=== PATIENT | female | born 1960 | race Caucasian/White ===

== ENCOUNTER 2023-10-05 09:00 | Outpatient (OUT) | payer BC, SELFPAY ==
--- NOTE | 2023-10-05 09:19 | US_ITS ---
[facility] [id number] Patient Name: LALY OLVERA MRN: [id number] date: 1960 Sex: F Assigned Patient Location: US Current Patient Location: US Accession/Order Number: [id number] Exam Date: 10/05/2023 09:20 Report Date: 10/05/2023 13:27 At the request of: PAMELLA WEISS Procedure: US renal BI US renal BI, 10/05/2023 9:20 AM EST INDICATION: Kidney Stone N20.0 COMPARISON: Prior CT of abdomen dated 06/09/2022 FINDINGS: The kidneys measure 11.5 x 5.6 x 5.5 cm on the right and 11 x 4.6 x 4.8 cm on the left side. No hydronephrosis is noted. Normal vascularity of kidneys. Simple cysts in the superior pole of the right kidney measuring 6 mm and inferior pole of the left kidney measures 1.4 cm. 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 The visualized portion of the urinary bladder is unremarkable. Prevoid volume of urinary bladder is 200 mL. US/US renal BI IMPRESSION: No nephrolithiasis is noted. Electronically authenticated by: KRISTEN FRANKLIN Date: 10/05/2023 13:27
== END 2023-10-05 09:01 | disposition home or self-care (01) ==
PROVIDERS: PCP Family Medicine; Visit Provider Urology
DX: N20.0 Calculus of kidney (principal)
CPT/HCPCS: 76775

== ENCOUNTER 2024-02-07 16:37 | Outpatient (OUT) | payer BC, SELFPAY ==
[2024-02-07 17:02] LABS: Estimated Average Glucose 148 mg/dL; Glycohemoglobin A1C 6.8 % (4.5-6.2)
== END 2024-02-07 16:38 | disposition home or self-care (01) ==
LOC: LAB 16:39
PROVIDERS: PCP Family Medicine; Visit Provider Family Medicine
DX: E11.8 Type 2 diabetes mellitus with unspecified complications (principal)
CPT/HCPCS: 36415; 83036

== ENCOUNTER 2024-04-16 10:38 | Emergency (ER) | payer BC, SELFPAY ==
[2024-04-16 10:43] VITALS: BP 153/88; PULSE 79; TEMP 36.4; O2SAT 100; BMI 39.7
--- NOTE | 2024-04-16 11:05 | ED.GENADUL1 ---
HPI HPI - General Adult General Chief complaint: Abdominal Pain Stated complaint: ABDOMINAL PAIN /FALL Time Seen by Provider: 04/16/24 10:47 Source: patient Mode of arrival: walk-in Limitations: no limitations History of Present Illness HPI narrative: Patient presents to ED complaining of left lower rib pain. On Sunday as she was walking into her son's house that she tripped over the lip of the garage floor from coming in from the driveway. She fell forward hard on her chest and left knee. She has ecchymosis and 2 abrasions to the left knee. Complains of left anterior lower chest pain. The pain hurts worse with inspiration coughing sneezing and certain movements. She was seen in urgent care yesterday and they x-rayed the knee but her chest wall pain is worsening so she came in here today for further evaluation. She did not hit her head no loss of consciousness. She is otherwise improving but the left-sided rib pain has actually been worsening over the past couple of days. She is not hypoxic. Related Data Home Medications ?Medication ?Instructions ?Recorded ?Confirmed albuterol sulfate 90 mcg/actuation 2 puff inhalation PRN asthma 04/16/24 04/16/24 aerosol inhaler allopurinol 300 mg tablet 300 mg PO DAILY 04/16/24 04/16/24 duloxetine 60 mg capsule,delayed 60 mg PO DAILY 04/16/24 04/16/24 release glipizide 10 mg tablet 10 mg PO DAILY 04/16/24 04/16/24 tizanidine 4 mg capsule 4 mg PO DAILY 04/16/24 04/16/24 Previous Rx's ?Medication ?Instructions ?Recorded oxycodone-acetaminophen 5 mg-325 1 tab PO Q6H #14 tabs 04/16/24 mg tablet (Percocet) Allergies Allergy/AdvReac Type Severity Reaction Status Date / Time adhesive tape Allergy Intermediate Verified 04/16/24 10:56 Opioid HPI Opioid Management Most Recent Opioid Data: Last Pain Scale 4 04/16/24 12:04 Last ED Pain Assessment 04/16/24 12:04 Last MAR Pain Assessment 04/16/24 11:29 Review of Systems ROS Status of ROS 10 or more systems reviewed and unremarkable except as noted in history and below Exam Narrative Exam Narrative: Time Seen: [] Vital Signs: [Per nurse's notes.] General: [Alert] Skin: [Warm, dry, no rash.] Head: [Normocephalic, atraumatic.] Neck: [Supple, trachea midline.] Eye: [Pupils are equal, round and reactive to light, extraocular movements are intact, normal conjunctiva.] Ears, nose, mouth and throat: oral mucosa moist. Cardiovascular: [Regular rate and rhythm, no murmur.] Respiratory: [Lungs are clear to auscultation, respirations are non-labored, breath sounds are equal.] Chest wall: Tenderness to palpation left lower ribs anteriorly and laterally No crepitus felt Gastrointestinal: [Soft, nontender, non distended, normal bowel sounds.] MSK: 5 out of 5 muscle strength x 4 extremities no calf pain or edema. Swelling and ecchymosis with 2 small abrasions to the left knee. Normal range of motion no acute pain Lymphatics: [No lymphadenopathy.] Psychiatric: [Cooperative, appropriate mood & affect.] Neurological: [Alert and oriented to person, place, time, and situation, no focal neurological deficit observed.] Constitutional Vital Signs, click to edit/add: Last Vital Signs Temp 97.5 F L 04/16/24 10:43 Pulse 79 04/16/24 10:43 Resp 16 04/16/24 10:43 BP 153/88 H 04/16/24 10:43 Pulse Ox 100 04/16/24 10:43 O2 Del Method Room Air 04/16/24 10:43 Course Vital Signs Vital signs: Vital Signs Temperature 97.5 F L 04/16/24 10:43 Pulse Rate 79 04/16/24 10:43 Respiratory Rate 16 04/16/24 10:43 Blood Pressure 153/88 H 04/16/24 10:43 Pulse Oximetry 100 04/16/24 10:43 Oxygen Delivery Method Room Air 04/16/24 10:43 Temperature 97.5 F L 04/16/24 10:43 Pulse Rate 79 04/16/24 10:43 Respiratory Rate 16 04/16/24 10:43 Blood Pressure 153/88 H 04/16/24 10:43 Pulse Oximetry 100 04/16/24 10:43 Oxygen Delivery Method Room Air 04/16/24 10:43 Medical Decision Making MDM Narrative Medical decision making narrative: Will obtain CT chest to evaluate for rib fracture, pulmonary contusion. CT chest is negative for pulmonary contusion or rib fracture. Most likely a rib contusion/strain. Patient's vitals are stable. Patient will be given pain medication for home. Return to ED if worsening symptoms. Patient is comfortable care plan for home Differential Diagnosis Differential Diagnosis: Rib fracture pulmonary contusion rib strain rib sprain Medical Records Medical records reviewed: Yes I reviewed the patient's medical records Imaging Data CT scan - chest: Radiologist's impression: ITS Impressions Chest CT 04/16/24 11:28 IMPRESSION: No acute rib fracture Electronically authenticated by: GENEVA MARK Date: 04/16/2024 12:06 Discharge Plan Discharge Stand Alone Forms: Portal Instructions Chief Complaint: Abdominal Pain Clinical Impression: Rib injury Patient Disposition: Home, Self-Care Time of Disposition Decision: 12:13 Condition: Good Mode of Transportation: Private Vehicle Prescriptions / Home Meds: New oxycodone-acetaminophen [Percocet] 5-325 mg tablet 1 tab PO Q6H Qty: 14 0RF No Action allopurinol 300 mg tablet 300 mg PO DAILY albuterol sulfate 90 mcg/actuation HFA aerosol inhaler 2 puff INHALATION PRN duloxetine 60 mg capsule,delayed release(DR/EC) 60 mg PO DAILY glipizide 10 mg tablet 10 mg PO DAILY tizanidine 4 mg capsule 4 mg PO DAILY Print Language: Icelandic Referrals: Jorge Luis Talyor MD [Primary Care Provider] - 1 week
--- NOTE | 2024-04-16 11:28 | CT_ITS ---
[address] [address] Patient Name: LALY OLVERA MRN: [id number] date: 1960 Sex: F Assigned Patient Location: ER Current Patient Location: Accession/Order Number: [id number] Exam Date: 04/16/2024 11:22 Report Date: 04/16/2024 12:06 At the request of: ENDY BRIZUELA Procedure: CT chest wo con EXAMINATION: CT chest wo con HISTORY: fall, rib trauma COMPARISON: No relevant comparison available. TECHNIQUE: Multi-planar CT images were created with IV contrast. Axial, Coronal, and Sagittal images. Dose reduction techniques were achieved by using automated exposure control and/or adjustment of mA and/or kV according to patient size and/or use of iterative reconstruction technique. FINDINGS: LUNGS: Minimal linear opacities in the left lung base, atelectasis is favored. Scattered punctate pulmonary nodules measuring up to 4 mm, nonspecific PLEURA: No mass, effusion, or pneumothorax. VASCULATURE: No abnormality. NIXON: No mass or adenopathy. MEDIASTINUM: No mass or adenopathy. CARDIAC: No enlargement or pericardial effusion Coronary calcifications: Mild AORTA: No aortic aneurysm. Mild calcific atherosclerosis CHEST WALL: No mass or axillary adenopathy. BONES: No bone lesion or fracture. LIMITED ABDOMEN: Surgical clips from cholecystectomy OTHER: Negative. CT/CT chest wo con IMPRESSION: No acute rib fracture Electronically authenticated by: GENEVA MARK Date: 04/16/2024 12:06
[2024-04-16] MEDS: OXYCODONE HCL/ACETAMINOPHEN 5MG/325MG 1 TAB PO (11:29)
[2024-04-16 12:31] VITALS: BP 133/79; PULSE 72; TEMP 36.7; O2SAT 98
== END 2024-04-16 12:38 | disposition home or self-care (01) ==
PROVIDERS: Emergency Provider Emergency Medicine; PCP Family Medicine
DX: S29.9XXA Unspecified injury of thorax, initial encounter (principal); W01.10XA Fall on same level from slipping, tripping and stumbling with subsequent striking against unspecified object, initial encounter; Z79.899 Other long term (current) drug therapy
CPT/HCPCS: 71250; 99284

== ENCOUNTER 2024-08-27 16:05 | Outpatient (OUT) | payer BC, SELFPAY ==
--- OUTSIDE RECORDS SUMMARY | 2024-08-27 16:23 | XMS_ITS | CCD ---
Author Organization [facility] Care Team Providers Care Corporate Coordinator Name Role Phone PHYSICIAN, DEFAULT Unavailable Unavailable PHYSICIAN, DEFAULT Unavailable Unavailable PHYSICIAN, DEFAULT Unavailable Unavailable PHYSICIAN, DEFAULT Unavailable Unavailable JORGE LUIS WICK Primary Care Physician [phone] NO FAMILY, PHYSICIAN Primary Care Provider Unava ANIA Maurer Attending Provider [phone] Aurelia Ravi Unavailable MD Kelby Bella II Attending Provider Kelby Bella II Unavailable [phone] NO FAMILY, PHYSICIAN Primary Care Provider Unava MD Kelby Manzanares II Attending Provider [phone] MD Jorge Luis Wick Primary Care Provider ISELA ., DR CAN Admitting Unavailable MATOS ., DR CAN Attending Unavailable DELANO, DR JORGE LUIS Arriaga Primary Care Unavailable ISELA ., DR CAN Consulting Unavailable JOSE ANTONIO, DR MAX Nair Consulting Unavailable DELANO, DR JORGE LUIS Arriaga Admitting Unavailable NADEREJoanie, DR JORGE LUIS Arriaga Attending Unavailable NADNABIL, DR JORGE LUIS Arriaga Primary Care Unavailable DELANO, DR JORGE LUIS Arriaga Consulting Unavailable DELANO, DR JORGE LUIS Arriaga Admitting Unavailable DELANO, DR JORGE LUIS Arriaga Attending Unavailable DELANO, DR JORGE LUIS Arriaga Primary Care Unavailable DELANO, DR JORGE LUIS Arriaga Consulting Unavailable DELANO, DR JORGE LUIS Arriaga Primary Care Unavailable YAQUELIN ., ELAINE Admitting Unavailable YAQUELIN ., ELAINE Attending Unavailable YAQUELIN ., ELAINE Consulting Unavailable ISELA ., DR CAN Admitting Unavailable ISELA ., DR CAN Attending Unavailable DELANO, DR JORGE LUIS Arriaga Primary Care Unavailable ISELA ., DR CAN Consulting Unavailable JAS, DR GENEVA Rodney Consulting Unavailable GENEVA HELM Unavailable ISELA ., DR CAN Admitting Unavailable ISELA ., DR CAN Attending Unavailable DELANO, DR JORGE LUIS Arriaga Primary Care Unavailable ISELA ., DR CAN Consulting Unavailable EUSEBIA HIGHTOWER Consulting Unavailable MD Kelby Bella II Attending Provider Patricia Aguilar Unavailable MD Jorge Luis Wick Primary Care Provider MD Kelby Bella II Attending Provider Ella Quinteros Unavailable MD Jorge Luis Wick Primary Care Provider MD Kelby Bella II Attending Provider MD Jorge Luis Wick Primary Care Provider VIKAS Gtz Attending Provider [phone] MD Jorge Luis Wick Primary Care Provider MD Kelby Bella II Attending Provider Jorge Luis Wick Primary Care Unavailable Kassy Gtz Admitting Unavailable Kassy Gtz Attending Unavailable Kelby Bella II Admitting UnavailKelby Gallegos II Attending Unavailsegun e Jorge Luis Wick Primary Care Unavailable Levy MATOS Attending Unavailable Levy MATOS Attending Unavailable JORGE LUIS WICK Attending Unavailable JORGE LUIS WICK Attending Unavailable Allergies Allergy Classification Reported Allergen(s) Allergy Type Date of Onset Reaction(s) Facility Adhesive Tape (1 source) Adhesive Tape Substance Allergy 4 Redness of Skin/Rash [facility] Opioid Agonists (1 source) HYDROcodone Drug Allergy 4 N/V [facility] (1 source) Adhesive agent Drug allergy (disorder) 3 [facility] Repository (1 source) Rocuronium Drug Allergy 3 [facility] (1 source) Acetaminophen Drug Allergy 3 N/V [facility] (6 sources) HYDROcodone Drug Allergy 3 N/V [facility] (7 sources) Zkdujxb-BSV-YoS Reductase Inhibitor Propensity to adverse reactions 3 Muscle Pain [facility] (5 sources) Adhesive Tape Allergy to substance 3 Redness of Skin/Rash [facility] (6 sources) Surgical soap Allergy to substance 3 Rash [facility] (1 source) Adhesive Tape; Translations: [Tape] Propensity to adverse reactions (disorder) [facility] Repository Medications Current Medications Medication Drug Class(es) Dates Sig (Normalized) Sig (Original) acetaminophen 500 mg oral tablet (16 sources) Start: 04-03-2023 take 2 tablets by mouth every eight hours for pain Acetaminophen 500 MG 2 tablets for pain Orally every 8 hrs for 30 days MED TO BED UPON DISCHARGE DOS: 04/17/2023 March, Active Start: 04-03-2023 Acetaminophen (Tylenol Ex Str Arthritis Pain) 500 mg Tablet Active 1000 MG PO Twice daily April 03, 2023 12:00am allopurinol 300 mg oral tablet (3 sources) Xanthine Oxidase Inhibitor Start: 09-10-2023 take 1 tablet by mouth once daily allopurinol 300 mg Tab 300 mg = 1 tab(s), Oral, Daily, # 90 tab(s), Refills(s) 3, Pharmacy: [facility], 158, cm, 09/10/23 15:38:00 EDT, Height/Length Dosing, 94.6, kg, 09/10/23 15:38:00 EDT, Weight Dosing Start Date: 09/10/23 Status: Ordered Start: 08-22-2021 take 1 tablet by jeff th once daily allopurinol 300 mg Tab 300 mg = 1 tab(s), Oral, Daily, # 90 tab(s), Refills(s) 3, Pharmacy: [facility], 158, cm, 08/22/21 15:36:00 EDT, Height/Length Dosing, 76, kg, 08/22/21 15:36:00 EDT, Weight Dosing Start Date: 08/22/21 Status: Ordered aspirin 81 mg oral tablet (5 sources) Platelet Aggregation Inhibitor, Nonsteroidal Anti-inflammatory Drug Start: 04-03-2023 take 1 capsule by mouth twice daily Aspirin 81 MG 1 capsule Orally Twice a day for 35 days MED TO BED UPON DISCHARGE DOS: 04/17/2023 March, Active cefadroxil 500 mg oral capsule (5 sources) Cephalosporin Antibacterial Start: 04-03-2023 take 1 capsule by mouth every twelve hours Cefadroxil 500 MG 1 tablet Orally every 12 hrs for 7 days MED TO BED UPON DISCHARGE DOS: 04/17/2023 March, Active celecoxib 200 mg oral capsule (9 sources) Nonsteroidal Anti-inflammatory Drug Start: 04-03-2023 take 1 capsule by mouth every twelve hours Celecoxib 200 MG 1 capsule with food Orally Twice a day for 30 days MED TO BED UPON DISCHARGE DOS: 04/17/2023 March, Active dexamethasone 4 mg oral tablet (1 source) Corticosteroid Start: 10-24-2022 take 1 tablet by mouth every twenty-four hours Dexamethasone 4 MG 1 tablet Orally Once a day for 5 day(s) Sep, Active docusate sodium 50 mg / sennosides, shelter 8.6 mg oral tablet (5 sources) Start: 04-03-2023 take 2 tablets by mouth every twenty-four hours Senokot S 8.6-50 MG 2 tablets Orally Once a day for 30 days MED TO BED UPON DISCHARGE DOS: 04/17/2023 March, Active doxycycline hyclate 100 mg oral capsule (4 sources) Tetracycline-class Drug Start: 05-31-2023 take 1 capsule by mouth every twelve hours Doxycycline Hyclate 100 MG 1 capsule Orally Twice a day for 14 days May, Active DULoxetine 60 mg delayed release oral capsule (9 sources) Serotonin and Norepinephrine Reuptake Inhibitor Start: 04-03-2023 take 60 mg by mouth once daily at bedtime Duloxetine Active 60 MG PO Daily at bedtime April 03, 2023 12:00am Start: 08-16-2020 DULoxetine 60 mg Cap-EC Refills(s) 0 Start Date: 08/16/20 Status: Ordered DULoxetine 60 mg Cap-EC (1 source) Start: 08-16-2020 DULoxetine 60 mg Cap-EC Refills(s) 0 Start Date: 08/16/20 Status: Ordered gabapentin 800 mg oral tablet (20 sources) Anti-epileptic Agent Start: 04-03-2023 take 800 mg by mouth three times daily Gabapentin Active 800 MG PO Three times daily April 03, 2023 12:00am Start: 10-19-2020 take 1 tablet by jeff th every twenty-four hours Gabapentin 800 MG 1 tablet Orally Once a day for 30 day(s) Sep, Active Start: 08-16-2020 take 1 tablet by jeff th every twenty-four hours Gabapentin 600 MG 1 tablet Orally Once a day for 30 day(s) Sep, Active glipiZIDE 10 mg oral tablet (20 sources) Sulfonylurea Start: 08-16-2020 take 10 mg by mouth twice daily Glipizide Active 10 MG PO Twice daily April 03, 2023 12:00am Start: 08-16-2020 glipiZIDE 10 m g Tab Refills(s) 0 Start Date: 08/16/20 Status: Ordered glipiZIDE Active meloxicam 15 mg oral tablet (14 sources) Nonsteroidal Anti-inflammatory Drug Start: 08-16-2020 meloxicam 15 mg oral tablet Refills(s) 0 Start Date: 08/16/20 Status: Ordered Meloxicam Active methylPREDNISolone 4 mg oral tablet (2 sources) Corticosteroid Start: 04-27-2023 methylPREDNISolone 4 MG as directed Orally for 6 days Apr, Active morphine sulfate 15 mg extended release oral tablet (5 sources) Opioid Agonist Start: 04-03-2023 take 1 tablet by mouth every twelve hours for pain Morphine Sulfate ER 15 MG 1 tablet for breakthrough pain only Orally every 12 hrs for 5 days MED TO BED UPON DISCHARGE DOS: 04/17/2023 March, Active ondansetron 8 mg oral tablet (5 sources) Serotonin-3 Receptor Antagonist Start: 04-03-2023 take 1 tablet by mouth three times daily as needed for nausea Ondansetron HCl 8 MG 1 tablet as needed for nausea Orally Three times a day for 10 days MED TO BED UPON DISCHARGE DOS: 04/17/2023 March, Active oxyCODONE hydrochloride 5 mg oral tablet (5 sources) Opioid Agonist Start: 04-03-2023 take 1 tablet by mouth every four hours as needed for pain oxyCODONE HCl 5 MG 1 tablet as needed for pain Orally every 4 hrs for 10 days MED TO BED UPON DISCHARGE DOS: 04/17/2023 March, Active pantoprazole 20 mg delayed release oral tablet (5 sources) Proton Pump Inhibitor Start: 04-03-2023 take 1 tablet by mouth every twenty-fou r hours Protonix 20 MG 1 tablet Orally Once a day for 30 days MED TO BED UPON DISCHARGE DOS: 04/17/2023 March, Active pioglitazone 30 mg oral tablet (10 sources) Peroxisome Proliferator Receptor alpha Agonist, Peroxisome Proliferator Receptor gamma Agonist, Thiazolidinedione take 1 tablet by mouth every twenty-fou r hours Pioglitazone HCl 30 MG 1 tablet Orally Once a day Active polyethylene glycol 3350 97906 mg powder for oral solution (5 sources) Osmotic Laxative Start: 04-03-2023 MiraLax 17 GM 1 packet mixed with 8 ounces of fluid Orally Once a day for 7 days MED TO BED UPON DISCHARGE DOS: 04/17/2023 March, Active potassium citrate 10 meq extended release oral tablet (1 source) Start: 09-10-2023 take 2 tablets by mouth three times daily potassium CITRATE 10 mEq ER Tab 20 mEq, 2 tab(s), Oral, TID, 180 tab(s), Refill(s) 11, [facility], 158, cm, 09/10/23 15:38:00 EDT, Height/Length Dosing, 94.6, kg, 09/10/23 15:38:00 EDT, Weight Dosing Start Date: 09/10/23 Status: Ordered sodium bicarbonate 650 mg oral tablet (14 sources) Start: 09-10-2023 take 3 tablets by mouth once daily sodium bicarbonate 650 mg Tab 1,950 mg = 3 tab(s), Oral, Daily, # 90 tab(s), Refills(s) 11, Pharmacy: [facility], 158, cm, 09/10/23 15:38:00 EDT, Height/Length Dosing, 94.6, kg, 09/10/23 15:38:00 EDT, Weight Dosing Start Date: 09/10/23 Status: Ordered Start: 08-28-2022 take 3 tablets by [facility] once daily sodium bicarbonate 650 mg Tab 1,950 mg = 3 tab(s), Oral, Daily, # 60 tab(s), Refills(s) 0 Start Date: 08/28/22 Status: Ordered Start: 08-22-2021 End: 08-17-2022 take 3 tablets by mouth three times daily sodium bicarbonate 650 mg Tab 1,950 mg = 3 tab(s), Oral, TID, X 90 day(s), # 810 tab(s), Refills(s) 3, Pharmacy: [facility], 158, cm, 08/22/21 15:36:00 EDT, Height/Length Dosing, 76, kg, 08/22/21 15:36:00 EDT, Weight Dosing Start Date: 08/22/21 Stop Date: 08/17/22 Status: Ordered take 2 tablets by [facility] every eight hours Sodium Bicarbonate 325 MG 2 tablets Orally Three times a day Active tiZANidine 4 mg oral capsule (10 sources) Central alpha-2 Adrenergic Agonist Start: 08-16-2020 take 4 mg by mouth three times daily Tizanidine Active 4 MG PO Three times daily April 03, 2023 12:00am traMADol hydrochloride 50 mg oral tablet (12 sources) Opioid Agonist Start: 04-03-2023 take 1 tablet by mouth every six hours as needed for pain traMADol HCl 50 MG 1 tablet as needed for pain Orally every 6 hrs for 10 days MED TO BED UPON DISCHARGE DOS: 04/17/2023 March, Active Start: 04-03-2023 take 50 mg by mouth four times daily Tramadol Active 50 MG PO Four times daily April 03, 2023 12:00am Vitamin D (4 sources) Start: 08-22-2021 Vitamin D Inte rnational_Unit, Oral, qWeek, Refills(s) 0 Start Date: 08/22/21 Status: Ordered Vitamin D Active Completed/Discontinued Medications Medication Drug Class(es) Dates Sig (Normalized) Sig (Original) Ketorolac (11 sources) Nonsteroidal Anti-inflammatory Drug, Cyclooxygenase Inhibitor Start: 07-08-2016 Toradol per 15 mg Jun, 60 mg potassium bicarbonate 25 meq effervescent oral tablet (1 source) Start: 08-28-2022 take 1 tablet by mouth twice daily Effer-K 25 mEq oral tablet, effervescent 25 mEq = 1 tab(s), Oral, BID, # 60 tab(s), Refills(s) 11, Pharmacy: [facility], 158, cm, 08/28/22 15:39:00 EDT, Height/Length Dosing, 76, kg, 08/28/22 15:39:00 EDT, Weight Dosing Start Date: 08/28/22 Status: Ordered triamcinolone acetonide 32 mg injection (10 sources) Corticosteroid Start: 12-29-2022 Zilretta Dec, 32 mg Problems Active Problems Problem Classification Problem Date Documented Date Episodic/Chronic Allergic reactions (2 sources) Allergic contact dermatitis, unspecified cause Episodic Asthma (3 sources) Asthma 08-13-2020 Chronic Calculus of urinary tract (10 sources) Kidney stone; Translations: [Calculus of kidney] Onset: 06-05-2022 08-13-2020 Episodic Diabetes mellitus with complications (5 sources) Type 2 diabetes mellitus with hyperglycemia; Translations: [TYPE 2 DM W/HYPERGLYCEMIA] Onset: 05-04-2022 Chronic Diabetes mellitus without complication (3 sources) Diabetes mellitus 08-13-2020 Chronic Diabetes mellitus without complication (1 source) Glycosuria Episodic Genitourinary symptoms and ill-defined conditions (1 source) Dysuria Episodic Nutritional deficiencies (1 source) Vitamin D deficiency, unspecified; Translations: [VITAMIN D DEFICIENCY UNSPECIFIED] Onset: 02-17-2023 Chronic Osteoarthritis (13 sources) Osteoarthritis of right knee joint; Translations: [Unilateral primary osteoarthritis, right knee] Onset: 02-17-2023 Chronic Osteoporosis (9 sources) Primary osteoporosis; Translations: [Age-related osteoporosis without current pathological fracture] Chronic Other aftercare (8 sources) Patient encounter status; Translations: [Aftercare following joint replacement surgery] 07-16-2024 Chronic Other aftercare (6 sources) Aftercare following joint replacement surgery; Translations: [Aftercare following joint replacement] Onset: 07-17-2024 Chronic Other connective tissue disease (6 sources) Artificial knee joint present; Translations: [Presence of right artificial knee joint] Chronic Other connective tissue disease (6 sources) History of total knee arthroplasty; Translations: [Presence of right artificial knee joint] Chronic Other connective tissue disease (7 sources) Presence of right artificial knee joint; Translations: [Presence of right artificial knee joint] Onset: 07-17-2024 Chronic Other injuries and conditions due to external causes (1 source) Unspecified injury of right ankle, initial encounter Episodic Other non-traumatic joint disorders (1 source) Pain in right knee Episodic Other non-traumatic joint disorders (4 sources) Anterior knee pain; Translations: [Pain in left knee] 04-15-2024 Episodic Superficial injury; contusion (4 sources) Contusion, knee and lower leg; Translations: [Contusion of left knee, initial encounter] 04-15-2024 Episodic Urinary tract infections (6 sources) Urinary tract infectious disease; Translations: [Urinary tract infection, site not specified] Onset: 06-23-2022 Episodic Past or Other Problems Problem Classification Problem Date Documented Date Episodic/Chronic Abdominal pain (5 sources) Unspecified abdominal pain; Translations: [UNSPECIFIED ABDOMINAL PAIN] Onset: 06-07-2022 Episodic Conditions associated with dizziness or vertigo (1 source) Dizziness and giddiness; Translations: [DIZZINESS AND GIDDINESS] Onset: 05-04-2022 Episodic Fluid and electrolyte disorders (1 source) Dehydration; Translations: [DEHYDRATION] Onset: 05-04-2022 Episodic Nausea and vomiting (3 sources) Nausea with vomiting, unspecified; Translations: [NAUSEA WITH VOMITING UNSPECIFIED] Onset: 04-30-2022 Episodic Other aftercare (1 source) 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 [address] [place] [address] XRay Report Signed Patient: Rhona Taveras MR#: [id number] 69 : 1960 Acct:[id number] Age/Sex: 64 / F ADM Date: 07/17/24 Loc: [facility] [place] Room: Type: [facility] Attending Dr: Kelby Bella II, MD Copies to: Kelby Bella MD Ordering Provider: Kelby Bella MD Date of Service: 07/17/24 XR/XR knee RT 2V: Z47.1 - Aftercare following joint replacement surgery RIGHT KNEE - 2 views CLINICAL HISTORY: Follow-up right TKA. COMPARISON: Right knee 07/18/2023 FINDINGS: Small joint effusion. No hardware complication or acute bony process. XR/XR knee RT 2V IMPRESSION: NO HARDWARE COMPLICATION. Impression dictated by: Austin Pak Jr., D.O.07/17/2024 1:57 PM Dictation Location: RADIO-PC-08 Transcribed By: KIANA 07/17/24 1357 Dictated By: Austin Pak Jr, DO 07/17/24 1357 Signed By: 07/17/24 1357 Normal [facility] XR knee LT 4V*on 04-15-2024 XR knee LT 4V* [facility] [place] [address] [place] [address] XRay Report Signed Patient: Rhona Taveras MR#: [id number] 69 : 1960 Acct:[id number] Age/Sex: 64 / F ADM Date: 04/15/24 Loc: [facility] Room: Type: [facility] Attending Dr: Kassy Gtz FACILITY SERVICE ASSOCIATE Copies to: Kassy Gtz APRN Ordering Provider: Kassy Gtz APRN Date of Service: 04/15/24 XR/XR knee LT 4V*: LEFT KNEE PAIN LEFT KNEE - 5 views CLINICAL HISTORY: Left knee pain status post fall. 2 days ago COMPARISON: None FINDINGS: No knee joint effusion. Calcified loose bodies are seen posteriorly. Mild degenerative changes without acute bony process. XR/XR knee LT 4V* IMPRESSION: MILD DEGENERATIVE CHANGES OF THE LEFT KNEE WITHOUT ACUTE BONY PROCESS. Impression dictated by: Austin Pak Jr., D.O.04/15/2024 12:11 PM Dictation Location: RADIO-PC-15 Transcribed By: KIANA 04/15/24 1211 Dictated By: Austin Pak Jr, DO 04/15/24 1209 Signed By: 04/15/24 1211 Normal [facility] RAD - Ultrasound Reporton RAD - Ultrasound Report [id number] Normal [facility] Provider Letteron 09-11-2023 Provider Letter (Inserted Image. Flor ble to display) September 11, 2023 RHONA [place]AS [address] [place] [address] : 1960 To Whom It May Concern, Please excuse above patient from work. Date of Appointment: From: 09/10/2023 To: _ May Return to Work On: 09/11/2023 Restrictions: none Comments: Any questions, please call our office. Sincerely, [facility] [address], [place] [address] [facility] Ambulatory Visit Summaryon 1 Ambulatory Visit Summary RHONA TAVERAS :1960 Visit Date:09/10/2023 Ambulatory Visit Instructions Your Diagnosis Kidney stone UTI (urinary tract infection) Tests Performed Urnls Dip Stick Auto w/o Microscopy POC 36034 US Renal -- Results Pending -- Please visit your patient portal for your results or contact your primary care physician. Your Care Team Attending Physician - ISELA MINAYA, Levy Nair Primary Care Physician - DELANO MINAYA, JORGE LUIS This Is Your Medications List allopurinol (allopurinol 300 mg Tab) potassium citrate (potassium CITRATE 10 mEq ER Tab) sodium bicarbonate (sodium bicarbonate 650 mg Tab) Contact prescribing physician if questions or concerns duloxetine (DULoxetine 60 mg Cap-EC) ergocalciferol (Vitamin D) glipiZIDE (glipiZIDE 10 mg Tab) meloxicam (meloxicam 15 mg oral tablet) tizanidine (tizanidine 4 mg oral capsule) [Image Removed: STOP]Stop taking these medications potassium bicarbonate (Effer-K 25 mEq oral tablet, effervescent) Procedures Performed Knee replacement (2022), ESWL - Extracorporeal shock wave lithotripsy of bile duct calculus (03/11/2015), Cystoscopy (07/15/2013), Percutaneous nephrolithotomy (07/08/2013), Cystoscopy (06/05/2013), Cystoscopy (10/24/2011), ESWL - Extracorporeal shock wave lithotripsy of bile duct calculus (08/24/2011), Cystoscopy (08/17/2011), ESWL - Extracorporeal shock wave lithotripsy of bile duct calculus (06/01/2011), Cystoscopy (05/16/2011), Cystoscopy (10/27/2008), Cystoscopy (09/24/2008), Cystoscopy (07/04/2007), Cystoscopy (06/26/2007), Cystoscopy (06/05/2007), Cystoscopy (04/16/2007), Cystoscopy (03/27/2007), Cystoscopy (02/13/2007), Cystoscopy (12/19/2006), Cystoscopy (11/22/2006), Carpal tunnel, Cataract, Cholecystectomy, Hysterectomy, Knee injury. Discharge Vitals Heart Rate (Peripheral) 80 Respiratory Rate 16 Blood Pressure 133/78 Height 158 cm Height 62 in Weight 94.6 kg Weight 208.12 lb BMI 37.89 What to do next Scheduled Follow-Up Appointments Sunday 10:15 AM EDT With: ISELA MINAYA, Levy Nair Where: [facility] Patient Educationon 09-10-20 23 Patient Education Nephrology Dietary Guidelines to Help Prevent Kidney Stones Kidney stones are deposits of minerals and salts that form inside your kidneys. Your risk of developing kidney stones may be greater depending on your diet, your lifestyle, the medicines you take, and whether you have certain medical conditions. Most people can lower their chances of developing kidney stones by following the instructions below. Your dietitian may give you more specific instructions depending on your overall health and the type of kidney stones you tend to develop. What are tips for following this plan? Reading food labels ? Choose foods with no salt added or low-salt labels. Limit your salt (sodium) intake to less than 1,500 mg a day. ? Choose foods with calcium for each meal and snack. Try to eat about 300 mg of calcium at each meal. Foods that contain 200?500 mg of calcium a serving include: ? 8 oz (237 mL) of milk, mhyxyeu-scvwzheyacqb-xnzqe milk, and calcium-fortifiedfruit juice. Calcium-fortified means that calcium has been added to these drinks. ? 8 oz (237 mL) of kefir, yogurt, and soy yogurt. ? 4 oz (114 g) of tofu. ? 1 oz (28 g) of cheese. ? 1 cup (150 g) of dried figs. ? 1 cup (91 g) of cooked broccoli. ? One 3 oz (85 g) can of sardines or mackerel. Most people need 1,000?1,500 mg of calcium a day. Talk to your dietitian about how much calcium is recommended for you. Shopping ? Buy plenty of fresh fruits and vegetables. Most people do not need to avoid fruits and vegetables, even if these foods contain nutrients that may contribute to kidney stones. ? When shopping for convenience foods, choose: ? Whole pieces of fruit. ? Pre-made salads with dressing on the side. ? Low-fat fruit and yogurt smoothies. ? Avoid buying frozen meals or prepared deli foods. These can be high in sodium. ? Look for foods with live cultures, such as yogurt and kefir. ? Choose high-fiber grains, such as whole-wheat breads, oat bran, and wheat cereals. Cooking ? Do not add salt to food when cooking. Place a salt shaker on the table and allow each person to add his or her own salt to taste. ? Use vegetable protein, such as beans, textured vegetable protein (TVP), or tofu, instead of meat in pasta, casseroles, and soups. Meal planning ? Eat less salt, if told by your dietitian. To do this: ? Avoid eating processed or pre-made food. ? Avoid eating fast food. ? Eat less animal protein, including cheese, meat, poultry, or fish, if told by your dietitian. To do this: ? Limit the number of times you have meat, poultry, fish, or cheese each week. Eat a diet free of meat at least 2 days a week. ? Eat only one serving each day of meat, poultry, fish, or seafood. ? When you prepare animal protein, cut pieces into small portion sizes. For most meat and fish, one serving is about the size of the palm of your hand. ? Eat at least five servings of fresh fruits and vegetables each day. To do this: ? Keep fruits and vegetables on hand for snacks. ? Eat one piece of fruit or a handful of berries with breakfast. ? Have a salad and fruit at lunch. ? Have two kinds of vegetables at dinner. ? Limit foods that are high in a substance called oxalate. These include: ? Spinach (cooked), rhubarb, beets, sweet potatoes, and Ivorian chard. ? Peanuts. ? Potato chips, bulgarian fries, and baked potatoes with skin on. ? Nuts and nut products. ? Chocolate. ? If you regularly take a diuretic medicine, make sure to eat at least 1 or 2 servings of fruits or vegetables that are high in potassium each day. These include: ? Avocado. ? Banana. ? Titus, prune, carrot, or tomato juice. ? Baked potato. ? Cabbage. ? Beans and split peas. Lifestyle ? Drink enough fluid to keep your urine pale yellow. This is the most important thing you can do. Spread your fluid intake throughout the day. ? If you drink alcohol: ? Limit how much you use to: ? 0?1 drink a day for women who are not . ? 0?2 drinks a day for men. ? Be aware of how much alcohol is in your drink. In the [place] one drink equals one 12 oz bottle of beer (355 mL), one 5 oz glass of wine (148 mL), or one 1? oz glass of hard liquor (44 mL). ? Lose weight if told by your health care provider. Work with your dietitian to find an eating plan and weight loss strategies that work best for you. General information ? Talk to your health care provider and dietitian about taking daily supplements. You may be told the following depending on your health and the cause of your kidney stones: ? Not to take supplements with vitamin C. ? To take a calcium supplement. ? To take a daily probiotic supplement. ? To take other supplements such as magnesium, fish oil, or vitamin B6. ? Take [id number] and prescription medicines only as told by your health care provider. These include supplements. What foods should I limit? Limit your in (more content not included)... Normal [facility] Urology Office/Clinic Noteon 09-10-2023 Urology Office/Clinic Note Chief Complaint 1yr HPI Staff 63 yo female here for 1 yr f/u with KUB. Previous Dx: kidney stone, UTI. Began taking Effer-K 25mEq bid at prior OV. Has been taking Allopurinol 300mg qd & Sodium Bicarb 4tabs TID. Per last encounter, UA was to be rechecked in 2 mo. (No record in her chart) & pt was to return for today's appt w/KUB. However, reason for visit states that pt's stones are not visible on KUB images, so no KUB. Did have UA checked by PCP 04/03/23 pH 6.5 (5.0-9.0) CBC & BMP also done 04/03/23 Denies signs/symptoms of Kidney Stone. Denies urinary concerns. History of Present Illness Tests reviewed: reviewed UA and KUB. I have reviewed the previous health record information and history for this patient from . I have reviewed and verified the staff HPI to be accurate for this encounter. There have been no associated fever, chills, flank pain, or blood in the urine. Denies any urinary infections since last encounter. Review of Systems PHQ Score Initial Depression Screen Score: 0 ROS - Provider Constitutional: denies weight loss, denies hot flashes. Eyes: denies eye problems. Gastrointestinal: denies nausea, denies vomiting. Cardiovascular: denies chest pain or angina. Integumentary: no dryness Musculoskeletal: denies musculoskeletal symptoms. ENMT: denies otolaryngeal symptoms. Respiratory: no shortness of breath. Heme/Lymph: denies easy bleeding tendency, denies easy bruising tendency. Psychiatric: no confusion, no anxiety. Genitourinary: See HPI. Physical Exam Vitals & Measurements HR: 80(Peripheral) RR: 16 BP: 133/78 HT: 62 in HT: 158 cm WT: 94.6 kg WT: 208.12 lb BMI: 37.89 General Appearance: alert , no acute distress, well nourished, well developed female. Genitourinary: bladder nonpalpable, no flank pain. Assessment/Plan 1. Kidney stone (N20.0: Calculus of kidney) Pt had IVP done 06/26/2022, CT 06/09/2022, and DEJA 06/05/2022 and was negative for stones. Allopurinol 300mg qd and Sodium Bicarb 3 tabs TID. Pt was to start Effer-K 25 mEq BID. PH today is 5.0 Pt was to return for today's appt w/KUB. However, reason for visit states that pt's stones are not visible on KUB images, so pt was told to not get a KUB. Did have UA checked by PCP 04/03/23 pH 6.5 (5.0-9.0) CBC & BMP also done 04/03/23 - Potassium 4.0 Denies signs/symptoms of Kidney Stone. Denies urinary concerns. Pt states that she was given powdered form of Effer-K. Discussed increasing the Effer-K to TID. Pt states that she Discussed getting a DEJA or CT scan done instead of a KUB. Pt states that she would like to get a DEJA done. Follow up in 1 yr All questions/concerns were discussed. Pt to call the office if she encounters any issues prior. Pt acknowledges understanding. -Will order DEJA. -Will get Electrolytes in 2 mos. -Will d/c Effer-K and Start Potassium Citrate 10mEq, 2 tabs TID. Discussed the medication side effects, and the patient will monitor closely for these, as well as for symptom improvement. If severe side effects occur, the medication should be stopped and the office notified. Follow-up With When Contact Information ISELA MINAYA, KADI Ortiz In 1 year [facility] [address], [place] [id number]- Additional Instructions: w/DEJA Patient Education Dietary Guidelines to Help Prevent Kidney Stones I, Arminda Yoo , personally scribed for Dr. Matos on 09/10/2023 16:23:35. . Documentation recorded by the scribe, Arminda Yoo, accurately reflects the services(s) I performed and decisions made by me. Problem List/Past Medical History Ongoing Asthma Diabetes Kidney stone UTI (urinary tract infection) Historical No qualifying data Procedure/Surgical History Knee replacement (2022), ESWL - Extracorporeal shock wave lithotripsy of bile duct calculus (03/11/2015), Cystoscopy (07/15/2013), Percutaneous nephrolithotomy (07/08/2013), Cystoscopy (06/05/2013), Cystoscopy (10/24/2011), ESWL - Extracorporeal shock wave lithotripsy of bile duct calculus (08/24/2011), Cystoscopy (08/17/2011), ESWL - Extracorporeal shock wave lithotripsy of bile duct calculus (06/01/2011), Cystoscopy (05/16/2011), Cystoscopy (10/27/2008), Cystoscopy (09/24/2008), Cystoscopy (07/04/2007), Cystoscopy (06/26/2007), Cystoscopy (06/05/2007), Cystoscopy (04/16/2007), Cystoscopy (03/27/2007), Cystoscopy (02/13/2007), Cystoscopy (12/19/2006), Cystoscopy (11/22/2006), Carpal tunnel, Cataract, Cholecystectomy, Hysterectomy, Knee injury. Medications allopurinol 300 mg Tab, 300 mg= 1 tab(s), Oral, Daily, 3 refills DULoxetine 60 mg Cap-EC glipiZIDE 10 mg Tab meloxicam 15 mg oral tablet potassium CITRATE 10 mEq ER Tab, 20 mEq= 2 tab(s), Oral, TID, 11 refills sodium bicarbonate 650 mg Tab, 1950 mg= 3 tab(s), Oral, Daily, 11 refills tizanidine 4 mg oral capsule Vitamin D, Oral, qWeek Allergies Tape (Unknown) Social History (more content not included)... Normal [facility] Comment on above: Result Comment: Elec tronically Signed By: ISELA MINAYA, Levy Nair\.br\Date and Time Signed: 09/10/23 16:25 EDT\.br\Electronically Co-Signed By: Arminda Yoo\.br\Date and Time Co-Signed: 09/10/23 16:23 EDT Urinalysis - AUTOMATEDon Appearance (U) clear [facility] Other Bilirubin Ql (U) Negative [employer] Other Color (U) yellow [employer] Other Glucose Ql (U) 250mg [facility] Other Hemoglobin Ql (U) Negative [employer] Other Ketones Ql (U) Negative [facility] Other Leukocyte esterase Test strip Ql (U) Negative [facility] Other Nitrite Ql (U) Negative [facility] Other pH (U) 5.0 [pH] [facility] Other Protein Ql (U) Negative [facility] Other Specific gravity (U) [Rel density] >1.030 [facility] Other Urobilinogen (U) [Mass/Vol] 0.2 mg/dL [facility] Other Urinalysis - AUTOMATED [facility] Other XR knee RT 3Von 05-31-2023 XR knee RT 3V [facility] [employer] Other XR knee RT 3V [facility] [employer] Other XR knee RT 3V [address] [place] [address] [employer] Other XR knee RT 3V [address] [employer] Other XR knee RT 3V XRay Report [facility] Other XR knee RT 3V Signed [facility] Other XR knee RT 3V Patient: Edna Taveras MR#: [id number] [facility] Other XR knee RT 3V 69 [facility] Other XR knee RT 3V : 1960 Acct:[id number] [employer] Other XR knee RT 3V Age/Sex: 63 / F ADM Date: 05/31/23 [employer] Other XR knee RT 3V Loc: [facility] Room: Type : [facility] [employer] Other XR knee RT 3V Attending Dr: Kelby Bella II, MD [facility] Other XR knee RT 3V Copies to: Kelby Bella MD [facility] Other XR knee RT 3V Ordering Provider: Joanie Bella MD [facility] Other XR knee RT 3V Date of Service: 05/31/23 [facility] Other XR knee RT 3V [id number]) XR/XR knee RT 3V - NOT FOR ER USE: History of total right knee [facility] Other XR knee RT 3V replacement [facility] Other XR knee RT 3V RIGHT KNEE - 3 views N [employer] Other XR knee RT 3V COMPARISON: 04/17/2023 [facility] Other XR knee RT 3V CLINICAL DATA: Follo w-up knee prosthesis [facility] Other XR knee RT 3V Weightbearing AP, la teral and sunrise views were obtained. A knee prosthesis is again visualized. [facility] Other XR knee RT 3V The hardware appears intact and unchanged from the prior. There is no patellar subluxation. No [facility] Other XR knee RT 3V acute fracture or dislocation is noted. There is a knee effusion. There is mild soft tissue [facility] Other XR knee RT 3V swelling. [facility] Other XR knee RT 3V X R/XR knee RT 3V - NOT FOR ER USE [facility] Other XR knee RT 3V IMPRESSION: [facility] Other XR knee RT 3V STABLE KNEE REPLACEMENT. [facility] Other XR knee RT 3V Impression dictated by: Bree Dukes M.D.05/31/2023 2:51 PM [facility] Other XR knee RT 3V Dictation Location: [facility]- [facility] Other XR knee RT 3V Transcribed By: PWS 05/31/23 [facility] Other XR knee RT 3V Dictated By: Bree Dukes MD 05/31/23 [facility] Other XR knee RT 3V Signed By: [facility] Other XR knee RT 3V 05/31/[address] [place] [address] [employer] Other Glucose Glucometer (BldC) [M ass/Vol]Ordered By: Kelby Bella on 04-17-2023 Glucose [Mass/Vol] 155 mg/dL [facility] Comment on above: Random Glucose Refer ence Range is dependent on time and content of last meal. Glucose of more than 200 mg/dL in a nonstressed, ambulatory subject supports the diagnosis of Diabetes Mellitus. No Panel InformationOrdered By: Kelby Bella on 04-17-2023 Bedside Glucose Comment Glu2: cleaned meter [facility] Automated erythrocytes count in urine sediment (number/area)Ordered By: Kelby Bella on 04-03-2023 RBC Auto (Urine sed) [#/Area] 1-2 [HPF] 0-4 [facility] Automated leukocytes count i n urine sediment (number/area)Ordered By: Kelby Bella on 04-03-2023 WBC Auto (Urine sed) [#/Area] 5-9 [HPF] 0-4 [facility] Basophils Auto (Bld) [#/Vol] Ordered By: Kelby Bella on 04-03-2023 Basophils (Bld) [#/Vol] 0.1 10*3/uL 0.0-0.2 [facility] Basophils/100 WBC Auto (Bld) Ordered By: Kelby Bella on 04-03-2023 Basophils/100 WBC (Bld) 0.9 % . [facility] Bilirubin Test strip Ql (U)O rdered By: Kelby Bella on 04-03-2023 Bilirubin Ql (U) Negative Negative [facility] Calcium [Mass/volume] in Ser um or PlasmaOrdered By: Kelby Bella on 04-03-2023 Calcium [Mass/Vol] 8.9 mg/dL 8.6-10.3 [facility] Carbon dioxide, total [Moles /volume] in Serum or PlasmaOrdered By: Kelby Bella on 04-03-2023 CO2 [Moles/Vol] 29.6 mmol/L 21.0-31.0 [facility] Chloride [Moles/volume] in S kane or PlasmaOrdered By: Kelby Bella on 04-03-2023 Chloride [Moles/Vol] 105 mmol/L 98-107 [facility] Color Auto (U)Ordered By: Alisa Bella on 04-03-2023 Color (U) Yellow Yellow [facility] Creatinine [Mass/volume] in Serum or PlasmaOrdered By: Kelby Bella on 04-03-2023 Creatinine [Mass/Vol] 0.65 mg/dL 0.60-1.20 [facility] Eosinophils Auto (Bld) [#/Vo l]Ordered By: Kelby Bella on 04-03-2023 Eosinophils (Bld) [#/Vol] 0.4 10*3/uL 0.0-0.45 [facility] Eosinophils/100 WBC Auto (Bl d)Ordered By: Kelby Bella on 04-03-2023 Eosinophils/100 WBC (Bld) 4.7 % . [facility] Erythrocyte distribution wid th Auto (RBC) [Ratio]Ordered By: Kelby Bella on 04-03-2023 Erythrocyte distribution width (RBC) [Ratio] 13.8 % 11.9-15.3 [facility] Fructosamine [Moles/volume] in Serum or PlasmaOrdered By: Kelby Bella on 04-03-2023 Fructosamine [Moles/Vol] 293 umol/L 0-285 [facility] Comment on above: Published reference interval for apparently healthysubjects between age 20 and 60 is 205 - 285 umol/L and in apoorly controlled diabetic population is 228 - 563 umol/Lwith a mean of 396 umol/L.Performed at: - [facility] [id number] Director: Davis Wiggins PhD, Phone: [phone] Glucose [Mass/volume] in Ser um or PlasmaOrdered By: Kelby Bella on 04-03-2023 Glucose [Mass/Vol] 173 mg/dL 70-100 [facility] Comment on above: ADA recommended refe rence rangeRandom Glucose Reference Range is dependent on time and content of last meal. Glucose of more than 200 mg/dL in a nonstressed, ambulatory subject supports the diagnosis of Diabetes Mellitus. Hematocrit Auto (Bld) [Volum e fraction]Ordered By: Kelby Bella on 04-03-2023 Hematocrit (Bld) [Volume fraction] 34.5 % 34.0-46.4 [facility] Hemoglobin [Mass/volume] in BloodOrdered By: Kelby Bella on 04-03-2023 Hemoglobin (Bld) [Mass/Vol] 11.7 g/dL 11.8-15.4 [facility] Ketones Auto test strip (U) [Mass/Vol]Ordered By: Kelby Bella on 04-03-2023 Ketones (U) [Mass/Vol] Negative Negative [facility] Laboratory - UrinalysisOrder ed By: Kelby Bella on 04-03-2023 Hyaline casts LM Ql (Urine sed) 0-8 [LPF] 0-8 [facility] Leukocytes [#/volume] correc med for nucleated erythrocytes in Blood by Automated counOrdered By: Kelby Bella on 04-03-2023 WBC corrected for nucl RBC Auto (Bld) [#/Vol] 7.8 10*3/uL 3.8-11.6 [facility] Lymphocytes Auto (Bld) [#/Vo l]Ordered By: Kelby Bella on 04-03-2023 Lymphocytes (Bld) [#/Vol] 1.8 10*3/uL 1.00-4.8 [facility] Lymphocytes/100 WBC Auto (Bl d)Ordered By: Kelby Bella on 04-03-2023 Lymphocytes/100 WBC (Bld) 23.0 % . [facility] MCH Auto (RBC) [Entitic mass ]Ordered By: Kelby Bella on 04-03-2023 MCH (RBC) [Entitic mass] 29.1 pg 24.7-34.3 [facility] MCHC Auto (RBC) [Mass/Vol]Or dered By: Kelby Bella on 04-03-2023 MCHC (RBC) [Mass/Vol] 34.0 g/dL 32.0-35.0 [facility] MCV Auto (RBC) [Entitic vol] Ordered By: Kelby Bella on 04-03-2023 MCV (RBC) [Entitic vol] 85.6 fL 80-100 [facility] Monocytes Auto (Bld) [#/Vol] Ordered By: Kelby Bella on 04-03-2023 Monocytes (Bld) [#/Vol] 0.4 10*3/uL 0.0-0.8 [facility] Monocytes/100 WBC Auto (Bld) Ordered By: Kelby Bella on 04-03-2023 Monocytes/100 WBC (Bld) 5.6 % . [facility] Neutrophils Auto (Bld) [#/Vo l]Ordered By: Kelby Bella on 04-03-2023 Neutrophils (Bld) [#/Vol] 5.1 10*3/uL 1.8-7.7 [facility] Neutrophils/100 WBC Auto (Bl d)Ordered By: Kelby Bella on 04-03-2023 Neutrophils/100 WBC (Bld) 65.8 % . [facility] Nitrite Test strip Ql (U)Ord ered By: Kelby Bella on 04-03-2023 Nitrite Ql (U) Negative Negative [facility] No Panel InformationOrdered By: Kelby Bella on 04-03-2023 Estimated GFR (CKD-EPI) > 60.0 mL/Min [facility] Creatinine Clearance (Chem N/A [facility] Nucleated erythrocytes [Pres ence] in Blood by Automated countOrdered By: Kelby Bella on 04-03-2023 Nucleated RBC Auto Ql (Bld) 0.0 /100{WBC} 0-0.5 [facility] Platelet mean volume Auto (B ld) [Entitic vol]Ordered By: Kelby Bella on 04-03-2023 Platelet mean volume (Bld) [Entitic vol] 8.4 fL 6.3-10.7 [facility] Platelets Auto (Bld) [#/Vol] Ordered By: Kelby Bella on 04-03-2023 Platelets (Bld) [#/Vol] 204 10*3/uL 150-450 [facility] Potassium [Moles/volume] in Serum or PlasmaOrdered By: Kelby Bella on 04-03-2023 Potassium [Moles/Vol] 4.0 mmol/L 3.5-5.1 [facility] Protein Auto test strip (U) [Mass/Vol]Ordered By: Kelby Bella on 04-03-2023 Protein (U) [Mass/Vol] Negative Negative [facility] RBC Auto (Bld) [#/Vol]Ordere d By: Kelby Bella on 04-03-2023 RBC (Bld) [#/Vol] 4.03 10*6/uL 3.60-5.00 [facility] Serum or plasma anion gap de terminationOrdered By: Kelby Bella on 04-03-2023 Anion gap [Moles/Vol] 11.4 mmol/L 6.0-15.0 [facility] Sodium [Moles/volume] in Ser um or PlasmaOrdered By: Kelby Bella on 04-03-2023 Sodium [Moles/Vol] 142 mmol/L 136-145 [facility] Specific gravity Auto test s trip (U) [Rel density]Ordered By: Kelby Bella on 04-03-2023 Specific gravity (U) [Rel density] 1.023 1.001-1.03 0 [facility] Squamous epithelial cells de tection in urine sediment by light microscopyOrdered By: Kelby Bella on 04-03-2023 Epithelial cells.squamous LM Ql (Urine sed) 0-1 [HPF] 0-2 [facility] Urea nitrogen [Mass/volume] in Serum or PlasmaOrdered By: Kelby Bella on 04-03-2023 Urea nitrogen [Mass/Vol] 21 mg/dL 7-25 [facility] Urine bacteria detection by automated methodOrdered By: Kelby Bella on 04-03-2023 Bacteria Auto Ql (U) None seen None Seen [facility] Urine clarity by refractomet ry automatedOrdered By: Kelby Bella on 04-03-2023 Clarity Refractometry automated (U) Clear Clear [facility] Urine culture routineOrdered By: Kelby Bella on 04-03-2023 Bacteria identified Cx Nom (U) 2 Days [facility] Urine glucose measurement by automated test strip (mass/volume)Ordered By: Kelby Bella on 04-03-2023 Glucose Auto test strip (U) [Mass/Vol] Normal mg/dL Normal [facility] Urine hemoglobin detection b y automated test stripOrdered By: Kelby Bella on 04-03-2023 Hemoglobin Auto test strip Ql (U) Negative Negative [facility] Urine leukocyte esterase det ection by automated test stripOrdered By: Kelby Bella on 04-03-2023 Leukocyte esterase Auto test strip Ql (U) 2+ Negative [facility] Urobilinogen Auto test strip (U) [Mass/Vol]Ordered By: Kelby Bella on 04-03-2023 Urobilinogen (U) [Mass/Vol] mg/dL Normal [facility] WBC Auto (Bld) [#/Vol]Ordere d By: Kelby Bella on 04-03-2023 WBC (Bld) [#/Vol] 7.8 10*3/uL 3.8-11.6 [facility] pH Auto test strip (U)Ordere d By: Kelby Bella on 04-03-2023 pH (U) 6.5 [pH] 5.0-9.0 [facility] Wound methicillin resistant Staphylococcus aureus (MRSA) cultureOrdered By: Kelby Bella on 03-01-2023 MRSA isol Org specific cx Ql (Unsp spec) No MRSA Isolated 2 Days [facility] Albumin [Mass/volume] in Ser um or Plasma by Bromocresol green (BCG) dye binding methoOrdered By: Kelby Bella on 02-16-2023 Albumin BCG dye [Mass/Vol] 4.5 g/dL 3.5-5.7 [facility] Cotinine [Mass/volume] in Se rum or PlasmaOrdered By: Kelby Bella on 02-16-2023 Cotinine [Mass/Vol] <1.0 ng/mL . [facility] Comment on above: This test was develo ped and its performance characteristicsdetermined by [facility]. It has not been cleared orapproved by the Food and Drug Administration.Cotinine levels greater than 20.0 are consistent with theuse of tobacco or tobacco cessation products.Performed at: [facility] [id number] Director: Juan Higgins MD, Phone: [phone] Nicotine [Mass/volume] in Se rum or PlasmaOrdered By: Kelby Bella on 02-16-2023 Nicotine [Mass/Vol] <1.0 ng/mL . [facility] Comment on above: This test was develo ped and its performance characteristicsdetermined by [facility]. It has not been cleared orapproved by the Food and Drug Administration.Nicotine levels greater than 2.0 are consistent with theuse of tobacco or tobacco cessation products. CBC AUTO DIFFon 02-10-2023 BASO # 0.1 103/ul Normal 0.0-0.1 [facility] Comment on above: Performed By: #### C BC #### [facility] [address] [place] [address] Dr. Kyle Love Basophils/100 WBC (Bld) 0.7 % Normal 0.2-2.0 [facility] Comment on above: Performed By: #### C BC #### [facility] [address] [place] [address] Dr. Kyle Love EO # 0.3 103/ul Normal 0.0-0.7 [facility] Comment on above: Performed By: #### C BC #### [facility] [address] [place] [address] Dr. Kyle Love Eosinophils/100 WBC (Bld) 3.9 % Normal 0.9-7.0 [facility] Comment on above: Performed By: #### C BC #### [facility] [address] [place] [address] Dr. Kyle Love Erythrocyte distribution width (RBC) [Ratio] 14.5 % Normal 11.0-15.0 [facility] Comment on above: Performed By: #### C BC #### [facility] [address] [place] [address] Dr. Kyle Love Hematocrit (Bld) [Volume fraction] 39.1 % Normal 36.0-48.0 [facility] Comment on above: Performed By: #### C BC #### [facility] [address] [place] [address] Dr. Kyle Love Hemoglobin (Bld) [Mass/Vol] 12.9 g/dL Normal 12.0-16.0 [facility] Comment on above: Performed By: #### C BC #### [facility] [address] [place] [address] Dr. Kyle Love IG # 0.02 10e3/ul Normal 0.00-0.03 [facility] Comment on above: Performed By: #### C BC #### [facility] [address] [place] [address] Dr. Kyle Love IG % 0.3 % Normal 0.0-0.5 [facility] Comment on above: Performed By: #### C BC #### [facility] [address] [place] [address] Dr. Kyle Love LYMPH # 1.3 103/ul Normal 1.2-3.8 [facility] Comment on above: Performed By: #### C BC #### [facility] [address] [place] [address] Dr. Kyle Love Lymphocytes/100 WBC (Bld) 18.4 % Critically low 20.5-60.0 [facility] Comment on above: Performed By: #### C BC #### [facility] [address] [place] [address] Dr. Kyle Love MANUAL DIFF REQ NO Normal [facility] Comment on above: Performed By: #### C BC #### [facility] [address] [place] [address] Dr. Kyle Love MCH (RBC) [Entitic mass] 28.9 pg Normal 26.7-34.0 [facility] Comment on above: Performed By: #### C BC #### [facility] [address] [place] [address] Dr. Kyle Love MCHC (RBC) [Mass/Vol] 33.0 g/dL Normal 29.9-35.2 [facility] Comment on above: Performed By: #### C BC #### [facility] [address] [address] [address] Kyle Love MCV (RBC) [Entitic vol] 87.5 fL Normal 81.0-99.0 [facility] Comment on above: Performed By: #### C BC #### [facility] [address] [address] [address] Kyle Love MONO # 0.4 103/ul Normal 0.3-0.8 [facility] Comment on above: Performed By: #### C BC #### [facility] [address] [place] [address] Dr. Kyle Love Monocytes/100 WBC (Bld) 5.4 % Normal 1.7-12.0 [facility] Comment on above: Performed By: #### C BC #### [facility] [address] [place] [address] Dr. Kyle Love NEUT # 5.1 103/ul Normal 1.4-6.5 [facility] Comment on above: Performed By: #### C BC #### [facility] [address] [place] [address] Dr. Kyle Love Neutrophils/100 WBC (Bld) 71.3 % Normal 43.0-75.0 [facility] Comment on above: Performed By: #### C BC #### [facility] [address] [place] [address] Dr. Kyle Love Platelet mean volume (Bld) [Entitic vol] 9.9 fL Normal 9.5-13.5 [facility] Comment on above: Performed By: #### C BC #### [facility] [address] [place] [address] Dr. Kyle Love PLT 233 103/ul Normal 150-450 [facility] Comment on above: Performed By: #### C BC #### [facility] [address] [place] [address] Dr. Kyle Love RBC 4.47 106/ul Normal 4.20-5.40 [facility] Comment on above: Performed By: #### C BC #### [facility] [address] [address] [address] Kyle Love WBC 7.2 103/ul Normal 4.0-11.0 [facility] Comment on above: Performed By: #### C BC #### [facility] [address] [address] [address] Kyle Love GLYCOHEMOGLOBIN A1Con 2022 ADA RECOMMENDATION SEE BELOW Normal [facility] Comment on above: Result Comment: ADA RECOMMENDED LIMIT 4.0 - 6.0 ADA THERAPEUTIC TARGET < 7.0 ACTION SUGGESTED > 7.0 Performed By: #### A 1C #### [facility] [address] [address] [address] Kyle Love Glucose [Mass/Vol] 143 mg/dL Normal [facility] Comment on above: Performed By: #### A 1C #### [facility] [address] [place] [address] Dr. Kyle Love HbA1c (Bld) [Mass fraction] 6.6 % Critically high 4.5-6.2 [facility] Comment on above: Performed By: #### A 1C #### [facility] [address] [address] [address] Kyle Love LIPID PROFILEon 02-10-2023 CHOL-HDL RATIO NORM SEE BELOW Normal [facility] Comment on above: Result Comment: 3.3 - 4.4 LOW RISK 4.4 - 7.1 AVERAGE RISK 7.1 - 11.0 MODERATE RISK >11.0 HIGH RISK Performed By: #### P OCGLUC #### [facility] [address] [place] [address] Dr. Kyle Love Cholesterol [Mass/Vol] 205 mg/dL Critically high <=200 [facility] Comment on above: Performed By: #### P OCGLUC #### [facility] [address] [address] [address] Kyle Love Cholesterol in HDL [Mass/Vol] 56 mg/dL Normal 40-60 [facility] Comment on above: Performed By: #### P OCGLUC #### [facility] [address] [address] [address] Kyle Love Cholesterol in LDL [Mass/Vol] 129.4 mg/dL Normal [facility] Comment on above: Performed By: #### P OCGLUC #### [facility] [address] [address] [address] Kyle Love Cholesterol.total/Cho lesterol in HDL [Mass ratio] 3.7 {ratio} Normal [facility] Comment on above: Performed By: #### P OCGLUC #### [facility] [address] [address] [address] Kyle Love HDL NORMAL > or = 60 mg/dl - LO W CARDIOVASCULAR RISK <40 mg/dl - HIGH CARDIOVASCULAR RISK Normal [facility] Comment on above: Performed By: #### P OCGLUC #### [facility] [address] [address] [address] Kyle Love LDL CALC NORMAL SEE BELOW Normal [facility] Comment on above: Result Comment: <100 mg/dl OPTIMAL 100 - 129 mg/dl NEAR OR ABOVE OPTIMAL 130 - 159 mg/dl BORDERLINE HIGH 160 - 189 mg/dl HIGH >190 mg/dl VERY HIGH Performed By: #### P OCGLUC #### [facility] [address] [address] [address] Kyle Love Triglyceride [Mass/Vol] 98 mg/dL Normal <=150 [facility] Comment on above: Performed By: #### P OCGLUC #### [facility] [address] [address] [address] Kyle Love VLDL CALC 19.6 mg/dL Normal [facility] Comment on above: Performed By: #### P OCGLUC #### [facility] [address] [address] [address] Kyle Love LIVER PROFILEon 02-10-2023 Albumin [Mass/Vol] 4.0 g/dL Normal 3.4-5.0 [facility] Comment on above: Performed By: #### P OCGLUC #### [facility] [address] [address] [address] Kyle Love Albumin/Globulin [Mass ratio] 1.1 {ratio} Normal [facility] Comment on above: Performed By: #### P OCGLUC #### [facility] [address] [address] [address] Kyle Love ALP [Catalytic activity/Vol] 142 U/L Critically high 46-116 [facility] Comment on above: Performed By: #### P OCGLUC #### [facility] [address] [address] [address] Kyle Love ALT [Catalytic activity/Vol] 28 U/L Normal 14-59 [facility] Comment on above: Performed By: #### P OCGLUC #### [facility] [address] [address] [address] Kyle Love AST [Catalytic activity/Vol] 20 U/L Normal 15-37 [facility] Comment on above: Performed By: #### P OCGLUC #### [facility] [address] [address] [address] Kyle Love BILI, CONJUGATED 0.2 mg/dL Normal 0.0-0.2 [facility] Comment on above: Performed By: #### P OCGLUC #### [facility] [address] [address] [address] Kyle Love Bilirubin [Mass/Vol] 0.7 mg/dL Normal 0.2-1.0 [facility] Comment on above: Performed By: #### P OCGLUC #### [facility] [address] [address] [address] Kyle Love Globulin (S) [Mass/Vol] 3.7 g/dL Normal [facility] Comment on above: Performed By: #### P OCGLUC #### [facility] [address] [address] [address] Kyle Love Protein [Mass/Vol] 7.7 g/dL Normal 6.4-8.2 [facility] Comment on above: Performed By: #### P OCGLUC #### [facility] [address] [address] [address] Kyle Love MICROALBUMIN, RAND URon 03- mALB <1.3 Normal <=30.0 [facility] Comment on above: Performed By: #### P OCGLUC #### [facility] [address] [address] [address] Kyle Love PROF CHEM 8 (BAS METB)on Anion gap [Moles/Vol] 12.4 mmol/L Normal [facility] Comment on above: Performed By: #### T SH, BMP, LIVER, LIPID #### [facility] [address] [address] [address] Kyle Love Calcium [Mass/Vol] 9.5 mg/dL Normal 8.5-10.1 [facility] Comment on above: Performed By: #### T SH, BMP, LIVER, LIPID #### [facility] [address] [place] [address] Dr. Kyle Love Chloride [Moles/Vol] 107 mmol/L Normal 98-107 [facility] Comment on above: Performed By: #### T SH, BMP, LIVER, LIPID #### [facility] [address] [place] [address] Dr. Kyle Love CO2 [Moles/Vol] 26.9 mmol/L Normal 21.0-32.0 [facility] Comment on above: Performed By: #### T SH, BMP, LIVER, LIPID #### [facility] [address] [place] [address] Dr. Kyle Love Creatinine [Mass/Vol] 0.53 mg/dL Critically low 0.55-1.02 [facility] Comment on above: Performed By: #### T SH, BMP, LIVER, LIPID #### [facility] [address] [place] [address] Dr. Kyle Love EGFR-AF TRINIDADIAN >60 Normal >=60 [facility] Comment on above: Performed By: #### T SH, BMP, LIVER, LIPID #### [facility] [address] [place] [address] Dr. Kyle Love EGFR-NON AF TRINIDADIAN >60 Normal >=60 [facility] Comment on above: Performed By: #### T SH, BMP, LIVER, LIPID #### [facility] [address] [place] [address] Dr. Kyle Love Glucose [Mass/Vol] 131 mg/dL Critically high 74-106 T [facility] Comment on above: Performed By: #### T SH, BMP, LIVER, LIPID #### [facility] [address] [address] [address] Kyle Love Potassium [Moles/Vol] 4.3 mmol/L Normal 3.5-5.1 [facility] Comment on above: Performed By: #### T SH, BMP, LIVER, LIPID #### [facility] [address] [place] [address] Dr. Kyle Love Sodium [Moles/Vol] 142 mmol/L Normal 136-145 [facility] Comment on above: Performed By: #### T SH, BMP, LIVER, LIPID #### [facility] [address] [place] [address] Dr. Kyle Love Urea nitrogen [Mass/Vol] 16.0 mg/dL Normal 7.0-18.0 [facility] Comment on above: Performed By: #### T SH, BMP, LIVER, LIPID #### [facility] [address] [place] [address] Dr. Kyle Love Urea nitrogen/Creatinine [Mass ratio] 30.2 mg/mg Normal [facility] Comment on above: Performed By: #### T SH, BMP, LIVER, LIPID #### [facility] [address] [place] [address] Dr. Kyle Love TSHon 02-10-2023 TSH 0.752 uIU/mL Normal 0.358-3.74 0 [facility] Comment on above: Performed By: #### P OCGLUC #### [facility] [address] [place] [address] Dr. Kyle Love VITAMIN D 25 OHon 02-10-2023 VIT D 25-OH 26.7 ng/mL Normal [facility] Comment on above: Performed By: #### A 1C #### [facility] [address] [place] [address] Dr. Kyle Love VIT D RANGES SEE BELOW Normal [facility] Comment on above: Result Comment: <20 ng/mL Vit D deficient 20 - <30 ng/mL Vit D insufficient 30 - 100 ng/mL Vit D sufficient >100 ng/mL Potential Toxicity Performed By: #### A 1C #### [facility] [address] [place] [address] Dr. Kyle Love XR knee RT 4V*on 12-14-2022 XR knee RT 4V* [facility] [employer] Other XR knee RT 4V* [facility] [employer] Other XR knee RT 4V* [address] [place] [address] [employer] Other XR knee RT 4V* [place] [address] No rt [employer] Other XR knee RT 4V* XRay Report [employer] Other XR knee RT 4V* Signed [employer] Other XR knee RT 4V* Patient: Edna Taveras MR#: [id number] Brandon [employer] Other XR knee RT 4V* 69 [employer] Other XR knee RT 4V* : 1960 Acct:[id number] [employer] Other XR knee RT 4V* Age/Sex: 62 / F ADM Date: 12/14/22 [employer] Other XR knee RT 4V* Loc: SOXD Room: Type : [facility] [employer] Other XR knee RT 4V* Attending Dr: Kelby Bella II, MD [employer] Other XR knee RT 4V* Copies to: Kelby Bella MD [employer] Other XR knee RT 4V* Ordering Provider: Joanie Bella MD [employer] Other XR knee RT 4V* Date of Service: 12/14/22 [employer] Other XR knee RT 4V* [id number]) XR/XR knee RT 4V*: Acute pain of right knee Brandon [employer] Other XR knee RT 4V* ([id number]) XR/XR pelvis 1-2V: Acute pain of right knee Brandon [employer] Other XR knee RT 4V* CLINICAL DATA: Chron ic worsening right knee pain. [employer] Other XR knee RT 4V* AP LOW PELVIS: Brandon [employer] Other XR knee RT 4V* COMPARISON: Right fe mur 07/08/2016 Brandon [employer] Other XR knee RT 4V* AP view of the low p federico was obtained. Assessment is slightly limited by body habitus and [employer] Other XR knee RT 4V* technique. There is no obvious acute fracture or dislocation. The hip joint spaces are symmetric. [employer] Other XR knee RT 4V* There is no prominen t hypertrophy. No soft tissue abnormalities are noted. [employer] Other XR knee RT 4V* X R/XR pelvis 1-2V Brandon [employer] Other XR knee RT 4V* IMPRESSION: [employer] [facility] [employer] Other XR knee RT 4V* NO ACUTE BONY FINDIN GS WITHIN LIMITATIONS, DESCRIBED. [employer] Other XR knee RT 4V* RIGHT KNEE - 4 views Brandon [employer] Other XR knee RT 4V* COMPARISON: None Nort [employer] Other XR knee RT 4V* Standing AP, lateral , skiers and patellar views were obtained. There is no acute fracture or [employer] Other XR knee RT 4V* dislocation. There i s genu valgum deformity. There is narrowing of the lateral tibiofemoral joint [employer] Other XR knee RT 4V* compartment with subchondral sclerosis and cystic change. There is tricompartment marginal spurring. [employer] Other XR knee RT 4V* A small knee effusio n is seen. There is no focal soft tissue swelling. [employer] Other XR knee RT 4V* DEGENERATIVE CHANGES , GREATEST LATERALLY. [employer] Other XR knee RT 4V* Impression dictated by: Bree Dukes M.D.12/14/2022 3:58 PM [employer] Other XR knee RT 4V* Dictation Location: [address] [employer] Other XR knee RT 4V* Transcribed By: KIANA 12/14/22 [facility] [employer] Other XR knee RT 4V* Dictated By: Bree Dukes MD 12/14/22 [facility] [employer] Other XR knee RT 4V* Signed By: [employer] Other XR knee RT 4V* 12/14/22 [facility] [employer] Other XR ankle RT min 3V*on 2021 XR ankle RT min 3V* [facility] [employer] Other XR ankle RT min 3V* [facility] [employer] Other XR ankle RT min 3V* [address] [place] [address] [employer] Other XR ankle RT min 3V* MARIANGEL [place] [address] Brandon [employer] Other XR ankle RT min 3V* XRay Report [facility] [employer] Other XR ankle RT min 3V* Signed [employer] Other XR ankle RT min 3V* Patient: Edna Taveras MR#: [id number] [employer] Other XR ankle RT min 3V* 69 [employer] Other XR ankle RT min 3V* : 1960 Acct:[id number] [employer] Other XR ankle RT min 3V* Age/Sex: 62 / F ADM Date: 10/24/22 [employer] Other XR ankle RT min 3V* Loc: XDUCLY Room: pe: REG CLI [employer] Other XR ankle RT min 3V* Attending Dr: Evangelist Ravi [facility] [employer] Other XR ankle RT min 3V* Copies to: AURELIA RAVI [email or web address] Other XR ankle RT min 3V* Ordering Provider: AURELIA RAVI [facility] [employer] Other XR ankle RT min 3V* Date of Service: 10/24/22 [employer] Other XR ankle RT min 3V* [id number]) XR/XR ankle RT min 3V*: Injury of right ankle, initial encounter [employer] Other XR ankle RT min 3V* RIGHT ANKLE - 3 views [employer] Other XR ankle RT min 3V* CLINICAL DATA: Twist ing injury of the right ankle 2 days ago. Increasing pain and swelling [employer] Other XR ankle RT min 3V* laterally. [employer] Other XR ankle RT min 3V* COMPARISON: None [employer] Other XR ankle RT min 3V* AP, lateral and obli que views were obtained. There is no evidence of fracture or dislocation. [employer] Other XR ankle RT min 3V* The talar dome is in tact. There is spurring at the dorsum of the tarsometatarsal joints. There are [employer] Other XR ankle RT min 3V* calcaneal spurs, gre ater along the plantar surface. There is mild anterior and lateral soft tissue [employer] Other XR ankle RT min 3V* swelling. [employer] Other XR ankle RT min 3V* X R/XR ankle RT min 3V* [employer] Other XR ankle RT min 3V* IMPRESSION: [employer] Other XR ankle RT min 3V* NO ACUTE BONY INJURY. [employer] Other XR ankle RT min 3V* Impression dictated by: Bree Dukes M.D.10/24/2022 10:44 AM [employer] Other XR ankle RT min 3V* Dictation Location: [facility]--10 [employer] Other XR ankle RT min 3V* Transcribed By: [facility] 10/24/22 1044 [employer] Other XR ankle RT min 3V* Dictated By: Bree Dukes MD 10/24/22 1042 [employer] Other XR ankle RT min 3V* Signed By: [employer] Other XR ankle RT min 3V* 10/24/22 1044 No [employer] Other GLYCOHEMOGLOBIN A1Con 2021 ADA RECOMMENDATION SEE BELOW Normal [facility] Comment on above: Result Comment: ADA RECOMMENDED LIMIT 4.0 - 6.0 ADA THERAPEUTIC TARGET < 7.0 ACTION SUGGESTED > 7.0 Performed By: #### A 1C #### [facility] [address] [place] [address] Dr. Kyle Love Glucose [Mass/Vol] 143 mg/dL Normal [facility] Comment on above: Performed By: #### A 1C #### [facility] [address] [place] [address] Dr. Kyle Love HbA1c (Bld) [Mass fraction] 6.6 % Critically high 4.5-6.2 [facility] Comment on above: Performed By: #### A 1C #### [facility] [address] [place] [address] Dr. Kyle Love BUNon 06-26-2022 Urea nitrogen [Mass/Vol] 13.0 mg/dL Normal 7.0-18.0 [facility] Comment on above: Performed By: #### P OCGLUC #### [facility] [address] [place] [address] Dr. Kyle Love CREATININEon 06-26-2022 Creatinine [Mass/Vol] 0.71 mg/dL Normal 0.55-1.02 [facility] Comment on above: Performed By: #### P OCGLUC #### [facility] [address] [place] [address] Dr. Kyle Love EGFR-AF TRINIDADIAN >60 Normal >=60 [facility] Comment on above: Performed By: #### P OCGLUC #### [facility] [address] [place] [address] Dr. Kyle Love EGFR-NON AF TRINIDADIAN >60 Normal >=60 [facility] Comment on above: Performed By: #### P OCGLUC #### [facility] [address] [place] [address] Dr. Kyle Love XR IVPon 06-26-2022 XR IVP EXAMINATION: XR IVP HISTORY: Kidney stone ; left flank pain COMPARISON: CT abdomen pelvis 06/09/2022 TECHNIQUE: After obtaining patient consent a vessel manager image was obtained followed by injection of 100cc of Omnipaque 300 IV contrast. Immediate nephrographic images were obtained. Corticomedullary and urographic phase images were obtained at 5, 10, 15 and 20 minutes. 15 minute oblique images were also obtained. FINDINGS: KIDNEY/URETER - RIGHT: No visible calcifications. KIDNEY/URETER - LEFT: No visible calcifications. PELVIS: No visible ureteral calcifications. Any visible calcifications favor phleboliths. NEPHROGRAPHIC PHASE: Normal, symmetric size, contour, and orientation. Normal and symmetric time of contrast uptake. CORTICOMEDULLARY: No mass or abnormal appearing medulla, pyramids, or collecting system. UROGRAPHIC PHASE: Normal caliber, course, and number of ureters. BLADDER: Normal size and contour. Complete emptying upon voiding. BOWEL: No abnormal dilation or deviation. BONES: No acute abnormality. OTHER: Negative. No abnormal gaseous collections. IMPRESSION: 1. Normal IVP. No appreciable stones, mass, or obstructive uropathy. 2. Complete emptying of urinary bladder during voiding. Electronically authenticated by: MAX BRADY Date: 2022-06-26 11:05 Normal [facility] CT ABD/PELVIS WO CONon 06-09 CT ABD/PELVIS WO CON Indication: Kidney stone. Technique: axial data acquisition obtained from the lung bases through the pelvis without IV contrast. Dose reduction techniques were achieved by using automated exposure control and/or adjustment of mA and/or kV according to patient size and/or use of iterative reconstruction technique. Comparisons: 10/02/2017 exam. Findings: The right kidney and ureter: No renal or ureteral stones are seen. No hydronephrosis or hydroureter. A 1 cm fat density lesion in right kidney, most likely angiomyolipoma. The left kidney and ureter: No renal or ureteral stones are seen. No hydronephrosis or hydroureter. No obvious left renal cysts or masses are seen, in limitation of no IV contrast. The bladder: No bladder stones or obvious masses. No bladder wall thickening. Other findings: Clear lung bases. No liver masses. No intra or extrahepatic biliary dilatation. Status post cholecystectomy. No pancreatic lesions are seen. Pancreatic duct is not dilated. No splenomegaly. Stable 1 cm left adrenal nodule, probably adenoma. No evidence of aortic aneurysm. No bowel dilatation. No bowel wall thickening. Sigmoid diverticulosis with no evidence of diverticulitis. Normal appendix. No ascites or fluid collections. No adenopathy. Status post hysterectomy. No aggressive osseous lesions are seen. 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 Impression: 1. No renal, ureteral or bladder stones. No hydronephrosis or hydroureter bilaterally. 2. A 1 cm right renal angiomyolipoma. Stable 1 cm left adrenal nodule, probably adenoma. Sigmoid diverticulosis with no evidence of diverticulitis. 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 Status postcholecystectomy and hysterectomy. Electronically authenticated by: EUSEBIA HIGHTOWER Date: 2022-06-09 20:35 Normal [facility] UA (CLEAN/CATCH) COMPLIANCE AUDITOR/MICRO I F IND.on 06-05-2022 Bilirubin Ql (U) Negative Normal NEGATIVE [facility] Comment on above: Performed By: #### U ACSIND #### [facility] [address] [place] [address] Dr. Kyle Love Clarity (U) CLEAR Normal CLEAR [facility] Comment on above: Performed By: #### U ACSIND #### [facility] [address] [place] [address] Dr. Kyle Love Color (U) LT. YELLOW Normal YELLOW [facility] Comment on above: Performed By: #### U ACSIND #### [facility] [address] [place] [address] Dr. Kyle Love Glucose Ql (U) Negative Normal NEGATIVE [facility] Comment on above: Performed By: #### U ACSIND #### [facility] [address] [place] [address] Dr. Kyle Love Hemoglobin Ql (U) Negative Normal NEGATIVE [facility] Comment on above: Performed By: #### U ACSIND #### [facility] [address] [place] [address] Dr. Kyle Love Ketones Ql (U) Negative Normal NEGATIVE [facility] Comment on above: Performed By: #### U ACSIND #### [facility] [address] [address] [address] Kyle Love LEUKOCYTES Negative Normal NEGATIVE [facility] Comment on above: Performed By: #### U ACSIND #### [facility] [address] [place] [address] Dr. Kyle Love Nitrite Ql (U) Negative Normal NEGATIVE [facility] Comment on above: Performed By: #### U ACSIND #### [facility] [address] [place] [address] Dr. Kyle Love pH (U) 6.0 [pH] Normal 5-9 [facility] Comment on above: Performed By: #### U ACSIND #### [facility] [address] [address] [address] Kyle Love SPEC GRAVITY 1.010 Normal 1.005-<=1. 025 [facility] Comment on above: Performed By: #### U ACSIND #### [facility] [address] [address] [address] Kyle Love UA PROTEIN Negative Normal NEGATIVE/ TRACE [facility] Comment on above: Performed By: #### U ACSIND #### [facility] [address] [address] [address] Kyle Love UR MICRO IND NOT INDICATED Normal [facility] Comment on above: Performed By: #### U ACSIND #### [facility] [address] [place] [address] Dr. Kyle Love Urobilinogen Qn (U) 0.2 {Dianna'U}/dL Normal 0.2 - 1. 0 [facility] Comment on above: Performed By: #### U ACSIND #### [facility] [address] [place] [address] Dr. Kyle Love US KIDNEYSon 06-05-2022 US KIDNEYS EXAM: US KIDNEYS HISTORY: . Kidney stone . COMPARISON: None. TECHNIQUE: Grayscale and color imaging was performed FINDINGS: Scanning of the right kidney demonstrates the right kidney to measure 11.2 x 5.2 x 5.8 cm. Color-flow is noted. No solid renal cortical masses or hydronephrosis is noted. There is a 1.3 x 1 cm echogenic focus involving the midportion of the right kidney most consistent with a nonobstructing calculus. Left kidney measures 11.1 x 4.9 x 5.6 cm. Color-flow is noted. Several small echogenic foci with shadowing are noted involving the left kidney. These measure 3 to 4 mm and are most consistent with nonobstructing calculi. There is a 10 mm x 9 mm cyst involving the superior aspect of the left kidney. No hydronephrosis is noted. The bladder is grossly unremarkable with no masses or bladder wall thickening. Bladder volume was 205 cc. IMPRESSION: 1. 1.3 x 1 cm echogenic focus involving the midpole of the right kidney most likely representing a nonobstructing calculus. No hydronephrosis. 2. Small 3 to 4 mm nonobstructing left renal calculi. There is a 10 mm cyst involving the midpole the left kidney. No hydronephrosis. 3. Normal-appearing bladder. Electronically authenticated by: GENEVA HLEM Date: 2022-06-05 08:20 Normal [facility] XR KUB 1 VIEWon 06-05-2022 XR KUB 1 VIEW EXAMINATION: XR KUB 1 VIEW HISTORY: Kidney stone COMPARISON: No relevant comparison available. FINDINGS: KIDNEY/URETER - RIGHT: No visible renal or ureteral calcifications. KIDNEY/URETER - LEFT: No visible renal or ureteral calcifications. PELVIS: No visible ureteral calcifications. Any visible calcifications favor phleboliths. BOWEL: No abnormal dilation or deviation. BONES: No acute abnormality. Degenerative changes with rotatory dextrocurvature OTHER: Right upper quadrant surgical clips from cholecystectomy. No abnormal gaseous collections. IMPRESSION: No definite urinary tract calculi Electronically authenticated by: GENEVA MARK Date: 2022-06-05 07:34 Normal [facility] ACETONE SERUMon 04-30-2022 ACETONE Negative Normal NEGATIVE [facility] Comment on above: Performed By: #### A CETON #### [facility] [address] [place] [address] Dr. Kyle Love CBC AUTO DIFFon 04-30-2022 BASO # 0.0 103/ul Normal 0.0-0.1 [facility] Comment on above: Performed By: #### C BC #### [facility] [address] [place] [address] Dr. Kyle Love Basophils/100 WBC (Bld) 0.5 % Normal 0.2-2.0 [facility] Comment on above: Performed By: #### C BC #### [facility] [address] [place] [address] Dr. Kyle Love EO # 0.3 103/ul Normal 0.0-0.7 [facility] Comment on above: Performed By: #### C BC #### [facility] [address] [place] [address] Dr. Kyle Love Eosinophils/100 WBC (Bld) 3.9 % Normal 0.9-7.0 [facility] Comment on above: Performed By: #### C BC #### [facility] [address] [place] [address] Dr. Kyle Love Erythrocyte distribution width (RBC) [Ratio] 13.7 % Normal 11.0-15.0 [facility] Comment on above: Performed By: #### C BC #### [facility] [address] [place] [address] Dr. Kyle Love Hematocrit (Bld) [Volume fraction] 42.2 % Normal 36.0-48.0 [facility] Comment on above: Performed By: #### C BC #### [facility] [address] [place] [address] Dr. Kyle Love Hemoglobin (Bld) [Mass/Vol] 14.4 g/dL Normal 12.0-16.0 [facility] Comment on above: Performed By: #### C BC #### [facility] [address] [place] [address] Dr. Kyle Love IG # 0.04 10e3/ul Critically high 0.00-0.03 [facility] Comment on above: Performed By: #### C BC #### [facility] [address] [place] [address] Dr. Kyle Love IG % 0.5 % Normal 0.0-0.5 [facility] Comment on above: Performed By: #### C BC #### [facility] [address] [place] [address] Dr. Kyle Love LYMPH # 1.9 103/ul Normal 1.2-3.8 [facility] Comment on above: Performed By: #### C BC #### [facility] [address] [place] [address] Dr. Kyle Love Lymphocytes/100 WBC (Bld) 21.3 % Normal 20.5-60.0 [facility] Comment on above: Performed By: #### C BC #### [facility] [address] [place] [address] Dr. Kyle Love MANUAL DIFF REQ NO Normal [facility] Comment on above: Performed By: #### C BC #### [facility] [address] [place] [address] Dr. Kyle Love MCH (RBC) [Entitic mass] 29.3 pg Normal 26.7-34.0 [facility] Comment on above: Performed By: #### C BC #### [facility] [address] [place] [address] Dr. Kyle Love MCHC (RBC) [Mass/Vol] 34.1 g/dL Normal 29.9-35.2 [facility] Comment on above: Performed By: #### C BC #### [facility] [address] [place] [address] Dr. Kyle Love MCV (RBC) [Entitic vol] 85.8 fL Normal 81.0-99.0 [facility] Comment on above: Performed By: #### C BC #### [facility] [address] [place] [address] Dr. Kyle Love MONO # 0.5 103/ul Normal 0.3-0.8 [facility] Comment on above: Performed By: #### C BC #### [facility] [address] [place] [address] Dr. Kyle Love Monocytes/100 WBC (Bld) 6.1 % Normal 1.7-12.0 [facility] Comment on above: Performed By: #### C BC #### [facility] [address] [place] [address] Dr. Kyle Love NEUT # 6.0 103/ul Normal 1.4-6.5 [facility] Comment on above: Performed By: #### C BC #### [facility] [address] [place] [address] Dr. Kyle Love Neutrophils/100 WBC (Bld) 67.7 % Normal 43.0-75.0 [facility] Comment on above: Performed By: #### C BC #### [facility] [address] [place] [address] Dr. Kyle Love Platelet mean volume (Bld) [Entitic vol] 10.4 fL Normal 9.5-13.5 [facility] Comment on above: Performed By: #### C BC #### [facility] [address] [place] [address] Dr. Kyle Love PLT 231 103/ul Normal 150-450 [facility] Comment on above: Performed By: #### C BC #### [facility] [address] [place] [address] Dr. Kyle Love RBC 4.92 106/ul Normal 4.20-5.40 [facility] Comment on above: Performed By: #### C BC #### [facility] [address] [place] [address] Dr. Kyle Love WBC 8.8 103/ul Normal 4.0-11.0 [facility] Comment on above: Performed By: #### C BC #### [facility] [address] [place] [address] Dr. Kyle Love ER URINE PROFILEon 2 Bilirubin Ql (U) Negative Normal NEGATIVE [facility] Comment on above: Performed By: #### E RUR #### [facility] [address] [place] [address] Dr. Kyle Love Clarity (U) CLEAR Normal CLEAR [facility] Comment on above: Performed By: #### E RUR #### [facility] [address] [place] [address] Dr. Kyle Love Color (U) YELLOW Normal YELLOW [facility] Comment on above: Performed By: #### E RUR #### [facility] [address] [place] [address] Dr. Kyle Love ERUAHD A micrscopic examina tion will be performed if indicated. Normal [facility] Comment on above: Performed By: #### E RUR #### [facility] [address] [place] [address] Dr. Kyle Love Glucose Ql (U) 500 mg/dl Abnormal NEGATIVE [facility] Comment on above: Performed By: #### E RUR #### [facility] [address] [place] [address] Dr. Kyle Love Hemoglobin Ql (U) Negative Normal NEGATIVE [facility] Comment on above: Performed By: #### E RUR #### [facility] [address] [place] [address] Dr. Kyle Love Ketones Ql (U) Negative Normal NEGATIVE [facility] Comment on above: Performed By: #### E RUR #### [facility] [address] [place] [address] Dr. Kyle Love LEUKOCYTES Negative Normal NEGATIVE [facility] Comment on above: Performed By: #### E RUR #### [facility] [address] [place] [address] Dr. Kyle Love Nitrite Ql (U) Negative Normal NEGATIVE [facility] Comment on above: Performed By: #### E RUR #### [facility] [address] [place] [address] Dr. Kyle Love pH (U) 5.5 [pH] Normal 5-9 [facility] Comment on above: Performed By: #### E RUR #### [facility] [address] [place] [address] Dr. Kyle Love SPEC GRAVITY >=1.030 Abnormal 1.005-<=1. 025 [facility] Comment on above: Performed By: #### E RUR #### [facility] [address] [place] [address] Dr. Kyle Love UA PROTEIN TRACE Normal NEGATIVE/ TRACE [facility] Comment on above: Performed By: #### E RUR #### [facility] [address] [place] [address] Dr. Kyle Love UR MICRO IND NOT INDICATED Normal [facility] Comment on above: Performed By: #### E RUR #### [facility] [address] [place] [address] Dr. Kyle Love Urobilinogen Qn (U) 0.2 {Dianna'U}/dL Normal 0.2 - 1. 0 [facility] Comment on above: Performed By: #### E RUR #### [facility] [address] [place] [address] Dr. Kyle Love PH VENOUS BLOODon 04-30-2022 PCO2 VENOUS 36.8 mmHg Critically low 40.0-52.0 [facility] Comment on above: Performed By: #### P OCGLUC #### [facility] [address] [place] [address] Dr. Kyle Love pH VENOUS 7.418 Normal 7.330-7.43 0 [facility] Comment on above: Performed By: #### P OCGLUC #### [facility] [address] [address] [address] Kyle Love POINT OF CARE GLUCOSEon Glucose [Mass/Vol] 208 mg/dL Critically high 74-106 [facility] Comment on above: Performed By: #### P OCGLUC #### [facility] [address] [place] [address] Dr. Kyle Love Glucose [Mass/Vol] 320 mg/dL Critically high 74-106 [facility] Comment on above: Performed By: #### P OCGLUC #### [facility] [address] [address] [address] Kyle Love PROF CHEM 8 (BAS METB)on Anion gap [Moles/Vol] 15.2 mmol/L Normal [facility] Comment on above: Performed By: #### B MP #### [facility] [address] [place] [address] Dr. Kyle Love Calcium [Mass/Vol] 9.7 mg/dL Normal 8.5-10.1 [facility] Comment on above: Performed By: #### B MP #### [facility] [address] [place] [address] Dr. Kyle Love Chloride [Moles/Vol] 101 mmol/L Normal 98-107 [facility] Comment on above: Performed By: #### B MP #### [facility] [address] [place] [address] Dr. Kyle Love CO2 [Moles/Vol] 23.9 mmol/L Normal 21.0-32.0 [facility] Comment on above: Performed By: #### B MP #### [facility] [address] [address] [address] Kyle Love Creatinine [Mass/Vol] 0.90 mg/dL Normal 0.55-1.02 [facility] Comment on above: Performed By: #### B MP #### [facility] [address] [address] [address] Kyle Love EGFR-AF TRINIDADIAN >60 Normal >=60 [facility] Comment on above: Performed By: #### B MP #### [facility] [address] [address] [address] Kyle Love EGFR-NON AF TRINIDADIAN >60 Normal >=60 [facility] Comment on above: Performed By: #### B MP #### [facility] [address] [place] [address] Dr. Kyle Love Glucose [Mass/Vol] 324 mg/dL Critically high 74-106 [facility] Comment on above: Performed By: #### B MP #### [facility] [address] [place] [address] Dr. Kyle Love Potassium [Moles/Vol] 4.1 mmol/L Normal 3.5-5.1 [facility] Comment on above: Performed By: #### B MP #### [facility] [address] [place] [address] Dr. Kyle Love Sodium [Moles/Vol] 136 mmol/L Normal 136-145 [facility] Comment on above: Performed By: #### B MP #### [facility] [address] [place] [address] Dr. Kyle Love Urea nitrogen [Mass/Vol] 16.0 mg/dL Normal 7.0-18.0 [facility] Comment on above: Performed By: #### B MP #### [facility] [address] [place] [address] Dr. Kyle Love Urea nitrogen/Creatinine [Mass ratio] 17.8 mg/mg Normal [facility] Comment on above: Performed By: #### B MP #### [facility] [address] [place] [address] Dr. Kyle Love Vital Signs Date Time Vital Sign Value Performing Clinician Facility 04-15-2024 11:23-0400 Body height 1584.96 cm MD Jorge Luis Wick Work Phone: [facility] 04-15-2024 11:23-0400 Body mass index (BMI) [Ratio] 0.4 kg/m2 MD Jorge Luis Wick Work Phone: [facility] 04-15-2024 11:23-0400 Body temperature 95.4 [degF] MD Jorge Luis Wick Work Phone: [facility] 04-15-2024 11:23-0400 Body weight 98.48 kg MD Jorge Luis Wick Work Phone: [facility] 04-15-2024 11:23-0400 Diastolic blood pressure 44 mm[Hg] MD Jorge Luis Wick Work Phone: [facility] 04-15-2024 11:23-0400 Heart rate 100 /min MD Jorge Luis Wick Work Phone: [facility] 04-15-2024 11:23-0400 Respiratory rate 16 /min MD Jorge Luis Wick Work Phone: [facility] 04-15-2024 11:23-0400 SaO2% (BldA) [Mass fraction] 99 % MD Jorge Luis Wick Work Phone: [facility] 04-15-2024 11:23-0400 Systolic blood pressure 130 mm[Hg] MD Jorge Luis Wick Work Phone: [facility] 09-10-2023 15:36-0400 Blood Pressure Location Levy MATOS [facility] 09-10-2023 15:36-0400 Diastolic blood pressure 78 mm[Hg] Levy MATOS [facility] 09-10-2023 15:36-0400 Heart rate 80 /min Levy MATOS [facility] 09-10-2023 15:36-0400 Respiratory rate 16 /min Levy MATOS [facility] 09-10-2023 15:36-0400 Systolic blood pressure 133 mm[Hg] Levy MATOS [facility] 07-18-2023 08:15-0400 Body height 157.48 cm Patricia Aguilar Other [employer] [facility] [employer] Other 07-18-2023 08:15-0400 Body mass index (BMI) [Ratio] 38.77 kg/m2 Patricia Aguilar Other [employer] Other 07-18-2023 08:15-0400 Body weight 96.16 kg Patricia Aguilar Other [employer] Other 06-14-2023 09:10-0400 Body height 157.48 cm Ella Quinteros Other [employer] Other 06-14-2023 09:10-0400 Body mass index (BMI) [Ratio] 38.77 kg/m2 Ella Quinteros Other [employer] Other 06-14-2023 09:10-0400 Body temperature 98.4 [degF] Ella Quinteros Other [employer] Other 06-14-2023 09:10-0400 Body weight 96.16 kg Ella Quinteros Other [employer] Other 06-14-2023 09:10-0400 Diastolic blood pressure 79 mm[Hg] Ella Quinteros Other [employer] Other 06-14-2023 09:10-0400 Respiratory rate 18 /min Ella Aldair Other [employer] Other 06-14-2023 09:10-0400 SaO2% (BldA) [Mass fraction] 100 % Ella Quinteros Other [employer] Other 06-14-2023 09:10-0400 Systolic blood pressure 157 mm[Hg] Ella Quinteros Other [employer] Other 04-17-2023 14:20-0400 Diastolic blood pressure 54 mm[Hg] MD Jorge Luis Wick Work Phone: [facility] 04-17-2023 14:20-0400 Heart rate 77 /min MD Jorge Luis Wick Work Phone: [facility] 04-17-2023 14:20-0400 Respiratory rate 16 /min MD Jorge Luis Wick Work Phone: [facility] 04-17-2023 14:20-0400 SaO2% (BldA) [Mass fraction] 95 % MD Jorge Luis Wick Work Phone: [facility] 04-17-2023 14:20-0400 Systolic blood pressure 110 mm[Hg] MD Jorge Luis Wick Work Phone: [facility] 04-17-2023 12:20-0400 Inhaled oxygen flow rate 2 L/min MD Jorge Luis Wick Work Phone: [facility] 04-17-2023 12:06-0400 Body temperature 98.4 [degF] MD Jorge Luis Wick Work Phone: [facility] 04-17-2023 07:57-0400 Body height 157.48 cm MD Jorge Luis Wick Work Phone: [facility] 04-17-2023 07:57-0400 Body mass index (BMI) [Ratio] 38.7 kg/m2 MD Jorge Luis Wick Work Phone: [facility] 04-17-2023 07:57-0400 Body weight 96 kg MD Jorge Luis Wick Work Phone: [facility] 03-28-2023 16:15-0400 Body height 157.48 cm Kelby Rawlins II Other [employer] Other 03-28-2023 16:15-0400 Body mass index (BMI) [Ratio] 38.41 kg/m2 Kelby Rawlins II Other [employer] Other 03-28-2023 16:15-0400 Body weight 95.26 kg Kelby Shayne II Other [employer] Other 12-14-2022 15:30-0500 Body height 157.48 cm Kelby Rawlins II Other [employer] Other 12-14-2022 15:30-0500 Body mass index (BMI) [Ratio] 40.42 kg/m2 Kelby Shayne II Other [employer] Other 12-14-2022 15:30-0500 Body weight 100.25 kg Kelby Rawlins II Other [employer] Other 10-24-2022 10:50-0500 Body height 157.48 cm Aurelia Ravi Other [employer] Other 10-24-2022 10:50-0500 Body mass index (BMI) [Ratio] 36.58 kg/m2 Aurelia Ravi Other [employer] Other 10-24-2022 10:50-0500 Body temperature 97.6 [degF] Aurelia Ravi Other [employer] Other 10-24-2022 10:50-0500 Body weight 90.72 kg Aurelia Ravi Other [employer] Other 10-24-2022 10:50-0500 Diastolic blood pressure 86 mm[Hg] Aurelia Ravi Other [employer] Other 10-24-2022 10:50-0500 Respiratory rate 18 /min Aurelia Ravi Other [employer] Other 10-24-2022 10:50-0500 SaO2% (BldA) [Mass fraction] 99 % Aurelia Ravi Other [employer] Other 10-24-2022 10:50-0500 Systolic blood pressure 128 mm[Hg] Aurelia Ravi Other [employer] Other 08-28-2022 15:38-0400 Blood Pressure Location Levy MATOS [facility] 08-28-2022 15:38-0400 Diastolic blood pressure 82 mm[Hg] Levy MATOS [facility] 08-28-2022 15:38-0400 Heart rate 77 /min Levy MATOS [facility] 08-28-2022 15:38-0400 Respiratory rate 16 /min Levy MATOS [facility] 08-28-2022 15:38-0400 Systolic blood pressure 119 mm[Hg] Levy MATOS [facility] Encounters Encounter Date Encounter Type Care Provider Facility Start: 01-19-2025 ambulatory Levy MATOS Facili ty: [place] Start: 08-20-2024 End: 08-20-2024 ambulatory JORGE LUIS WICK Not Available Start: 07-17-2024 End: 07-17-2024 ambulatory MD Jorge Luis Wick Work Phone: [facility] Work Phone: Start: 07-17-2024 End: 07-17-2024 Patient encounter procedure MD Jorge Luis Wick Work Phone: [facility] Work Phone: Start: 07-17-2024 End: 07-17-2024 Patient encounter procedure MD Jorge Luis Wick Work Phone: [facility] Start: 07-17-2024 End: 07-17-2024 ambulatory MD Jorge Luis Wick Work Phone: [facility] Work Phone: Start: 04-15-2024 End: 04-15-2024 ambulatory MD Jorge Luis Wick Work Phone: [facility] Work Phone: Start: 04-15-2024 End: 04-15-2024 Patient encounter procedure MD Jorge Luis Wick Work Phone: [facility] Work Phone: Start: 02-14-2024 End: 02-14-2024 ambulatory JORGE LUIS WICK Not Available Start: 09-10-2023 End: 09-10-2023 ambulatory Levy MATOS Facility: [place] Start: 09-10-2023 End: 09-10-2023 Patient encounter procedure Levy MATOS [facility] Start: 07-18-2023 Office outpatient vi sit 15 minutes Patricia Aguilar [facility] Start: 07-18-2023 End: 07-18-2023 ambulatory MD Jorge Luis Wick Work Phone: [facility] Work Phone: Start: 07-18-2023 End: 07-18-2023 Patient encounter procedure MD Jorge Luis Wick Work Phone: [facility] Start: 06-14-2023 End: 06-14-2023 ambulatory Ella Quinteros Other [employer] Other Start: 06-14-2023 Office outpatient vi sit 15 minutes Ella Quinteros [facility] Start: 06-07-2023 End: 06-07-2023 ambulatory Kelby Bella II Other [employer] Other Start: 06-07-2023 Telephone encounter Kelby Shayne II [facility] Start: 05-31-2023 (Post-Op) Post-Op Kelby Rawlins II [facility] Start: 05-31-2023 End: 05-31-2023 ambulatory MD Jorge Luis Wick Work Phone: [facility] Work Phone: Start: 05-31-2023 End: 05-31-2023 Patient encounter procedure MD Jorge Luis Wick Work Phone: [facility] Start: 05-18-2023 End: 05-18-2023 Discharged Recurring MD Jorge Luis Wick Work Phone: [facility] [place] Start: 05-18-2023 Registered Recurring MD Jorge Luis angulo Work Phone: [facility] [place] Start: 04-27-2023 End: 04-27-2023 ambulatory Patricia Aguilar Other [employer] Other Start: 04-27-2023 Postop follow up vis it related to original px Patricia Aguilar [facility] Start: 04-25-2023 End: 04-25-2023 ambulatory Kelby Rawlins II Other [employer] Other Start: 04-25-2023 Telephone encounter Kelby Shayne II [facility] Start: 04-17-2023 End: 04-17-2023 Admission to same day surgery center MD Jorge Luis Wick Work Phone: [facility] [place] Start: 04-06-2023 (Prolonged) Prolonge d Services Kelby Rawlins II [facility] Start: 04-06-2023 End: 04-06-2023 ambulatory Kelby Rawlins II Other [employer] Other Start: 04-03-2023 Telephone encounter Kelby Rawlins II [facility] Start: 04-03-2023 End: 04-03-2023 ambulatory MD Jorge Luis Wick Work Phone: [facility] Work Phone: Start: 04-03-2023 End: 04-03-2023 Patient encounter procedure MD Jorge Luis Wick Work Phone: [facility] Work Phone: Start: 03-28-2023 End: 03-28-2023 ambulatory Kelby Shayne II Other [employer] Other Start: 03-28-2023 Office outpatient vi sit 40 minutes Kelby Shayne II [facility] Start: 03-01-2023 End: 03-01-2023 ambulatory PHYSICIAN ANURAG LAU [facility] Work Phone: Start: 03-01-2023 End: 03-01-2023 Patient encounter procedure PHYSICIAN NO [facility] [place] Work Phone: Start: 02-17-2023 Encounter for genera l adult medical examination without abnormal findings DR JORGE LUIS WICK [facility] [facility] Start: 02-16-2023 End: 02-16-2023 ambulatory PHYSICIAN NO [facility] Work Phone: Start: 02-16-2023 End: 02-16-2023 Patient encounter procedure PHYSICIAN NO [facility] [place] Work Phone: Start: 02-10-2023 End: 02-11-[address] JORGE LUIS WICK Facility:[facility] Start: 02-10-2023 End: 02-11-2023 Encounter for general adult medical examination without abnormal findings DR JORGE LUIS WICK Facility:[facility] Start: 12-14-2022 End: 12-14-2022 Patient encounter procedure PHYSICIAN NO [facility] Start: 12-14-2022 End: 12-14-2022 ambulatory PHYSICIAN NO [facility] Work Phone: Start: 12-14-2022 Office outpatient ne w 45 minutes Kelby Bella II [facility] Start: 10-24-2022 Office outpatient vi sit 15 minutes Aurelia Ravi [facility] Start: 10-24-2022 End: 10-24-2022 ambulatory PHYSICIAN NO [facility] Work Phone: Start: 10-24-2022 End: 10-24-2022 Patient encounter procedure PHYSICIAN NO [facility] Start: 08-28-2022 End: 08-28-2022 Patient encounter procedure Levy MATOS [facility] Start: 07-19-2022 End: 07-20-[address] JORGE LUIS WICK Facility:[facility] Start: 06-26-2022 End: 06-27-[address] LEVY MATOS . Facility:[facility] Start: 06-23-2022 End: 06-23-2022 Patient encounter procedure Levy MATOS [facility] Start: 06-09-2022 End: 06-10-[address] LEVY MATOS . Facility:[facility] Start: 06-05-2022 End: 06-06-[address] LEVY MATOS . Facility:[facility] Start: 04-30-2022 End: 04-30-[address] JORGE LUIS WICK Facility: Start: 02-12-2018 End: 02-13-2018 Ambulatory DEFAULT PHYSICIAN Facility:[facility] [place] Start: 07-12-2017 End: 07-13-2017 Ambulatory DEFAULT PHYSICIAN Facility:[facility] [place] Procedures Date Procedure Procedure Detail Performing Clinician Start: 07-17-2024 X-ray of right knee MD Jorge Luis Wick Work Phone: Start: 04-15-2024 Radiologic examinati on of knee MD Jorge Luis Wick Work Phone: Start: 07-18-2023 Plain X-ray of right femur MD Jorge Luis Wick Work Phone: Start: 07-18-2023 Plain X-ray of right tibia and right fibula MD Jorge Luis Wick Work Phone: Start: 07-18-2023 X-ray of right knee MD Jorge Luis Wick Work Phone: Start: 05-31-2023 X-ray of right knee MD Jorge Luis Wick Work Phone: Start: 04-17-2023 X-ray of right knee MD Jorge Luis Wick Work Phone: Start: 04-17-2023 Total replacement of right knee joint MD Jorge Luis Wick Work Phone: Start: 04-03-2023 Urine culture MD Jorge Luis angulo Work Phone: Start: 03-01-2023 Methicillin resistan t Staphylococcus aureus culture MD Jorge Luis Wick Work Phone: Start: 12-14-2022 X-ray of right knee PHY SICIAN NO FAMILY Start: 11-26-2022 Arthroplasty of knee Pa adrienne MATOS Start: 10-24-2022 X-ray of right ankle PH YSICIAN NO FAMILY Start: 03-11-2015 Extracorporeal shock wave lithotripsy of the bile duct Levy MATOS Start: 07-15-2013 Cystoscopy Levy [place] [facility] Start: 07-08-2013 Removal of calculus of renal pelvis through percutaneous nephrostomy Levy MATOS Start: 06-05-2013 Cystoscopy Levy [facility] Start: 10-24-2011 Cystoscopy Levy [facility] Start: 08-24-2011 Extracorporeal shock wave lithotripsy of the bile duct Levyjames MATOS Start: 08-17-2011 Cystoscopy Levy [place] [facility] Start: 06-01-2011 Extracorporeal shock wave lithotripsy of the bile duct Levyjames MATOS Start: 05-16-2011 Cystoscopy Levy [place] [facility] Start: 10-27-2008 Cystoscopy Levy [place] [facility] Start: 09-24-2008 Cystoscopy Levy [facility] Start: 07-04-2007 Cystoscopy Levy [place] [facility] Start: 06-26-2007 Cystoscopy Levy [place] [facility] Start: 06-05-2007 Cystoscopy Levy [place] [facility] Start: 04-16-2007 Cystoscopy Levy [facility] Start: 03-27-2007 Cystoscopy Levy [place] [facility] Start: 02-13-2007 Cystoscopy Levy [facility] Start: 12-19-2006 Cystoscopy Levy ALBRIGHT Start: 11-22-2006 Cystoscopy Levy ALBRIGHT Carpal tunnel syndro me (disorder) Levy MATOS Cataract (morphologi c abnormality) Levy MATOS Cholecystectomy Levy MA Hysterectomy Levy MATOS Injury of knee (disorder) Uri MATOS Plan of Treatment Date Care Activity Detail Author Start: 07-17-2024 X-ray of right knee XR knee RT 2V [facility] Start: 07-17-2024 XR Knee - right 2 Views [facility] Start: 04-17-2023 [facility] Start: 04-17-2023 [facility] Start: 04-03-2023 [facility] Start: 04-03-2023 Bacteria identified in Urine by Culture [facility] Start: 03-01-2023 MRSA Culture MRSA Culture [facility] Cotinine [Mass/volum e] in Serum or Plasma [facility] Methicillin resistan t Staphylococcus aureus [Presence] in Unspecified specimen by Organism specific culture [facility] Nicotine [Mass/volum e] in Serum or Plasma [facility] XR Knee - left 4 Views [facility] Immunizations Immunization Date Immunization Notes Care Provider Fa cility 10-14-2022 COVID-19 mRNA Bivale nt Booster (Moderna) MD Jorge Luis Wick Work Phone: [facility] 09-29-2021 COVID-19 mRNA-1273 (Moderna) MD Jorge Luis Wick Work Phone: [facility] 03-07-2021 SARS-CoV-2 (COVID-19 ) mRNA-1273 vaccine Levy MATOS [facility] 02-24-2021 COVID-19 mRNA-1273 (Moderna) MD Jorge Luis Wick Work Phone: [facility] 02-07-2021 SARS-CoV-2 (COVID-19 ) mRNA-1273 vaccine Levy MATOS [facility] 01-27-2021 COVID-19 mRNA-1273 (Moderna) MD Jorge Luis Wick Work Phone: [facility] Payers Date Payer Category Payer Unknown [id number] 2.16.84 [id number] 1960 Unknown [id number] 2.16.84 [id number] 1960 Unknown [id number] 2.16.84 [id number] 1960 Unknown [id number] 2.16.84 [id number] 1960 Unknown [id number] 2.16.84 [id number] 1960 Unknown [id number] 2.16.84 [id number] 1960 Unknown [id number] 2.16.8 [id number] 1960 Unknown [id number] 2.16.8 [id number] 1960 Unknown [id number] 2.16.84 [id number] 1960 Unknown [id number] 2.16.84 [id number] 1959 Unknown [id number] Self-pay Self Pay [id number] Unknown Unknown Breese [id number] Social History Date Type Detail Facility Start: 08-16-2020 End: 04-17-2023 Tobacco smoking status Never smoked tobacco (finding) [facility] Sex Assigned At Female [facility] Start: 1960 Sex Assigned At Female F [facility] Tobacco smoking status Never [facility] Medical Equipment Procedure Code Equipment Code Equipment Origin al Text Equipment Identifier Dates Arthroplasty, knee, total, minimally invasive Orthopaedic cement, non-medicated [id number] FDA Start: 04-17-2023 Arthroplasty, knee, total, minimally invasive Uncoated knee femur prosthesis ()[id number] FDA Start: 04-17-2023 Arthroplasty, knee, total, minimally invasive Tibial insert [id number] FDA Start: 04-17-2023 Arthroplasty, knee, total, minimally invasive Polyethylene patella prosthesis ()[id number] FDA Start: 04-17-2023 Arthroplasty, knee, total, minimally invasive Knee stem ()[id number] FDA Start: 04-17-2023 Arthroplasty, knee, total, minimally invasive Uncoated knee tibia prosthesis, metallic ()[id number] FDA Start: 04-17-2023 Goals Date Patient Goal Desired Activity /State Functional Status Date Assessment Result Facility 09-10-2023 Functional Status N/A [facility] 08-28-2022 Functional Status N/A [facility] Clinical Notes 08-28-2022 to 09-10-2023 Note Date & Type Note Facility 09-10-2023 Hospital Discharg e instructions Patient Education 09/10/2023 16:22:29 Dietary Guidelines to Help Prevent Kidney Stones Dietary Guidelines to Help Prevent Kidney Stones Kidney stones are deposits of minerals and salts that form inside your kidneys. Your risk of developing kidney stones may be greater depending on your diet, your lifestyle, the medicines you take, and whether you have certain medical conditions. Most people can lower their chances of developing kidney stones by following the instructions below. Your dietitian may give you more specific instructions depending on your overall health and the type of kidney stones you tend to develop. What are tips for following this plan? Reading food labels Choose foods with no salt added or low-salt labels. Limit your salt (sodium) intake to less than 1,500 mg a day. Choose foods with calcium for each meal and snack. Try to eat about 300 mg of calcium at each meal. Foods that contain 200 500 mg of calcium a serving include: ?8 oz (237 mL) of milk, jmybkop-emnzfevmfxzu-egqab milk, and calcium-fortifiedfruit juice. Calcium-fortified means that calcium has been added to these drinks. ?8 oz (237 mL) of kefir, yogurt, and soy yogurt. ?4 oz (114 g) of tofu. ?1 oz (28 g) of cheese. ?1 cup (150 g) of dried figs. ?1 cup (91 g) of cooked broccoli. ?One 3 oz (85 g) can of sardines or mackerel. Most people need 1,000 1,500 mg of calcium a day. Talk to your dietitian about how much calcium is recommended for you. Shopping Buy plenty of fresh fruits and vegetables. Most people do not need to avoid fruits and vegetables, even if these foods contain nutrients that may contribute to kidney stones. When shopping for convenience foods, choose: ?Whole pieces of fruit. ?Pre-made salads with dressing on the side. ?Low-fat fruit and yogurt smoothies. Avoid buying frozen meals or prepared deli foods. These can be high in sodium. Look for foods with live cultures, such as yogurt and kefir. Choose high-fiber grains, such as whole-wheat breads, oat bran, and wheat cereals. Cooking Do not add salt to food when cooking. Place a salt shaker on the table and allow each person to add his or her own salt to taste. Use vegetable protein, such as beans, textured vegetable protein (TVP), or tofu, instead of meat in pasta, casseroles, and soups. Meal planning Eat less salt, if told by your dietitian. To do this: ?Avoid eating processed or pre-made food. ?Avoid eating fast food. Eat less animal protein, including cheese, meat, poultry, or fish, if told by your dietitian. To do this: ?Limit the number of times you have meat, poultry, fish, or cheese each week. Eat a diet free of meat at least 2 days a week. ?Eat only one serving each day of meat, poultry, fish, or seafood. ?When you prepare animal protein, cut pieces into small portion sizes. For most meat and fish, one serving is about the size of the palm of your hand. Eat at least five servings of fresh fruits and vegetables each day. To do this: ?Keep fruits and vegetables on hand for snacks. ?Eat one piece of fruit or a handful of berries with breakfast. ?Have a salad and fruit at lunch. ?Have two kinds of vegetables at dinner. Limit foods that are high in a substance called oxalate. These include: ?Spinach (cooked), rhubarb, beets, sweet potatoes, and Ivorian chard. ?Peanuts. ?Potato chips, bulgarian fries, and baked potatoes with skin on. ?Nuts and nut products. ?Chocolate. If you regularly take a diuretic medicine, make sure to eat at least 1 or 2 servings of fruits or vegetables that are high in potassium each day. These include: ?Avocado. ?Banana. ?Titus, prune, carrot, or tomato juice. ?Baked potato. ?Cabbage. ?Beans and split peas. Lifestyle Drink enough fluid to keep your urine pale yellow. This is the most important thing you can do. Spread your fluid intake throughout the day. If you drink alcohol: ?Limit how much you use to: ?0 1 drink a day for women who are not . ?0 2 drinks a day for men. ?Be aware of how much alcohol is in your drink. In the [place] one drink equals one 12 oz bottle of beer (355 mL), one 5 oz glass of wine (148 mL), or one 1 oz glass of hard liquor (44 mL). Lose weight if told by your health care provider. Work with your dietitian to find an eating plan and weight loss strategies that work best for you. General information Talk to your health care provider and dietitian about taking daily supplements. You may be told the following depending on your health and the cause of your kidney stones: ?Not to take supplements with vitamin C. ?To take a calcium supplement. ?To take a daily probiotic supplement. ?To take other supplements such as magnesium, fish oil, or vitamin B6. Take xeit-bcq-skmbbcc and prescription medicines only as told by your health care provider. These include supplements. What foods should I limit? Limit your intake of the following foods, or eat them as told by your dietitian. Vegetables Spinach. Rhubarb. Beets. Canned vegetables. Pickles. Olives. Baked potatoes with skin. Grains Wheat bran. Baked goods. Salted crackers. Cereals high in sugar. Meats and other proteins Nuts. Nut butters. Large portions of meat, poultry, or fish. Salted, precooked, or cured meats, such as sausages, meat loaves, and hot dogs. Dairy Cheese. Beverages Regular soft drinks. Regular vegetable juice. Seasonings and condiments Seasoning blends with salt. Salad dressings. Soy sauce. Ketchup. Barbecue sauce. Other foods Canned soups. Canned pasta sauce. Casseroles. Pizza. Lasagna. Frozen meals. Potato chips. Estonian fries. The items listed above may not be a complete list of foods and beverages you should limit. Contact a dietitian for more information. What foods should I avoid? Talk to your dietitian about specific foods you should avoid based on the type of kidney stones you have and your overall health. Fruits Grapefruit. The item listed above may not be a complete list of foods and beverages you should avoid. Contact a dietitian for more information. Summary Kidney stones are deposits of minerals and salts that form inside your kidneys. You can lower your risk of kidney stones by making changes to your diet. The most important thing you can do is drink enough fluid. Drink enough fluid to keep your urine pale yellow. Talk to your dietitian about how much calcium you should have each day, and eat less salt and animal protein as told by your dietitian. This information is not intended to replace advice given to you by your health care provider. Make sure you discuss any questions you have with your health care provider. Document Revised: 07/24/2022 Document Reviewed: 07/24/2022 [employer] Patient Education 2022 [employer]. Follow Up Care 08/28/2022 16:11:04 With:ISELA MINAYA, Levy Nair, URL Address: [facility] [address], [place] [address]- When:Within 1 Year(s) Comments:w/DEJA [facility] Marisol 07-18-2023 Evaluation note Encounter Date Diagnosis Assessment Notes Jun, History of total right knee replacement (ICD-10 - Z96.651) Patient is progressing well from surgery. We discussed the importance of continuing to work on range of motion and strength exercise. Examination and assessment of this patient was performed by Patricia Aguilar NP and patient will continue with the treatment plan per Dr. Bella, who initiated this treatment plan. Dr. Bella is present in the office today and providing supervision. Jun, Aftercare following joint replacement surgery (ICD-10 - Z47.1) Jun, Presence of right artificial knee joint (ICD-10 - Z96.651) [facility] Other 07-20-2023 Evaluation note* Encounter Date Diagnosis Assessment Notes Treatment Notes Treatment Clinical Notes May, Dysuria (ICD-10 - R30.0) May, Glucosuria (ICD-10 - R81) Discussed diagnosis and dipstick findings with patient today in office. Advised patient that she has no signs of UTI, however, dipstick shows glucose in her urine. Advised patient that she needs to closely monitor sugars, follow-up with PCP in case she needs adjustment in of diabetes medications, increase water intake. No culture sent today. Immediate evaluation ER for signs/symptoms as discussed. Patient verbalizes understanding and is agreeable with treatment plan [facility] Other 07-06-2023 Evaluation note* Encounter Date Diagnosis Assessment Notes Treatment Notes Treatment Clinical Notes May, History of total right knee replacement (ICD-10 - Z96.651) May, Aftercare following joint replacement surgery (ICD-10 - Z47.1) May, Presence of right artificial knee joint (ICD-10 - Z96.651) May, Contact allergic reaction (ICD-10 - L23.9) May, Other [facility]KA at [facility] on 04/17/2020 Overall she is doing fantastic. The stitch abscess was cleaned and then decompressed. A dressing was applied. Patient was started on doxycycline 100 mg twice daily x14 days. Due to her busy schedule at work next week she is unable to come in for repeat evaluation. However next Sunday or she is going to send us a picture via email of her incision. If there is any concern based on that picture we will get her to come in next week for repeat evaluation. If she seems to be progressing well and not having any issues then we will plan to see her in the office in 2 weeks for an incision check. Patient may continue activities as tolerated. Continue PT as recommended. Continue taking pnfu-oku-znlrdvb anti-inflammatorie s as needed for assistance with swelling and pain associated with the operative extremity. Follow-up in 1 to 2 weeks for incision check and if everything looks good then 3 months postop for repeat examination and long standing x-rays. [facility] Other 06-02-2023 Evaluation note* Encounter Date Diagnosis Assessment Notes Treatment Notes Treatment Clinical Notes Apr, History of total right knee replacement (ICD-10 - Z96.651) Apr, Aftercare following joint replacement surgery (ICD-10 - Z47.1) Apr, Presence of right artificial knee joint (ICD-10 - Z96.651) Apr, Contact allergic reaction (ICD-10 - L23.9) Rx given for Medrol Dosepak. Xeroform/Telfa/ABD and kylie wrap applied. Spoke with Graham with home health and advised him of the findings. Instructed to change dressing Sunday and Sunday. Also instructed him not to stretch knee motion at this time. [facility] Other 05-12-2023 Evaluation note* Encounter Date Diagnosis Assessment Notes Treatment Notes Treatment Clinical Notes March, Other Prolonged Servi dc 1. H and P date: 04/06/2023 2. Diagnosis: Right knee primary osteoarthritis 3. Counseling: Patient received counseling in her history and physical 4. Coordination of care: The patient was discussed at today's total joints meeting with anesthesia, OR staff, and implant reps in an effort to coordinate the patient's care during the perioperative period. The anesthesiologist was involved in discussions regarding the patient's pain management such as regional blocks, anesthesia plans the day of surgery such as general versus spinal, as well as a final review of lab work to ensure the patient could proceed with surgery safely. The manager investigations was vital for surgery timing and scheduling purposes. The implant rep was also available for necessary discussions regarding preoperative templates that were created on preoperative x-rays to ensure the appropriate implants and sizes of implants would be available the day of surgery. The patient's discharge plan was also discussed and the final decision was confirmed. We will plan for stem and vancomycin in cement. We will also plan for a possible spinal anesthesia 5. Medication Changes: None 6. Lab Tests: The patient's screening tests including albumin levels, vitamin D levels, hemoglobin, hemoglobin A1c, cotinine serum level, and MRSA nasal cultures were all reviewed to ensure appropriate perioperative care can be performed. This included selection of perioperative antibiotics, surgical dressing, and any contact precautions that may need to be enacted. The patient's presurgical testing lab work was also reviewed. This included a CBC, BMP, UA, fructosamine, and a blood type and screen. This lab work was discussed with anesthesia during today's total joints meeting to ensure the patient could proceed with surgery safely. 7. Review of reports/records: The surgical clearance information provided by the patient's PCP and if deemed necessary, other specialists, was reviewed. Any recommendations made by these care providers were taken into consideration for the patient's perioperative and postoperative treatment plans. Prolonged services time spent: 33 minutes [facility] Other 05-09-2023 Evaluation note* Encounter Date Diagnosis Assessment Notes Treatment Notes Treatment Clinical Notes March, Primary osteoarthritis of right knee (ICD-10 - M17.11) [facility] Other 05-03-2023 Evaluation note* Encounter Date Diagnosis Assessment Notes Treatment Notes Treatment Clinical Notes March, Primary osteoarthritis of right knee (ICD-10 - M17.11) March, Other 1. Right TKA - DVT prophylaxis: Aspirin - Antibiotics: Ancef and Vanco - NSAID: Celebrex - Implants: Persona PS with stem - Disposition: Same-day discharge-she is at home with her and he build to help her in the postoperative period 2. Preop screening labs were already obtained and are as following: - hemoglobin: 12.9 - serum albumin: 4.5 - 25-OH Vit D: 26.7 - HgbA1c: 6.6 - serum cotinine: Negative - MRSA nasal culture: Negative 3. Patient will obtain preop clearances including: -PCP -She seen cardiology in the past for a heart block but has been over 2 years. She does not member the name of the service superintendent but they were in [place]. 4. Once our office has reviewed the above labs and clearances, we will contact the patient to discuss surgery scheduling. Patient is in agreement with the above plan. 5. The risks involved with surgery and postoperative complications were discussed in relation to the patient's nonmodifiable risk factors including but not limited to the following: Ueo-zygqwtd-qvpezkn nt diabetes Fibromyalgia History of heart block All questions were answered after discussing these increased risks. The patient voiced understanding of these increased risks and still wishes to proceed with surgery. 6. The risks involved with surgery and postoperative complications were discussed in relation to the patient's modifiable risk factors including but not limited to the following: Sup-nlkfjms-lrwgmnz nt diabetes-most recent A1c is 6.6 BMI 38.4 All questions were answered after discussing these increased risks. The patient voiced understanding of these increased risks and still wishes to proceed with surgery. The patient has tried and failed all conservative treatment options to include: oral anti-inflammatories , intra-articular steroid injections, physical therapy, and assistive devices. We will move forward with the definitive treatment option and schedule the patient for the above mentioned procedure after we have reviewed screening labs and clearances. Patient understands abnormal screening labs or absent clearances could delay their surgery. [facility] Other 01-19-2023 Evaluation note* Encounter Date Diagnosis Assessment Notes Treatment Notes Treatment Clinical Notes Nov, Acute pain of right knee (ICD-10 - M25.561) Nov, Other 1. We had a william g discussion with the patient today concerning their right knee osteoarthritis. The radiographs do show osteoarthritis of the knee. At this time the patient would like to avoid surgical intervention. We did discuss the risk and benefits of surgical versus nonoperative management. The patient would like to proceed with nonoperative management. We discussed that our options include injections, physical therapy, and the consistent use of anti-inflammatories. All 3 of these options, including their risks and benefits, were discussed at length with the patient. 2. Tylenol: Discussed taking Tylenol (acetaminophen). Recommended adjusting their dosing to 1000mg by mouth up to 3 times a day. 3. NSAIDs: Recommended using her meloxicam on a daily basis as well as her Voltaren gel 4-5 times a day. 4. Physical therapy: Discussed formal physical therapy and home regimen. Patient preferred no PT at this. 5. Injections: Discussed injections as a treatment option. The patient has failed intra-articular steroids previously for their osteoarthritic knee pain. The patient has never received a Zilretta injection in the past. The risks and benefits of Zilretta injection were discussed; patient voiced their understanding and willingness to proceed with the injection. The patient is also aware the injection is given intra-articular. We will schedule their injection appointment once the patient receives insurance approval for the Zilretta injection. Please note that the patient may want surgery sometime after May. [facility] Other 11-29-2022 Evaluation note* Encounter Date Diagnosis Assessment Notes Treatment Notes Treatment Clinical Notes Sep, Injury of right ankle, initial encounter (ICD-10 - S99.911A) Use RICE therapy as discussed: Rest, Ice Compression, Elevate. Apply ice to affected area 3-4 times daily (Do not place ice source directly on skin, must cover with towel-like material). Take medication as directed. Rest and elevate sore extremity as much as possible. Do not take OTC medication pain relievers if prescription of medication given in office today. Contact office if no improvement of symptoms and we will help you get into a specialist. Blood glucose may increase due to medication - call PCP if blood sugar goes above 250- [facility] Other 10-03-2022 Hospital Discharge instructions Patient Education 08/28/2022 15:59:31 Kidney Stones, Rjzl-fw-Gyiv Kidney Stones Kidney stones are rock-like masses that form inside of the kidneys. Kidneys are organs that make pee (urine). A kidney stone may move into other parts of the urinary tract, including: The tubes that connect the kidneys to the bladder (ureters). The bladder. The tube that carries urine out of the body (urethra). Kidney stones can cause very bad pain and can block the flow of pee. The stone usually leaves your body (passes) through your pee. You may need to have a doctor take out the stone. What are the causes? Kidney stones may be caused by: A condition in which certain glands make too much parathyroid hormone (primary hyperparathyroidism). A buildup of a type of crystals in the bladder made of a chemical called uric acid. The body makes uric acid when you eat certain foods. Narrowing (stricture) of one or both of the ureters. A kidney blockage that you were born with. Past surgery on the kidney or the ureters, such as gastric bypass surgery. What increases the risk? You are more likely to develop this condition if: You have had a kidney stone in the past. You have a family history of kidney stones. You do not drink enough water. You eat a diet that is high in protein, salt (sodium), or sugar. You are overweight or very overweight (obese). What are the signs or symptoms? Symptoms of a kidney stone may include: Pain in the side of the belly, right below the ribs (flank pain). Pain usually spreads (radiates) to the groin. Needing to pee often or right away (urgently). Pain when going pee (urinating). Blood in your pee (hematuria). Feeling like you may vomit (nauseous). Vomiting. Fever and chills. How is this treated? Treatment depends on the size, location, and makeup of the kidney stones. The stones will often pass out of the body through peeing. You may need to: Drink more fluid to help pass the stone. In some cases, you may be given fluids through an IV tube put into one of your veins at the hospital. Take medicine for pain. Make changes in your diet to help keep kidney stones from coming back. Sometimes, medical procedures are needed to remove a kidney stone. This may involve: A procedure to break up kidney stones using a beam of light (laser) or shock waves. Surgery to remove the kidney stones. Follow these instructions at home: Medicines Take rjhw-zqc-[id number] and prescription medicines only as told by your doctor. Ask your doctor if the medicine prescribed to you requires you to avoid driving or using heavy machinery. Eating and drinking Drink enough fluid to keep your pee pale yellow. You may be told to drink at least 8 10 glasses of water each day. This will help you pass the stone. If told by your doctor, change your diet. This may include: ?Limiting how much salt you eat. ?Eating more fruits and vegetables. ?Limiting how much meat, poultry, fish, and eggs you eat. Follow instructions from your doctor about eating or drinking restrictions. General instructions Collect pee samples as told by your doctor. You may need to collect a pee sample: ?24 hours after a stone comes out. ?8 12 weeks after a stone comes out, and every 6 12 months after that. Strain your pee every time you pee (urinate), for as long as told. Use the strainer that your doctor recommends. Do not throw out the stone. Keep it so that it can be tested by your doctor. Keep all follow-up visits as told by your doctor. This is important. You may need follow-up tests. How is this prevented? To prevent another kidney stone: Drink enough fluid to keep your pee pale yellow. This is the best way to prevent kidney stones. Eat healthy foods. Avoid certain foods as told by your doctor. You may be told to eat less protein. Stay at a healthy weight. Where to find more information National Kidney Foundation (NKF): www.kidney.org [facility] (UCF): www.urologyhealth.org Contact a doctor if: You have pain that gets worse or does not get better with medicine. Get help right away if: You have a fever or chills. You get very bad pain. You get new pain in your belly (abdomen). You pass out (faint). You cannot pee. Summary Kidney stones are rock-like masses that form inside of the kidneys. Kidney stones can cause very bad pain and can block the flow of pee. The stones will often pass out of the body through peeing. Drink enough fluid to keep your pee pale yellow. This information is not intended to replace advice given to you by your health care provider. Make sure you discuss any questions you have with your health care provider. Document Released: 04/30/2009 Document Revised: 03/30/2020 Document Reviewed: 03/30/2020 [employer] Patient Education 2020 [employer]. Follow Up Care 08/22/2021 16:23:28 With:Levy MATOS MD, URL Address: [facility] [address], [place] [address] [phone] When:08/28/2023 [facility] evaluation + Plan note Future Appointments Appointment Date:08/28/2022 03:00:00 PM Scheduled Provider:Levy MATOS MD Location:[facility] Appointment Type:URO Office Visit [facility] evaluation + Plan note Future Appointments Appointment Date:09/10/2023 03:00:00 PM Scheduled Provider:Levy MATOS MD Location:[facility] Appointment Type:URO Office Visit [facility] evaluation + Plan note Future Appointments Appointment Date:09/08/2024 10:15:00 AM Scheduled Provider:Levy MATOS MD Location:[facility] Appointment Type:URO Office Visit Diagnostic Tests Pending * Electrolyte Panel 09/10/23 [facility] evaluation noteNo assessment information available [facility] Work Phone: Evaluation noteNo InformationNort [employer] Other Evaluation note* Diagnosis Onset Date Resolution Status Contusion of left knee and lower leg acute [facility] Work Phone: Evaluation note* Diagnosis Onset Date Resolution Status Aftercare following right knee joint replacement surge ry [facility] Work Phone: Hispifp general Narrative - Reported* Type Description Date Medical History type 2 diabetic Surgical History lypotripsy 11 times Surgical History gallblatter Surgical History hysteretomy Hospitalization History see above [facility] Other Hiscitb general Narrative - Reported* Type Description Date Medical History type 2 diabetic Medical History fibromyalgia Surgical History lypotripsy 11 times Surgical History gallblatter Surgical History hysteretomy Surgical History right knee arthroscopy Hospitalization History see above [facility] Other Hospital course Narrative No data available for this section [facility] Hospital Discharge instructions No data available for this section [facility] progress note No data available for this section [facility] Summary Purpose Family History No Family History Records Found Relationship Condition Age at Onset Recorded Date/T iban Not Specified Recurrent cerebrovas cular accidents (CVAs) Unknown Malignant neoplasm of lung Unknown father Hypertension Unknown Relationship Condition Age at Onset Recorded Date/T iban Not Specified Recurrent cerebrovas cular accidents (CVAs) Unknown Malignant neoplasm of lung Unknown father Hypertension Unknown father Unknown Not Specified History of stroke Unknown Unknown Relationship Condition Age at Onset Recorded Date/T iban mother Recurrent cerebrovas cular accidents (CVAs) Unknown Malignant neoplasm of lung Unknown father Hypertension Unknown father Unknown mother History of stroke Unknown Unknown Advance Directives No Advanced Directives Records Found Advance Directive Response Recorded Date/ Time Advance Directives No April 18 1 12:19pm Advance Directive Response Recorded Date/ Time Advance Directives No April 18 1 1:19pm Chief Complaint and Reason for Visit Chief Complaint S99.911A Chief Complaint M25.561 m17.11 z79.899 m81.0 Chief Complaint M25.561 m17.11 z79.899 m81.0 M17.11;Z79.899;M81.0 Chief Complaint m17.11 z79.899 m81.0 Knee Pain Chief Complaint Knee Pain Knee Pain R TKA post op Chief Complaint R TKA post op Z96.651 Chief Complaint Left knee pain after fall Chief Complaint Left knee pain after fall Reason for Visit Contusion of left kn ee and lower leg Chief Complaint Z47.1 - Aftercare fo llowing joint replacement surg 1 YEAR Reason for Visit Aftercare following right knee joint replacement surgery Chief Complaint Z47.1 Z96.651 1 YEAR Reason for Visit Aftercare following right knee joint replacement surgery Additional Source Comments INFORMATION SOURCE (unrecogn ized section and content) DATE CREATED AUTHOR 05/17/2018 [facility] DATE CREATED AUTHOR AUTHOR'S ORGANIZ ATION 02/18/2023 [facility] DATE CREATED AUTHOR AUTHOR'S ORGANIZ ATION 07/19/[address] [facility] DATE CREATED AUTHOR AUTHOR'S ORGANIZ ATION 08/21/2024 [facility] DATE CREATED AUTHOR AUTHOR'S ORGANIZ ATION 08/22/2024 [facility] EPIC Care Team (unrecognized sect ion and content) Team Status: Active Member Role Status Dates Jorge Luis Wick MD Primary Care Provider Active Team Status: Inactive Member Role Status Dates Jorge Luis Wick MD Primary Care Provider Active S tart: July 17, 2024 End: July 17, 2024 Kelby Bella II, MD Attending Provider Active Start: July 17, 2024 End: July 17, 2024 Team Status: Active Member Role Status Dates Jorge Luis Wick MD Primary Care Provider Active S tart: July 17, 2024 Kelby Bella II, MD Attending Provider Active Start: July 17, 2024 Team Status: Inactive Member Role Status Dates PHYSICIAN NO FAMILY Primary Care Provider Active ANIA Langley Attending Provider Active Team Status: Active Member Role Status Dates PHYSICIAN NO FAMILY Primary Care Provider Active Team Status: Inactive Member Role Status Dates PHYSICIAN NO FAMILY Primary Care Provider Active Kelby Bella II, MD Attending Provider Active Team Status: Inactive Member Role Status Dates Jorge Luis Wick MD Primary Care Provider Active Kelby Bella II, MD Attending Provider Active Team Status: Active Member Role Status Dates Jorge Luis Wick MD Primary Care Provider Active Kelby Bella II, MD Attending Provider Active Team Status: Inactive Member Role Status Dates Jorge Luis Wick MD Primary Care Provider Active S tart: April 15, 2024 End: April 15, 2024 Kassy Gtz APRN Attending Provider Active Start: April 15, 2024 End: April 15, 2024 Team Status: Active Member Role Status Dates Jorge Luis Wick MD Primary Care Provider Active S tart: April 15, 2024 Kassy Gtz APRN Attending Provider Active Start: April 15, 2024 Goals (unrecognized section and content) Goals may be documented in a n alternate section REASON FOR VISIT (unrecogniz ed section and content) RIGHT ANKLE HURT SOWLLENNP R T KNEE PAINRecheck Right Kneepost op medsNo Informationpostop quesPER RMCRecheck RTKANo Informationuti3-4 WEEK RECHECK FOR RECORDS PERTAINING TO PATIENTS WHO ARE OR HAVE BEEN ENROLLED IN A CHEMICAL DEPENDENCY/SUBSTANCEABUSE PROGRAM, SOME INFORMATION MAY BE OMITTED. This clinical summary was aggregated from multiple sources. Caution should be exercised in using it in the provision of clinical care. This summary normalizes information from multiple sources, and as a consequence, information in this document may materially change the coding, format and clinical context of patient data. In addition, data may be omitted in some cases. CLINICAL DECISIONS SHOULD BE BASED ON THE PRIMARY CLINICAL RECORDS. [employer] provides no warranty or guarantee of the accuracy or completeness of information in this document.
[2024-08-27 16:29] LABS: Basophils Absolute Auto 0.1 10^3/uL (0.0-0.1); Basophils Percent Auto 0.5 % (0.2-2.0); Eosinophils Absolute Auto 0.3 10^3/uL (0.0-0.7); Eosinophils Percent Auto 2.6 % (0.9-7.0); Hematocrit 40.4 % (36.0-48.0); Hemoglobin 13.1 g/dL (12.0-16.0); Immature Granulocytes Abs Auto 0.05 10^3/uL (0.00-0.03); Immature Granulocytes Pct Auto 0.5 % (0.0-0.5); Lymphocytes Absolute Auto 1.9 10^3/uL (1.2-3.8); Lymphocytes Percent Auto 18.4 % (20.5-60.0); Mean Corpuscular HGB Conc 32.4 g/dL (29.9-35.2); Mean Corpuscular Hemoglobin 28.4 pg (26.7-34.0); Mean Corpuscular Volume 87.6 fL (81.0-99.0); Mean Platelet Volume 10.4 fL (9.5-13.5); Monocytes Absolute Auto 0.6 10^3/uL (0.3-0.8); Monocytes Percent Auto 5.7 % (1.7-12.0); Neutrophils Absolute Auto 7.6 10^3/uL (1.4-6.5); Neutrophils Percent Auto 72.3 % (43.0-75.0); Platelet Count 254 10^3/uL (150-450); Red Blood Count 4.61 10^6/uL (4.20-5.40); Red Cell Distribution Width 14.5 % (11.0-15.0); White Blood Count 10.5 10^3/uL (4.0-11.0)
[2024-08-27 16:41] LABS: Microalbumin Urine Random <1.3 mg/dL (<=30.0)
[2024-08-27 16:43] LABS: Estimated Average Glucose 180 mg/dL; Glycohemoglobin A1C 7.9 % (4.5-6.2)
[2024-08-27 16:57] LABS: Alanine Aminotransferase 30 U/L (14-59); Albumin Globulin Ratio 0.9; Albumin Level 3.7 g/dL (3.4-5.0); Alkaline Phosphatase 131 U/L (46-116); Anion Gap 11.8; Aspartate Amino Transferase 17 U/L (15-37); Bilirubin Direct 0.1 mg/dL (0.0-0.2); Bilirubin Total 0.5 mg/dL (0.2-1.0); Calcium 9.8 mg/dL (8.5-10.1); Carbon Dioxide 28.5 mmol/L (21.0-32.0); Chloride 102 mmol/L (98-107); Chol HDL Ratio 3.3; Cholesterol 213 mg/dL (<=200); Estimated GFR (African America >60 (>=60 mL/min/1.73m^2); Estimated GFR (Non-African Ame 56 (>=60 mL/min/1.73m^2); Globulin 3.9 g/dL; Glucose 185 mg/dL (74-106); HDL Cholesterol 64 mg/dL (40-60); Potassium 4.3 mmol/L (3.5-5.1); Sodium 138 mmol/L (136-145); Thyroid Stimulating Hormone 1.927 uIU/mL (0.358-3.740); Total Protein 7.6 g/dL (6.4-8.2); Triglycerides 253 mg/dL (<=150); VLDL CHOLESTEROL 50.6 mg/dL
== END 2024-08-27 16:06 | disposition home or self-care (01) ==
LOC: LAB 16:09
PROVIDERS: PCP Family Medicine; Visit Provider Family Medicine
DX: Z00.00 Encounter for general adult medical examination without abnormal findings (principal); E11.65 Type 2 diabetes mellitus with hyperglycemia
CPT/HCPCS: 36415; 80048; 80061; 80076; 82043; 83036; 84443; 85025

== ENCOUNTER 2025-02-10 07:15 | Outpatient (OUT) | payer MEDICARE, OTHER, SELFPAY ==
--- OUTSIDE RECORDS SUMMARY | 2025-02-10 07:22 | XMS_ITS | CCD ---
Author Organization [facility] Care Team Providers Care Mobile Lab Technician Name Role Phone PHYSICIAN, DEFAULT Unavailable Unavailable PHYSICIAN, DEFAULT Unavailable Unavailable PHYSICIAN, DEFAULT Unavailable Unavailable PHYSICIAN, DEFAULT Unavailable Unavailable JORGE LUIS WICK Primary Care Physician [phone] NO FAMILY, PHYSICIAN Primary Care Provider Unava ilANIA Gonzales Attending Provider Aurelia Ravi Unavailable MD Kelby Bella II Attending Provider Kelby Bella II Unavailable [phone] NO FAMILY, PHYSICIAN Primary Care Provider Unava ilable MD Kelby Bella II Attending Provider MD Jorge Luis Wick Primary Care Provider ISELA .DR CAN Admitting Unavailable ISELA ., DR CAN [...] Unavailable ISELA ., DR CAN Consulting Unavailable [facility] DR GENEVA Rodney Consulting Unavailable GENEVA HELM Consulting Unavailable ISELA ., DR CAN Admitting Unavailable ISELA ., DR CAN Attending Unavailable DELANO, DR JORGE LUIS Arriaga Primary Care Unavailable ISELA ., DR CAN Consulting Unavailable EUSEBIA HIGHTOWER Consulting Unavailable MD Kelby Bella II Attending Provider [phone] Patricia Aguilar Unavailable MD Jorge Luis Wick Primary Care Provider MD Kelby Bella II Attending Provider [phone] Ella Quinteros Unavailable MD Jorge Luis Wick Primary Care Provider MD Kelby Bella II Attending Provider MD Jorge Luis Wick Primary Care Provider VIKAS Gtz Attending Provider MD Jorge Luis Wick Primary Care Provider MD Kelby Bella II Attending Provider Jorge Luis Wick Primary Care Unavailable Kassy Gtz Admitting Unavailable Kassy Gtz Attending Unavailable Kelby Bella II Admitting UnavailKelby Gallegos II Attending Unavailsegun e Jorge Luis Wick Primary Care Unavailable Jorge Luis Wick MD Primary Care Provider Jorge Luis Wick MD Unavailable JORGE LUIS WICK Attending Unavailable JORGE LUIS WICK Attending Unavailable JORGE LUIS WICK Attending Unavailable Levy MATOS Attending Unavailable Allergies Allergy Classification Reported Allergen(s) Allergy Type Date of Onset Reaction(s) Facility Adhesive Tape (1 source) Adhesive Tape Substance Allergy 4 Redness of Skin/Rash [facility] Opioid Agonists (1 source) HYDROcodone Drug Allergy 4 N/V [facility] (1 source) Adhesive agent Drug allergy (disorder) 3 [facility] Rep[facility] (1 source) Rocuronium Drug Allergy 3 [facility] (1 source) Acetaminophen Drug Allergy 3 N/V [facility] (6 sources) HYDROcodone Drug Allergy 3 N/V [facility] (7 sources) Bgcqrso-SPA-CjN Reductase Inhibitor Propensity to adverse reactions 3 Muscle Pain [facility] (5 sources) Adhesive Tape Allergy to substance 3 Redness of Skin/Rash [facility] (6 sources) Surgical soap Allergy to substance 3 Rash [facility] (7 sources) Icy Hot Propensity to adverse reactions 4 Rash [facility] (1 source) Adhesive Tape; Translations: [Tape] Propensity to adverse reactions (disorder) [facility] Repository Medications Current Medications Medication Drug Class(es) Dates Sig (Normalized) Sig (Original) acetaminophen 500 mg oral tablet (20 sources) Start: 04-03-2023 take 2 tablets by mouth every eight hours as needed GNP PAIN RELIEF EX-STRENGTH 500 MG tablet Take 1,000 mg by mouth every 8 (eight) hours if needed 04/11/2023 Active Start: 04-03-2023 Acetaminophen (Tylenol Ex Str Arthritis Pain) 500 mg Tablet Active 1000 MG PO Twice daily April 03, 2023 12:00am [id number] 200 actuat albuterol 0.09 mg/actuat metered dose inhaler (7 sources) beta2-Adrenergic Agonist Start: 02-14-2024 take 2 puff(s) by inhalation every four hours for wheezing albuterol HFA 90 mcg/act inhaler Indications: Mild intermittent asthma without complication (CMS/HCC) Inhale 2 puffs every 4 (four) hours if needed for wheezing or shortness of breath 8 g 2 02/14/2024 Active allopurinol 300 mg oral tablet (10 sources) Xanthine Oxidase Inhibitor Start: 08-22-2021 take 1 tablet by mouth once daily allopurinol 300 mg Tab 300 mg = 1 tab(s), Oral, Daily, # 90 tab(s), Refills(s) 3, Pharmacy: [facility], 158, cm, 09/10/23 15:38:00 EDT, Height/Length Dosing, 94.6, kg, 09/10/23 15:38:00 EDT, Weight Dosing Start Date: 09/10/23 Status: Ordered aspirin 81 mg oral tablet (5 sources) Platelet Aggregation Inhibitor, Nonsteroidal Anti-inflammatory Drug Start: 04-03-2023 take 1 capsule by mouth twice daily Aspirin 81 MG 1 capsule Orally Twice a day for 35 days MED TO BED UPON DISCHARGE DOS: 04/17/2023 March, Active azithromycin 250 mg oral tablet (2 sources) Macrolide Antimicrobial Start: 12-11-2024 take 2 tablets by mouth once daily azithromycin (Zithromax) 250 MG tablet Indications: Acute bronchitis due to other specified organisms 2 PO once a day on day #1, then 1 PO daily on days 2-5 6 tablet 12/11/2024 Active Start: 12-11-2024 take 2 tablets by [facility] once daily azithromycin (Zithromax) 250 MG tablet Indications: Acute bronchitis due to other specified organisms 2 PO once a day on day #1, then 1 PO daily on days 2-5 6 tablet 12/11/2024 Active cefadroxil 500 mg oral capsule (5 [...] DULoxetine 60 mg delayed release oral capsule (18 sources) Serotonin and Norepinephrine Reuptake Inhibitor Start: 04-03-2023 End: 08-20-2024 take 1 capsule by mouth once daily DULoxetine (Cymbalta) [address] capsule Indications: Fibromyalgia Take 1 capsule (60 mg) by mouth Daily 90 capsule 3 08/20/2024 Active Start: 08-16-2020 DULoxetine 60 mg Cap-EC Refills(s) 0 Start Date: 08/16/20 Status: Ordered DULoxetine 60 mg Cap-EC (1 source) Start: 08-16-2020 DULoxetine 60 mg Cap-EC Refills(s) 0 Start Date: 08/16/20 Status: Ordered empagliflozin 25 mg oral tablet (3 sources) Sodium-Glucose Cotransporter 2 Inhibitor Start: 09-03-2024 End: 12-11-2024 take 1 tablet by mouth once daily empagliflozin (Jardiance) 25 MG Indications: Type 2 diabetes mellitus with hyperglycemia, without long-term current use of insulin ([facility]) Take 1 tablet (25 mg) by mouth Daily 30 tablet 3 09/03/2024 12/11/2024 Discontinued gabapentin 800 mg oral tablet (20 sources) [...] mg oral tablet (20 sources) Sulfonylurea Start: 12-08-2024 take 1 tablet by mouth twice daily glipiZIDE (Glucotrol) 10 MG tablet Indications: Type 2 diabetes mellitus with hyperglycemia, without long-term current use of insulin ([facility]) Take 1 tablet by mouth twice daily 60 tablet 12/08/2024 Active Start: 08-20-2024 take 1 tablet by jeff th in the morning glipiZIDE (Glucotrol) 10 MG tablet Indications: Type 2 diabetes mellitus with hyperglycemia, without long-term current use of insulin ([facility]/HCC) Take 1 tablet (10 mg) by mouth in the morning and 1 tablet (10 mg) before bedtime. 180 tablet 3 08/20/2024 Active Start: 08-20-2024 take 1 tablet by jeff th in the morning glipiZIDE (Glucotrol) 10 MG tablet Indications: Type 2 diabetes mellitus with hyperglycemia, without long-term current use of insulin (CMS/HCC) Take 1 tablet (10 mg) by mouth in the morning and 1 tablet (10 mg) before bedtime. 180 tablet 3 08/20/2024 Active Start: 08-16-2020 End: 08-20-2024 take 1 tablet by mouth in the morning glipiZIDE (Glucotrol) 10 MG tablet Indications: Type 1 diabetes mellitus without complication (CMS/HCC) Take 1 tablet (10 mg) by mouth in the morning and 1 tablet (10 mg) before bedtime. 60 tablet 5 05/06/2024 Active Start: 08-16-2020 glipiZIDE 10 m g Tab Refills(s) 0 Start Date: 08/16/20 Status: Ordered glipiZIDE Active meloxicam 15 mg oral tablet (20 sources) Nonsteroidal Anti-inflammatory Drug Start: 08-16-2020 meloxicam [...] 04-03-2023 take 1 tablet by mouth every twenty-fo ur hours Protonix 20 MG 1 tablet Orally Once a day for 30 days MED TO BED UPON DISCHARGE DOS: 04/17/2023 March, Active pioglitazone 30 mg oral tablet (17 sources) Peroxisome Proliferator Receptor alpha Agonist, Peroxisome Proliferator Receptor gamma Agonist, Thiazolidinedione Start: 11-08-2023 take 1 tablet by mouth once daily pioglitazone (Actos) 30 MG tablet Take 30 mg by mouth Daily 11/08/2023 Active take 1 tablet by [facility] every twenty-four hours Pioglitazone HCl 30 MG 1 tablet Orally Once a day Active polyethylene glycol 3350 12009 mg powder for oral solution (5 sources) Osmotic Laxative Start: 04-03-2023 MiraLax 17 GM 1 packet mixed with 8 ounces of fluid Orally Once a day for 7 days MED TO BED UPON DISCHARGE DOS: 04/17/2023 March, Active potassium citrate 10 meq extended release oral tablet (8 sources) Start: 10-25-2023 End: 12-11-2024 take 1 tablet by mouth in the morning, then take 1 tablet by mouth in the evening, then take 1 tablet by mouth at bedtime potassium citrate CR (Urocit-K-10) 10 mEq ER tablet Take 20 mEq by mouth in the morning and 20 mEq in the evening and 20 mEq before bedtime. 10/25/2023 12/11/2024 Discontinued Start: 09-10-2023 take 2 tablets by [facility] three times daily potassium CITRATE 10 mEq ER Tab 20 mEq, 2 tab(s), Oral, TID, 180 tab(s), Refill(s) [address] [place] [address] Pharmacy 1429, 158, cm, 09/10/23 15:38:00 EDT, Height/Length Dosing, 94.6, kg, 09/10/23 15:38:00 EDT, Weight Dosing Start Date: 09/10/23 Status: Ordered predniSONE 50 mg oral tablet (2 sources) Start: 08-20-2024 End: 08-26-2024 take 1 tablet by mouth once daily predniSONE (Deltasone) 50 MG tablet Indications: Fibromyalgia Take 1 tablet (50 mg) by mouth Daily for 6 days 6 tablet 08/20/2024 08/26/2024 Active sodium bicarbonate 650 mg oral tablet (20 sources) Start: 09-10-2023 take 3 tablets by mouth once daily sodium bicarbonate 650 mg Tab 1,950 mg = 3 tab(s), Oral, Daily, # 90 tab(s), Refills(s) 11, Pharmacy: [facility], 158, cm, 09/10/23 15:38:00 EDT, Height/Length Dosing, 94.6, kg, 09/10/23 15:38:00 EDT, Weight Dosing Start Date: 09/10/23 Status: Ordered Start: 08-28-2022 take 3 tablets by [facility] once daily sodium bicarbonate 650 mg Tab 1,950 mg = 3 tab(s), Oral, Daily, # 60 tab(s), Refills(s) 0 Start Date: 08/28/22 Status: Ordered Start: 08-22-2021 End: 08-17-2022 take 3 tablets by mouth three times daily sodium bicarbonate 650 mg Tab 1,950 mg = 3 tab(s), Oral, TID, X 90 day(s), # 810 tab(s), Refills(s) 3, Pharmacy: [facility], 158, cm, 08/22/21 15:36:00 EDT, Height/Length Dosing, 76, kg, 08/22/21 15:36:00 EDT, Weight Dosing Start Date: 08/22/21 Stop Date: 08/17/22 Status: Ordered End: 12-11-2024 sodium bicarbonate 325 MG ta blet Take 325 mg by mouth in the morning and 325 mg at noon and 325 mg in the evening. 12/11/2024 Discontinued take 2 tablets by [facility] every eight hours Sodium Bicarbonate 325 MG 2 tablets Orally Three times a day Active tiZANidine 4 mg oral capsule (19 sources) Central alpha-2 Adrenergic Agonist Start: 08-16-2020 End: 12-11-2024 take 1 capsule by mouth three times daily as needed for muscle spasms tiZANidine (Zanaflex) 4 MG capsule Indications: Fibromyalgia Take 1 capsule (4 mg) by mouth 3 (three) times a day as needed for muscle spasms 90 capsule 3 08/20/2024 12/11/2024 Discontinued traMADol hydrochloride 50 mg oral tablet (12 [...] Inhibitor Start: 07-08-2016 Toradol per 15 mg 13 Jun, 2016 60 mg potassium bicarbonate 25 meq effervescent oral tablet (1 source) Start: 08-28-2022 take 1 tablet by mouth twice daily Effer-K 25 mEq oral tablet, effervescent 25 mEq = 1 tab(s), Oral, BID, # 60 tab(s), Refills(s) 11, Pharmacy: [facility], 158, cm, 08/28/22 15:39:00 EDT, Height/Length Dosing, 76, kg, 08/28/22 15:39:00 EDT, Weight Dosing Start Date: 08/28/22 Status: Ordered triamcinolone acetonide 32 mg injection (10 sources) Corticosteroid Start: 12-29-2022 Zilretta Dec, 32 mg Problems Active Problems Problem Classification Problem Date Documented Da te Episodic/Chronic Acute bronchitis (4 sources) Acute infective bronchitis; Translations: [Acute bronchitis due to other specified organisms] Onset: 12-11-2024 12-11-2024 Episodic Allergic reactions (2 sources) Allergic contact dermatitis, unspecified cause Episodic Asthma (10 sources) Asthma; Translations: [Mild intermittent asthma] Onset: 02-14-2024 08-13-2020 Chronic Calculus of urinary tract (10 sources) Kidney stone; Translations: [Calculus of kidney] Onset: 06-05-2022 08-13-2020 Episodic Congestive heart failure; nonhypertensive (7 sources) Chronic diastolic heart failure; Translations: [Chronic diastolic (congestive) heart failure] Onset: 02-14-2024 02-14-2024 Chronic Diabetes mellitus with complications (14 sources) Type 2 diabetes mellitus with hyperglycemia; Translations: [Hyperglycemia due to type 2 diabetes mellitus] Onset: 05-04-2022 Chronic Diabetes mellitus without complication (3 sources) Diabetes mellitus 08-13-2020 Chronic Diabetes mellitus without complication (1 source) Glycosuria Episodic Disorders of lipid metabolism (7 sources) Dyslipidemia; Translations: [Hyperlipidemia, unspecified] Onset: 02-14-2024 02-14-2024 Chronic Genitourinary symptoms and ill-defined conditions (1 source) Dysuria Episodic Gout and other crystal arthropathies (6 sources) Gouty arthropathy; Translations: [Gout, unspecified] Onset: 08-20-2024 08-20-2024 Chronic Nutritional deficiencies (8 sources) Vitamin D deficiency, unspecified; Translations: [Vitamin D deficiency] Onset: 02-17-2023 02-14-2024 Chronic Osteoarthritis (20 sources) Osteoarthritis of right knee joint; Translations: [...] of right ankle, initial encounter Episodic Other nervous system disorders (4 sources) Drug-induced myopathy; Translations: [Drug-induced myopathy] Onset: 02-14-2024 12-11-2024 Episodic Other non-traumatic joint disorders (1 source) Pain in right knee Episodic Other non-traumatic joint disorders (4 sources) Anterior knee pain; Translations: [Pain in left knee] 04-15-2024 Episodic Other nutritional; endocrine; and metabolic disorders (4 sources) Body mass index 30+ - obesity; Translations: [Obesity, unspecified] Onset: 08-20-2024 08-20-2024 Chronic Other nutritional; endocrine; and metabolic disorders (4 sources) Severe obesity; Translations: [Class 2 severe obesity due to excess calories with serious comorbidity and body mass index (BMI) of 37.0 to 37.9 in adult ([facility])] Onset: 08-20-2024 12-11-2024 Chronic Other upper respiratory disease (7 sources) Allergic rhinitis due to pollen; Translations: [Allergic rhinitis due to pollen] Onset: 02-14-2024 02-14-2024 Chronic Superficial injury; contusion (4 sources) Contusion, knee [...] 04-30-2022 Episodic Other aftercare (1 source) Other jail (current) drug therapy; Translations: [OTH 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 CURRENT DRUG THERAPY] Onset: 05-04-2022 Episodic Other connective tissue disease (9 sources) Fibromyalgia; Translations: [Fibromyalgia] Onset: 02-14-2024 02-14-2024 Episodic Other connective tissue disease (7 sources) Muscle pain; Translations: [Myalgia, unspecified site] Onset: 02-14-2024 Resolved: 08-20-2024 08-20-2024 Episodic Other skin disorders (7 sources) Hyperhidrosis; Translations: [Generalized hyperhidrosis] Onset: 02-14-2024 02-14-2024 Episodic Residual codes; unclassified (1 source) Patient's other noncompliance with medication regimen; Translations: [PT OTH NONCOMPLIANCE W/ MED REGIMEN] Onset: 05-04-2022 Episodic Residual codes; unclassified (5 sources) Other specified health status; Translations: [Other drug allergy] Onset: 02-14-2024 02-14-2024 Episodic Results Test Name Value Interpretation Reference Range Facility Reminderson 01-14-2025 Reminders Reminders From: Steffany Glez To: EM Matos; Sent: 12/12/2024 08:14:55 EST Show up: 12/12/2024 08:14:00 EST Subject: Ambulatory Reminder Reminder/Recall Patient needs scheduled for a DEJA prior to 01/19/25 appointment. Order faxed to [facility] central scheduling today. Will monitor for appointment Pt has been called by [facility] to schedule 3x with no answer. I called to patient today with no answer. Left a voicemail to get patient scheduled. Will monitor. [facility] Provider Letteron 12-16-2024 Provider Letter Provider Letter December 16, 2024 RHONA [address] [place] [address] : 1960 Dear Rhona , We have been trying to reach you with no success. You have an appointment with Dr. Levy Matos on 01/19/25 which will need to be rescheduled since he will be out of the office that day. Please contact the office at the number listed below to get this appointment rescheduled at your earliest convenience. Thank you for your prompt attention to this matter. Sincerely, [facility] [place] [address] [place] [address] [facility] ALL CBC WITH AUTO DIFFon BASOPHILS ABSOLUTE AUTO 0.1 [facility] Basophils/100 WBC (Bld) 0.5 % 0.2 - 2.0 % [facility] Eosinophils/100 WBC (Bld) 2.6 % 0.9 - 7.0 % [facility] Erythrocyte distribution width (RBC) [Ratio] 14.5 % 11.0 - 15.0 % [facility] Hematocrit (Bld) [Volume fraction] 40.4 % 36.0 - 48.0 % [facility] Hemoglobin (Bld) [Mass/Vol] 13.1 g/dL 12.0 - 16.0 g/dL [facility] IMMATURE GRANULOCYTES ABS AUTO 0.05 High [facility] Immature granulocytes/100 WBC (Bld) 0.5 % 0.0 - 0.5 % [facility] Interpretation and review of laboratory results Abnormal [facility] LYMPHOCYTES ABSOLUTE AUTO 1.9 [facility] Lymphocytes/100 WBC (Bld) 18.4 % Low 20.5 - 60.0 % [facility] MCH (RBC) [Entitic mass] 28.4 pg 26.7 - 34.0 pg [facility] MCHC (RBC) [Mass/Vol] 32.4 g/dL 29.9 - 35.2 g/dL [facility] MCV (RBC) [Entitic vol] 87.6 fL 81.0 - 99.0 fL [facility] MONOCYTES ABSOLUTE AUTO 0.6 [facility] Monocytes/100 WBC (Bld) 5.7 % 1.7 - 12.0 % [facility] NEUTROPHILS ABSOLUTE AUTO 7.6 High [facility] Neutrophils/100 WBC (Bld) 72.3 % 43.0 - 75.0 % [facility] Platelet mean volume (Bld) [Entitic vol] 10.4 fL 9.5 - 13.5 fL [facility] TBH EO # 0.3 [facility] TB PLT 254 [facility] TB RBC 4.61 [facility] TB WBC 10.5 [facility] XR knee RT 2Von 07-17-2024 XR knee RT 2V [facility] [address] [place] [address] XRay Report Signed Patient: Rhona Taveras MR#: [id number] 69 : 1960 Acct:[id number] Age/Sex: 64 / F ADM Date: 07/17/24 Loc: SOXD Room: Type: [facility] CLI Attending Dr: Kelby Bella II, MD Copies [...] Pak Jr., D.O.07/17/2024 1:57 PM Dictation Location: [place] [address] Transcribed By: [facility] 07/17/24 1357 Dictated By: Austin Pak Jr, DO 07/17/24 1357 Signed By: 07/17/24 1357 Normal [facility] XR knee LT 4V*on 04-15-2024 XR knee LT 4V* [facility] [place] [address] XRay Report Signed Patient: Rhona Taveras MR#: [id number] 69 : 1960 Acct:[id number] Age/Sex: 64 / F ADM Date: 04/15/24 Loc: XDUCLY Room: Type: [facility] CLI Attending Dr: Kassy Gtz APRN Copies to: Kassy Gtz APRN Ordering Provider: [...] 12:11 PM Dictation Location: RADIO-PC-15 Transcribed By: PWS 04/15/24 1211 Dictated By: Austin Pak Jr, DO 04/15/24 1209 Signed By: 04/15/24 1211 Normal [facility] Urinalysis - AUTOMATEDon Appearance (U) clear [employer] Other Bilirubin Ql (U) Negative [employer] Other Color (U) yellow [facility] Other Glucose Ql (U) 250mg [employer] Other Hemoglobin Ql (U) Negative [employer] Other Ketones Ql (U) Negative [employer] Other Leukocyte esterase Test strip Ql (U) Negative [facility] Other Nitrite Ql (U) Negative [employer] Other pH (U) 5.0 [pH] [facility] Other Protein Ql (U) Negative [employer] Other Specific gravity (U) [Rel density] >1.030 [facility] Other Urobilinogen (U) [Mass/Vol] 0.2 mg/dL [facility] Other Urinalysis - AUTOMATED [facility] Other XR knee RT 3Von 05-31-2023 XR knee RT 3V [facility] [employer] Other XR knee RT 3V [facility] [employer] Other XR knee RT 3V [address] [place] [address] [employer] Other XR [place] [address] [address] [facility] [employer] Other XR knee RT 3V XRay Report [employer] Other XR knee RT 3V Signed [facility] Other XR knee RT 3V Patient: Edna Taveras MR#: [id number] [facility] Other XR knee RT 3V 69 [facility] Other XR knee RT 3V : 1960 Acct:[id number] [facility] Other XR knee RT 3V Age/Sex: 63 / F ADM Date: 05/31/23 [facility] Other XR knee RT 3V Loc: SOXD Room: Type : [facility] [employer] Other XR knee RT 3V Attending Dr: Kelby Bella II, MD [facility] Other XR knee RT 3V Copies to: Kleby Bella MD [facility] Other XR knee RT 3V Ordering Provider: Joanie Bella MD [facility] Other XR knee RT 3V Date of Service: 05/31/23 [facility] Other XR knee RT 3V [id number]) XR/XR knee RT 3V - NOT FOR ER USE: History of total right knee [facility] Other XR knee RT 3V replacement [employer] Other XR knee RT 3V RIGHT KNEE - 3 views N [employer] Other XR knee RT 3V COMPARISON: 04/17/2023 [facility] Other XR knee RT 3V CLINICAL DATA: Follo w-up knee prosthesis [facility] Other XR knee RT 3V Weightbearing AP, la teral and sunrise views were obtained. A knee prosthesis is again visualized. [facility] Other XR knee RT 3V The hardware appears intact and unchanged from the prior. There is no patellar subluxation. No [facility] Other XR knee RT 3V acute fracture or dislocation is noted. There is a knee effusion. There is mild soft tissue [facility] Other XR knee RT 3V swelling. [facility] Other XR knee RT 3V X R/XR knee RT 3V - NOT FOR ER USE [facility] Other XR knee RT 3V IMPRESSION: Framed Data Other XR knee RT 3V STABLE KNEE REPLACEMENT. [facility] Other XR knee RT 3V Impression dictated by: Bree Dukes M.D.05/31/2023 2:51 PM [facility] Other XR knee RT 3V Dictation Location: [facility]-- [facility] Other XR knee RT 3V Transcribed By: PWS 05/31/23 [facility] Other XR knee RT 3V Dictated By: Bree Dukes MD 05/31/23 [employer] Other XR knee RT 3V Signed By: [facility] Other XR knee RT 3V 05/31/23 [facility] [employer] Other Glucose Glucometer (BldC) [M ass/Vol]Ordered By: Kelby Bella on 04-17-2023 Glucose [Mass/Vol] 155 mg/dL [facility] Comment on above: Random Glucose Refer ence Range is dependent on time and content of last meal. Glucose of more than 200 mg/dL in a nonstressed, ambulatory subject supports the diagnosis of Diabetes Mellitus. No Panel InformationOrdered By: Kelby Bella on 04-17-2023 Bedside Glucose Comment Glu2: cleaned meter [facility] Automated erythrocytes count in urine sediment (number/area)Ordered By: Kelby Bella on 04-03-2023 RBC Auto (Urine sed) [#/Area] 1-2 [HPF] 0-4 [facility] Automated leukocytes count i n urine sediment (number/area)Ordered By: Kelby Bella on 04-03-2023 WBC Auto (Urine sed) [#/Area] 5-9 [HPF] 0-4 [facility] Basophils Auto (Bld) [#/Vol] Ordered By: Kelby Bella on 04-03-2023 Basophils (Bld) [#/Vol] 0.1 10*3/uL 0.0-0.2 [facility] Basophils/100 WBC Auto (Bld) Ordered By: Kelby Bella on 04-03-2023 Basophils/100 WBC (Bld) 0.9 % . [facility] Bilirubin Test strip Ql (U)O rdered By: Kelby Bella on 04-03-2023 Bilirubin Ql (U) Negative Negative [place] [facility] Calcium [Mass/volume] in Ser um or PlasmaOrdered By: Kelby Bella on 04-03-2023 Calcium [Mass/Vol] 8.9 mg/dL 8.6-10.3 [facility] Carbon dioxide, total [Moles /volume] in Serum or PlasmaOrdered By: Kelby Bella on 04-03-2023 CO2 [Moles/Vol] 29.6 mmol/L 21.0-31.0 [facility] Chloride [Moles/volume] in S kane or PlasmaOrdered By: Kelby Bella on 04-03-2023 Chloride [Moles/Vol] 105 mmol/L 98-107 [facility] Color Auto (U)Ordered By: Alisa Bella on 04-03-2023 Color (U) Yellow Yellow [facility] Creatinine [Mass/volume] in Serum or PlasmaOrdered By: Kelby Bella on 04-03-2023 Creatinine [Mass/Vol] 0.65 mg/dL 0.60-1.20 [facility] Eosinophils Auto (Bld) [#/Vo l]Ordered By: Kelby Bella on 04-03-2023 Eosinophils (Bld) [#/Vol] 0.4 10*3/uL 0.0-0.45 [facility] Eosinophils/100 WBC Auto (Bl d)Ordered By: Kelby Bella on 04-03-2023 Eosinophils/100 WBC (Bld) 4.7 % . [facility] Erythrocyte distribution wid th Auto (RBC) [Ratio]Ordered By: Kelby Bella on 04-03-2023 Erythrocyte distribution width (RBC) [Ratio] 13.8 % 11.9-15.3 [facility] Fructosamine [Moles/volume] in Serum or PlasmaOrdered By: Kelby Bella on 04-03-2023 Fructosamine [Moles/Vol] 293 umol/L 0-285 [facility] Comment on above: Published reference interval for apparently healthysubjects between age 20 and 60 is 205 - 285 umol/L and in apoorly controlled diabetic population is 228 - 563 umol/Lwith a mean of 396 umol/L.Performed at: [place] [id number] Director: Davis Wiggins PhD, Phone: [phone] Glucose [Mass/volume] in Ser um or PlasmaOrdered By: Kelby Bella on 04-03-2023 Glucose [Mass/Vol] 173 mg/dL 70-100 [facility] Comment on above: ADA recommended refe rence rangeRandom Glucose Reference Range is dependent on time and content of last meal. Glucose of more than 200 mg/dL in a nonstressed, ambulatory subject supports the diagnosis of Diabetes Mellitus. Hematocrit Auto (Bld) [Volum e fraction]Ordered By: Kelby Bella on 04-03-2023 Hematocrit (Bld) [Volume fraction] 34.5 % 34.0-46.4 [facility] Hemoglobin [Mass/volume] in BloodOrdered By: Kelby Bella on 04-03-2023 Hemoglobin (Bld) [Mass/Vol] 11.7 g/dL 11.8-15.4 [facility] Ketones Auto test strip (U) [Mass/Vol]Ordered By: Kelby Bella on 04-03-2023 Ketones (U) [Mass/Vol] Negative Negative [facility] Laboratory - UrinalysisOrder ed By: Kelby Bella on 04-03-2023 Hyaline casts LM Ql (Urine sed) 0-8 [LPF] 0-8 [facility] Leukocytes [#/volume] correc med for nucleated erythrocytes in Blood by Automated counOrdered By: Kelby Bella on 04-03-2023 WBC corrected for nucl RBC Auto (Bld) [#/Vol] 7.8 10*3/uL 3.8-11.6 [facility] Lymphocytes Auto (Bld) [#/Vo l]Ordered By: Kelby Bella on 04-03-2023 Lymphocytes (Bld) [#/Vol] 1.8 10*3/uL 1.00-4.8 [facility] Lymphocytes/100 WBC Auto (Bl d)Ordered By: Kelby Bella on 04-03-2023 Lymphocytes/100 WBC (Bld) 23.0 % . [facility] MCH Auto (RBC) [Entitic mass ]Ordered By: Kelby Bella on 04-03-2023 MCH (RBC) [Entitic mass] 29.1 pg 24.7-34.3 [facility] MCHC Auto (RBC) [Mass/Vol]Or dered By: Kelby Bella on 04-03-2023 MCHC (RBC) [Mass/Vol] 34.0 g/dL 32.0-35.0 [facility] MCV Auto (RBC) [Entitic vol] Ordered By: Kelby Bella on 04-03-2023 MCV (RBC) [Entitic vol] 85.6 fL 80-100 [facility] Monocytes Auto (Bld) [#/Vol] Ordered By: Kelby Bella on 04-03-2023 Monocytes (Bld) [#/Vol] 0.4 10*3/uL 0.0-0.8 [facility] Monocytes/100 WBC Auto (Bld) Ordered By: Kelby Bella on 04-03-2023 Monocytes/100 WBC (Bld) 5.6 % . [facility] Neutrophils Auto (Bld) [#/Vo l]Ordered By: Kelby Bella on 04-03-2023 Neutrophils (Bld) [#/Vol] 5.1 10*3/uL 1.8-7.7 [facility] Neutrophils/100 WBC Auto (Bl d)Ordered By: Kelby Bella on 04-03-2023 Neutrophils/100 WBC (Bld) 65.8 % . [facility] Nitrite Test strip Ql (U)Ord ered By: Kelby Bella on 04-03-2023 Nitrite Ql (U) Negative Negative [facility] No Panel InformationOrdered By: Kelby Bella on 04-03-2023 Estimated GFR (CKD-EPI) > 60.0 mL/Min [facility] Creatinine Clearance (Chem N/A [facility] Nucleated erythrocytes [Pres ence] in Blood by Automated countOrdered By: Kelby Bella on 04-03-2023 Nucleated RBC Auto Ql (Bld) 0.0 /100{WBC} 0-0.5 [facility] Platelet mean volume Auto (B ld) [Entitic vol]Ordered By: Kelby Bella on 04-03-2023 Platelet mean volume (Bld) [Entitic vol] 8.4 fL 6.3-10.7 [facility] Platelets Auto (Bld) [#/Vol] Ordered By: Kelby Bella on 04-03-2023 Platelets (Bld) [#/Vol] 204 10*3/uL 150-450 [facility] Potassium [Moles/volume] in Serum or PlasmaOrdered By: Kelby Bella on 04-03-2023 Potassium [Moles/Vol] 4.0 mmol/L 3.5-5.1 [facility] Protein Auto test strip (U) [Mass/Vol]Ordered By: Kelby Bella on 04-03-2023 Protein (U) [Mass/Vol] Negative Negative [facility] RBC Auto (Bld) [#/Vol]Ordere d By: Kelby Bella on 04-03-2023 RBC (Bld) [#/Vol] 4.03 10*6/uL 3.60-5.00 [facility] Serum or plasma anion gap de terminationOrdered By: Kelby Bella on 04-03-2023 Anion gap [Moles/Vol] 11.4 mmol/L 6.0-15.0 [facility] Sodium [Moles/volume] in Ser um or PlasmaOrdered By: Kelby Bella on 04-03-2023 Sodium [Moles/Vol] 142 mmol/L 136-145 [facility] Specific gravity Auto test s trip (U) [Rel density]Ordered By: Kelby Bella on 04-03-2023 Specific gravity (U) [Rel density] 1.023 1.001-1.03 0 [facility] Squamous epithelial cells de tection in urine sediment by light microscopyOrdered By: Kelby Bella on 04-03-2023 Epithelial cells.squamous LM Ql (Urine sed) 0-1 [HPF] 0-2 [facility] Urea nitrogen [Mass/volume] in Serum or PlasmaOrdered By: Kelby Bella on 04-03-2023 Urea nitrogen [Mass/Vol] 21 mg/dL 7-25 [facility] Urine bacteria detection by automated methodOrdered By: Kelby Bella on 04-03-2023 Bacteria Auto Ql (U) None seen None Seen [facility] Urine clarity by refractomet ry automatedOrdered By: Kelby Bella on 04-03-2023 Clarity Refractometry automated (U) Clear Clear [facility] Urine culture routineOrdered By: Kelby Bella on 04-03-2023 Bacteria identified Cx Nom (U) 2 Days [facility] Urine glucose measurement by automated test strip (mass/volume)Ordered By: Kelby Bella on 04-03-2023 Glucose Auto test strip (U) [Mass/Vol] Normal mg/dL Normal [facility] Urine hemoglobin detection b y automated test stripOrdered By: Kelby Bella on 04-03-2023 Hemoglobin Auto test strip Ql (U) Negative Negative [facility] Urine leukocyte esterase det ection by automated test stripOrdered By: Kelby Bella on 04-03-2023 Leukocyte esterase Auto test strip Ql (U) 2+ Negative [facility] Urobilinogen Auto test strip (U) [Mass/Vol]Ordered By: Kelby Bella on 04-03-2023 Urobilinogen (U) [Mass/Vol] mg/dL Normal [facility] WBC Auto (Bld) [#/Vol]Ordere d By: Kelby Bella on 04-03-2023 WBC (Bld) [#/Vol] 7.8 10*3/uL 3.8-11.6 [facility] pH Auto test strip (U)Ordere d By: Kelby Bella on 04-03-2023 pH (U) 6.5 [pH] 5.0-9.0 [facility] Wound methicillin resistant Staphylococcus aureus (MRSA) cultureOrdered By: Kelby Bella on 03-01-2023 MRSA isol Org specific cx Ql (Unsp spec) No MRSA Isolated 2 Days [facility] Albumin [Mass/volume] in Ser um or Plasma by Bromocresol green (BCG) dye binding methoOrdered By: Kelby Bella on 02-16-2023 Albumin BCG dye [Mass/Vol] 4.5 g/dL 3.5-5.7 [facility] Cotinine [Mass/volume] in Se rum or PlasmaOrdered By: Kelby Bella on 02-16-2023 Cotinine [Mass/Vol] <1.0 ng/mL . [facility] Comment on above: This test was develo ped and its performance characteristicsdetermined by [employer]. It has not been cleared orapproved by the Food and Drug Administration.Cotinine levels greater than 20.0 are consistent with theuse of tobacco or tobacco cessation products.Performed at: [address] [id number] Director: Juan Higgins MD, Phone: [phone] Nicotine [Mass/volume] in Se rum or PlasmaOrdered By: Kelby Bella on 02-16-2023 Nicotine [Mass/Vol] <1.0 ng/mL . [facility] Comment on above: This test was develo ped and its performance characteristicsdetermined by [employer]. It has not been cleared orapproved by the Food and Drug Administration.Nicotine levels greater than 2.0 are consistent with theuse of tobacco or tobacco cessation products. CBC AUTO DIFFon 02-10-2023 BASO # 0.1 103/ul Normal 0.0-0.1 [facility] Comment on above: Performed By: #### C BC #### [facility] [address] [place] [address] [address] Kyle Love Basophils/100 WBC (Bld) 0.7 % Normal 0.2-2.0 [facility] Comment on above: Performed By: #### C BC #### [facility] [address] [place] [address] Dr. Kyle Love EO # 0.3 103/ul Normal 0.0-0.7 [facility] Comment on above: Performed By: #### C BC #### [facility] [address] [place] [address] Dr. Kyle Love Eosinophils/100 WBC (Bld) 3.9 % Normal 0.9-7.0 [facility] Comment on above: Performed By: #### C BC #### [facility] [address] [place] [address] Dr. Kyle Love Erythrocyte distribution width (RBC) [Ratio] 14.5 % Normal 11.0-15.0 [facility] Comment on above: Performed By: #### C BC #### [facility] [address] [place] [address] Dr. Kyle Love Hematocrit (Bld) [Volume fraction] 39.1 % Normal 36.0-48.0 [facility] Comment on above: Performed By: #### C BC #### [facility] [address] [place] [address] Dr. Kyle Love Hemoglobin (Bld) [Mass/Vol] 12.9 g/dL Normal 12.0-16.0 [facility] Comment on above: Performed By: #### C BC #### [facility] [address] [place] [address] Dr. Kyle Love IG # 0.02 10e3/ul Normal 0.00-0.03 [facility] Comment on above: Performed By: #### C BC #### [facility] [address] [place] [address] Dr. Kyle Love IG % 0.3 % Normal 0.0-0.5 [facility] Comment on above: Performed By: #### C BC #### [facility] [address] [place] [address] Dr. Kyle Love LYMPH # 1.3 103/ul Normal 1.2-3.8 [facility] Comment on above: Performed By: #### C BC #### [facility] [address] [place] [address] Dr. Kyle Love Lymphocytes/100 WBC (Bld) 18.4 % Critically low 20.5-60.0 [facility] Comment on above: Performed By: #### C BC #### [facility] [address] [place] [address] Dr. Kyle Love MANUAL DIFF REQ NO Normal [facility] Comment on above: Performed By: #### C BC #### [facility] [address] [place] [address] Dr. Kyle Love MCH (RBC) [Entitic mass] 28.9 pg Normal 26.7-34.0 [facility] Comment on above: Performed By: #### C BC #### [facility] [address] [place] [address] Dr. Kyle Love MCHC (RBC) [Mass/Vol] 33.0 g/dL Normal 29.9-35.2 [facility] Comment on above: Performed By: #### C BC #### [facility] [address] [place] [address] Dr. Kyle Love MCV (RBC) [Entitic vol] 87.5 fL Normal 81.0-99.0 [facility] Comment on above: Performed By: #### C BC #### [facility] [address] [place] [address] Dr. Kyle Love MONO # 0.4 103/ul Normal 0.3-0.8 [facility] Comment on above: Performed By: #### C BC #### [facility] [address] [place] [address] Dr. Kyle Love Monocytes/100 WBC (Bld) 5.4 % Normal 1.7-12.0 [facility] Comment on above: Performed By: #### C BC #### [facility] [address] [place] [address] Dr. Kyle Love NEUT # 5.1 103/ul Normal 1.4-6.5 [facility] Comment on above: Performed By: #### C BC #### [facility] [address] [address] [address] Kyle Love Neutrophils/100 WBC (Bld) 71.3 % Normal 43.0-75.0 [facility] Comment on above: Performed By: #### C BC #### [facility] [address] [address] [address] Kyle Love Platelet mean volume (Bld) [Entitic vol] 9.9 fL Normal 9.5-13.5 [facility] Comment on above: Performed By: #### C BC #### [facility] [address] [address] [address] Kyle Love PLT 233 103/ul Normal 150-450 [facility] Comment on above: Performed By: #### C BC #### [facility] [address] [address] [address] Kyle Love RBC 4.47 106/ul Normal 4.20-5.40 [facility] Comment on above: Performed By: #### C BC #### [facility] [address] [address] [address] Kyle Love WBC 7.2 103/ul Normal 4.0-11.0 [facility] Comment on above: Performed By: #### C BC #### [facility] [address] [place] [address] Dr. Kyle Love GLYCOHEMOGLOBIN A1Con 2022 ADA RECOMMENDATION SEE BELOW Normal [facility] Comment on above: Result Comment: ADA RECOMMENDED LIMIT 4.0 - 6.0 ADA THERAPEUTIC TARGET < 7.0 ACTION SUGGESTED > 7.0 Performed By: #### A 1C #### [facility] [address] [address] [address] Kyle Love Glucose [Mass/Vol] 143 mg/dL Normal [facility] Comment on above: Performed By: #### A 1C #### [facility] [address] [address] [address] Kyle Love HbA1c (Bld) [Mass fraction] 6.6 % Critically high 4.5-6.2 [facility] Comment on above: Performed By: #### A 1C #### [facility] [address] [address] [address] Kyle Love LIPID PROFILEon 02-10-2023 CHOL-HDL RATIO NORM SEE BELOW Normal [facility] Comment on above: Result Comment: 3.3 - 4.4 LOW RISK 4.4 - 7.1 AVERAGE RISK 7.1 - 11.0 MODERATE RISK >11.0 HIGH RISK Performed By: #### P OCGLUC #### [facility] [address] [address] [address] Kyle Love Cholesterol [Mass/Vol] 205 mg/dL Critically high <=200 [facility] Comment on above: Performed By: #### P OCGLUC #### [facility] [address] [address] [address] Kyle Love Cholesterol in HDL [Mass/Vol] 56 mg/dL Normal 40-60 [facility] Comment on above: Performed By: #### P OCGLUC #### [facility] [address] [address] [address] Kyle Love Cholesterol in LDL [Mass/Vol] 129.4 mg/dL Normal [facility] Comment on above: Performed By: #### P OCGLUC #### [facility] [address] [address] [address] Kyle Love Cholesterol.total/Cho lesterol in HDL [Mass ratio] 3.7 {ratio} Normal [facility] Comment on above: Performed By: #### P OCGLUC #### [facility] [address] [address] [address] Kyle Love HDL NORMAL > or = 60 mg/dl - LO W CARDIOVASCULAR RISK <40 mg/dl - HIGH CARDIOVASCULAR RISK Normal [facility] Comment on above: Performed By: #### P OCGLUC #### [facility] [address] [address] [address] Kyle Love LDL CALC NORMAL SEE BELOW Normal [facility] Comment on above: Result Comment: <100 mg/dl OPTIMAL 100 - 129 mg/dl NEAR OR ABOVE OPTIMAL 130 - 159 mg/dl BORDERLINE HIGH 160 - 189 mg/dl HIGH >190 mg/dl VERY HIGH Performed By: #### P OCGLUC #### [facility] [address] [address] [address] Kyle Love Triglyceride [Mass/Vol] 98 mg/dL Normal <=150 [facility] Comment on above: Performed By: #### P OCGLUC #### [facility] [address] [address] [address] Kyle Love VLDL CALC 19.6 mg/dL Normal [facility] Comment on above: Performed By: #### P OCGLUC #### [facility] [address] [address] [address] Kyle Love LIVER PROFILEon 02-10-2023 Albumin [Mass/Vol] 4.0 g/dL Normal 3.4-5.0 [facility] Comment on above: Performed By: #### P OCGLUC #### [facility] [address] [address] [address] Kyle Love Albumin/Globulin [Mass ratio] 1.1 {ratio} Normal [facility] Comment on above: Performed By: #### P OCGLUC #### [facility] [address] [address] [address] Kyle Love ALP [Catalytic activity/Vol] 142 U/L Critically high 46-116 [facility] Comment on above: Performed By: #### P OCGLUC #### [facility] [address] [address] [address] Kyle Love ALT [Catalytic activity/Vol] 28 U/L Normal 14-59 [facility] Comment on above: Performed By: #### P OCGLUC #### [facility] [address] [address] [address] Kyle Love AST [Catalytic activity/Vol] 20 U/L Normal 15-37 [facility] Comment on above: Performed By: #### P OCGLUC #### [facility] [address] [address] [address] Kyle Love BILI, CONJUGATED 0.2 mg/dL Normal 0.0-0.2 [facility] Comment on above: Performed By: #### P OCGLUC #### [facility] [address] [address] [address] Kyle Love Bilirubin [Mass/Vol] 0.7 mg/dL Normal 0.2-1.0 [facility] Comment on above: Performed By: #### P OCGLUC #### [facility] [address] [address] [address] Kyle Love Globulin (S) [Mass/Vol] 3.7 g/dL Normal [facility] Comment on above: Performed By: #### P OCGLUC #### [facility] [address] [address] [address] Kyle Love Protein [Mass/Vol] 7.7 g/dL Normal 6.4-8.2 [facility] Comment on above: Performed By: #### P OCGLUC #### [facility] [address] [place] [address] Dr. Kyle Love MICROALBUMIN, RAND URon 01-24 mALB <1.3 Normal <=30.0 [facility] Comment on above: Performed By: #### P OCGLUC #### [facility] [address] [place] [address] Dr. Kyle Love PROF CHEM 8 (BAS METB)on Anion gap [Moles/Vol] 12.4 mmol/L Normal [facility] Comment on above: Performed By: #### T SH, BMP, LIVER, LIPID #### [facility] [address] [place] [address] Dr. Kyle Love Calcium [Mass/Vol] 9.5 mg/dL Normal 8.5-10.1 [facility] Comment on above: Performed By: #### T SH, BMP, LIVER, LIPID #### [facility] [address] [place] [address] Dr. Kyle Love Chloride [Moles/Vol] 107 mmol/L Normal 98-107 [facility] Comment on above: Performed By: #### T SH, BMP, LIVER, LIPID #### [facility] [address] [place] [address] Dr. Kyle Love CO2 [Moles/Vol] 26.9 mmol/L Normal 21.0-32.0 [facility] Comment on above: Performed By: #### T SH, BMP, LIVER, LIPID #### [facility] [address] [address] [address] Kyle Love Creatinine [Mass/Vol] 0.53 mg/dL Critically low 0.55-1.02 [facility] Comment on above: Performed By: #### T SH, BMP, LIVER, LIPID #### [facility] [address] [address] [address] Kyle Love EGFR-AF [place] >60 Normal >=60 [facility] Comment on above: Performed By: #### T SH, BMP, LIVER, LIPID #### [facility] [address] [address] [address] Kyle Love EGFR-NON AF [place] >60 Normal >=60 [facility] Comment on above: Performed By: #### T MICHAEL, BMP, LIVER, LIPID #### [facility] [address] [address] [address] Kyle Love Glucose [Mass/Vol] 131 mg/dL Critically high 74-106 [facility] Comment on above: Performed By: #### T MICHAEL, BMP, LIVER, LIPID #### [facility] [address] [address] [address] Kyle Love Potassium [Moles/Vol] 4.3 mmol/L Normal 3.5-5.1 [facility] Comment on above: Performed By: #### T MICHAEL, BMP, LIVER, LIPID #### [facility] [address] [address] [address] Kyle Love Sodium [Moles/Vol] 142 mmol/L Normal 136-145 [facility] Comment on above: Performed By: #### T SH, BMP, LIVER, LIPID #### [facility] [address] [address] [address] Kyle Love Urea nitrogen [Mass/Vol] 16.0 mg/dL Normal 7.0-18.0 [facility] Comment on above: Performed By: #### T SH, BMP, LIVER, LIPID #### [facility] [address] [address] [address] Kyle Love Urea nitrogen/Creatinine [Mass ratio] 30.2 mg/mg Normal [facility] Comment on above: Performed By: #### T SH, BMP, LIVER, LIPID #### [facility] [address] [address] [address] Kyle Love TSHon 02-10-2023 TSH 0.752 uIU/mL Normal 0.358-3.[address] [facility] Comment on above: Performed By: #### P OCGLUC #### [facility] [address] [address] [address] Kyle Love VITAMIN D 25 OHon 02-10-2023 VIT D 25-OH 26.7 ng/mL Normal [facility] Comment on above: Performed By: #### A 1C #### [facility] [address] [address] [address] Kyle Love VIT D RANGES SEE BELOW Normal [facility] Comment on above: Result Comment: <20 ng/mL Vit D deficient 20 - <30 ng/mL Vit D insufficient 30 - 100 ng/mL Vit D sufficient >100 ng/mL Potential Toxicity Performed By: #### A 1C #### [facility] [address] [place] [address] Dr. Kyle Love XR knee RT 4V*on 12-14-2022 XR knee RT 4V* [facility] [employer] Other XR knee RT 4V* [facility] [employer] Other XR knee RT 4V* [address] [place] [address] [employer]. Other XR knee RT 4V* [place] [id number] [facility] [employer]. Other XR knee RT 4V* XRay Report [employer] Other XR knee RT 4V* Signed [employer] Other XR knee RT 4V* Patient: Edna Taveras MR#: [id number] [employer] Other XR knee RT 4V* [address] [employer] Other XR knee RT 4V* : 1960 Acct:[id number] [employer] Other XR knee RT 4V* Age/Sex: 62 / F ADM Date: 12/14/22 [employer] Other XR knee RT 4V* Loc: SOXD Room: Type : [facility] [employer] Other XR knee RT 4V* Attending Dr: Kelby Bella II, MD [employer] Other XR knee RT 4V* Copies to: Kelby Bella MD [employer] Other XR knee RT 4V* Ordering Provider: Joanie Bella MD [employer] Other XR knee RT 4V* Date of Service: 12/14/22 [employer] Other XR knee RT 4V* [id number]) XR/XR knee RT 4V*: Acute pain of right knee [employer] Other XR knee RT 4V* ([id number]) XR/XR pelvis 1-2V: Acute pain of right knee [employer] Other XR knee RT 4V* CLINICAL DATA: Chron ic worsening right knee pain. [employer] Other XR knee RT 4V* AP LOW PELVIS: [employer] Other XR knee RT 4V* COMPARISON: Right fe mur 07/08/2016 [employer] Other XR knee RT 4V* AP view of the low p federico was obtained. Assessment is slightly limited by body habitus and [employer] Other XR knee RT 4V* technique. There is no obvious acute fracture or dislocation. The hip joint spaces are symmetric. [employer] Other XR knee RT 4V* There is no prominen t hypertrophy. No soft tissue abnormalities are noted. [facility] Other XR knee RT 4V* X R/XR pelvis 1-2V [employer] Other XR knee RT 4V* IMPRESSION: [employer] [facility] [employer] Other XR knee RT 4V* NO ACUTE BONY FINDIN GS WITHIN LIMITATIONS, DESCRIBED. [facility] Other XR knee RT 4V* RIGHT KNEE - 4 views [employer] [employer]. Other XR knee RT 4V* COMPARISON: None [employer]. Other XR knee RT 4V* Standing AP, lateral , skiers and patellar views were obtained. There is no acute fracture or [facility] Other XR knee RT 4V* dislocation. There i s genu valgum deformity. There is narrowing of the lateral tibiofemoral joint [facility] Other XR knee RT 4V* compartment with subchondral sclerosis and cystic change. There is tricompartment marginal spurring. [facility] Other XR knee RT 4V* A small knee effusio n is seen. There is no focal soft tissue swelling. [facility] Other XR knee RT 4V* DEGENERATIVE CHANGES , GREATEST LATERALLY. [facility] Other XR knee RT 4V* Impression dictated by: Bree Dukes M.D.12/14/2022 3:58 PM [facility] Other XR knee RT 4V* Dictation Location: [place] [address] [facility] Other XR knee RT 4V* Transcribed By: KIANA 12/14/22 6365 [employer] Other XR knee RT 4V* Dictated By: Bree Dukes MD 12/14/22 1555 [facility] Other XR knee RT 4V* Signed By: [email or web address] Other XR knee RT 4V* 12/14/22 1558 [employer] Other XR ankle RT min 3V*on 2021 XR ankle RT min 3V* [facility] [employer]. Other XR ankle RT min 3V* [facility] [employer]. Other XR ankle RT min 3V* [address] [place] [address] [employer]. Other XR ankle RT min 3V* MARI[place]EL [place] [address] [employer] Other XR ankle RT min 3V* [facility] [employer]. Other XR ankle RT min 3V* Signed [facility] Other XR ankle RT min 3V* Patient: Edna Taveras MR#: [id number] [employer] Other XR ankle RT min 3V* 69 [facility] Other XR ankle RT min 3V* : 1960 Acct:[id number] [facility] Other XR ankle RT min 3V* Age/Sex: 62 / F ADM Date: 10/24/22 [facility] Other XR ankle RT min 3V* Loc: XDUCLY Room: Ty pe: REG CLI [facility] Other XR ankle RT min 3V* Attending Dr: Evangelist Ravi [facility] [employer] Other XR ankle RT min 3V* Copies to: AURELIA RAVITato [facility] Other XR ankle RT min 3V* Ordering Provider: AURELIA RAVI [facility] Other XR ankle RT min 3V* Date of Service: 10/24/22 [facility] Other XR ankle RT min 3V* [id number]) XR/XR ankle RT min 3V*: Injury of right ankle, initial encounter [facility] Other XR ankle RT min 3V* RIGHT ANKLE - 3 views [employer] Other XR ankle RT min 3V* CLINICAL DATA: Twist ing injury of the right ankle 2 days ago. Increasing pain and swelling [facility] Other XR ankle RT min 3V* laterally. [facility] Other XR ankle RT min 3V* COMPARISON: None [facility] Other XR ankle RT min 3V* AP, lateral and obli que views were obtained. There is no evidence of fracture or dislocation. [facility] Other XR ankle RT min 3V* The talar dome is in tact. There is spurring at the dorsum of the tarsometatarsal joints. There are [facility] Other XR ankle RT min 3V* calcaneal spurs, gre ater along the plantar surface. There is mild anterior and lateral soft tissue [facility] Other XR ankle RT min 3V* swelling. [facility] Other XR ankle RT min 3V* X R/XR ankle RT min 3V* [facility] Other XR ankle RT min 3V* IMPRESSION: [employer] Other XR ankle RT min 3V* NO ACUTE BONY INJURY. [facility] Other XR ankle RT min 3V* Impression dictated by: Bree Dukes M.D.10/24/2022 10:44 AM [facility] Other XR ankle RT min 3V* Dictation Location: [facility] Other XR ankle RT min 3V* Transcribed By: PWS 10/24/22 1044 [facility] Other XR ankle RT min 3V* Dictated By: Bree Dukes MD 10/24/22 1042 [facility] Other XR ankle RT min 3V* Signed By: [facility] Other XR ankle RT min 3V* 10/24/22 1044 No [employer] Other GLYCOHEMOGLOBIN A1Con 2021 ADA RECOMMENDATION SEE BELOW Normal [facility] Comment on above: Result Comment: ADA RECOMMENDED LIMIT 4.0 - 6.0 ADA THERAPEUTIC TARGET < 7.0 ACTION SUGGESTED > 7.0 Performed By: #### A 1C #### [facility] [address] [place] [address] Dr. Kyle Love Glucose [Mass/Vol] 143 mg/dL Normal [facility] Comment on above: Performed By: #### A 1C #### [facility] [address] [place] [address] Dr. Kyle Love HbA1c (Bld) [Mass fraction] 6.6 % Critically high 4.5-6.2 [facility] Comment on above: Performed By: #### A 1C #### [facility] [address] [address] [address] Kyle Love BUNon 06-26-2022 Urea nitrogen [Mass/Vol] 13.0 mg/dL Normal 7.0-18.0 [facility] Comment on above: Performed By: #### P OCGLUC #### [facility] [address] [place] [address] Dr. Kyle Love CREATININEon 06-26-2022 Creatinine [Mass/Vol] 0.71 mg/dL Normal 0.55-1.02 [facility] Comment on above: Performed By: #### P OCGLUC #### [facility] [address] [place], [place] [address] Dr. Kyle Love EGFR-AF EAST [place] >60 Normal >=60 [facility] Comment on above: Performed By: #### P OCGLUC #### [facility] [address] [place] [address] [address] Kyle Love EGFR-NON AF [place] >60 Normal >=60 [facility] Comment on above: Performed By: #### P OCGLUC #### [facility] [address] [place] [address] [address] 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 Kyle Love Clarity (U) CLEAR Normal CLEAR [facility] Comment on above: Performed By: #### U ACSIND #### [facility] [address] [place] [address] [address] Kyle Love Color (U) LT. YELLOW Normal YELLOW [facility] Comment on above: Performed By: #### U ACSIND #### [facility] [address] [place] [address] [address] Kyle Love Glucose Ql (U) Negative Normal NEGATIVE [facility] Comment on above: Performed By: #### U ACSIND #### [facility] [address] [address] [address] Kyle Love Hemoglobin Ql (U) Negative Normal NEGATIVE [facility] Comment on above: Performed By: #### U ACSIND #### [facility] [address] [place] [address] [address] Kyle Love Ketones Ql (U) Negative Normal NEGATIVE [facility] Comment on above: Performed By: #### U ACSIND #### [facility] [address] [place] [address] [address] Kyle Love LEUKOCYTES Negative Normal NEGATIVE [facility] Comment on above: Performed By: #### U ACSIND #### [facility] [address] [place] [address] [address] Kyle Love Nitrite Ql (U) Negative Normal NEGATIVE [facility] Comment on above: Performed By: #### U ACSIND #### [facility] [address] [address] [address] Kyle Love pH (U) 6.0 [pH] Normal 5-9 [facility] Comment on above: Performed By: #### U ACSIND #### [facility] [address] [address] [address] Kyle Love SPEC GRAVITY 1.010 Normal 1.005-<=1. 025 [facility] Comment on above: Performed By: #### U ACSIND #### [facility] [address] [address] [address] Kyle Love UA PROTEIN Negative Normal NEGATIVE/ TRACE [facility] Comment on above: Performed By: #### U ACSIND #### [facility] [address] [place] [address] [address] Kyle Love UR MICRO IND NOT INDICATED Normal [facility] Comment on above: Performed By: #### U ACSIND #### [facility] [address] [address] [address] Kyle Love Urobilinogen Qn (U) 0.2 {Dianna'U}/dL Normal 0.2 - 1. 0 [facility] Comment on above: Performed By: #### U ACSIND #### [facility] [address] [place] [address] Dr. Kyle Love US KIDNEYSon 06-05-2022 US [...] 3. Normal-appearing bladder. Electronically authenticated by: GENEVA HELM Date: 2022-06-05 08:20 Normal [facility] XR KUB 1 VIEWon 06-05-2022 XR KUB [...] GENEVA MARK Date: 2022-06-05 07:34 Normal [facility] ACETONE SERUMon 04-30-2022 ACETONE Negative Normal NEGATIVE [facility] Comment on above: Performed By: #### A CETON #### [facility] [address] [place] [address] Dr. Kyle Love CBC AUTO DIFFon 04-30-2022 BASO # 0.0 103/ul Normal 0.0-0.1 [facility] Comment on above: Performed By: #### C BC #### [facility] [address] [place] [address] Dr. Kyle Love Basophils/100 WBC (Bld) 0.5 % Normal 0.2-2.0 [facility] Comment on above: Performed By: #### C BC #### [facility] [address] [place] [address] Dr. Kyle Love EO # 0.3 103/ul Normal 0.0-0.7 [facility] Comment on above: Performed By: #### C BC #### [facility] [address] [place] [address] Dr. Kyle Love Eosinophils/100 WBC (Bld) 3.9 % Normal 0.9-7.0 [facility] Comment on above: Performed By: #### C BC #### [facility] [address] [place] [address] Dr. Kyle Love Erythrocyte distribution width (RBC) [Ratio] 13.7 % Normal 11.0-15.0 [facility] Comment on above: Performed By: #### C BC #### [facility] [address] [place] [address] Dr. Kyle Love Hematocrit (Bld) [Volume fraction] 42.2 % Normal 36.0-48.0 [facility] Comment on above: Performed By: #### C BC #### [facility] [address] [place] [address] Dr. Kyle Love Hemoglobin (Bld) [Mass/Vol] 14.4 g/dL Normal 12.0-16.0 [facility] Comment on above: Performed By: #### C BC #### [facility] [address] [place] [address] Dr. Kyle Love IG # 0.04 10e3/ul Critically high 0.00-0.03 [facility] Comment on above: Performed By: #### C BC #### [facility] [address] [place] [address] Dr. Kyle Love IG % 0.5 % Normal 0.0-0.5 [facility] Comment on above: Performed By: #### C BC #### [facility] [address] [place] [address] Dr. Kyle Love LYMPH # 1.9 103/ul Normal 1.2-3.8 [facility] Comment on above: Performed By: #### C BC #### [facility] [address] [place] [address] Dr. Kyle Love Lymphocytes/100 WBC (Bld) 21.3 % Normal 20.5-60.0 [facility] Comment on above: Performed By: #### C BC #### [facility] [address] [place] [address] Dr. Kyle Love MANUAL DIFF REQ NO Normal [facility] Comment on above: Performed By: #### C BC #### [facility] [address] [place] [address] Dr. Kyle Love MCH (RBC) [Entitic mass] 29.3 pg Normal 26.7-34.0 [facility] Comment on above: Performed By: #### C BC #### [facility] [address] [place] [address] Dr. Kyle Love MCHC (RBC) [Mass/Vol] 34.1 g/dL Normal 29.9-35.2 [facility] Comment on above: Performed By: #### C BC #### [facility] [address] [place] [address] Dr. Kyle Love MCV (RBC) [Entitic vol] 85.8 fL Normal 81.0-99.0 [facility] Comment on above: Performed By: #### C BC #### [facility] [address] [place] [address] Dr. Kyle Love MONO # 0.5 103/ul Normal 0.3-0.8 [facility] Comment on above: Performed By: #### C BC #### [facility] [address] [place] [address] Dr. Kyle Love Monocytes/100 WBC (Bld) 6.1 % Normal 1.7-12.0 [facility] Comment on above: Performed By: #### C BC #### [facility] [address] [place] [address] Dr. Kyle Love NEUT # 6.0 103/ul Normal 1.4-6.5 [facility] Comment on above: Performed By: #### C BC #### [facility] [address] [place] [address] Dr. Kyle Love Neutrophils/100 WBC (Bld) 67.7 % Normal 43.0-75.0 [facility] Comment on above: Performed By: #### C BC #### [facility] [address] [place] [address] Dr. Kyle Love Platelet mean volume (Bld) [Entitic vol] 10.4 fL Normal 9.5-13.5 [facility] Comment on above: Performed By: #### C BC #### [facility] [address] [place] [address] Dr. Kyle Love PLT 231 103/ul Normal 150-450 [facility] Comment on above: Performed By: #### C BC #### [facility] [address] [place] [address] Dr. Kyle Love RBC 4.92 106/ul Normal 4.20-5.40 [facility] Comment on above: Performed By: #### C BC #### [facility] [address] [place] [address] Dr. Kyle Love WBC 8.8 103/ul Normal 4.0-11.0 [facility] Comment on above: Performed By: #### C BC #### [facility] [address] [place] [address] Dr. Kyle Love ER URINE PROFILEon 06-05-202 2 Bilirubin Ql (U) Negative Normal NEGATIVE [facility] Comment on above: Performed By: #### E RUR #### [facility] [address] [place] [address] Dr. Kyle Love Clarity (U) CLEAR Normal CLEAR [facility] Comment on above: Performed By: #### E RUR #### [facility] [address] [place] [address] Dr. Kyle Love Color (U) YELLOW Normal YELLOW [facility] Comment on above: Performed By: #### E RUR #### [facility] [address] [place] [address] Dr. Kyle Love ERUAHD A micrscopic examina tion will be performed if indicated. Normal [facility] Comment on above: Performed By: #### E RUR #### [facility] [address] [place] [address] Dr. Kyle Love Glucose Ql (U) 500 mg/dl Abnormal NEGATIVE [facility] Comment on above: Performed By: #### E RUR #### [facility] [address] [place] [address] Dr. Kyle Love Hemoglobin Ql (U) Negative Normal NEGATIVE [facility] Comment on above: Performed By: #### E RUR #### [facility] [address] [place] [address] Dr. Kyle Love Ketones Ql (U) Negative Normal NEGATIVE [facility] Comment on above: Performed By: #### E RUR #### [facility] [address] [place] [address] Dr. Kyle Love LEUKOCYTES Negative Normal NEGATIVE [facility] Comment on above: Performed By: #### E RUR #### [facility] [address] [place] [address] Dr. Kyle Love Nitrite Ql (U) Negative Normal NEGATIVE [facility] Comment on above: Performed By: #### E RUR #### [facility] [address] [place] [address] Dr. Kyle Love pH (U) 5.5 [pH] Normal 5-9 [facility] Comment on above: Performed By: #### E RUR #### [facility] [address] [place] [address] Dr. Kyle Love SPEC GRAVITY >=1.030 Abnormal 1.005-<=1. 025 [facility] Comment on above: Performed By: #### E RUR #### [facility] [address] [place] [address] Dr. Kyle Love UA PROTEIN TRACE Normal NEGATIVE/ TRACE [facility] Comment on above: Performed By: #### E RUR #### [facility] [address] [place] [address] Dr. Kyle Love UR MICRO IND NOT INDICATED Normal [facility] Comment on above: Performed By: #### E RUR #### [facility] [address] [place] [address] Dr. Kyle Love Urobilinogen Qn (U) 0.2 {Dianna'U}/dL Normal 0.2 - 1. 0 [facility] Comment on above: Performed By: #### E RUR #### [facility] [address] [place] [address] Dr. Kyle Love PH VENOUS BLOODon 04-30-2022 PCO2 VENOUS 36.8 mmHg Critically low 40.0-52.0 [facility] Comment on above: Performed By: #### P OCGLUC #### [facility] [address] [place] [address] Dr. Kyle Love pH VENOUS 7.418 Normal 7.330-7.[address] [facility] Comment on above: Performed By: #### P OCGLUC #### [facility] [address] [place] [address] Dr. Kyle Love POINT OF CARE GLUCOSEon Glucose [Mass/Vol] 208 mg/dL Critically high -106 [facility] Comment on above: Performed By: #### P OCGLUC #### [facility] [address] [place] [address] Dr. Kyle Love Glucose [Mass/Vol] 320 mg/dL Critically high 74-106 [facility] Comment on above: Performed By: #### P OCGLUC #### [facility] [address] [address] [address] Kyle Love PROF CHEM 8 (BAS METB)on Anion gap [Moles/Vol] 15.2 mmol/L Normal Th [facility] Comment on above: Performed By: #### B MP #### [facility] [address] [address] [address] Kyle Love Calcium [Mass/Vol] 9.7 mg/dL Normal 8.5-10.1 [facility] Comment on above: Performed By: #### B MP #### [facility] [address] [address] [address] Kyle Love Chloride [Moles/Vol] 101 mmol/L Normal 98-107 [facility] Comment on above: Performed By: #### B MP #### [facility] [address] [place] [address] Dr. Kyle Love CO2 [Moles/Vol] 23.9 mmol/L Normal 21.0-32.0 [facility] Comment on above: Performed By: #### B MP #### [facility] [address] [address] [address] Kyle Love Creatinine [Mass/Vol] 0.90 mg/dL Normal 0.55-1.02 [facility] Comment on above: Performed By: #### B MP #### [facility] [address] [address] [address] Kyle Love EGFR-AF [place] >60 Normal >=60 [facility] Comment on above: Performed By: #### B MP #### [facility] [address] [address] [address] Kyle Lvoe EGFR-NON AF [place] >60 Normal >=60 [facility] Comment on above: Performed By: #### B MP #### [facility] [address] [address] [address] Kyle Love Glucose [Mass/Vol] 324 mg/dL Critically high 74-106 [facility] Comment on above: Performed By: #### B MP #### [facility] [address] [address] [address] Kyle Love Potassium [Moles/Vol] 4.1 mmol/L Normal 3.5-5.1 [facility] Comment on above: Performed By: #### B MP #### [facility] [address] [address] [address] Kyle Love Sodium [Moles/Vol] 136 mmol/L Normal 136-145 [facility] Comment on above: Performed By: #### B MP #### [facility] [address] [address] [address] Kyle Love Urea nitrogen [Mass/Vol] 16.0 mg/dL Normal 7.0-18.0 [facility] Comment on above: Performed By: #### B MP #### [facility] [address] [address] [address] Kyle Love Urea nitrogen/Creatinine [Mass ratio] 17.8 mg/mg Normal [facility] Comment on above: Performed By: #### B MP #### [facility] [address] [address] [address] Kyle Love Vital Signs Date Time Vital Sign Value Performing Clinician Facility 12-11-2024 11:31-0500 Body height 157.5 cm Jorge Luis Wick MD Work Phone: [facility] 12-11-2024 11:31-0500 Body mass index (BMI) [Ratio] 37.49 kg/m2 Jorge Luis Wick MD Work Phone: [facility] 12-11-2024 11:31-0500 Body temperature 95.9 [degF] Jorge Luis Wick MD Work Phone: [facility] 12-11-2024 11:31-0500 Body weight 92.99 kg Jorge Luis Wick MD Work Phone: [facility] 12-11-2024 11:31-0500 Diastolic blood pressure 76 mm[Hg] Jorge Luis Wick MD Work Phone: [facility] 12-11-2024 11:31-0500 Heart rate 98 /min Jorge Luis Wick MD Work Phone: [facility] 12-11-2024 11:31-0500 Respiratory rate 22 /min Jorge Luis Wick MD Work Phone: [facility] 12-11-2024 11:31-0500 SaO2% (BldA) [Mass fraction] 98 % Jorge Luis Wick MD Work Phone: [facility] 12-11-2024 11:31-0500 Systolic blood pressure 138 mm[Hg] Jorge Luis Wick MD Work Phone: [facility] 08-20-2024 07:14-0400 Body height 157.5 cm Jorge Luis Wick MD Work Phone: [facility] 08-20-2024 07:14-0400 Body mass index (BMI) [Ratio] 39.32 kg/m2 Jorge Luis Wick MD Work Phone: [facility] 08-20-2024 07:14-0400 Body temperature 94.8 [degF] Jorge Luis Wick MD Work Phone: [facility] 08-20-2024 07:14-0400 Body weight 97.52 kg Jorge Luis Wick MD Work Phone: [facility] 08-20-2024 07:14-0400 Diastolic blood pressure 70 mm[Hg] Jorge Luis Wick MD Work Phone: [facility] 08-20-2024 07:14-0400 Heart rate 84 /min Jorge Luis Wick MD Work Phone: [facility] 08-20-2024 07:14-0400 Respiratory rate 20 /min Jorge Luis Wick MD Work Phone: [facility] 08-20-2024 07:14-0400 SaO2% (BldA) [Mass fraction] 97 % Jorge Luis Wick MD Work Phone: [facility] 08-20-2024 07:14-0400 Systolic blood pressure 154 mm[Hg] Jorge Luis Wick MD Work Phone: [facility] 04-15-2024 11:23-0400 Body height 1584.96 cm MD Jorge Luis Wick Work Phone: [facility] 04-15-2024 11:23-0400 Body mass index (BMI) [Ratio] 0.4 kg/m2 MD Jorge Luis Wick Work Phone: [facility] 04-15-2024 11:23-0400 Body temperature 95.4 [degF] MD Jorge Luis Wick Work Phone: [facility] 04-15-2024 11:23-0400 Body weight 98.48 kg MD Jorge Luis Wick Work Phone: [facility] 04-15-2024 11:23-0400 Diastolic blood pressure 44 mm[Hg] MD Jorge Luis Wick Work Phone: [facility] 04-15-2024 11:23-0400 Heart rate 100 /min MD Jorge Luis Wick Work Phone: [facility] 04-15-2024 11:23-0400 Respiratory rate 16 /min MD Jorge Luis Wick Work Phone: [facility] 04-15-2024 11:23-0400 SaO2% (BldA) [Mass fraction] 99 % MD Jorge Luis Wick Work Phone: [facility] 04-15-2024 11:23-0400 Systolic blood pressure 130 mm[Hg] MD Jorge Luis Wick Work Phone: [facility] 09-10-2023 15:36-0400 Blood Pressure Location Levy MATOS [facility] 09-10-2023 15:36-0400 Diastolic blood pressure 78 mm[Hg] Levy MATOS [facility] 09-10-2023 15:36-0400 Heart rate 80 /min Levy MATOS [facility] [place] 09-10-2023 15:36-0400 Respiratory rate 16 /min eLvy MATOS [facility] [place] 09-10-2023 15:36-0400 Systolic blood pressure 133 mm[Hg] Levy MATOS [facility] [place] 07-18-2023 08:15-0400 Body height 157.48 cm Patricia Aguilar Other [facility] Other 07-18-2023 08:15-0400 Body mass index (BMI) [Ratio] 38.77 kg/m2 Patricia Aguilar Other [facility] Other 07-18-2023 08:15-0400 Body weight 96.16 kg Patricia Aguilar Other [facility] Other 06-14-2023 09:10-0400 Body height 157.48 cm Ella Quinteros Other [facility] Other 06-14-2023 09:10-0400 Body mass index (BMI) [Ratio] 38.77 kg/m2 Ella Quinteros Other [facility] Other 06-14-2023 09:10-0400 Body temperature 98.4 [degF] Ella Quinteros Other [facility] Other 06-14-2023 09:10-0400 Body weight 96.16 kg Ella Quinteros Other [facility] Other 06-14-2023 09:10-0400 Diastolic blood pressure 79 mm[Hg] Ella Quinteros Other [facility] Other 06-14-2023 09:10-0400 Respiratory rate 18 /min Ella Quinteros Other [facility] Other 06-14-2023 09:10-0400 SaO2% (BldA) [Mass fraction] 100 % Ella Aldair Other [facility] Other 06-14-2023 09:10-0400 Systolic blood pressure 157 mm[Hg] Ella Aldair Other [facility] Other 04-17-2023 14:20-0400 Diastolic blood pressure 54 mm[Hg] MD Jorge Luis Wick Work Phone: [facility] 04-17-2023 14:20-0400 Heart rate 77 /min MD Jorge Luis Wick Work Phone: [facility] 04-17-2023 14:20-0400 Respiratory rate 16 /min MD Jorge Luis Wick Work Phone: [facility] 04-17-2023 14:20-0400 SaO2% (BldA) [Mass fraction] 95 % MD Jorge Luis Wick Work Phone: [facility] 04-17-2023 14:20-0400 Systolic blood pressure 110 mm[Hg] MD Jorge Luis Wick Work Phone: [facility] 04-17-2023 12:20-0400 Inhaled oxygen flow rate 2 L/min MD Jorge Luis Wick Work Phone: [facility] 04-17-2023 12:06-0400 Body temperature 98.4 [degF] MD Jorge Luis Wick Work Phone: [facility] 04-17-2023 07:57-0400 Body height 157.48 cm MD Jorge Luis Wick Work Phone: [facility] 04-17-2023 07:57-0400 Body mass index (BMI) [Ratio] 38.7 kg/m2 MD Jorge Luis Wick Work Phone: [facility] 04-17-2023 07:57-0400 Body weight 96 kg MD Jorge Luis Wick Work Phone: [facility] 03-28-2023 16:15-0400 Body height 157.48 cm Kelby Shayne II Other [facility] Other 03-28-2023 16:15-0400 Body mass index (BMI) [Ratio] 38.41 kg/m2 Kelby Shayne II Other [facility] Other 03-28-2023 16:15-0400 Body weight 95.26 kg Kelby Portland II Other [facility] Other 12-14-2022 15:30-0500 Body height 157.48 cm Kelby Portland II Other [facility] Other 12-14-2022 15:30-0500 Body mass index (BMI) [Ratio] 40.42 kg/m2 Kelby Shayne II Other [facility] Other 12-14-2022 15:30-0500 Body weight 100.25 kg Kelby Portland II Other [facility] Other 10-24-2022 10:50-0500 Body height 157.48 cm Aurelia Ravi Other [facility] Other 10-24-2022 10:50-0500 Body mass index (BMI) [Ratio] 36.58 kg/m2 Aurelia Ravi Other [facility] Other 11-29-2022 10:50-0500 Body temperature 97.6 [degF] Aurelia Ravi Other [facility] Other 10-24-2022 10:50-0500 Body weight 90.72 kg Aurelia Ravi Other [facility] Other 10-24-2022 10:50-0500 Diastolic blood pressure 86 mm[Hg] Aurelia Ravi Other [facility] Other 10-24-2022 10:50-0500 Respiratory rate 18 /min Aurelia Ravi Other [facility] Other 10-24-2022 10:50-0500 SaO2% (BldA) [Mass fraction] 99 % Aurelia Ravi Other [facility] Other 10-24-2022 10:50-0500 Systolic blood pressure 128 mm[Hg] Aurelia Ravi Other [facility] Other 08-28-2022 15:38-0400 Blood Pressure Location Levy MATOS [facility] 08-28-2022 15:38-0400 Diastolic blood pressure 82 mm[Hg] Levy MATOS [facility] 08-28-2022 15:38-0400 Heart rate 77 /min Levy MATOS [facility] 08-28-2022 15:38-0400 Respiratory rate 16 /min Levy MATOS [facility] 08-28-2022 15:38-0400 Systolic blood pressure 119 mm[Hg] Levy MATOS [facility] Encounters Encounter Date Encounter Type Care Provider Facility Start: 02-16-2025 ambulatory Levy Nair ISELA Hawkinsi ty:[facility] Start: 12-11-2024 End: 12-11-2024 Bamboo flowsheet Jorge Luis Wick MD Work Phone: [facility] Start: 12-11-2024 End: 12-11-2024 Bamboo flowsheet Jorge Luis Wick MD Work Phone: [facility] Start: 12-11-2024 End: 12-11-2024 Office outpatient visit 15 minutes Jorge Luis Wick MD Work Phone: [facility] Comment on above: Acute bronchitis due to other specified organisms (Primary Dx); Statin myopathy; Class 2 severe obesity due to excess calories with serious comorbidity and body mass index (BMI) of 37.0 to 37.9 in adult ([facility]) Start: 12-11-2024 End: 12-11-2024 ambulatory JORGE LUIS WICK Not Available Start: 08-27-2024 End: 08-27-2024 Clinisync Result Encounter Jorge Luis Wick MD Work Phone: [facility] Unsolicited Start: 08-27-2024 End: 08-27-2024 Clinisync Result Encounter Jorge Luis Wick MD Work Phone: [facility]olic[facility] Start: 08-20-2024 End: 08-20-2024 Bamboo flowsheet Jorge Luis Wick MD Work Phone: [facility] Start: 08-20-2024 End: 08-20-2024 Bamboo flowsheet Jorge Luis Wick MD Work Phone: [facility] Start: 08-20-2024 End: 08-20-2024 ambulatory JORGE LUIS WICK Not Available Start: 08-20-2024 End: 08-20-2024 Patient encounter procedure Jorge Luis Wick MD Work Phone: [facility] Start: 08-20-2024 End: 08-20-2024 Periodic preventive med est patient 40-64yrs Jorge Luis Wick MD [facility] Comment on above: Annual physical exam (Primary Dx); Type 2 diabetes mellitus with hyperglycemia, without long-term current use of insulin ([facility]); Fibromyalgia Start: 07-17-2024 End: 07-17-2024 ambulatory MD Jorge Luis Wick Work Phone: [facility] Work Phone: Start: 07-17-2024 End: 07-17-2024 Patient encounter procedure MD Jorge Luis Wick Work Phone: [facility] Work Phone: Start: 07-17-2024 End: 07-17-2024 Patient encounter procedure MD Jorge Luis Wick Work Phone: [facility] Start: 07-17-2024 End: 07-17-2024 ambulatory MD Jorge Luis Wick Work Phone: [facility] Work Phone: Start: 04-15-2024 End: 04-15-2024 ambulatory MD Jorge Luis Wick Work Phone: [facility] Work Phone: Start: 04-15-2024 End: 04-15-2024 Patient encounter procedure MD Jorge Luis Wick Work Phone: [facility] [facility] [employer] Work Phone: Start: 02-14-2024 End: 02-14-2024 ambulatory JORGE LUIS WICK Not Available Start: 09-10-2023 End: 09-10-2023 Patient encounter procedure Levy MATOS [facility] Start: 07-18-2023 Office outpatient vi sit 15 minutes Patricia Aguilar [employer] [facility] Start: 07-18-2023 End: 07-18-2023 ambulatory MD Jorge Luis Wick Work Phone: [facility] Work Phone: Start: 07-18-2023 End: 07-18-2023 Patient encounter procedure MD Jorge Luis Wick Work Phone: [facility] Start: 06-14-2023 End: 06-14-2023 ambulatory Ella Quinteros Other [facility] Other Start: 06-14-2023 Office outpatient vi sit 15 minutes Ella Quinteros [facility] Start: 06-07-2023 End: 06-07-2023 ambulatory Kelby Fajardole II Other [facility] Other Start: 06-07-2023 Telephone encounter Kelby [place] II [facility] Start: 05-31-2023 (Post-Op) Post-Op Kelby Shayne II [facility] Start: 05-31-2023 End: 05-31-2023 ambulatory MD Jorge Luis Wick Work Phone: [facility] Work Phone: Start: 05-31-2023 End: 05-31-2023 Patient encounter procedure MD Jorge Luis Wick Work Phone: [facility] Start: 05-18-2023 End: 05-18-2023 Discharged Recurring MD Jorge Luis Wick Work Phone: [facility] [place] Start: 05-18-2023 Registered Recurring MD Jorge Luis angulo Work Phone: [facility] [place] Start: 04-27-2023 End: 04-27-2023 ambulatory Patricia Aguilar Other [facility] Other Start: 04-27-2023 Postop follow up vis it related to original px Patricia Aguilar [employer] [facility] Start: 04-25-2023 End: 04-25-2023 ambulatory Kelby Shayne II Other [facility] Other Start: 04-25-2023 Telephone encounter Kelby [place] II [employer] [facility] Start: 04-17-2023 End: 04-17-2023 Admission to same day surgery center MD Jorge Luis Wick Work Phone: [facility] [place] Start: 04-06-2023 (Prolonged) Prolonge d Services Kelby Fajardole II [employer] [facility] Start: 04-06-2023 End: 04-06-2023 ambulatory Kelby Portland II Other [facility] Other Start: 04-03-2023 Telephone encounter Kelby Fajardole II [employer] [facility] Start: 04-03-2023 End: 04-03-2023 ambulatory MD Jorge Luis Wick Work Phone: [facility] Work Phone: Start: 04-03-2023 End: 04-03-2023 Patient encounter procedure MD Jorge Luis Wick Work Phone: [facility] Work Phone: Start: 03-28-2023 End: 03-28-2023 ambulatory Kelby Shayne II Other [facility] Other Start: 03-28-2023 Office outpatient vi sit 40 minutes Kelby Delgadoisle II [employer] Start: 03-01-2023 End: 03-01-2023 ambulatory PHYSICIAN NO [facility] Work Phone: Start: 03-01-2023 End: 03-01-2023 Patient encounter procedure PHYSICIAN NO [facility] [place] Work Phone: Start: 02-17-2023 Encounter for genera l adult medical examination without abnormal findings DR JORGE LUIS WICK [facility] Start: 02-16-2023 End: 02-16-2023 ambulatory PHYSICIAN NO [facility] Work Phone: Start: 02-16-2023 End: 02-16-2023 Patient encounter procedure PHYSICIAN NO [facility] [place] Work Phone: Start: 02-10-2023 End: 02-11-[address] JORGE LUIS WICK Facility:[facility] Start: 02-10-2023 End: 02-11-2023 Encounter for general adult medical examination without abnormal findings DR JORGE LUIS WICK Facility:[facility] Start: 12-14-2022 End: 12-14-2022 Patient encounter procedure PHYSICIAN NO [facility] Start: 12-14-2022 End: 12-14-2022 ambulatory PHYSICIAN NO [facility] Work Phone: Start: 12-14-2022 Office outpatient ne w 45 minutes Kelby Bella II [facility] Start: 10-24-2022 Office outpatient vi sit 15 minutes Aurelia Ravi [facility] Start: 10-24-2022 End: 10-24-2022 ambulatory PHYSICIAN NO [facility] Work Phone: Start: 10-24-2022 End: 10-24-2022 Patient encounter procedure PHYSICIAN NO [facility] Start: 08-28-2022 End: 08-28-2022 Patient encounter procedure Levy MATOS [facility] Start: 07-19-2022 End: 07-20-[address] JORGE LUIS WICK Facility:[facility] Start: 06-26-2022 End: 06-27-[address] LEVY MATOS . Facility:[facility] Start: 06-23-2022 End: 06-23-2022 Patient encounter procedure [facility] MATOS [facility] Start: 06-09-2022 End: 06-10-[address] LEVY MATOS . Facility: Start: 06-05-2022 End: 06-06-[address] LEVY MATOS . Facility: Start: 04-30-2022 End: 04-30-[address] JORGE LUIS WICK Facility: Start: 02-12-2018 End: 02-13-2018 Ambulatory DEFAULT PHYSICIAN [facility] Start: 07-12-2017 End: 07-13-2017 Ambulatory DEFAULT PHYSICIAN [facility] Procedures Date Procedure Procedure Detail Performing Clinician Start: 08-27-2024 ALL CBC WITH AUTO DIFF Jorge Luis Wick MD Work Phone: Start: 07-17-2024 X-ray of right knee MD [...] duct Levy MATOS Start: 07-15-2013 Cystoscopy Levy LUNA TERS Start: 07-08-2013 Removal of calculus of renal pelvis through percutaneous nephrostomy Levy MATOS Start: 06-05-2013 Cystoscopy Levy LUNA TERS Start: 10-24-2011 Cystoscopy Levy LUNA TERS Start: 08-24-2011 Extracorporeal shock wave lithotripsy of the bile duct Levyjames MATOS Start: 08-17-2011 Cystoscopy Levy LUNA TERS Start: 06-01-2011 Extracorporeal shock wave lithotripsy [...] Treatment Date Care Activity Detail Author Start: 12-11-2025 Screening for malign ant neoplasm of colon Colorectal Cancer Screening [facility] Comment on above: Postponed from 01/07 (Patient Refused) Start: 08-27-2025 Urine screening for protein Diabetes: Urine Protein Screening [facility] Start: 02-25-2025 Hemoglobin A1c measurement Diabetes: Hemoglobin A1C [facility] Start: 02-17-2025 End: 02-17-2025 Patient encounter procedure [facility] Start: 12-11-2024 End: 12-11-2024 Patient encounter procedure 12/11/2024 11:15 AM EST Office Visit [facility] [address] [place] [address] Jorge Luis Wick MD [address] [place] [address] Arrived [facility] Comment on above: Arrived Start: 08-20-2024 End: 08-20-2025 Albumin, urine, random Albumin, urine, random Lab Routine Type 2 diabetes mellitus with hyperglycemia, without long-term current use of insulin ([facility]) Expected: 08/20/2024 (Approximate), Expires: 08/20/2025 [facility] Work Phone: Comment on above: Expected: 08/20/2024 (Approximate), Expires: 08/20/2025 Start: 08-20-2024 End: 08-20-2025 Basic metabolic 1998 panel - Serum or Plasma Basic metabolic panel Lab Routine Annual physical exam Expected: 08/20/2024 (Approximate), Expires: 08/20/2025 [facility] Comment on above: Expected: 08/20/2024 (Approximate), Expires: 08/20/2025 Start: 08-20-2024 End: 08-20-2025 CBC W Auto Differential panel - Blood CBC and differential Lab Routine Annual physical exam Expected: 08/20/2024 (Approximate), Expires: 08/20/2025 [facility] Comment on above: Expected: 08/20/2024 (Approximate), Expires: 08/20/2025 Start: 08-20-2024 End: 08-20-2025 Hemoglobin A1c/Hemoglobin.total in Blood Hemoglobin A1c Lab Routine Annual physical exam Expected: 08/20/2024 (Approximate), Expires: 08/20/2025 [facility] Comment on above: Expected: 08/20/2024 (Approximate), Expires: 08/20/2025 Start: 08-20-2024 End: 08-20-2025 Hepatic function 2000 panel - Serum or Plasma Hepatic function panel Lab Routine Annual physical exam Expected: 08/20/2024 (Approximate), Expires: 08/20/2025 [facility] Comment on above: Expected: 08/20/2024 (Approximate), Expires: 08/20/2025 Start: 08-20-2024 End: 08-20-2025 Lipid 1996 panel - Serum or Plasma Lipid panel Lab Routine Annual physical exam Expected: 08/20/2024 (Approximate), Expires: 08/20/2025 [facility] Comment on above: Expected: 08/20/2024 (Approximate), Expires: 08/20/2025 Start: 08-20-2024 End: 08-20-2025 Thyrotropin [Units/volume] in Serum or Plasma TSH Lab Routine Annual physical exam Expected: 08/20/2024 (Approximate), Expires: 08/20/2025 [facility] Comment on above: Expected: 08/20/2024 (Approximate), Expires: 08/20/2025 Start: 08-09-2024 Hemoglobin A1c measurement Diabetes: Hemoglobin A1C [facility] Start: 07-27-2024 Influenza vaccination Influenza Vacc ine (#1) [facility] Start: 07-17-2024 X-ray of right knee [facility] Start: 07-17-2024 XR Knee - right 2 Views [facility] Start: 01-26-2024 Glaucoma screening Diabetes: R etinopathy Screening [facility] Start: 04-17-2023 [facility] Start: 04-17-2023 [facility] Start: 04-03-2023 [facility] Start: 04-03-2023 Bacteria identified in Urine by Culture [facility] Start: 03-01-2023 MRSA Culture MRSA Culture [facility] Start: 2000 Screening for malign ant neoplasm of breast Mammogram [facility] Start: 1990 Screening for malign ant neoplasm of cervix [facility] Start: 1981 Screening for malign ant neoplasm of cervix Pap Smear [facility] Start: 1979 Urine screening for protein Diabetes: Urine Protein Screening [facility] Start: 1970 Glaucoma screening Diabetes: R etinopathy Screening [facility] Start: 1960 Hemoglobin A1c measurement Diabetes: Hemoglobin A1C [facility] Start: 1960 Screening for malign ant neoplasm of colon [facility] Cotinine [Mass/volum e] in Serum or Plasma [facility] Methicillin resistan t Staphylococcus aureus [Presence] in Unspecified specimen by Organism specific culture [facility] Nicotine [Mass/volum e] in Serum or Plasma [facility] XR Knee - left 4 [facility] Immunizations Immunization Date Immunization Notes Care Provider Fa citlali 10-03-2023 influenza virus vaccine, unspecified formulation Jorge Luis Wick MD Work Phone: [facility] 10-14-2022 COVID-19 mRNA Bivale nt Booster (Moderna) MD Jorge Luis Wick Work Phone: [facility] 09-29-2021 COVID-19 mRNA-1273 (Moderna) MD Jorge Luis Wick Work Phone: [facility] 03-07-2021 SARS-CoV-2 (COVID-19 ) mRNA-1273 vaccine Levy ISELA [facility] 02-24-2021 COVID-19 mRNA-1273 (Moderna) MD Jorge Luis Wick Work Phone: [facility] 02-07-2021 SARS-CoV-2 (COVID-19 ) mRNA-1273 vaccine Levy MATOS [facility] 01-27-2021 COVID-19 mRNA-1273 (Moderna) MD Jorge Luis Wick Work Phone: [facility] Payers Date Payer Category Payer [facility] [id number] 2021 Unknown 1960 Unknown [id number] 1960 Unknown [id number]. [id number] 1960 Unknown [id number]. [id number] 1960 Unknown [id number]. [id number] 1960 Unknown [id number] [id number]. 2.593 1960 Unknown [id number] [id number]. [id number] 1960 Unknown [id number] [id number]. [id number] 1960 Unknown [id number] [id number]. 2.1259 1960 Unknown [id number] [id number]. [id number] 1960 Unknown [id number] [id number]. [id number] 1959 Unknown [id number] Self-pay Self Pay [id number] Unknown [place] [id number] Social History Date Type Detail Facility Start: 08-16-2020 End: 02-14-2024 Tobacco smoking status Never smoked tobacco (finding) [facility] Start: 08-20-2024 End: 12-11-2024 Sex Assigned At Female [facility] Start: 1960 Sex Assigned At Female [facility] Tobacco smoking status Never [facility] Start: 02-14-2024 Tobacco use and exposure Smokeless tobacco non-user [facility] Start: 08-20-2024 End: 12-11-2024 History of Social function [facility] Start: 1960 Sex assigned at Not on file [facility] Medical Equipment Procedure Code Equipment Code Equipment Origin al Text Equipment Identifier Dates Arthroplasty, knee, total, minimally invasive Orthopaedic cement, non-medicated [id number] FDA Start: 04-17-2023 Arthroplasty, knee, total, minimally invasive Uncoated knee femur prosthesis [id number] FDA Start: 04-17-2023 Arthroplasty, knee, total, minimally invasive Tibial insert [id number] FDA Start: 04-17-2023 Arthroplasty, knee, total, minimally invasive Polyethylene patella prosthesis ()[id number] FDA Start: 04-17-2023 Arthroplasty, knee, total, minimally invasive Knee stem ()[id number] FDA Start: 04-17-2023 Arthroplasty, knee, total, minimally invasive Uncoated knee tibia prosthesis, metallic [id number] FDA Start: 04-17-2023 1 each by Other route if needed (as needed) [id number] Start: 11-09-2023 Goals Date Patient Goal Desired Activity /State Functional Status Date Assessment Result Facility 09-10-2023 Functional Status N/A [facility] 08-28-2022 Functional Status N/A [facility] Clinical Notes 08-28-2022 to 12-11-2024 Jorge Luis Wick MD - 12/11/2024 11:57 AM Tae Wick MD - 12/11/2024 11:57 AM Tae Wick MD - 12/11/2024 11:56 AM Tae Wick MD - 12/11/2024 11:15 AM EST Note Date & Type Note Facility 12-11-2024 History of Presen t illness Narrative Associated Problem(s): Statin myopathy Not tolerate statins Associated Problem(s): Class 2 severe obesity due to excess calories with serious comorbidity and body mass index (BMI) of 37.0 to 37.9 in adult ([facility]) Weight loss indicated Associated Problem(s): Acute bronchitis due to other specified organisms Take antibiotics for 5 days and will be in system 10-12 days. Use sudafed or other decongestants as needed. Use robitussin or robittussin-DM for cough. Use afrin for congestion but no longer than 3 days. Use mucinex to bring up phlegm. Use motrin or tylenol for fever, aches or pains. Increase fluid intake and rest. Should improve over next 5-7 days and if no better or worse call office. Images from the original note were not included. Subjective Patient ID: Rhona Taveras is a 64 y.o. female who presents for Follow-up (Chest cold). C/o cough, congestion, and rhinorrhea x 1 week. Afebrile. Severe fatigue and no energy. Frequent cough dry and nonproductive. Chest tight and SOB. NI and sinus pressure in forehead and cheeks along with postnasal drip. Ears plugged and popping. Sore throat and pain to swallow. Mild nausea. Multiple coworkers recently sick. Using OTC medication and mild relief. No improvement in symptoms since onset. Review of Systems Respiratory: Negative for cough, shortness of breath and wheezing. Cardiovascular: Negative for chest pain and palpitations. Gastrointestinal: Negative for abdominal pain, diarrhea, nausea and vomiting. Genitourinary: Negative for dysuria. Objective Physical Exam Constitutional: General: She is not in acute distress. Appearance: Normal appearance. HENT: Head: Normocephalic. Right Ear: Tympanic membrane normal. Left Ear: Tympanic membrane normal. Eyes: Extraocular Movements: Extraocular movements intact. Pupils: Pupils are equal, round, and reactive to light. Cardiovascular: Rate and Rhythm: Normal rate and regular rhythm. Heart sounds: No murmur heard. No friction rub. No gallop. Pulmonary: Effort: Pulmonary effort is normal. Breath sounds: Normal breath sounds. No wheezing, rhonchi or rales. Abdominal: General: Bowel sounds are normal. There is no distension. Palpations: Abdomen is soft. Tenderness: There is no abdominal tenderness. There is no guarding or rebound. Musculoskeletal: Cervical back: Neck supple. Right lower leg: No edema. Left lower leg: No edema. Neurological: Mental Status: She is alert. Assessment/Plan Problem List Items Addressed This Visit Statin myopathy Not tolerate statins Class 2 severe obesity due to excess calories with serious comorbidity and body mass index (BMI) of 37.0 to 37.9 in adult ([facility]) Weight loss indicated Acute bronchitis due to other specified organisms - Primary Take antibiotics for 5 days and will be in system 10-12 days. Use sudafed or other decongestants as needed. Use robitussin or robittussin-DM for cough. Use afrin for congestion but no longer than 3 days. Use mucinex to bring up phlegm. Use motrin or tylenol for fever, aches or pains. Increase fluid intake and rest. Should improve over next 5-7 days and if no better or worse call office. Relevant Medications azithromycin (Zithromax) 250 MG tablet documented in this encounter [facility] 08-20-2024 History of Presen t illness Narrative Associated Problem(s): Type 2 diabetes mellitus with hyperglycemia, without long-term current use of insulin ([facility]) Reports BS controlled and due for A1C. Stick to ADA diet and limit carbs. Associated Problem(s): Annual physical exam Due for labs and mammogram. Discussed proper diet and regular aerobic exercise. Need aerobic exercise 5-6 days a week for 30 minutes at a time. Smaller portions and limit total calories. Tetanus every 10 years. Advised not to smoke. Discussed daily Aspirin therapy. Images from the original note were not included. Subjective Patient ID: Rhona Taveras is a 64 y.o. female who presents for Follow-up (6m/Fibromyalgia flare). Presents for annual PE. Weight unchanged over the past few months. Tries to stay active and walk several days a week. Tries to watch diet and eat healthy. Increased fruits and vegetables. Smaller portions and limits snacking. Tries to limit total daily calories. Due for labs and mammogram. BS stable and around 140-150. Tries to eat well and stick to ADA diet. Denies signs of elevated BS such as polyuria, polyphagia or polydipsia. Fibromyalgia worse over past few weeks. Increased pain in arms and shoulders. C/o dull ache but no weakness. On cymbalta and zanaflex. Review of Systems Respiratory: Negative for cough, shortness of breath and wheezing. Cardiovascular: Negative for chest pain and palpitations. Gastrointestinal: Negative for abdominal pain, diarrhea, nausea and vomiting. Genitourinary: Negative for dysuria. Objective Physical Exam Constitutional: General: She is not in acute distress. Appearance: Normal appearance. HENT: Head: Normocephalic. Right Ear: Tympanic membrane normal. Left Ear: Tympanic membrane normal. Eyes: Extraocular Movements: Extraocular movements intact. Pupils: Pupils are equal, round, and reactive to light. Cardiovascular: Rate and Rhythm: Normal rate and regular rhythm. Heart sounds: No murmur heard. No friction rub. No gallop. Pulmonary: Effort: Pulmonary effort is normal. Breath sounds: Normal breath sounds. No wheezing, rhonchi or rales. Abdominal: General: Bowel sounds are normal. There is no distension. Palpations: Abdomen is soft. Tenderness: There is no abdominal tenderness. There is no guarding or rebound. Musculoskeletal: General: No swelling or tenderness. Cervical back: Neck supple. Right lower leg: No edema. Left lower leg: No edema. Skin: Findings: No erythema or rash. Neurological: General: No focal deficit present. Mental Status: She is alert and oriented to person, place, and time. Cranial Nerves: No cranial nerve deficit. Motor: No weakness. Gait: Gait normal. Assessment/Plan Problem List Items Addressed This Visit Fibromyalgia Relevant Medications predniSONE (Deltasone) 50 MG tablet DULoxetine (Cymbalta) [address] capsule tiZANidine (Zanaflex) 4 MG capsule Type 2 diabetes mellitus with hyperglycemia, without long-term current use of insulin ([facility]) Reports BS controlled and due for A1C. Stick to ADA diet and limit carbs. Relevant Medications glipiZIDE (Glucotrol) 10 MG tablet Other Relevant Orders Albumin, urine, random Annual physical exam - Primary Due for labs and mammogram. Discussed proper diet and regular aerobic exercise. Need aerobic exercise 5-6 days a week for 30 minutes at a time. Smaller portions and limit total calories. Tetanus every 10 years. Advised not to smoke. Discussed daily Aspirin therapy. Relevant Orders Hemoglobin A1c Basic metabolic panel CBC and differential Hepatic function panel Lipid panel TSH documented in this encounter [facility] 09-10-2023 Hospital Discharg e instructions Patient Education [...] include: ?8 oz (237 mL) of milk, rqzdweh-ztqkjbsqfpoh-iyfkd milk, and calcium-fortifiedfruit juice. Calcium-fortified means that [...] ?Spinach (cooked), rhubarb, beets, sweet potatoes, and Kyrgyz chard. ?Peanuts. ?Potato chips, prydeinig fries, and baked potatoes with skin on. ?Nuts and nut products. ?Chocolate. If you regularly take a diuretic medicine, make sure to eat at least 1 or 2 servings of fruits or vegetables that are high in potassium each day. These include: ?Avocado. ?Banana. ?[place], prune, carrot, or tomato juice. ?Baked potato. [...] magnesium, fish oil, or vitamin B6. Take xzjd-kfh-iudbfxj and prescription medicines only as told by [...] Casseroles. Pizza. Lasagna. Frozen meals. Potato chips. Lao fries. The items listed above may not [...] provider. Document Revised: 07/24/2022 Document Reviewed: 07/24/2022 [employer] Patient Education 2022 [employer]. Follow Up Care 08/28/2022 16:11:04 With:ISELA MINAYA, Levy Nair, URL Address: [facility] [address], [place] [id number]- When:Within 1 Year(s) Comments:w/DEJA [facility] 07-18-2023 Evaluation note Encounter Date Diagnosis Assessment [...] right artificial knee joint (ICD-10 - Z96.651) [facility] Other [id number] Evaluation note* Encounter Date Diagnosis Assessment Notes [...] understanding and is agreeable with treatment plan [facility] Other 07-06-2023 Evaluation note* Encounter Date Diagnosis Assessment Notes Treatment Notes Treatment Clinical Notes May, History of total right knee replacement (ICD-10 - Z96.651) May, Aftercare following joint replacement surgery (ICD-10 - Z47.1) May, Presence of right artificial knee joint (ICD-10 - Z96.651) May, Contact allergic reaction (ICD-10 - L23.9) May, Other [facility] at [facility] on 04/17/2020 Overall she is doing fantastic. [...] tolerated. Continue PT as recommended. Continue taking klxo-rrg-wmyuzpn anti-inflammatorie s as needed for assistance with swelling and pain associated with the operative extremity. Follow-up in 1 to 2 weeks for incision check and if everything looks good then 3 months postop for repeat examination and long standing x-rays. [facility] Other 06-02-2023 Evaluation note* Encounter Date Diagnosis [...] to stretch knee motion at this time. [facility] Other 05-12-2023 Evaluation note* Encounter Date Diagnosis [...] patient could proceed with surgery safely. The sales and marketing manager was vital for surgery timing and scheduling [...] plans. Prolonged services time spent: 33 minutes [facility] Other 05-09-2023 Evaluation note* Encounter Date Diagnosis Assessment Notes Treatment Notes Treatment Clinical Notes March, Primary osteoarthritis of right knee (ICD-10 - M17.11) [facility] Other 05-03-2023 Evaluation note* Encounter Date Diagnosis [...] does not member the name of the marketing services coordinator but they were in [place]. 4. Once our office has reviewed the above labs and clearances, we will contact the patient to discuss surgery scheduling. Patient is in agreement with the above plan. 5. The risks involved with surgery and postoperative complications were discussed in relation to the patient's nonmodifiable risk factors including but not limited to the following: Vqz-qbeyxfh-tnwyjdn nt diabetes Fibromyalgia History of heart block All questions were answered after discussing these increased risks. The patient voiced understanding of these increased risks and still wishes to proceed with surgery. 6. The risks involved with surgery and postoperative complications were discussed in relation to the patient's modifiable risk factors including but not limited to the following: Qbr-urwszvq-gxccpmx nt diabetes-most recent A1c is 6.6 BMI [...] or absent clearances could delay their surgery. [facility] Other 01-19-2023 Evaluation note* Encounter Date Diagnosis [...] patient may want surgery sometime after May. [facility] Other 11-29-2022 Evaluation note* Encounter Date Diagnosis [...] PCP if blood sugar goes above 250- [facility] Other 10-03-2022 Hospital Discharge instructions Patient Education 08/28/2022 15:59:31 Kidney Stones, Pqkv-if-Xnso Kidney Stones Kidney stones are rock-like masses [...] Follow these instructions at home: Medicines Take avkn-bkl-szugsib and prescription medicines only as told by [...] 04/30/2009 Document Revised: 03/30/2020 Document Reviewed: 03/30/2020 [employer] Patient Education 2020 [employer]. Follow Up Care 08/22/2021 16:23:28 With:Levy MATOS MD, URL Address: [facility] [address], [place] [address]- [phone] When:08/28/2023 [facility] evaluation + Plan note Future Appointments Appointment Date:08/28/2022 03:00:00 PM Scheduled Provider:Levy MATOS MD Location:[facility] Appointment Type:URO Office Visit [facility] evaluation + Plan note Future Appointments Appointment Date:09/10/2023 03:00:00 PM Scheduled Provider:Levy MATOS MD Location:[facility] Appointment Type:URO Office Visit [facility] evaluation + Plan note Future Appointments Appointment Date:09/08/2024 10:15:00 AM Scheduled Provider:Levy MATOS MD Location:[facility] Appointment Type:URO Office Visit Diagnostic Tests Pending * Electrolyte Panel 09/10/23 [facility] [place] evaluation noteNo assessment information available [facility] Work Phone: Evaluation noteNo [employer]. Other Evaluation note* Diagnosis Onset Date Resolution Status Contusion of left knee and lower leg acute [facility] Work Phone: Evaluation note* Diagnosis Onset Date Resolution Status Aftercare following right knee joint replacement surge ry acute [facility] Work Phone: Evaluation note* Diagnosis Annual physical exam- Primary Routine general medical examination at a health care facility Type 2 diabetes mellitus with hyperglycemia, without long-term current use of insulin ([facility]) Fibromyalgia Unspecified myalgia and myositis documented in this encounter [facility] HealthcareEvaluation note* Diagnosis Breast cancer screening by mammogram- Primary Type 2 diabetes mellitus with hyperglycemia, without long-term current use of insulin ([facility]) Fibromyalgia Unspecified myalgia and myositis Primary osteoarthritis of right knee Chronic diastolic heart failure ([facility]) Chronic diastolic heart failure Mild intermittent asthma without complication ([facility]) Seasonal allergic rhinitis due to pollen Annual physical exam- Primary Routine general medical examination at a health care facility Type 2 diabetes mellitus with hyperglycemia, without long-term current use of insulin ([facility]) Fibromyalgia Unspecified myalgia and myositis Acute bronchitis due to other specified organisms- Primary Statin myopathy Toxic myopathy Class 2 severe obesity due to excess calories with serious comorbidity and body mass index (BMI) of 37.0 to 37.9 in adult ([facility]) documented in this encounter [facility] Narrative - Reported* Type Description Date Medical History type 2 diabetic Surgical History lypotripsy 11 times Surgical History gallblatter Surgical History hysteretomy Hospitalization History see above [facility] Other History general Narrative - Reported* Type Description Date Medical History type 2 diabetic Medical History fibromyalgia Surgical History lypotripsy 11 times Surgical History gallblatter Surgical History hysteretomy Surgical History right knee arthroscopy Hospitalization History see above [facility] Other Hospital course Narrative No data available for this section [facility] No data available for this section [facility] Strap progress note No data available for this section [facility] Strap Summary Purpose Family History No Family History [...] Date/ Time Advance Directives No April 18 12:19pm Advance Directive Response Recorded Date/ Time [...] and content) DATE CREATED AUTHOR 05/17/2018 [facility] DATE CREATED AUTHOR AUTHOR'S ORGANIZ ATION 02/18/2023 [facility] [place] [facility] DATE CREATED AUTHOR AUTHOR'S ORGANIZ ATION 07/19/2024 [facility] DATE CREATED AUTHOR AUTHOR'S ORGANIZ ATION 12/14/2024 [facility] EPIC DATE CREATED AUTHOR AUTHOR'S ORGANIZ ATION 01/16/2025 Sung Feldman [facility] Care Team (unrecognized sect ion and content) [...] Attending Provider Active Start: April 15, 2024 [employer] Relationship Specialty Start Date End Date Jorge Luis Wick MD [address] [place] [address] PCP - General Family Medicine 02/14/24 [employer] Relationship Specialty Start Date End Date Jorge Luis Wick MD [address] [place] [phone] PCP [facility] 02/14/24 [employer] Lab Technician Relationship Specialty Start Date End Date Jorge Luis Wick MD [address] [place] [phone] PCP [facility] 02/14/24 [employer] Lab Technician Relationship Specialty Start Date End Date Jorge Luis Wick MD [address] [place] [phone] [facility] 02/14/24 Jorge Luis Wick MD [address] [place] [phone] PCP [facility] [employer] 08/26/24 Mobile Lab Technician Relationship Specialty Start Date End Date Jorge Luis Wick MD [address] [place] [phone] PCP [facility] 02/14/24 Jorge Luis Wick MD [address] [place] [phone] PCP [facility] [employer] 08/26/24 Goals (unrecognized section and content) Goals may be documented in a n alternate section REASON FOR VISIT (unrecogniz ed section and content) Reason Comments Follow-up 6mFibromyalgia flare Reason Comments Follow-up Chest cold FOR RECORDS PERTAINING TO PATIENTS WHO ARE [...] BE BASED ON THE PRIMARY CLINICAL RECORDS. [facility] [employer] [facility]. provides no warranty or guarantee of the accuracy or completeness of information in this document.
--- NOTE | 2025-02-10 07:33 | US_ITS ---
The [address] [address] Patient Name: LALY OLVERA MRN: [id number] date: 1960 Sex: F Assigned Patient Location: US Current Patient Location: US Accession/Order Number: [id number] Exam Date: 02/10/2025 10:55 Report Date: 02/10/2025 11:00 At the request of: PAMELLA WEISS MD Procedure: US renal BI BILATERAL RENAL AND BLADDER ULTRASOUND CLINICAL HISTORY: Kidney stone COMPARISON: Renal ultrasound 10/05/2023 FINDINGS: Estimation of renal size is approximately 11.6 cm on the right and 10.3 cm on the left. 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 Additional small angiomyolipoma right kidney measuring 4 mm. Small angiomyolipoma left kidney measuring 4 mm. Small cyst left kidney. Small cyst right kidney. The urinary bladder is partially distended with a volume of 67 ml. No shadowing stone or focal lesion. 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 THESE WERE NOT IDENTIFIED ON THE PRIOR STUDY. NO HYDRONEPHROSIS. Impression dictated by: Austin Pka Jr., D.O.02/10/2025 11:00 AM Dictation Location: [place] [address] Electronically authenticated by: [id number] Y Date: 02/10/2025 11:00
== END 2025-02-10 07:16 | disposition home or self-care (01) ==
LOC: US 07:19
PROVIDERS: PCP Family Medicine; Visit Provider Urology
DX: N20.0 Calculus of kidney (principal); D17.71 Benign lipomatous neoplasm of kidney
CPT/HCPCS: 76775

== ENCOUNTER 2025-02-17 14:19 | Outpatient (OUT) | payer MEDICARE, OTHER, SELFPAY ==
--- OUTSIDE RECORDS SUMMARY | 2025-02-17 14:42 | XMS_ITS | CCD ---
Author Organization [facility] Care Team Providers Care 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 Name Role Phone PHYSICIAN, DEFAULT Unavailable Unavailable PHYSICIAN, DEFAULT Unavailable Unavailable PHYSICIAN, DEFAULT Unavailable Unavailable PHYSICIAN, DEFAULT Unavailable Unavailable JORGE LUIS WICK Primary Care Physician NO FAMILY, PHYSICIAN Primary Care Provider Unava ANIA Maurer Attending Provider Aurelia Ravi Unavailable MD Kelby Bella II Attending Provider Kelby Bella II Unavailable [phone] NO FAMILY, PHYSICIAN Primary Care Provider Unava ilMD Kelby Watkins II Attending Provider [phone] MD Jorge Luis Wick Primary Care Provider DR LEVY CASTILLO Admitting Unavailable ISELA ., DR CAN Attending [...] WICK Attending Unavailable Levy MATOS Attending Unavailable Levy MATOS Attending Unavailable Allergies Allergy Classification Reported Allergen(s) Allergy Type Date of Onset Reaction(s) Facility Adhesive Tape (1 source) Adhesive Tape Substance Allergy 4 Redness of Skin/Rash [facility] Opioid Agonists (1 source) HYDROcodone Drug Allergy 4 N/V [facility] (1 source) Adhesive agent Drug allergy (disorder) 3 [facility] (1 source) Rocuronium Drug Allergy 3 [facility] (1 source) Acetaminophen Drug Allergy 3 N/V [facility] (6 sources) HYDROcodone Drug Allergy 3 N/V [facility] (7 sources) Zullehw-NJH-IqJ Reductase Inhibitor Propensity to adverse reactions 3 Muscle Pain [facility] (5 sources) Adhesive Tape Allergy to substance 3 Redness of Skin/Rash [facility] (6 sources) Surgical soap Allergy to substance 3 Rash [facility] (7 sources) Icy Hot Propensity to adverse reactions 4 Rash [facility] (1 source) Adhesive Tape; Translations: [Tape] Propensity to adverse reactions (disorder) [facility] Repository Medications Current Medications Medication Drug Class(es) [...] PO Twice daily April 03, 2023 12:00am [id number] 200 actuat albuterol 0.09 mg/actuat metered dose [...] Daily, # 90 tab(s), Refills(s) 3, Pharmacy: [facility], 158, cm, 09/10/23 15:38:00 [...] Start: 12-11-2024 take 2 tablets by mo [facility] once daily azithromycin (Zithromax) 250 MG tablet [...] Active docusate sodium 50 mg / sennosides, fci 8.6 mg oral tablet (5 sources) Start: [...] hyperglycemia, without long-term current use of insulin ([facility]) Take 1 tablet (25 mg) by [...] hyperglycemia, without long-term current use of insulin ([facility]) Take 1 tablet by mouth twice [...] oral tablet (5 sources) Opioid Agonist Start: 05-09-2023 take 1 tablet by mouth every four [...] Daily 11/08/2023 Active take [facility] Pioglitazone HCl 30 MG 1 tablet Orally Once a day Active polyethylene glycol 3350 [id number] mg powder for oral solution (5 sources) [...] Start: 09-10-2023 take 2 tablets by mo [facility] three times daily potassium CITRATE 10 mEq ER Tab 20 mEq, 2 tab(s), Oral, TID, 180 tab(s), Refill(s) [address] [place] [address] 1429, 158, cm, 09/10/23 15:38:00 EDT, Height/Length [...] Daily, # 90 tab(s), Refills(s) 11, Pharmacy: [facility] 1429, 158, cm, 09/10/23 15:38:00 EDT, Height/Length Dosing, 94.6, kg, 09/10/23 15:38:00 EDT, Weight Dosing Start Date: 09/10/23 Status: Ordered Start: 08-28-2022 take 3 tablets by mo [facility] once daily sodium bicarbonate 650 mg Tab 1,950 mg = 3 tab(s), Oral, Daily, # 60 tab(s), Refills(s) 0 Start Date: 08/28/22 Status: Ordered Start: 08-22-2021 End: 08-17-2022 take 3 tablets by mouth three times daily sodium bicarbonate 650 mg Tab 1,950 mg = 3 tab(s), Oral, TID, X 90 day(s), # 810 tab(s), Refills(s) 3, Pharmacy: [facility] 1429, 158, cm, 08/22/21 15:36:00 EDT, Height/Length Dosing, 76, kg, 08/22/21 15:36:00 EDT, Weight Dosing Start Date: 08/22/21 Stop Date: 08/17/22 Status: Ordered End: 12-11-2024 sodium bicarbonate 325 MG ta blet Take 325 mg by mouth in the morning and 325 mg at noon and 325 mg in the evening. 12/11/2024 Discontinued take 2 tablets by [facility] every eight hours Sodium Bicarbonate 325 MG [...] BID, # 60 tab(s), Refills(s) 11, Pharmacy: [facility] 1429, 158, cm, 08/28/22 15:39:00 [...] (BMI) of 37.0 to 37.9 in adult ([facility])] Onset: 08-20-2024 12-11-2024 Chronic Other upper [...] 04-30-2022 Episodic Other aftercare (1 source) Other m[facility]p (current) drug therapy; Translations: [OTH LONG-TERM CURRENT DRUG THERAPY] Onset: 05-04-2022 Episodic Other [...] Test Name Value Interpretation Reference Range Facility Ambulatory Visit Summaryon 0 02-16-2025 Ambulatory Visit Summary Ambulatory Visit Summary RHONA TAVERAS :1960 Visit Date:02/16/2025 Ambulatory Visit Instructions Your Diagnosis Kidney stone Renal angiomyolipoma Tests Performed US Renal -- Results Pending -- Please visit your patient portal for your results or contact your primary care physician. Your Care Team Attending Physician - ISELA MINAYA, Levy Nair Primary Care Physician - JORGE LUIS WICK MD This Is Your Medications List allopurinol (allopurinol 300 mg Tab) potassium bicarbonate (K-Effervescent 25 mEq oral tablet, effervescent) sodium bicarbonate (sodium bicarbonate 650 mg Tab) Contact prescribing physician if questions or concerns duloxetine (DULoxetine 60 mg Cap-EC) ergocalciferol (Vitamin D) glipiZIDE (glipiZIDE 10 mg Tab) meloxicam (meloxicam 15 mg oral tablet) tizanidine (tizanidine 4 mg oral capsule) [Image Removed: STOP]Stop taking these medications potassium citrate (potassium CITRATE 10 mEq ER Tab) Procedures Performed Knee replacement (2022), ESWL - [...] Cataract, Cholecystectomy, Hysterectomy, Knee injury. Discharge Vitals Temperature (Temporal Artery) 37 ???C Heart Rate (Peripheral) 69 Respiratory Rate 16 Blood Pressure 134/88 Height 158 cm Height 62 in Weight 94.7 kg Weight 208.778 lb BMI 37.93 What to do next Scheduled Follow-Up Appointments Sunday2025 9:45 AM EDT With: Levy MATOS MD Where: [facility] [address] [place] [address]- You Need to Schedule the Following Appointments Follow Up with Levy MATOS MD, KADI When: Where: [facility] [address], [place] [address]- [phone] Medications What How Much When Why Instructions New potassium bicarbonate (K-Effervescent 25 mEq oral tablet, effervescent) 1 Tablets By Mouth 2 times a day Kidney stone Duration: 90 Days Refills: [address] [facility] 5623 Unchanged allopurinol (allopurinol 300 mg Tab) 1 Tablets By Mouth Every day Unchanged sodium bicarbonate (sodium bicarbonate 650 mg Tab) 3 Tablets By Mouth Every day Unchanged duloxetine (DULoxetine 60 mg Cap-EC) Contact prescribing physician if questions or concerns Unchanged ergocalciferol (Vitamin D) By Mouth Every week Contact prescribing physician if questions or concerns Unchanged glipiZIDE (glipiZIDE 10 mg Tab) Contact prescribing physician if questions or concerns Unchanged meloxicam (meloxicam 15 mg oral tablet) Contact prescribing physician if questions or concerns Unchanged tizanidine (tizanidine 4 mg oral capsule) Contact prescribing physician if questions or concerns Pharmacy Information [facility] 1429: [address] [place], [place] [id number] [phone] What How Much When Comments Stop Taking potassium citrate (potassium CITRATE 10 mEq ER Tab) 2 Tablets By Mouth 3 times a day Medications and Immunizations Administered Given pneumococcal 7-valent vaccine, Allergies Tape (Unknown) Problems Ongoing - Any problem that you are currently receiving treatment for. Asthma Diabetes Kidney stone Renal angiomyolipoma UTI (urinary tract infection) Patient Survey You may receive a survey via text or e-mail asking about your office visit. Please share your experience with us by completing your survey. We appreciate your feedback and thank you for choosing us for your care. Education Materials Dietary Guidelines to Help Prevent Kidney Stones Kidney stones are deposits of minerals and salts that form inside your kidneys. Your risk of developing kidney stones may be greater depending on your diet, your lifestyle, the medicines you take, and whether you have certain medical conditions. Most people can lower their risks of developing kidney stones by following these dietary guidelines. Your dietitian may give you more specific instructions depending on your overall health and the type of kidney stones you tend to develop. What are tips for following this plan? Reading food labels ??? Choose foods with no salt added or low-salt labels. Limit your salt (sodium) intake to less than 1,500 mg a day. ??? Choose foods with calcium for each meal and snack. Try to eat about 300 mg (more content not included)... [facility] Reminderson 02-16-2025 Reminders Reminders From: Hannah Arroyo To: EU - Recalls Matos; Sent: 02/16/2025 16:35:42 EDT Show up: 11/26/2025 16:35:00 EST Subject: Renal US Due Date/Time: 12/21/2025 16:35:00 EST Reminder/Recall Pt needs sched for renal US prior to January 2026 appt. She wants [facility] Reminders Reminders From: Hannah Arroyo To: EU - Pending Results; Sent: 02/16/2025 16:34:15 EDT Show up: 11/26/2025 16:34:00 EST Subject: Renal US Due Date/Time: 12/21/2025 16:34:00 EST Reminder/Recall Pt needs sched for renal US prior to January 2026 appt. She wants [facility] Normal [facility] Urology Office/Clinic Noteon 02-16-2025 Urology Office/Clinic Note Urology Office/Clinic Note Chief Complaint 1 year f/u with DEJA HPI Staff 65 yr old female here for 1 yr f/u. DEJA done 02/10/25 Previous Dx: kidney stone, UTI. Taking Effer-K 25mEq bid (Pt has not been taking tis for the past 6 months or so due an increase in the cost) , Allopurinol 300mg qd, and Sodium Bicarb 4tabs TID Pt has no urinary complaints at this time. Denies visible blood in urine, abdominal or flank pain. History of Present Illness Tests reviewed: reviewed UA, DEJA I have reviewed the previous health record information and history for this patient from Dr. Matos. I have reviewed and verified the staff HPI to be accurate for this encounter. Review of Systems PHQ Score Initial Depression Screen Score: 0 SCORE ROS - Provider Constitutional: denies weight loss, denies hot flashes. Eyes: denies eye problems. Gastrointestinal: denies nausea, denies vomiting. Cardiovascular: denies chest pain or angina. Integumentary: no dryness Musculoskeletal: denies musculoskeletal symptoms. ENMT: denies otolaryngeal symptoms. Respiratory: no shortness of breath. Heme/Lymph: denies easy bleeding tendency, denies easy bruising tendency. Psychiatric: no confusion, no anxiety. Genitourinary: See HPI. Physical Exam Vitals & Measurements T: 37 ???C(Temporal Artery) HR: 69(Peripheral) RR: 16 BP: 134/88 HT: 158 cm HT: 62 in WT: 94.7 kg WT: 208.778 lb BMI: 37.93 General Appearance: alert , no acute distress, well nourished, well developed female. Assessment/Plan 1. Kidney stone (N20.0: Calculus of kidney) Neg IVP 06/26/22, CT 06/09/22, and DEJA 06/05/22. DEJA 02/10/25 [facility] - No stones or hydro. Taking Allopurinol 300mg qd. No longer on Effer-K 25mEq bid or Sodium Bicarb 4 tabs tid due to increase in cost. Urine pH 5.5. Discussed importance of medication in preventing stone growth/formation. Would be willing to take fizzy tablets. -Restart Effer-K 25mEq bid and sodium bicarb. Refills sent. Recommended GoodRx card, coupon provided. -Cont Allopurinol and sodium bicarb wo changes 2. 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 Additional small angiomyolipoma R kidney measuring 4 mm. Small angiomyolipoma L kidney measuring 4 mm. Small bilateral renal cysts. Reviewed imaging results. Advised pt these will need monitored. -DEJA in 1 yr Follow-up With When Contact Information ISELA MINAYA, Levy Nair, URL [facility] [address], [place] [address] [phone] Additional Instructions: 1 yr w/ DEJA Patient Education Dietary Guidelines to Help Prevent Kidney Stones IRosanna, personally scribed for Dr. Matos on 02/16/2025 16:31:10. . Documentation recorded by the scribeRosanna, accurately reflects the services(s) I performed and decisions made by me. Authenticated by Dr. Matos on 02/16/2025 16:33:44. Problem List/Past Medical History Ongoing Asthma Diabetes Kidney stone Renal angiomyolipoma UTI (urinary tract infection) Historical No qualifying [...] 60 mg Cap-EC glipiZIDE 10 mg Tab K-Effervescent 25 mEq oral tablet, effervescent, 25 mEq= 1 tab(s), Oral, BID, 3 refills meloxicam 15 mg oral tablet sodium bicarbonate 650 mg Tab, 1950 mg= 3 tab(s), Oral, Daily, 11 refills tizanidine 4 mg oral capsule Vitamin D, Oral, qWeek Allergies Tape (Unknown) Social History Alcohol - Denies Alcohol Use, 08/16/2020 Never., 02/11/2025 Substance Abuse Never., 02/11/2025 Tobacco - Denies Tobacco Use, 08/16/2020 Never (less than 100 in lifetime) Tobacco Use:. Never Smokeless Tobacco Use:. Household tobacco concerns: No. Yes, 02/16/2025 Family History Kidney stone: Father. Immunizations Vaccine Date Status pneumococcal 7-valent vaccine 01/18/2025 Given SARS-CoV-2 (COVID-19) mRNA-1273 vaccine 03/07/2021 Recorded SARS-CoV-2 (COVID-19) mRNA-1273 vaccine 02/07/2021 Recorded Lab Results Ambulatory Point of Care Results Bilirubin Urine Dipstick: Negative (02/16/25 15:06:00) Blood Ur (more content not included)... Normal [facility] Comment on above: Result Comment: Elec tronically Signed By: Levy MATOS MD\\.br\\Date and Time Signed: 02/16/25 16:33 EDT\\.br\\Electronically Co-Signed By: Rosanna Stephens.br\\Date and Time Co-Signed: 02/16/25 16:31 EDT Reminderson 01-14-2025 Reminders Reminders From: Steffany Glez To: EM Matos; Sent: 12/12/2024 08:14:55 EST Show up: 12/12/2024 08:14:00 EST Subject: Ambulatory Reminder Reminder/Recall Patient needs scheduled for a DEJA prior to 01/19/25 appointment. Order faxed to [facility] central scheduling today. Will monitor for appointment Pt has been called by [facility] to schedule 3x with no answer. I called to patient today with no answer. Left a voicemail to get patient scheduled. Will monitor. [facility] Provider Letteron 12-16-2024 Provider Letter Provider Letter December 16, 2024 RHONA [address]AS [address] [place] [id number] : 1960 Dear Rhona , We have [...] attention to this matter. Sincerely, [facility] [address] [place] [address] [facility] ALL CBC WITH AUTO DIFFon BASOPHILS ABSOLUTE AUTO 0.1 [facility] Basophils/100 WBC (Bld) 0.5 % 0.2 - 2.0 % [facility] Eosinophils/100 WBC (Bld) 2.6 % 0.9 - 7.0 % [facility] Erythrocyte distribution width (RBC) [Ratio] 14.5 % 11.0 - 15.0 % [facility] Hematocrit (Bld) [Volume fraction] 40.4 % 36.0 - 48.0 % [facility] Hemoglobin (Bld) [Mass/Vol] 13.1 g/dL 12.0 - 16.0 g/dL [facility] IMMATURE GRANULOCYTES ABS AUTO 0.05 High [facility] Immature granulocytes/100 WBC (Bld) 0.5 % 0.0 - 0.5 % [facility] Interpretation and review of laboratory results Abnormal [facility] LYMPHOCYTES ABSOLUTE AUTO 1.9 [facility] Lymphocytes/100 WBC (Bld) 18.4 % Low 20.5 - 60.0 % [facility] MCH (RBC) [Entitic mass] 28.4 pg 26.7 - 34.0 pg [facility] MCHC (RBC) [Mass/Vol] 32.4 g/dL 29.9 - 35.2 g/dL [facility] MCV (RBC) [Entitic vol] 87.6 fL 81.0 - 99.0 fL [facility] MONOCYTES ABSOLUTE AUTO 0.6 [facility] Monocytes/100 WBC (Bld) 5.7 % 1.7 - 12.0 % [facility] NEUTROPHILS ABSOLUTE AUTO 7.6 High [facility] Neutrophils/100 WBC (Bld) 72.3 % 43.0 - 75.0 % [facility] Platelet mean volume (Bld) [Entitic vol] 10.4 fL 9.5 - 13.5 fL [facility] EO # 0.3 [facility] PLT [address] [facility] RBC 4.61 [facility] WBC 10.5 [facility] XR knee RT 2Von 07-17-2024 XR knee RT 2V [facility] [address] [place] [address] XRay Report Signed Patient: Rhona Taveras MR#: [id number] : 1960 Acct:[id number] Age/Sex: 64 / F ADM Date: 07/17/24 Loc: [facility] Room: Type: [facility] Attending Dr: Kelby Bella II, MD Copies [...] 1357 Signed By: 07/17/24 1357 Normal [facility] XR knee LT 4V*on 04-15-2024 XR knee LT 4V* [facility] [place] [address] XRay Report Signed Patient: Rhona Taveras MR#: [id number] : 1960 Acct:[id number] Age/Sex: 64 / F ADM Date: 04/15/24 Loc: [facility] Room: Type: [facility] Attending Dr: Kassy Gtz POT FEEDER Copies to: Kassy Gtz APRN Ordering Provider: [...] [id number] Signed By: 04/15/24 1211 Normal [facility] Urinalysis - AUTOMATEDon Appearance (U) clear [employer] Other Bilirubin Ql (U) Negative [employer] Other Color (U) yellow [employer] Other Glucose Ql (U) 250mg [employer] Other Hemoglobin Ql (U) Negative [employer] Other Ketones Ql (U) Negative [employer] Other Leukocyte esterase Test strip Ql (U) Negative [employer] Other Nitrite Ql (U) Negative [employer] Other pH (U) 5.0 [pH] [employer] Other Protein Ql (U) Negative [employer] Other Specific gravity (U) [Rel density] >1.030 [employer] Other Urobilinogen (U) [Mass/Vol] 0.2 mg/dL [employer] Other Urinalysis - AUTOMATED [employer] Other XR knee RT 3Von 05-31-2023 XR knee RT 3V [facility] [employer] Other XR knee RT 3V [facility] [employer] Other XR knee RT 3V [address] [place] [address] [employer] Other XR knee RT 3V [address] [employer] Other XR knee RT 3V XRay Report [employer] Other XR knee RT 3V Signed [employer] Other XR knee RT 3V Patient: Edna Taveras MR#: [id number] [employer] Other XR knee RT 3V 69 [employer] Other XR knee RT 3V : 1960 Acct:[id number] [employer] Other XR knee RT 3V Age/Sex: 63 / F ADM Date: 05/31/23 [employer] Other XR knee RT 3V [facility]: [facility] [employer] Other XR knee RT 3V Attending Dr: Kelby Bella II, MD [employer] Other XR knee RT 3V Copies to: Kelby Bella MD [employer] Other XR knee RT 3V Ordering Provider: Joanie Bella MD [employer] Other XR knee RT 3V Date of Service: 05/31/23 [employer] Other XR knee RT 3V [phone]) XR/XR knee RT 3V - NOT FOR ER USE: History of total right knee [employer] Other XR knee RT 3V replacement [employer] Other XR knee RT 3V RIGHT KNEE - 3 views N [employer] Other XR knee RT 3V COMPARISON: 04/17/2023 [employer] Other XR knee RT 3V CLINICAL DATA: Follo w-up knee prosthesis [employer] Other XR knee RT 3V Weightbearing AP, la teral and sunrise views were obtained. A knee prosthesis is again visualized. [employer] Other XR knee RT 3V The hardware appears intact and unchanged from the prior. There is no patellar subluxation. No [employer] Other XR knee RT 3V acute fracture or dislocation is noted. There is a knee effusion. There is mild soft tissue [employer] Other XR knee RT 3V swelling. [employer] Other XR knee RT 3V X R/XR knee RT 3V - NOT FOR ER USE [employer] Other XR knee RT 3V IMPRESSION: [employer] Other XR knee RT 3V STABLE KNEE REPLACEMENT. [employer] Other XR knee RT 3V Impression dictated by: Bree Dukes M.D.05/31/2023 2:51 PM [employer] Other XR knee RT 3V Dictation Location: [place] [address] [employer] Other XR knee RT 3V Transcribed By: KIANA 05/31/23 [facility] [employer] Other XR knee RT 3V Dictated By: Bree Dukes MD 05/31/23 [facility] Other XR knee RT 3V Signed By: [employer] Other XR knee RT 3V 05/31/23 [facility] [employer] Other Glucose Glucometer (BldC) [M ass/Vol]Ordered By: Kelby Bella on 04-17-2023 Glucose [Mass/Vol] 155 mg/dL [facility] Comment on above: Random Glucose Refer ence Range is dependent on time and content of last meal. Glucose of more than 200 mg/dL in a nonstressed, ambulatory subject supports the diagnosis of Diabetes Mellitus. No Panel InformationOrdered By: Kelby Bella on 04-17-2023 Bedside Glucose Comment Glu2: cleaned meter [facility] Automated erythrocytes count in urine sediment (number/area)Ordered By: Kelby Bella on 04-03-2023 RBC Auto (Urine sed) [#/Area] 1-2 [HPF] 0-4 [facility] Automated leukocytes count i n urine sediment (number/area)Ordered By: Kelby Bella on 04-03-2023 WBC Auto (Urine sed) [#/Area] 5-9 [HPF] 0-4 [facility] Basophils Auto (Bld) [#/Vol] Ordered By: Kelby Bella on 04-03-2023 Basophils (Bld) [#/Vol] 0.1 10*3/uL 0.0-0.2 [facility] Basophils/100 WBC Auto (Bld) Ordered By: Kelby Bella on 04-03-2023 Basophils/100 WBC (Bld) 0.9 % . [facility] Bilirubin Test strip Ql (U)O rdered By: Kelby Bella on 04-03-2023 Bilirubin Ql (U) Negative Negative [facility] Calcium [Mass/volume] in Ser um or PlasmaOrdered By: Kelby Bella on 04-03-2023 Calcium [Mass/Vol] 8.9 mg/dL 8.6-10.3 [facility] Carbon dioxide, total [Moles /volume] in Serum or PlasmaOrdered By: Kelby Bella on 04-03-2023 CO2 [Moles/Vol] 29.6 mmol/L 21.0-31.0 [facility] Chloride [Moles/volume] in S kane or PlasmaOrdered By: Kelby Bella on 04-03-2023 Chloride [Moles/Vol] 105 mmol/L 98-107 [facility] Color Auto (U)Ordered By: Alisa Bella on 04-03-2023 Color (U) Yellow Yellow [facility] Creatinine [Mass/volume] in Serum or PlasmaOrdered By: Kelby Bella on 04-03-2023 Creatinine [Mass/Vol] 0.65 mg/dL 0.60-1.20 [facility] Eosinophils Auto (Bld) [#/Vo l]Ordered By: Kelby Bella on 04-03-2023 Eosinophils (Bld) [#/Vol] 0.4 10*3/uL 0.0-0.45 [facility] Eosinophils/100 WBC Auto (Bl d)Ordered By: Kelby Bella on 04-03-2023 Eosinophils/100 WBC (Bld) 4.7 % . [facility] Erythrocyte distribution wid th Auto (RBC) [Ratio]Ordered By: Kelby Bella on 04-03-2023 Erythrocyte distribution width (RBC) [Ratio] 13.8 % 11.9-15.3 [facility] Fructosamine [Moles/volume] in Serum or PlasmaOrdered By: Kelby Bella on 04-03-2023 Fructosamine [Moles/Vol] 293 umol/L 0-285 [facility] Comment on above: Published reference interval for apparently healthysubjects between age 20 and 60 is 205 - 285 umol/L and in apoorly controlled diabetic population is 228 - 563 umol/Lwith a mean of 396 umol/L.Performed at: [facility] [facility] [id number] Director: Davis Wiggins PhD, Phone: [phone] Glucose [Mass/volume] in Ser um or PlasmaOrdered By: Kelby Bella on 04-03-2023 Glucose [Mass/Vol] 173 mg/dL 70-100 [facility] Comment on above: ADA recommended refe rence rangeRandom Glucose Reference Range is dependent on time and content of last meal. Glucose of more than 200 mg/dL in a nonstressed, ambulatory subject supports the diagnosis of Diabetes Mellitus. Hematocrit Auto (Bld) [Volum e fraction]Ordered By: Kelby Bella on 04-03-2023 Hematocrit (Bld) [Volume fraction] 34.5 % 34.0-46.4 [facility] Hemoglobin [Mass/volume] in BloodOrdered By: Kelby Bella on 04-03-2023 Hemoglobin (Bld) [Mass/Vol] 11.7 g/dL 11.8-15.4 [facility] Ketones Auto test strip (U) [Mass/Vol]Ordered By: Kelby Bella on 04-03-2023 Ketones (U) [Mass/Vol] Negative Negative [facility] Laboratory - UrinalysisOrder ed By: Kelby Bella on 04-03-2023 Hyaline casts LM Ql (Urine sed) 0-8 [LPF] 0-8 [facility] Leukocytes [#/volume] correc med for nucleated erythrocytes in Blood by Automated counOrdered By: Kelby Bella on 04-03-2023 WBC corrected for nucl RBC Auto (Bld) [#/Vol] 7.8 10*3/uL 3.8-11.6 [facility] Lymphocytes Auto (Bld) [#/Vo l]Ordered By: Kelby Bella on 04-03-2023 Lymphocytes (Bld) [#/Vol] 1.8 10*3/uL 1.00-4.8 [facility] Lymphocytes/100 WBC Auto (Bl d)Ordered By: Kelby Bella on 04-03-2023 Lymphocytes/100 WBC (Bld) 23.0 % . [facility] MCH Auto (RBC) [Entitic mass ]Ordered By: Kelby Bella on 04-03-2023 MCH (RBC) [Entitic mass] 29.1 pg 24.7-34.3 [facility] MCHC Auto (RBC) [Mass/Vol]Or dered By: Kelby Bella on 04-03-2023 MCHC (RBC) [Mass/Vol] 34.0 g/dL 32.0-35.0 [facility] MCV Auto (RBC) [Entitic vol] Ordered By: Kelby Bella on 04-03-2023 MCV (RBC) [Entitic vol] 85.6 fL 80-100 [facility] Monocytes Auto (Bld) [#/Vol] Ordered By: Kelby Bella on 04-03-2023 Monocytes (Bld) [#/Vol] 0.4 10*3/uL 0.0-0.8 [facility] Monocytes/100 WBC Auto (Bld) Ordered By: Kelby Bella on 04-03-2023 Monocytes/100 WBC (Bld) 5.6 % . [facility] Neutrophils Auto (Bld) [#/Vo l]Ordered By: Kelby Bella on 04-03-2023 Neutrophils (Bld) [#/Vol] 5.1 10*3/uL 1.8-7.7 [facility] Neutrophils/100 WBC Auto (Bl d)Ordered By: Kelby Bella on 04-03-2023 Neutrophils/100 WBC (Bld) 65.8 % . [facility] Nitrite Test strip Ql (U)Ord ered By: Kelby Bella on 04-03-2023 Nitrite Ql (U) Negative Negative [facility] No Panel InformationOrdered By: Kelby Bella on 04-03-2023 Estimated GFR (CKD-EPI) > 60.0 mL/Min [facility] Creatinine Clearance (Chem N/A [facility] Nucleated erythrocytes [Pres ence] in Blood by Automated countOrdered By: Kelby Bella on 04-03-2023 Nucleated RBC Auto Ql (Bld) 0.0 /100{WBC} 0-0.5 [facility] Platelet mean volume Auto (B ld) [Entitic vol]Ordered By: Kelby Bella on 04-03-2023 Platelet mean volume (Bld) [Entitic vol] 8.4 fL 6.3-10.7 [facility] Platelets Auto (Bld) [#/Vol] Ordered By: Kelby Bella on 04-03-2023 Platelets (Bld) [#/Vol] 204 10*3/uL 150-450 [facility] Potassium [Moles/volume] in Serum or PlasmaOrdered By: Kelby Bella on 04-03-2023 Potassium [Moles/Vol] 4.0 mmol/L 3.5-5.1 [facility] Protein Auto test strip (U) [Mass/Vol]Ordered By: Kelby Bella on 04-03-2023 Protein (U) [Mass/Vol] Negative Negative [facility] RBC Auto (Bld) [#/Vol]Ordere d By: Kelby Bella on 04-03-2023 RBC (Bld) [#/Vol] 4.03 10*6/uL 3.60-5.00 [facility] Serum or plasma anion gap de terminationOrdered By: Kelby Bella on 04-03-2023 Anion gap [Moles/Vol] 11.4 mmol/L 6.0-15.0 [facility] Sodium [Moles/volume] in Ser um or PlasmaOrdered By: Kelby Bella on 04-03-2023 Sodium [Moles/Vol] 142 mmol/L 136-145 [facility] Specific gravity Auto test s trip (U) [Rel density]Ordered By: Kelby Bella on 04-03-2023 Specific gravity (U) [Rel density] 1.023 1.001-1.03 0 [facility] Squamous epithelial cells de tection in urine sediment by light microscopyOrdered By: Kelby Bella on 04-03-2023 Epithelial cells.squamous LM Ql (Urine sed) 0-1 [HPF] 0-2 [facility] Urea nitrogen [Mass/volume] in Serum or PlasmaOrdered By: Kelby Bella on 04-03-2023 Urea nitrogen [Mass/Vol] 21 mg/dL 7-25 [facility] Urine bacteria detection by automated methodOrdered By: Kelby Bella on 04-03-2023 Bacteria Auto Ql (U) None seen None Seen [facility] Urine clarity by refractomet ry automatedOrdered By: Kelby Bella on 04-03-2023 Clarity Refractometry automated (U) Clear Clear [facility] Urine culture routineOrdered By: Kelby Bella on 04-03-2023 Bacteria identified Cx Nom (U) 2 Days [facility] Urine glucose measurement by automated test strip (mass/volume)Ordered By: Kelby Bella on 04-03-2023 Glucose Auto test strip (U) [Mass/Vol] Normal mg/dL Normal [facility] Urine hemoglobin detection b y automated test stripOrdered By: Kelby Bella on 04-03-2023 Hemoglobin Auto test strip Ql (U) Negative Negative [facility] Urine leukocyte esterase det ection by automated test stripOrdered By: Kelby Bella on 04-03-2023 Leukocyte esterase Auto test strip Ql (U) 2+ Negative [facility] Urobilinogen Auto test strip (U) [Mass/Vol]Ordered By: Kelby Bella on 04-03-2023 Urobilinogen (U) [Mass/Vol] mg/dL Normal [facility] WBC Auto (Bld) [#/Vol]Ordere d By: Kelby Bella on 04-03-2023 WBC (Bld) [#/Vol] 7.8 10*3/uL 3.8-11.6 [facility] pH Auto test strip (U)Ordere d By: Kelby Bella on 04-03-2023 pH (U) 6.5 [pH] 5.0-9.0 [facility] Wound methicillin resistant Staphylococcus aureus (MRSA) cultureOrdered By: Kelby Bella on 03-01-2023 MRSA isol Org specific cx Ql (Unsp spec) No MRSA Isolated 2 Days [facility] Albumin [Mass/volume] in Ser um or Plasma by Bromocresol green (BCG) dye binding methoOrdered By: Kelby Bella on 02-16-2023 Albumin BCG dye [Mass/Vol] 4.5 g/dL 3.5-5.7 [facility] Cotinine [Mass/volume] in Se rum or PlasmaOrdered By: Kelby Bella on 02-16-2023 Cotinine [Mass/Vol] <1.0 ng/mL . [facility] Comment on above: This test was develo ped and its performance characteristicsdetermined by [facility]. It has not been cleared orapproved by the Food and Drug Administration.Cotinine levels greater than 20.0 are consistent with theuse of tobacco or tobacco cessation products.Performed at: [address] [id number] Director: Juan Higgins MD, Phone: [phone] Nicotine [Mass/volume] in Se rum or PlasmaOrdered By: Kelby Bella on 02-16-2023 Nicotine [Mass/Vol] <1.0 ng/mL . [facility] Comment on above: This test was develo ped and its performance characteristicsdetermined by [facility]. It has not been cleared orapproved by the Food and Drug Administration.Nicotine levels greater than 2.0 are consistent with theuse of tobacco or tobacco cessation products. CBC AUTO DIFFon 02-10-2023 BASO # 0.1 103/ul Normal 0.0-0.1 [facility] Comment on above: Performed By: #### C BC #### [facility] [address] [place] [address] Dr. Kyle Love Basophils/100 WBC (Bld) 0.7 % Normal 0.2-2.0 [facility] Comment on above: Performed By: #### C BC #### [facility] [address] [address] [address] Kyle Love EO # 0.3 103/ul Normal 0.0-0.7 [facility] Comment on above: Performed By: #### C BC #### [facility] [address] [place] [address] Dr. Kyle Love Eosinophils/100 WBC (Bld) 3.9 % Normal 0.9-7.0 [facility] Comment on above: Performed By: #### C BC #### [facility] [address] [place] [address] Dr. Kyle Love Erythrocyte distribution width (RBC) [Ratio] 14.5 % Normal 11.0-15.0 [facility] Comment on above: Performed By: #### C BC #### [facility] [address] [place] [address] Dr. Kyle Love Hematocrit (Bld) [Volume fraction] 39.1 % Normal 36.0-48.0 [facility] Comment on above: Performed By: #### C BC #### [facility] [address] [place] [address] Dr. Kyle Love Hemoglobin (Bld) [Mass/Vol] 12.9 g/dL Normal 12.0-16.0 [facility] Comment on above: Performed By: #### C BC #### [facility] [address] [place] [address] Dr. Kyle Love IG # 0.02 10e3/ul Normal 0.00-0.03 [facility] Comment on above: Performed By: #### C BC #### [facility] [address] [place] [address] Dr. Kyle Love IG % 0.3 % Normal 0.0-0.5 [facility] Comment on above: Performed By: #### C BC #### [facility] [address] [place] [address] Dr. Kyle Love LYMPH # 1.3 103/ul Normal 1.2-3.8 [facility] Comment on above: Performed By: #### C BC #### [facility] [address] [place] [address] Dr. Kyle Love Lymphocytes/100 WBC (Bld) 18.4 % Critically low 20.5-60.0 [facility] Comment on above: Performed By: #### C BC #### [facility] [address] [place] [address] Dr. Kyle Love MANUAL DIFF REQ NO Normal [facility] Comment on above: Performed By: #### C BC #### [facility] [address] [address] [address] Kyle Love MCH (RBC) [Entitic mass] 28.9 pg Normal 26.7-34.0 [facility] Comment on above: Performed By: #### C BC #### [facility] [address] [place] [address] Dr. Kyle Love MCHC (RBC) [Mass/Vol] 33.0 g/dL Normal 29.9-35.2 [facility] Comment on above: Performed By: #### C BC #### [facility] [address] [place] [address] Dr. Kyle Love MCV (RBC) [Entitic vol] 87.5 fL Normal 81.0-99.0 [facility] Comment on above: Performed By: #### C BC #### [facility] [address] [place] [address] Dr. Kyle Love MONO # 0.4 103/ul Normal 0.3-0.8 [facility] Comment on above: Performed By: #### C BC #### [facility] [address] [place] [address] Dr. Kyle Love Monocytes/100 WBC (Bld) 5.4 % Normal 1.7-12.0 [facility] Comment on above: Performed By: #### C BC #### [facility] [address] [place] [address] Dr. Kyle Love NEUT # 5.1 103/ul Normal 1.4-6.5 [facility] Comment on above: Performed By: #### C BC #### [facility] [address] [place] [address] Dr. Kyle Love Neutrophils/100 WBC (Bld) 71.3 % Normal 43.0-75.0 [facility] Comment on above: Performed By: #### C BC #### [facility] [address] [place] [address] Dr. Kyle Love Platelet mean volume (Bld) [Entitic vol] 9.9 fL Normal 9.5-13.5 [facility] Comment on above: Performed By: #### C BC #### [facility] [address] [address] [address] Kyle Love PLT 233 103/ul Normal 150-450 [facility] Comment on above: Performed By: #### C BC #### [facility] [address] [address] [address] Kyle Love RBC 4.47 106/ul Normal 4.20-5.40 [facility] Comment on above: Performed By: #### C BC #### [facility] [address] [address] [address] Kyle Love WBC 7.2 103/ul Normal 4.0-11.0 [facility] Comment on above: Performed By: #### C BC #### [facility] [address] [place] [address] Dr. Kyle Love GLYCOHEMOGLOBIN A1Con 2022 ADA RECOMMENDATION SEE BELOW Normal [facility] Comment on above: Result Comment: ADA RECOMMENDED LIMIT 4.0 - 6.0 ADA THERAPEUTIC TARGET < 7.0 ACTION SUGGESTED > 7.0 Performed By: #### A 1C #### [facility] [address] [place] [address] Dr. Kyle Love Glucose [Mass/Vol] 143 mg/dL Normal [facility] Comment on above: Performed By: #### A 1C #### [facility] [address] [place] [address] Dr. Kyle Love HbA1c (Bld) [Mass fraction] 6.6 % Critically high 4.5-6.2 [facility] Comment on above: Performed By: #### A 1C #### [facility] [address] [place] [address] Dr. Kyle Love LIPID PROFILEon 02-10-2023 CHOL-HDL RATIO NORM SEE BELOW Normal [facility] Comment on above: Result Comment: 3.3 - 4.4 LOW RISK 4.4 - 7.1 AVERAGE RISK 7.1 - 11.0 MODERATE RISK >11.0 HIGH RISK Performed By: #### P OCGLUC #### [facility] [address] [place] [address] Dr. Kyle Love Cholesterol [Mass/Vol] 205 mg/dL Critically high <=200 [facility] Comment on above: Performed By: #### P OCGLUC #### [facility] [address] [address] [address] Kyle Love Cholesterol in HDL [Mass/Vol] 56 mg/dL Normal 40-60 [facility] Comment on above: Performed By: #### P OCGLUC #### [facility] [address] [address] [address] Kyle Love Cholesterol in LDL [Mass/Vol] 129.4 mg/dL Normal [facility] Comment on above: Performed By: #### P OCGLUC #### [facility] [address] [address] [address] Kyle Love Cholesterol.total/Cho lesterol in HDL [Mass ratio] 3.7 {ratio} Normal [facility] Comment on above: Performed By: #### P OCGLUC #### [facility] [address] [address] [address] Kyle Love HDL NORMAL > or = 60 mg/dl - LO W CARDIOVASCULAR RISK <40 mg/dl - HIGH CARDIOVASCULAR RISK Normal [facility] Comment on above: Performed By: #### P OCGLUC #### [facility] [address] [address] [address] Kyle Love LDL CALC NORMAL SEE BELOW Normal [facility] Comment on above: Result Comment: <100 mg/dl OPTIMAL 100 - 129 mg/dl NEAR OR ABOVE OPTIMAL 130 - 159 mg/dl BORDERLINE HIGH 160 - 189 mg/dl HIGH >190 mg/dl VERY HIGH Performed By: #### P OCGLUC #### [facility] [address] [address] [address] Kyle Love Triglyceride [Mass/Vol] 98 mg/dL Normal <=150 [facility] Comment on above: Performed By: #### P OCGLUC #### [facility] [address] [address] [address] Kyle Love VLDL CALC 19.6 mg/dL Normal [facility] Comment on above: Performed By: #### P OCGLUC #### [facility] [address] [address] [address] Kyle Love LIVER PROFILEon 02-10-2023 Albumin [Mass/Vol] 4.0 g/dL Normal 3.4-5.0 [facility] Comment on above: Performed By: #### P OCGLUC #### [facility] [address] [place] [address] Dr. Kyle Love Albumin/Globulin [Mass ratio] 1.1 {ratio} Normal [facility] Comment on above: Performed By: #### P OCGLUC #### [facility] [address] [place] [address] Dr. Kyle Love ALP [Catalytic activity/Vol] 142 U/L Critically high 46-116 [facility] Comment on above: Performed By: #### P OCGLUC #### [facility] [address] [place] [address] Dr. Kyle Love ALT [Catalytic activity/Vol] 28 U/L Normal 14-59 [facility] Comment on above: Performed By: #### P OCGLUC #### [facility] [address] [place] [address] Dr. Kyle Love AST [Catalytic activity/Vol] 20 U/L Normal 15-37 [facility] Comment on above: Performed By: #### P OCGLUC #### [facility] [address] [place] [address] Dr. Kyle Love BILI, CONJUGATED 0.2 mg/dL Normal 0.0-0.2 [facility] Comment on above: Performed By: #### P OCGLUC #### [facility] [address] [place] [address] Dr. Kyle Love Bilirubin [Mass/Vol] 0.7 mg/dL Normal 0.2-1.0 [facility] Comment on above: Performed By: #### P OCGLUC #### [facility] [address] [place] [address] Dr. Kyle Love Globulin (S) [Mass/Vol] 3.7 g/dL Normal [facility] Comment on above: Performed By: #### P OCGLUC #### [facility] [address] [place] [address] Dr. Kyle Love Protein [Mass/Vol] 7.7 g/dL Normal 6.4-8.2 [facility] Comment on above: Performed By: #### P OCGLUC #### [facility] [address] [address] [address] Kyle Love MICROALBUMIN, RAND URon - mALB <1.3 Normal <=30.0 [facility] Comment on above: Performed By: #### P OCGLUC #### [facility] [address] [address] [address] Kyle Love PROF CHEM 8 (BAS METB)on Anion gap [Moles/Vol] 12.4 mmol/L Normal [facility] Comment on above: Performed By: #### T SH, BMP, LIVER, LIPID #### [facility] [address] [address] [address] Kyle Love Calcium [Mass/Vol] 9.5 mg/dL Normal 8.5-10.1 [facility] Comment on above: Performed By: #### T SH, BMP, LIVER, LIPID #### [facility] [address] [address] [address] Kyle Love Chloride [Moles/Vol] 107 mmol/L Normal 98-107 [facility] Comment on above: Performed By: #### T SH, BMP, LIVER, LIPID #### [facility] [address] [address] [address] Kyle Love CO2 [Moles/Vol] 26.9 mmol/L Normal 21.0-32.0 [facility] Comment on above: Performed By: #### T SH, BMP, LIVER, LIPID #### [facility] [address] [address] [address] Kyle Love Creatinine [Mass/Vol] 0.53 mg/dL Critically low 0.55-1.02 [facility] Comment on above: Performed By: #### T SH, BMP, LIVER, LIPID #### [facility] [address] [address] [address] Kyle Love EGFR-AF [place]IZ[place] >60 Normal >=60 [facility] Comment on above: Performed By: #### T SH, BMP, LIVER, LIPID #### [facility] [address] [address] [address] Kyle Love EGFR-NON AF [place]IZ[place] >60 Normal >=60 [facility] Comment on above: Performed By: #### T SH, BMP, LIVER, LIPID #### [facility] [address] [address] [address] Kyle Love Glucose [Mass/Vol] 131 mg/dL Critically high 74-106 [facility] Comment on above: Performed By: #### T SH, BMP, LIVER, LIPID #### [facility] [address] [address] [address] Kyle Love Potassium [Moles/Vol] 4.3 mmol/L Normal 3.5-5.1 [facility] Comment on above: Performed By: #### T SH, BMP, LIVER, LIPID #### [facility] [address] [address] [address] Kyle Love Sodium [Moles/Vol] 142 mmol/L Normal 136-145 [facility] Comment on above: Performed By: #### T SH, BMP, LIVER, LIPID #### [facility] [address] [place] [address] Dr. Kyle Love Urea nitrogen [Mass/Vol] 16.0 mg/dL Normal 7.0-18.0 [facility] Comment on above: Performed By: #### T SH, BMP, LIVER, LIPID #### [facility] [address] [address] [address] Kyle Love Urea nitrogen/Creatinine [Mass ratio] 30.2 mg/mg Normal [facility] Comment on above: Performed By: #### T SH, BMP, LIVER, LIPID #### [facility] [address] [place] [address] Dr. Kyle Love TSHon 02-10-2023 TSH 0.752 uIU/mL Normal 0.358-3.74 0 [facility] Comment on above: Performed By: #### P OCGLUC #### [facility] [address] [place], [place] [id number] Dr. Kyle Love VITAMIN D 25 OHon 02-10-2023 VIT D 25-OH 26.7 ng/mL Normal [facility] Comment on above: Performed By: #### A 1C #### [facility] [address] [place] [address] [address] [address] Kyle Love VIT D RANGES SEE BELOW Normal [facility] Comment on above: Result Comment: <20 ng/mL Vit D deficient 20 - <30 ng/mL Vit D insufficient 30 - 100 ng/mL Vit D sufficient >100 ng/mL Potential Toxicity Performed By: #### A 1C #### [facility] [address] [place], [place] [address] Dr. Kyle Love XR knee RT 4V*on 12-14-2022 XR knee RT 4V* [facility] [employer] Other XR knee RT 4V* [facility] [employer] Other XR knee RT 4V* [address] [place] [address] [employer] Other XR knee RT 4V* [place] [address] No rt [employer] Other XR knee RT 4V* XRay Report [employer] Other XR knee RT 4V* Signed [employer] Other XR knee RT 4V* Patient: Edna Taveras MR#: [id number] [place] [employer] Other XR knee RT 4V* 69 [employer] Other XR knee RT 4V* : 1960 Acct:[id number] [employer] Other XR knee RT 4V* Age/Sex: 62 / F ADM Date: 12/14/22 [employer] Other XR knee RT 4V* Loc: [facility] Room: Type : REG I [employer] Other XR knee RT 4V* Attending Dr: Kelby Bella II, MD [employer] Other XR knee RT 4V* Copies to: Kelby Bella MD [employer] Other XR knee RT 4V* Ordering Provider: Joanie Bella MD [employer] Other XR knee RT 4V* Date of Service: 12/14/22 [employer] Other XR knee RT 4V* [id number]) XR/XR knee RT 4V*: Acute pain of right knee [employer] Other XR knee RT 4V* ([id number]) XR/XR pelvis 1-2V: Acute pain of right knee [employer] Other XR knee RT 4V* CLINICAL DATA: Chron ic worsening right knee pain. [employer] Other XR knee RT 4V* AP LOW PELVIS: [employer] Other XR knee RT 4V* COMPARISON: Right fe mur 07/08/2016 [employer] Other XR knee RT 4V* AP view of the low p federico was obtained. Assessment is slightly limited by body habitus and [employer] Other XR knee RT 4V* technique. There is no obvious acute fracture or dislocation. The hip joint spaces are symmetric. [employer] Other XR knee RT 4V* There is no prominen t hypertrophy. No soft tissue abnormalities are noted. [employer] Other XR knee RT 4V* X R/XR pelvis 1-2V [employer] Other XR knee RT 4V* IMPRESSION: [employer] [facility] [employer] Other XR knee RT 4V* NO ACUTE BONY FINDIN GS WITHIN LIMITATIONS, DESCRIBED. [employer] Other XR knee RT 4V* RIGHT KNEE - 4 views [employer] Other XR knee RT 4V* COMPARISON: None [facility] [employer] Other XR knee RT 4V* Standing AP, lateral , skiers and patellar views were obtained. There is no acute fracture or [employer] Other XR knee RT 4V* dislocation. There i s genu valgum deformity. There is narrowing of the lateral tibiofemoral joint [employer] Other XR knee RT 4V* compartment with subchondral sclerosis and cystic change. There is tricompartment marginal spurring. [employer] Other XR knee RT 4V* A small knee effusio n is seen. There is no focal soft tissue swelling. [employer] Other XR knee RT 4V* DEGENERATIVE CHANGES , GREATEST LATERALLY. [employer] Other XR knee RT 4V* Impression dictated by: Bree Dukes M.D.12/14/2022 3:58 PM [employer] Other XR knee RT 4V* Dictation Location: [facility]-- [employer] Other XR knee RT 4V* Transcribed By: KIANA 12/14/22 [facility] [employer] Other XR knee RT 4V* Dictated By: Bree Dukes MD 12/14/22 [facility] [employer] Other XR knee RT 4V* Signed By: [employer] Other XR knee RT 4V* 12/14/22 [facility]9 [employer] Other XR ankle RT min 3V*on 2021 XR ankle RT min 3V* [facility] [employer] Other XR ankle RT min 3V* [facility] [employer] Other XR ankle RT min 3V* [address] [place] [address] [employer] Other XR ankle RT min 3V* [place] [address] [employer] Other XR ankle RT min 3V* XRay Report [employer] Other XR ankle RT min 3V* Signed [employer] Other XR ankle RT min 3V* Patient: Edna Taveras MR#: [id number] [employer] Other XR ankle RT min 3V* 69 [employer] Other XR ankle RT min 3V* : 1960 Acct:[id number] [employer] Other XR ankle RT min 3V* Age/Sex: 62 / F ADM Date: 10/24/22 [employer] Other XR ankle RT min 3V* Loc: [facility]CLY Room: Ty pe: REG CLI [employer] Other XR ankle RT min 3V* Attending Dr: Evangelist Ravi [facility] [employer] Other XR ankle RT min 3V* Copies to: AURELIA RAVI [employer] | [employer] Other XR ankle RT min 3V* Ordering Provider: AURELIA RAVI [facility] [employer] Other XR ankle RT min 3V* Date of Service: 10/24/22 [employer] Other XR ankle RT min 3V* [id number]) XR/XR ankle RT min 3V*: Injury of right ankle, initial encounter [employer] Other XR ankle RT min 3V* RIGHT ANKLE - 3 views [employer] Other XR ankle RT min 3V* CLINICAL DATA: Twist ing injury of the right ankle 2 days ago. Increasing pain and swelling [employer] Other XR ankle RT min 3V* laterally. [employer] Other XR ankle RT min 3V* COMPARISON: None [employer] Other XR ankle RT min 3V* AP, lateral and obli que views were obtained. There is no evidence of fracture or dislocation. [employer] Other XR ankle RT min 3V* The talar dome is in tact. There is spurring at the dorsum of the tarsometatarsal joints. There are [employer] Other XR ankle RT min 3V* calcaneal spurs, gre ater along the plantar surface. There is mild anterior and lateral soft tissue [employer] Other XR ankle RT min 3V* swelling. [employer] Other XR ankle RT min 3V* X R/XR ankle RT min 3V* [employer] Other XR ankle RT min 3V* IMPRESSION: [employer] Other XR ankle RT min 3V* NO ACUTE BONY INJURY. [employer] Other XR ankle RT min 3V* Impression dictated by: Bree Dukes M.D.10/24/2022 10:44 AM [employer] Other XR ankle RT min 3V* Dictation Location: [place] [address] [employer] Other XR ankle RT min 3V* Transcribed By: KIANA 10/24/22 1044 [employer] Other XR ankle RT min 3V* Dictated By: Bree Dukes MD 10/24/22 1042 [employer] Other XR ankle RT min 3V* Signed By: [employer] Other XR ankle RT min 3V* 10/24/22 1044 [employer] Other GLYCOHEMOGLOBIN A1Con 2021 ADA RECOMMENDATION SEE BELOW Normal [facility] Comment on above: Result Comment: ADA RECOMMENDED LIMIT 4.0 - 6.0 ADA THERAPEUTIC TARGET < 7.0 ACTION SUGGESTED > 7.0 Performed By: #### A 1C #### [facility] [address] [place] [address] Dr. Kyle Love Glucose [Mass/Vol] 143 mg/dL Normal [facility] Comment on above: Performed By: #### A 1C #### [facility] [address] [place] [address] Dr. Kyle Love HbA1c (Bld) [Mass fraction] 6.6 % Critically high 4.5-6.2 [facility] Comment on above: Performed By: #### A 1C #### [facility] [address] [place] [address] Dr. Kyle Love BUNon 06-26-2022 Urea nitrogen [Mass/Vol] 13.0 mg/dL Normal 7.0-18.0 [facility] Comment on above: Performed By: #### P OCGLUC #### [facility] [address] [place] [address] Dr. Kyle Love CREATININEon 06-26-2022 Creatinine [Mass/Vol] 0.71 mg/dL Normal 0.55-1.02 [facility] Comment on above: Performed By: #### P OCGLUC #### [facility] [address] [place] [address] Dr. Kyle Love EGFR-AF [place] CITIZEN >60 Normal >=60 [facility] Comment on above: Performed By: #### P OCGLUC #### [facility] [address] [place] [address] Dr. Kyle Love EGFR-NON AF [place] CITIZEN >60 Normal >=60 [facility] Comment on above: Performed By: #### P OCGLUC #### [facility] [address] [place] [address] Dr. Kyle Love XR IVPon 06-26-2022 XR IVP EXAMINATION: XR IVP HISTORY: Kidney stone ; left flank pain COMPARISON: CT abdomen pelvis 06/09/2022 TECHNIQUE: After obtaining patient consent a assistant basketball coach image was obtained followed by injection of [...] by: MAX BRADY Date: 2022-06-26 11:05 Normal [facility] CT ABD/PELVIS WO CONon 06-09 CT [...] EUSEBIA HIGHTOWER Date: 2022-06-09 20:35 Normal [facility] UA (CLEAN/CATCH) [employer] SCOUT/MICRO I F IND.on 06-05-2022 Bilirubin Ql (U) Negative Normal NEGATIVE [facility] Comment on above: Performed By: #### U ACSIND #### [facility] [address] [place] [address] Dr. Kyle Love Clarity (U) CLEAR Normal CLEAR [facility] Comment on above: Performed By: #### U ACSIND #### [facility] [address] [address] [address] Kyle Love Color (U) LT. YELLOW Normal YELLOW [facility] Comment on above: Performed By: #### U ACSIND #### [facility] [address] [place] [address] Dr. Kyle Love Glucose Ql (U) Negative Normal NEGATIVE [facility] Comment on above: Performed By: #### U ACSIND #### [facility] [address] [place] [address] [address] Kyle Love Hemoglobin Ql (U) Negative Normal NEGATIVE [facility] Comment on above: Performed By: #### U ACSIND #### [facility] [address] [place] [address] Dr. Kyle Love Ketones Ql (U) Negative Normal NEGATIVE [facility] Comment on above: Performed By: #### U ACSIND #### [facility] [address] [place] [address] Dr. Kyle Love LEUKOCYTES Negative Normal NEGATIVE [facility] Comment on above: Performed By: #### U ACSIND #### [facility] [address] [address] [address] Kyle Love Nitrite Ql (U) Negative Normal NEGATIVE [facility] Comment on above: Performed By: #### U ACSIND #### [facility] [address] [place] [address] [address] Kyle Love pH (U) 6.0 [pH] Normal 5-9 [facility] Comment on above: Performed By: #### U ACSIND #### [facility] [address] [place] [address] Dr. Kyle Love SPEC GRAVITY 1.010 Normal 1.005-<=1. 025 [facility] Comment on above: Performed By: #### U ACSIND #### [facility] [address] [place] [address] Dr. Kyle Love UA PROTEIN Negative Normal NEGATIVE/ TRACE [facility] Comment on above: Performed By: #### U ACSIND #### [facility] [address] [place] [address] Dr. Kyle Love UR MICRO IND NOT INDICATED Normal [facility] Comment on above: Performed By: #### U ACSIND #### [facility] [address] [place] [address] Dr. Kyle Love Urobilinogen Qn (U) 0.2 {Dianna'U}/dL Normal 0.2 - 1. 0 [facility] Comment on above: Performed By: #### U ACSIND #### [facility] [address] [place] [address] Dr. Kyle Love US KIDNEYSon 06-05-2022 US [...] by: GENEVA HELM Date: 2022-06-05 08:20 Normal [facility] XR KUB 1 VIEWon 06-05-2022 XR [...] GENEVA MARK Date: 2022-06-05 07:34 Normal [facility] ACETONE SERUMon 04-30-2022 ACETONE Negative Normal NEGATIVE [facility] Comment on above: Performed By: #### A CETON #### [facility] [address] [place], [place] [address] Dr. Kyle Love CBC AUTO DIFFon 04-30-2022 BASO # 0.0 103/ul Normal 0.0-0.1 [facility] Comment on above: Performed By: #### C BC #### [facility] [address] [place], [place] [address] Dr. Kyle Love Basophils/100 WBC (Bld) 0.5 % Normal 0.2-2.0 [facility] Comment on above: Performed By: #### C BC #### [facility] [address] [place] [address] Dr. Kyle Love EO # 0.3 103/ul Normal 0.0-0.7 [facility] Comment on above: Performed By: #### C BC #### [facility] [address] [place] [address] Dr. Kyle Love Eosinophils/100 WBC (Bld) 3.9 % Normal 0.9-7.0 [facility] Comment on above: Performed By: #### C BC #### [facility] [address] [place] [address] Dr. Kyle Love Erythrocyte distribution width (RBC) [Ratio] 13.7 % Normal 11.0-15.0 [facility] Comment on above: Performed By: #### C BC #### [facility] [address] [place] [address] Dr. Kyle Love Hematocrit (Bld) [Volume fraction] 42.2 % Normal 36.0-48.0 [facility] Comment on above: Performed By: #### C BC #### [facility] [address] [place] [address] Dr. Kyle Love Hemoglobin (Bld) [Mass/Vol] 14.4 g/dL Normal 12.0-16.0 [facility] Comment on above: Performed By: #### C BC #### [facility] [address] [place] [address] Dr. Kyle Love IG # 0.04 10e3/ul Critically high 0.00-0.03 [facility] Comment on above: Performed By: #### C BC #### [facility] [address] [place] [address] Dr. Kyle Love IG % 0.5 % Normal 0.0-0.5 [facility] Comment on above: Performed By: #### C BC #### [facility] [address] [place] [address] Dr. Kyle Love LYMPH # 1.9 103/ul Normal 1.2-3.8 [facility] Comment on above: Performed By: #### C BC #### [facility] [address] [place] [address] Dr. Kyle Love Lymphocytes/100 WBC (Bld) 21.3 % Normal 20.5-60.0 [facility] Comment on above: Performed By: #### C BC #### [facility] [address] [place] [address] Dr. Kyle Love MANUAL DIFF REQ NO Normal [facility] Comment on above: Performed By: #### C BC #### [facility] [address] [place] [address] Dr. Kyle Love MCH (RBC) [Entitic mass] 29.3 pg Normal 26.7-34.0 [facility] Comment on above: Performed By: #### C BC #### [facility] [address] [place] [address] Dr. Kyle Love MCHC (RBC) [Mass/Vol] 34.1 g/dL Normal 29.9-35.2 [facility] Comment on above: Performed By: #### C BC #### [facility] [address] [place] [address] Dr. Kyle Love MCV (RBC) [Entitic vol] 85.8 fL Normal 81.0-99.0 [facility] Comment on above: Performed By: #### C BC #### [facility] [address] [place] [address] Dr. Kyle Love MONO # 0.5 103/ul Normal 0.3-0.8 [facility] Comment on above: Performed By: #### C BC #### [facility] [address] [place] [address] Dr. Kyle Love Monocytes/100 WBC (Bld) 6.1 % Normal 1.7-12.0 [facility] Comment on above: Performed By: #### C BC #### [facility] [address] [place] [address] Dr. Kyle Love NEUT # 6.0 103/ul Normal 1.4-6.5 [facility] Comment on above: Performed By: #### C BC #### [facility] [address] [place] [address] Dr. Kyle Love Neutrophils/100 WBC (Bld) 67.7 % Normal 43.0-75.0 [facility] Comment on above: Performed By: #### C BC #### [facility] [address] [place] [address] Dr. Kyle Love Platelet mean volume (Bld) [Entitic vol] 10.4 fL Normal 9.5-13.5 [facility] Comment on above: Performed By: #### C BC #### [facility] [address] [place] [address] Dr. Kyle Love PLT 231 103/ul Normal 150-450 [facility] Comment on above: Performed By: #### C BC #### [facility] [address] [place] [address] Dr. Kyle Love RBC 4.92 106/ul Normal 4.20-5.40 [facility] Comment on above: Performed By: #### C BC #### [facility] [address] [place] [address] Dr. Kyle Love WBC 8.8 103/ul Normal 4.0-11.0 [facility] Comment on above: Performed By: #### C BC #### [facility] [address] [place] [address] Dr. Kyle Love ER URINE PROFILEon 2 Bilirubin Ql (U) Negative Normal NEGATIVE [facility] Comment on above: Performed By: #### E RUR #### [facility] [address] [place] [address] Dr. Kyle Love Clarity (U) CLEAR Normal CLEAR [facility] Comment on above: Performed By: #### E RUR #### [facility] [address] [place] [address] Dr. Kyle Love Color (U) YELLOW Normal YELLOW [facility] Comment on above: Performed By: #### E RUR #### [facility] [address] [place] [address] Dr. Kyle CANALES A micrscopic examina tion will be performed if indicated. Normal [facility] Comment on above: Performed By: #### E RUR #### [facility] [address] [address] [address] Kyle Love Glucose Ql (U) 500 mg/dl Abnormal NEGATIVE [facility] Comment on above: Performed By: #### E RUR #### [facility] [address] [place] [address] Dr. Kyle Love Hemoglobin Ql (U) Negative Normal NEGATIVE [facility] Comment on above: Performed By: #### E RUR #### [facility] [address] [place] [address] Dr. Kyle Love Ketones Ql (U) Negative Normal NEGATIVE [facility] Comment on above: Performed By: #### E RUR #### [facility] [address] [place] [address] Dr. Kyle Love LEUKOCYTES Negative Normal NEGATIVE [facility] Comment on above: Performed By: #### E RUR #### [facility] [address] [place] [address] Dr. Kyle Love Nitrite Ql (U) Negative Normal NEGATIVE [facility] Comment on above: Performed By: #### E RUR #### [facility] [address] [place] [address] Dr. Kyle Love pH (U) 5.5 [pH] Normal 5-9 [facility] Comment on above: Performed By: #### E RUR #### [facility] [address] [place] [address] Dr. Kyle Love SPEC GRAVITY >=1.030 Abnormal 1.005-<=1. 025 [facility] Comment on above: Performed By: #### E RUR #### [facility] [address] [place] [address] Dr. Kyle Love UA PROTEIN TRACE Normal NEGATIVE/ TRACE [facility] Comment on above: Performed By: #### E RUR #### [facility] [address] [place] [address] Dr. Kyle Love UR MICRO IND NOT INDICATED Normal [facility] Comment on above: Performed By: #### E RUR #### [facility] [address] [place] [address] Dr. Kyle Love Urobilinogen Qn (U) 0.2 {Dianna'U}/dL Normal 0.2 - 1. 0 [facility] Comment on above: Performed By: #### E RUR #### [facility] [address] [place] [address] Dr. Kyle Love PH VENOUS BLOODon 04-30-2022 PCO2 VENOUS 36.8 mmHg Critically low 40.0-52.0 [facility] Comment on above: Performed By: #### P OCGLUC #### [facility] [address] [place] [address] Dr. Kyle Love pH VENOUS 7.418 Normal 7.330-7.43 0 [facility] Comment on above: Performed By: #### P OCGLUC #### [facility] [address] [place] [address] Dr. Kyle Love POINT OF CARE GLUCOSEon Glucose [Mass/Vol] 208 mg/dL Critically high 74-106 [facility] Comment on above: Performed By: #### P OCGLUC #### [facility] [address] [place] [address] Dr. Kyle Love Glucose [Mass/Vol] 320 mg/dL Critically high -106 [facility] Comment on above: Performed By: #### P OCGLUC #### [facility] [address] [place] [address] Dr. Kyle Love PROF CHEM 8 (BAS METB)on Anion gap [Moles/Vol] 15.2 mmol/L Normal [facility] Comment on above: Performed By: #### B MP #### [facility] [address] [place] [address] Dr. Kyle Love Calcium [Mass/Vol] 9.7 mg/dL Normal 8.5-10.1 [facility] Comment on above: Performed By: #### B MP #### [facility] [address] [place] [address] [address] Kyle Love Chloride [Moles/Vol] 101 mmol/L Normal 98-107 [facility] Comment on above: Performed By: #### B MP #### [facility] [address] [place] [address] [address] Kyle Love CO2 [Moles/Vol] 23.9 mmol/L Normal 21.0-32.0 [facility] Comment on above: Performed By: #### B MP #### [facility] [address] [place] [address] [address] Kyle Love Creatinine [Mass/Vol] 0.90 mg/dL Normal 0.55-1.02 [facility] Comment on above: Performed By: #### B MP #### [facility] [address] [place] [address] Dr. Kyle Love EGFR-AF [place] >60 Normal >=60 [facility] Comment on above: Performed By: #### B MP #### [facility] [address] [place] [address] [address] Kyle Love EGFR-NON AF [place]IZ[place] >60 Normal >=60 [facility] Comment on above: Performed By: #### B MP #### [facility] [address] [place] [address] [address] Kyle Love Glucose [Mass/Vol] 324 mg/dL Critically high 74-106 [facility] Comment on above: Performed By: #### B MP #### [facility] [address] [place] [address] Dr. Kyle Love Potassium [Moles/Vol] 4.1 mmol/L Normal 3.5-5.1 [facility] Comment on above: Performed By: #### B MP #### [facility] [address] [address] [address] Kyle Love Sodium [Moles/Vol] 136 mmol/L Normal 136-145 [facility] Comment on above: Performed By: #### B MP #### [facility] [address] [address] [address] Kyle Love Urea nitrogen [Mass/Vol] 16.0 mg/dL Normal 7.0-18.0 [facility] Comment on above: Performed By: #### B MP #### [facility] [address] [place], [place] [address] Dr. Kyle Love Urea nitrogen/Creatinine [Mass ratio] 17.8 mg/mg Normal [facility] Comment on above: Performed By: #### B MP #### [facility] [address] [place], [place] [address] Dr. Kyle Love Vital Signs Date Time Vital Sign Value Performing Clinician Facility 12-11-2024 11:31-0500 Body height 157.5 cm Jorge Luis Wick MD Work Phone: [facility] 12-11-2024 11:31-0500 Body mass index (BMI) [Ratio] 37.49 kg/m2 Jorge Luis Wick MD Work Phone: [facility] 12-11-2024 11:31-0500 Body temperature 95.9 [degF] Jorge Luis Wick MD Work Phone: [facility] 12-11-2024 11:31-0500 Body weight 92.99 kg Jorge Luis Wick MD Work Phone: [facility] 12-11-2024 11:31-0500 Diastolic blood pressure 76 mm[Hg] Jorge Luis Wick MD Work Phone: [facility] 12-11-2024 11:31-0500 Heart rate 98 /min Jorge Luis Wick MD Work Phone: [facility] 12-11-2024 11:31-0500 Respiratory rate 22 /min Jorge Luis Wick MD Work Phone: [facility] 12-11-2024 11:31-0500 SaO2% (BldA) [Mass fraction] 98 % Jorge Luis Wick MD Work Phone: [facility] 12-11-2024 11:31-0500 Systolic blood pressure 138 mm[Hg] Jorge Luis Wick MD Work Phone: [facility] 08-20-2024 07:14-0400 Body height 157.5 cm Jorge Luis Wick MD Work Phone: [facility] 08-20-2024 07:14-0400 Body mass index (BMI) [Ratio] 39.32 kg/m2 Jorge Luis Wick MD Work Phone: [facility] 08-20-2024 07:14-0400 Body temperature 94.8 [degF] Jorge Luis Wick MD Work Phone: [facility] 08-20-2024 07:14-0400 Body weight 97.52 kg Jorge Luis Wick MD Work Phone: [facility] 08-20-2024 07:14-0400 Diastolic blood pressure 70 mm[Hg] Jorge Luis Wick MD Work Phone: [facility] 08-20-2024 07:14-0400 Heart rate 84 /min Jorge Luis Wick MD Work Phone: [facility] 08-20-2024 07:14-0400 Respiratory rate 20 /min Jorge Luis Wick MD Work Phone: [facility] 08-20-2024 07:14-0400 SaO2% (BldA) [Mass fraction] 97 % Jorge Luis Wick MD Work Phone: [facility] 08-20-2024 07:14-0400 Systolic blood pressure 154 mm[Hg] Jorge Luis Wick MD Work Phone: [facility] 04-15-2024 11:23-0400 Body height 1584.96 cm MD Jorge Luis Wick Work Phone: [facility] [place] 04-15-2024 11:23-0400 Body mass index (BMI) [Ratio] 0.4 kg/m2 MD Jorge Luis Wick Work Phone: [facility] [place] 04-15-2024 11:23-0400 Body temperature 95.4 [degF] MD Jorge Luis Wick Work Phone: [facility] [place] 04-15-2024 11:23-0400 Body weight 98.48 kg MD Jorge Luis Wick Work Phone: [facility] [place] 04-15-2024 11:23-0400 Diastolic blood pressure 44 mm[Hg] MD Jorge Luis Wick Work Phone: [facility] [place] 04-15-2024 11:23-0400 Heart rate 100 /min MD Jorge Luis Wick Work Phone: [facility] [place] 04-15-2024 11:23-0400 Respiratory rate 16 /min MD Jorge Luis Wick Work Phone: [facility] [place] 04-15-2024 11:23-0400 SaO2% (BldA) [Mass fraction] 99 % MD Jorge Luis Wick Work Phone: [facility] [place] 04-15-2024 11:23-0400 Systolic blood pressure 130 mm[Hg] MD Jorge Luis Wick Work Phone: [facility] [place] 09-10-2023 15:36-0400 Blood Pressure Location Levy MATOS [facility] 09-10-2023 15:36-0400 Diastolic blood pressure 78 mm[Hg] Levy MATOS [facility] 09-10-2023 15:36-0400 Heart rate 80 /min Levy MATOS [facility] 09-10-2023 15:36-0400 Respiratory rate 16 /min Levy MATOS [facility] 09-10-2023 15:36-0400 Systolic blood pressure 133 mm[Hg] Levy MATOS [facility] 07-18-2023 08:15-0400 Body height 157.48 cm Patricia Aguilar Other [employer] Other 07-18-2023 08:15-0400 Body mass index (BMI) [Ratio] 38.77 kg/m2 Patricia Aguilar Other [employer] Other 07-18-2023 08:15-0400 Body weight 96.16 kg Patricia Aguilar Other [employer] Other 06-14-2023 09:10-0400 Body height 157.48 cm Ella Quinteros Other [employer] Other 06-14-2023 09:10-0400 Body mass index (BMI) [Ratio] 38.77 kg/m2 Ella Quinteros Other [employer] Other 06-14-2023 09:10-0400 Body temperature 98.4 [degF] Ella Quinteros Other [employer] Other 06-14-2023 09:10-0400 Body weight 96.16 kg Ella Quinteros Other [employer] Other 06-14-2023 09:10-0400 Diastolic blood pressure 79 mm[Hg] Ella Quinteros Other [employer] Other 06-14-2023 09:10-0400 Respiratory rate 18 /min Ella Quinteros Other [employer] Other 06-14-2023 09:10-0400 SaO2% (BldA) [Mass fraction] 100 % Ella Quinteros Other [employer] Other 06-14-2023 09:10-0400 Systolic blood pressure 157 mm[Hg] Ella Quinteros Other [employer] Other 04-17-2023 14:20-0400 Diastolic blood pressure 54 mm[Hg] MD Jorge Luis Wick Work Phone: [facility] 04-17-2023 14:20-0400 Heart rate 77 /min MD Jorge Luis Wick Work Phone: [facility] 04-17-2023 14:20-0400 Respiratory rate 16 /min MD Jorge Luis Wick Work Phone: [facility] 04-17-2023 14:20-0400 SaO2% (BldA) [Mass fraction] 95 % MD Jorge Luis Wick Work Phone: [facility] 04-17-2023 14:20-0400 Systolic blood pressure 110 mm[Hg] MD Jorge Luis Wick Work Phone: [facility] 04-17-2023 12:20-0400 Inhaled oxygen flow rate 2 L/min MD Jorge Luis Wick Work Phone: [facility] 04-17-2023 12:06-0400 Body temperature 98.4 [degF] MD Jorge Luis Wick Work Phone: [facility] 04-17-2023 07:57-0400 Body height 157.48 cm MD Jorge Luis Wick Work Phone: [facility] 04-17-2023 07:57-0400 Body mass index (BMI) [Ratio] 38.7 kg/m2 MD Jorge Luis Wick Work Phone: [facility] 04-17-2023 07:57-0400 Body weight 96 kg MD Jorge Luis Wick Work Phone: [facility] 03-28-2023 16:15-0400 Body height 157.48 cm Kelby Bella II Other [employer] Other 03-28-2023 16:15-0400 Body mass index (BMI) [Ratio] 38.41 kg/m2 Kelby Fajardole II Other [employer] Other 03-28-2023 16:15-0400 Body weight 95.26 kg Kelby Shayne II Other [employer] Other 12-14-2022 15:30-0500 Body height 157.48 cm Kelby Roane II Other [employer] Other 12-14-2022 15:30-0500 Body mass index (BMI) [Ratio] 40.42 kg/m2 Kelby Roane II Other [employer] Other 12-14-2022 15:30-0500 Body weight 100.25 kg Kelby Delgadoisle II Other [employer] Other 10-24-2022 10:50-0500 Body height 157.48 cm Aurelia Francis Other [employer] Other 10-24-2022 10:50-0500 Body mass index (BMI) [Ratio] 36.58 kg/m2 Aurelia Francis Other [employer] Other 10-24-2022 10:50-0500 Body temperature 97.6 [degF] Aurelia Ravi Other [employer] Other 10-24-2022 10:50-0500 Body weight 90.72 kg Aurelia Francis Other [employer] Other 10-24-2022 10:50-0500 Diastolic blood pressure 86 mm[Hg] Aurelia Francis Other [employer] Other 10-24-2022 10:50-0500 Respiratory rate 18 /min Aurelia Francis Other [employer] Other 10-24-2022 10:50-0500 SaO2% (BldA) [Mass fraction] 99 % Aurelia Ravi Other [employer] Other 10-24-2022 10:50-0500 Systolic blood pressure 128 mm[Hg] Aurelia Ravi Other [employer] Other 08-28-2022 15:38-0400 Blood Pressure Location Levy [...] pressure 119 mm[Hg] Levy MATOS [facility] Encounters Encounter Date Encounter Type Care Provider Facility Start: 02-08-2026 ambulatory Levy MATOS Facili ty:[facility] Start: 02-16-2025 End: 02-16-2025 ambulatory Levy MATOS Facility:[facility] Start: 12-11-2024 End: 12-11-2024 Renny Wick MD Work Phone: [facility] Start: 12-11-2024 End: 12-11-2024 Renny Wick MD Work Phone: [facility] Start: 12-11-2024 End: 12-11-2024 Office outpatient visit 15 minutes Jorge Luis Wick MD Work Phone: [facility] Comment on above: Acute bronchitis due to other specified organisms (Primary Dx); Statin myopathy; Class 2 severe obesity due to excess calories with serious comorbidity and body mass index (BMI) of 37.0 to 37.9 in adult ([facility]) Start: 12-11-2024 End: 12-11-2024 ambulatory JORGE LUIS WICK Not Available Start: 08-27-2024 End: 08-27-2024 Clinisync Result Encounter Jorge Luis Wick MD Work Phone: [facility] External Department Unsolicited Start: 08-27-2024 End: 08-27-2024 Clinisync Result Encounter Jorge Luis Wick MD Work Phone: [facility] External Department Unsolicited Start: 08-20-2024 End: 08-20-2024 Bamboo flowsheet Jorge Luis Wick MD Work Phone: [facility] Start: 08-20-2024 End: 08-20-2024 Bamboo flowsheet Jorge Luis Wick MD Work Phone: [facility] Start: 08-20-2024 End: 08-20-2024 ambulatory JORGE LIUS WICK Not Available Start: 08-20-2024 End: 08-20-2024 Patient encounter procedure Jorge Luis Wick MD Work Phone: [facility] Start: 08-20-2024 End: 08-20-2024 Periodic preventive med est patient 40-64yrs Jorge Luis Wick MD Work Phone: [facility] Comment on above: Annual physical exam (Primary Dx); Type 2 diabetes mellitus with hyperglycemia, without long-term current use of insulin ([facility]); Fibromyalgia Start: 07-17-2024 End: 07-17-2024 ambulatory MD Jorge Luis Wick Work Phone: [facility] Work Phone: Start: 07-17-2024 End: 07-17-2024 Patient encounter procedure MD Jorge Luis Wick Work Phone: [facility] Work Phone: Start: 07-17-2024 End: 07-17-2024 Patient encounter procedure MD Jorge Luis Wick Work Phone: [facility] Start: 07-17-2024 End: 07-17-2024 ambulatory MD Jorge Luis Wick Work Phone: [facility] Work Phone: Start: 04-15-2024 End: 04-15-2024 ambulatory MD Jorge Luis Wick Work Phone: [facility] Work Phone: Start: 04-15-2024 End: 04-15-2024 Patient encounter procedure MD Jorge Luis Wick Work Phone: [facility] Work Phone: Start: 02-14-2024 End: 02-14-2024 ambulatory JORGE LUIS WICK Not Available Start: 09-10-2023 End: 09-10-2023 Patient encounter procedure Levy MATOS [facility] Start: 07-18-2023 Office outpatient vi sit 15 minutes Patricia Aguilar [facility] Start: 07-18-2023 End: 07-18-2023 ambulatory MD Jorge Luis Wick Work Phone: [facility] Work Phone: Start: 07-18-2023 End: 07-18-2023 Patient encounter procedure MD Jorge Luis Wick Work Phone: [facility] Start: 06-14-2023 End: 06-14-2023 ambulatory Ella Quinteros Other [employer] Other Start: 06-14-2023 Office outpatient vi sit 15 minutes Ella Quinteros [facility] Start: 06-07-2023 End: 06-07-2023 ambulatory Kelby Fajardole II Other [employer] Other Start: 06-07-2023 Telephone encounter Kelby Delgadoisle II [facility] Start: 05-31-2023 (Post-Op) Post-Op Kelby Roane II [facility] Start: 05-31-2023 End: 05-31-2023 ambulatory MD Jorge Luis Wick Work Phone: [facility] Work Phone: Start: 05-31-2023 End: 05-31-2023 Patient encounter procedure MD Jorge Luis Wick Work Phone: [facility] Start: 05-18-2023 End: 05-18-2023 Discharged Recurring MD Jorge Luis Wick Work Phone: [facility] [place] Start: 05-18-2023 Registered Recurring MD Jorge Luis angulo Work Phone: [facility] [place] Start: 04-27-2023 End: 04-27-2023 ambulatory Patricia Aguilar Other [employer] Other Start: 04-27-2023 Postop follow up vis it related to original px Patricia Aguilar [facility] Start: 04-25-2023 End: 04-25-2023 ambulatory Kelby Bella II Other [employer] Other Start: 04-25-2023 Telephone encounter Kelby Fajardole II [facility] Start: 04-17-2023 End: 04-17-2023 Admission to same day surgery center MD Jorge Luis Wick Work Phone: [facility] [place] Start: 04-06-2023 (Prolonged) Prolonge d Services Kelby Shayne II [facility] Start: 04-06-2023 End: 04-06-2023 ambulatory Kelby Shayne II Other [employer] Other Start: 04-03-2023 Telephone encounter Kelby Shayne II [facility] Start: 04-03-2023 End: 04-03-2023 ambulatory MD Jorge Luis Wick Work Phone: [facility] Work Phone: Start: 04-03-2023 End: 04-03-2023 Patient encounter procedure MD Jorge Luis Wick Work Phone: [facility]-Pre-Surgical Testing Work Phone: Start: 03-28-2023 End: 03-28-2023 ambulatory Kelby Roane II Other [employer] Other Start: 03-28-2023 Office outpatient vi sit 40 minutes Kelby Roane II [facility] Start: 03-01-2023 End: 03-01-2023 ambulatory PHYSICIAN NO [facility] Work Phone: Start: 03-01-2023 End: 03-01-2023 Patient encounter procedure PHYSICIAN NO [facility] [place] Work Phone: Start: 02-17-2023 Encounter for genera l adult medical examination without abnormal findings DR JORGE LUIS WICK [facility] Start: 02-16-2023 End: 02-16-2023 ambulatory PHYSICIAN NO [facility] Work Phone: Start: 02-16-2023 End: 02-16-2023 Patient encounter procedure PHYSICIAN NO [facility] [place] Work Phone: Start: 02-10-2023 End: 02-11-[address] JORGE LUIS WICK Facility:[facility] Start: 02-10-2023 End: 02-11-2023 Encounter for general adult medical examination without abnormal findings DR JORGE LUIS WICK Facility:[facility] Start: 12-14-2022 End: 12-14-2022 Patient encounter procedure PHYSICIAN NO [facility] Start: 12-14-2022 End: 12-14-2022 ambulatory PHYSICIAN NO [facility] Work Phone: Start: 12-14-2022 Office outpatient ne w 45 minutes Kelby Bella II [facility] Start: 10-24-2022 Office outpatient vi sit 15 minutes Aurelia Ravi [facility] Start: 10-24-2022 End: 10-24-2022 ambulatory PHYSICIAN NO [facility] Work Phone: Start: 10-24-2022 End: 10-24-2022 Patient encounter procedure PHYSICIAN NO [facility] Start: 08-28-2022 End: 08-28-2022 Patient encounter procedure Levy MATOS [facility] Start: 07-19-2022 End: 07-20-[address] JORGE LUIS WICK Facility:[facility] Start: 06-26-2022 End: 06-27-[address] LEVY MATOS . Facility:[facility] Start: 06-23-2022 End: 06-23-2022 Patient encounter procedure Levy MATOS [facility] Start: 06-09-2022 End: 06-10-[address] LEVY MATOS . Facility:[facility] Start: 06-05-2022 End: 06-06-[address] LEVY MATOS . Facility:[facility] Start: 04-30-2022 End: 04-30-[address] JORGE LUIS WICK Facility:[facility] Start: 02-12-2018 End: 02-13-2018 Ambulatory DEFAULT PHYSICIAN Facility:[facility] Start: 07-12-2017 End: 07-13-2017 Ambulatory DEFAULT PHYSICIAN Facility:[facility] Procedures Date Procedure Procedure Detail Performing Clinician [...] NO FAMILY Start: 11-26-2022 Arthroplasty of knee Uri MATOS Start: 10-24-2022 X-ray of right ankle PH YSICIAN NO FAMILY Start: 03-11-2015 Extracorporeal shock wave lithotripsy of the bile duct Levy MATOS Start: 07-15-2013 Cystoscopy Levy ALBRIGHT Start: 07-08-2013 Removal of calculus of renal pelvis through percutaneous nephrostomy Levy MATOS Start: 06-05-2013 Cystoscopy Levy LUNA TERS Start: 10-24-2011 Cystoscopy Levy LUNA TERS Start: 08-24-2011 Extracorporeal shock wave lithotripsy of the bile duct Levy MATOS Start: 08-17-2011 Cystoscopy Levy CORTEZS Start: 06-01-2011 Extracorporeal shock wave lithotripsy of the bile duct Levy MATOS Start: 05-16-2011 Cystoscopy Levy CORTEZS Start: 10-27-2008 Cystoscopy Levy LUNA TERS Start: 09-24-2008 Cystoscopy Levy LUNA TERS Start: 07-04-2007 Cystoscopy Levy LUNA TERS Start: 06-26-2007 Cystoscopy Levy LUNA TERS Start: 06-05-2007 Cystoscopy Levy LUNA TERS Start: 04-16-2007 Cystoscopy Levy LUNA TERS Start: 03-27-2007 Cystoscopy Levy LUNA TERS Start: 02-13-2007 Cystoscopy Levy LUNA TERS Start: 12-19-2006 Cystoscopy Levy LUNA TERS Start: 11-22-2006 Cystoscopy Levy LUNA TERS Carpal tunnel syndro me (disorder) Levy MATOS Cataract (morphologi c abnormality) Levy MATOS Cholecystectomy Levy MA Hysterectomy Levy MATOS Injury of knee (disorder) Uri MATOS Plan of Treatment Date Care Activity Detail Author Start: 12-11-2025 Screening for malign ant neoplasm of colon Colorectal Cancer Screening [facility] Comment on above: Postponed from 01/07 (Patient Refused) Start: 08-27-2025 Urine screening for protein Diabetes: Urine Protein Screening [facility] Start: 02-25-2025 Hemoglobin A1c measurement Diabetes: Hemoglobin A1C [facility] Start: 02-17-2025 End: 02-17-2025 Patient encounter procedure [facility] Start: 12-11-2024 End: 12-11-2024 Patient encounter procedure 12/11/2024 11:15 AM EST Office Visit [facility] [address] [place] [id number] Jorge Luis Wick MD [address] [place] [id number] Arrived [facility] Comment on above: Arrived Start: 08-20-2024 End: 08-20-2025 Albumin, urine, random Albumin, urine, random Lab Routine Type 2 diabetes mellitus with hyperglycemia, without long-term current use of insulin ([facility]) Expected: 08/20/2024 (Approximate), Expires: 08/20/2025 [facility] Work Phone: Comment on above: Expected: 08/20/2024 (Approximate), Expires: 08/20/2025 Start: 08-20-2024 End: 08-20-2025 Basic metabolic 1998 panel - Serum or Plasma Basic metabolic panel Lab Routine Annual physical exam Expected: 08/20/2024 (Approximate), Expires: 08/20/2025 [facility] Comment on above: Expected: 08/20/2024 (Approximate), Expires: 08/20/2025 Start: 08-20-2024 End: 08-20-2025 CBC W Auto Differential panel - Blood CBC and differential Lab Routine Annual physical exam Expected: 08/20/2024 (Approximate), Expires: 08/20/2025 [facility] Comment on above: Expected: 08/20/2024 (Approximate), Expires: 08/20/2025 Start: 08-20-2024 End: 08-20-2025 Hemoglobin A1c/Hemoglobin.total in Blood Hemoglobin A1c Lab Routine Annual physical exam Expected: 08/20/2024 (Approximate), Expires: 08/20/2025 [facility] Comment on above: Expected: 08/20/2024 (Approximate), Expires: 08/20/2025 Start: 08-20-2024 End: 08-20-2025 Hepatic function 2000 panel - Serum or Plasma Hepatic function panel Lab Routine Annual physical exam Expected: 08/20/2024 (Approximate), Expires: 08/20/2025 [facility] Comment on above: Expected: 08/20/2024 (Approximate), Expires: 08/20/2025 Start: 08-20-2024 End: 08-20-2025 Lipid 1996 panel - Serum or Plasma Lipid panel Lab Routine Annual physical exam Expected: 08/20/2024 (Approximate), Expires: 08/20/2025 [facility] Comment on above: Expected: 08/20/2024 (Approximate), Expires: 08/20/2025 Start: 08-20-2024 End: 08-20-2025 Thyrotropin [Units/volume] in Serum or Plasma TSH Lab Routine Annual physical exam Expected: 08/20/2024 (Approximate), Expires: 08/20/2025 [facility] Comment on above: Expected: 08/20/2024 (Approximate), Expires: 08/20/2025 Start: 08-09-2024 Hemoglobin A1c measurement Diabetes: Hemoglobin A1C [facility] Start: 07-27-2024 Influenza vaccination Influenza Vacc ine (#1) [facility] Start: 07-17-2024 X-ray of right knee [facility] Start: 07-17-2024 XR Knee - right 2 Views [facility] Start: 01-26-2024 Glaucoma screening Diabetes: R etinopathy Screening [facility] Start: 04-17-2023 [facility] Start: 04-17-2023 [facility] Start: 04-03-2023 [facility] Start: 04-03-2023 Bacteria identified in Urine by Culture [facility] Start: 03-01-2023 MRSA Culture MRSA Culture [facility] Start: 2000 Screening for malign ant neoplasm of breast Mammogram [facility] Start: 1990 Screening for malign ant neoplasm of cervix [facility] Start: 1981 Screening for malign ant neoplasm of cervix Pap Smear [facility] Start: 1979 Urine screening for protein Diabetes: Urine Protein Screening [facility] Start: 1970 Glaucoma screening Diabetes: R etinopathy Screening [facility] Start: 1960 Hemoglobin A1c measurement Diabetes: Hemoglobin A1C [facility] Start: 1960 Screening for malign ant neoplasm of colon [facility] Cotinine [Mass/volum e] in Serum or Plasma [facility] Methicillin resistan t Staphylococcus aureus [Presence] in Unspecified specimen by Organism specific culture [facility] Nicotine [Mass/volum e] in Serum or Plasma [facility] XR Knee - left 4 Views [facility] Immunizations Immunization Date Immunization Notes Care Provider [facility] 10-03-2023 influenza virus vaccine, unspecified formulation Jorge Luis Wick MD Work Phone: [facility] 10-14-2022 COVID-19 mRNA Bivale nt Booster (Moderna) MD Jorge Luis Wick Work Phone: [facility] 09-29-2021 COVID-19 mRNA-1273 (Moderna) MD Jorge Luis Wick Work Phone: [facility] 03-07-2021 SARS-CoV-2 (COVID-19 ) mRNA-1273 vaccine Levy MATOS [facility] 02-24-2021 COVID-19 mRNA-1273 (Moderna) MD Jorge Luis Wick Work Phone: [facility] 02-07-2021 SARS-CoV-2 (COVID-19 ) mRNA-1273 vaccine Levy MATOS [facility] 01-27-2021 COVID-19 mRNA-1273 (Moderna) MD Jorge Luis Wick Work Phone: [facility] Payers Date Payer Category Payer Unknown [id number] 2024 Medicare [id number] 2021 [employer] [id number] 2021 Unknown 1960 Unknown [id number]. 2.593 1960 Unknown [id number] [id number]. 2.593 1960 Unknown [id number] [id number]. 2.593 1960 Unknown [id number] [id number]. 2.593 1960 Unknown [id number] [id number]. 2.593 1960 Unknown [id number] 2.16.840.1.220951.3.579. 2.593 1960 Unknown [id number] [id number]. 2.1259 1960 Unknown [id number] [id number]. 2.1259 1960 Unknown [id number] 2.16.840.1.108909.3.579. 2.1259 1960 Unknown [id number] [id number]. 2.727 1960 Unknown [id number] [id number]. 2.727 1959 Unknown [id number] Self-pay Self Pay [id number] Unknown [place] [id number] Social History Date Type Detail Facility Start: 08-16-2020 End: 02-14-2024 Tobacco smoking status Never smoked tobacco (finding) [facility] Start: 08-20-2024 End: 12-11-2024 Sex Assigned At Female [facility] Start: 1960 Sex Assigned At Female [facility] Tobacco smoking status Never [facility] Start: 02-14-2024 Tobacco use and exposure Smokeless tobacco non-user [facility] Start: 08-20-2024 End: 12-11-2024 History of Social function [facility] Start: 1960 Sex assigned at Not on file [facility] Medical Equipment Procedure Code Equipment Code Equipment Origin al Text Equipment Identifier Dates Arthroplasty, knee, total, minimally invasive Orthopaedic cement, non-medicated [id number] FDA Start: 04-17-2023 Arthroplasty, knee, total, minimally invasive Uncoated knee femur prosthesis [id number] FDA Start: 04-17-2023 Arthroplasty, knee, total, minimally invasive Tibial insert [id number] FDA Start: 04-17-2023 Arthroplasty, knee, total, minimally invasive Polyethylene patella prosthesis [id number] FDA Start: 04-17-2023 Arthroplasty, knee, total, minimally invasive Knee stem ()[id number] FDA Start: 04-17-2023 Arthroplasty, knee, total, minimally invasive Uncoated knee tibia prosthesis, metallic ()[id number] FDA Start: 04-17-2023 1 each by Other route if needed (as needed) [id number] Start: 11-09-2023 Goals Date Patient Goal Desired Activity /State Functional Status Date Assessment Result Facility 09-10-2023 Functional Status N/A [facility] 08-28-2022 Functional Status N/A [facility] Clinical Notes 08-28-2022 to 02-16-2025 Jorge Luis Wick MD - 12/11/2024 11:57 AM Tae Wick MD - 12/11/2024 11:57 AM Tae Wick MD - 12/11/2024 11:56 AM Tae Wick MD - 12/11/2024 11:15 AM EST Note Date & Type Note Facility 02-16-2025 Note Patient Education Nephrology Dietary Guidelines to Help Prevent Kidney Stones Kidney stones are deposits of minerals and salts that form inside your kidneys. Your risk of developing kidney stones may be greater depending on your diet, your lifestyle, the medicines you take, and whether you have certain medical conditions. Most people can lower their risks of developing kidney stones by following these dietary guidelines. Your dietitian may give you more specific instructions depending on your overall health and the type of kidney stones you tend to develop. What are tips for following this plan? Reading food labels ??? Choose foods with no salt added or low-salt labels. Limit your salt (sodium) intake to less than 1,500 mg a day. ??? Choose foods with calcium for each meal and snack. Try to eat about 300 mg of calcium at each meal. Foods that contain 200?500 mg of calcium a serving include: ? 8 oz (237 mL) of milk, mmzqvtx-[id number] milk, and calcium-fortifiedfruit juice. Calcium-fortified means that [...] much calcium is recommended for you. Shopping ??? Buy plenty of fresh fruits and vegetables. Most people do not need to avoid fruits and vegetables, even if these foods contain nutrients that may contribute to kidney stones. ??? When shopping for convenience foods, choose: ? Whole pieces of fruit. ? Pre-made salads with dressing on the side. ? Low-fat fruit and yogurt smoothies. ??? Avoid buying frozen meals or prepared deli foods. These can be high in sodium. ??? Look for foods with live cultures, such as yogurt and kefir. ??? Choose high-fiber grains, such as whole-wheat breads, oat bran, and wheat cereals. Cooking ??? Do not add salt to food when cooking. Place a salt shaker on the table and allow each person to add their own salt to taste. ??? Use vegetable protein, such as beans, textured vegetable protein (TVP), or tofu, instead of meat in pasta, casseroles, and soups. Meal planning ??? Eat less salt, if told by your dietitian. To do this: ? Avoid eating processed or pre-made food. ? Avoid eating fast food. ??? Eat less animal protein, including cheese, meat, poultry, or fish, if told by your dietitian. To do this: ? Limit the number of times you have meat, poultry, fish, or cheese each week. Eat a diet free of meat at least 2 days a week. ? Eat only one serving each day of meat, poultry, fish, or seafood. ? When you prepare animal proteins, cut pieces into small portion sizes. For most meat and fish, one serving is about the size of the palm of your hand. ??? Eat at least five servings of fresh fruits and vegetables each day. To do this: ? Keep fruits and vegetables on hand for snacks. ? Eat one piece of fruit or a handful of berries with breakfast. ? Have a salad and fruit at lunch. ? Have two kinds of vegetables at dinner. ??? You may be told to limit foods that are high in a substance called oxalate. These include: ? Spinach (cooked), rhubarb, beets, sweet potatoes, and English chard. ? Peanuts. ? Potato chips, iranian fries, and baked potatoes with skin on. ? Nuts and nut products. ? Chocolate. ??? If you regularly take a diuretic medicine, make sure to eat at least 1 or 2 servings of fruits or vegetables that are high in potassium each day. These include: ? Avocado. ? Banana. ? Cayuta, prune, carrot, or tomato juice. ? Baked potato. ? Cabbage. ? Beans and split peas. Lifestyle ??? Drink enough fluid to keep your urine pale yellow. This is the most important thing you can do. Spread your fluid intake throughout the day. ??? If you drink alcohol: ? Limit how much you have to: ? 0?1 drink a day for women who are not . ? 0?2 drinks a day for men. ? Know how much alcohol is in your drink. In the [place] one drink equals one 12 oz bottle of beer (355 mL), one 5 oz glass of wine (148 mL), or one 1? oz glass of hard liquor (44 mL). ??? Lose weight if told by your health care provider. Work with your dietitian to find an eating plan and weight loss strategies that work best for you. General information ??? Talk to your health care provider and dietitian about taking daily supplements. Depending on your health and the cause of your kidney stones, you may be told: ? Do not take high-dose supplements of vitamin C (1,000 mg a day or more). ? To take a calcium supplement. ? To take a daily probiotic supplement. ? To take other supplements such as magnesium, fish oil, or vitamin B6. ??? Take rjkg-fhe-scoszri and prescription medicines only as told by your health (more content not included)... 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) Weight loss indicated Associated Problem(s): Acute [...] (BMI) of 37.0 to 37.9 in adult ([facility]) Weight loss indicated Acute bronchitis due [...] 250 MG tablet documented in this encounter [facility] 08-20-2024 History of Presen t illness Narrative Associated Problem(s): Type 2 diabetes mellitus with hyperglycemia, without long-term current use of insulin ([facility]) Reports BS controlled and due for [...] hyperglycemia, without long-term current use of insulin ([facility]) Reports BS controlled and due for [...] Lipid panel TSH documented in this encounter [facility] 09-10-2023 Hospital Discharg e instructions Patient Education [...] include: ?8 oz (237 mL) of milk, tyhlcqx-eehbofogpmoa-mbhpo milk, and calcium-fortifiedfruit juice. Calcium-fortified means that [...] ?Spinach (cooked), rhubarb, beets, sweet potatoes, and English chard. ?Peanuts. ?Potato chips, iranian fries, and baked potatoes with skin on. ?Nuts and nut products. ?Chocolate. If you regularly take a diuretic medicine, make sure to eat at least 1 or 2 servings of fruits or vegetables that are high in potassium each day. These include: ?Avocado. ?Banana. ?Cayuta, prune, carrot, or tomato juice. ?Baked potato. [...] magnesium, fish oil, or vitamin B6. Take wbrp-qyp-dvdycze and prescription medicines only as told by [...] Casseroles. Pizza. Lasagna. Frozen meals. Potato chips. Syriac fries. The items listed above may not [...] provider. Document Revised: 07/24/2022 Document Reviewed: 07/24/2022 [employer] Patient Education 2022 [employer]. Follow Up Care 08/28/2022 16:11:04 With:ISELA MINAYA, Levy Nair, URL Address: [facility] [address], [place] [address]- When:Within 1 Year(s) Comments:w/DEJA [facility] [...] right artificial knee joint (ICD-10 - Z96.651) [employer] Other 07-20-2023 Evaluation note* Encounter Date Diagnosis [...] understanding and is agreeable with treatment plan [employer] Other 07-06-2023 Evaluation note* Encounter Date Diagnosis Assessment Notes Treatment Notes Treatment Clinical Notes May, History of total right knee replacement (ICD-10 - Z96.651) May, Aftercare following joint replacement surgery (ICD-10 - Z47.1) May, Presence of right artificial knee joint (ICD-10 - Z96.651) May, Contact allergic reaction (ICD-10 - L23.9) May, Other [facility] on 04/17/2020 Overall she is doing fantastic. [...] tolerated. Continue PT as recommended. Continue taking thue-qtp-tqiwvfd anti-inflammatorie s as needed for assistance with swelling and pain associated with the operative extremity. Follow-up in 1 to 2 weeks for incision check and if everything looks good then 3 months postop for repeat examination and long standing x-rays. [facility] Other 06-02-2023 Evaluation note* Encounter Date Diagnosis [...] to stretch knee motion at this time. [employer] Other 05-12-2023 Evaluation note* Encounter Date Diagnosis [...] patient could proceed with surgery safely. The primary health organisation manager was vital for surgery timing and [...] plans. Prolonged services time spent: 33 minutes [employer] Other 05-09-2023 Evaluation note* Encounter Date Diagnosis Assessment Notes Treatment Notes Treatment Clinical Notes March, Primary osteoarthritis of right knee (ICD-10 - M17.11) [employer] Other 05-03-2023 Evaluation note* Encounter Date Diagnosis [...] does not member the name of the workday director but they were in [place]. 4. Once our office has reviewed the above labs and clearances, we will contact the patient to discuss surgery scheduling. Patient is in agreement with the above plan. 5. The risks involved with surgery and postoperative complications were discussed in relation to the patient's nonmodifiable risk factors including but not limited to the following: Gll-xabsmvu-nujlpcm nt diabetes Fibromyalgia History of heart block All questions were answered after discussing these increased risks. The patient voiced understanding of these increased risks and still wishes to proceed with surgery. 6. The risks involved with surgery and postoperative complications were discussed in relation to the patient's modifiable risk factors including but not limited to the following: Wui-kzlxjbs-blscizg nt diabetes-most recent A1c is 6.6 BMI [...] or absent clearances could delay their surgery. [employer] Other 01-19-2023 Evaluation note* Encounter Date Diagnosis [...] patient may want surgery sometime after May. [employer] Other 11-29-2022 Evaluation note* Encounter Date Diagnosis [...] PCP if blood sugar goes above 250- [employer] Other 10-03-2022 Hospital Discharge instructions Patient Education 08/28/2022 15:59:31 Kidney Stones, Zcfu-ck-Cjtf Kidney Stones Kidney stones are rock-like masses [...] Follow these instructions at home: Medicines Take albe-weo-zumxlfz and prescription medicines only as told by [...] 04/30/2009 Document Revised: 03/30/2020 Document Reviewed: 03/30/2020 [employer] Patient Education 2020 [employer] Follow Up Care 08/22/2021 16:23:28 With:Levy MATOS MD, URL Address: [facility] [address] [place] [address]- [phone] When:08/28/2023 [facility] evaluation + Plan note Future Appointments Appointment Date:08/28/2022 03:00:00 PM Scheduled Provider:Levy MATOS MD Location:[facility] Appointment Type:URO Office Visit [facility] evaluation + Plan note Future Appointments Appointment Date:09/10/2023 03:00:00 PM Scheduled Provider:Levy MATOS MD Location:[facility] Appointment Type:URO Office Visit [facility] evaluation + Plan note Future Appointments Appointment Date:09/08/2024 10:15:00 AM Scheduled Provider:Levy MATOS MD Location:[facility] Appointment Type:URO Office Visit Diagnostic Tests Pending * Electrolyte Panel 09/10/23 [facility] evaluation noteNo assessment information available [facility] Work Phone: evaluation noteNo InformationNort [employer] Other evaluation note* Diagnosis Onset Date Resolution Status Contusion of left knee and lower leg acute [facility] Work Phone: evaluation note* Diagnosis Onset Date Resolution Status Aftercare following right knee joint replacement surge ry acute [facility] Work Phone: evaluation note* Diagnosis Annual physical exam- Primary Routine general medical examination at a health care facility Type 2 diabetes mellitus with hyperglycemia, without long-term current use of insulin ([facility]) Fibromyalgia Unspecified myalgia and myositis documented [facility] Diagnosis Breast cancer screening by mammogram- Primary Type 2 diabetes mellitus with hyperglycemia, without long-term current use of insulin (CMS/HCC) Fibromyalgia Unspecified myalgia and myositis Primary osteoarthritis of right knee Chronic diastolic heart failure (CMS/HCC) Chronic diastolic heart failure Mild intermittent asthma without complication (CMS/[facility]) Seasonal allergic rhinitis due to pollen Annual physical exam- Primary Routine general medical examination at a health care facility Type 2 diabetes mellitus with hyperglycemia, without long-term current use of insulin (CMS/HCC) Fibromyalgia Unspecified myalgia and myositis Acute bronchitis due to other specified organisms- Primary Statin myopathy Toxic myopathy Class 2 severe obesity due to excess calories with serious comorbidity and body mass index (BMI) of 37.0 to 37.9 in adult ([facility]) documented [facility] N[facility]ative - Reported* Type Description Date Medical History type 2 diabetic Surgical History lypotripsy 11 times Surgical History gallblatter Surgical History hysteretomy Hospitalization History see above [employer] Other History general Narrative - Reported* Type Description Date Medical History type 2 diabetic Medical History fibromyalgia Surgical History lypotripsy 11 times Surgical History gallblatter Surgical History hysteretomy Surgical History right knee arthroscopy Hospitalization History see above [employer] Other Hospital course Narrative No data available for this section [facility] Discharge instructions No data available for this section [facility] [employer] progress note No data available for this section [facility] Summary Purpose Family History No Family History [...] Date/ Time Advance Directives No April 18 1:19pm Chief Complaint and Reason for Visit [...] and content) DATE CREATED AUTHOR 05/17/2018 [facility] DATE CREATED AUTHOR AUTHOR'S ORGANIZ ATION 02/18/2023 [facility] [place] [facility] DATE CREATED AUTHOR AUTHOR'S ORGANIZ ATION 07/19/2024 [facility] DATE CREATED AUTHOR AUTHOR'S ORGANIZ ATION 12/14/2024 [facility] EPIC DATE CREATED AUTHOR AUTHOR'S ORGANIZ ATION 02/17/2025 [facility] Care Team (unrecognized sect ion and [...] Attending Provider Active Start: April 15, 2024 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 Relationship Specialty Start Date End Date Jorge Luis Wick MD [address] [place] [phone] PCP - General Family Medicine 02/14/24 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 Relationship Specialty Start Date End Date Jorge Luis Wick MD [address] [place] [phone] PCP - General Family Medicine 02/14/24 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 Relationship Specialty Start Date End Date Jorge Luis Wick MD [address] [place] [phone] PCP - General Family Medicine 02/14/24 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 Relationship Specialty Start Date End Date Jorge Luis Wick MD [address] [place] [phone] PCP - General Family Medicine 02/14/24 Jorge Luis Wick MD [address] [place] [phone] PCP - [facility] 08/26/24 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 Relationship Specialty Start Date End Date Jorge Luis Wick MD [address] [place] [phone] PCP - General Family Medicine 02/14/24 Jorge Luis Wick MD [address] [place] [address] PCP - [facility] 08/26/24 Goals (unrecognized section and content) Goals [...] BE BASED ON THE PRIMARY CLINICAL RECORDS. [employer] provides no warranty or guarantee of the accuracy or completeness of information in this document."
[2025-02-17 15:03] LABS: Estimated Average Glucose 154 mg/dL
== END 2025-02-17 14:20 | disposition home or self-care (01) ==
PROVIDERS: PCP Family Medicine; Visit Provider Family Medicine
DX: E11.65 Type 2 diabetes mellitus with hyperglycemia (principal)
CPT/HCPCS: 36415; 83036

== ENCOUNTER 2025-09-01 10:46 | Outpatient (OUT) | payer MEDICARE, OTHER, SELFPAY ==
--- OUTSIDE RECORDS SUMMARY | 2025-08-19 09:43 | XMS_ITS | Continuity of Care Document ---
Author Organization [facility] Address [address] [place] [address] Phone Care Team Providers Care Airplane Pilot Name Role Phone Jorge Luis Taylor MD Primary Care Provider [phone] Kassy Gtz APRN Attending Provider Jean Rodriguez MD Attending Provider Jorge Luis Taylor MD Attending Provider [phone] Care Teams Patient Care Team Team Status: Active Member Role Status Dates Jorge Luis Taylor MD Primary Care Provider Active Visit Care Team Team Status: Inactive Member Role Status Dates Jorge Luis Taylor MD Primary Care Provider Active S tart: June 18, 2025 End: June 18, 2025 Kassy Gtz APRN Attending Provider Active Start: June 18, 2025 End: June 18, 2025 Visit Care Team Team Status: Inactive Member Role Status Dates Jorge Luis Taylor MD Primary Care Provider Active S tart: June 18, 2025 End: June 18, 2025 Kassy Gtz APRN Attending Provider Active Start: June 18, 2025 End: June 18, 2025 Visit Care Team Team Status: Inactive Member Role Status Dates Jorge Luis Taylor MD Primary Care Provider Active S tart: June 22, 2025 End: June 22, 2025 Jean Rodriguez MD Attending Provider Active Star t: June 22, 2025 End: June 22, 2025 Visit Care Team Team Status: Inactive Member Role Status Dates Jorge Luis Taylor MD Primary Care Provider Active S tart: July 13, 2025 End: July 13, 2025 Jean Rodriguez MD Attending Provider Active Star t: July 13, 2025 End: July 13, 2025 Visit Care Team Team Status: Inactive Member Role Status Dates Jean Rodriguez MD Attending Provider Active Star t: July 13, 2025 End: July 13, 2025 Jorge Luis Taylor MD Primary Care Provider Active S tart: July 13, 2025 End: July 13, 2025 Patient Care Team Team Status: Inactive Member Role Status Dates Jorge Luis Taylor MD Primary Care Provider Active S tart: August 19, 2025 End: August 19, 2025 Jorge Luis Taylor MD Attending Provider Active Star t: August 19, 2025 End: August 19, 2025 Chief Complaint and Reason for Visit Chief Complaint Admit Date right foot pain w injury June 18, 2025 10:59am m79.671 June 18, 2025 11:0 6am [facility] RIGHT FOOT FX WX June 22, 2025 8:29am 3 wks July 13, 2025 9: 00am S92.351A - Displaced fracture of fifth m etatarsal July 13, 2025 9:02am Reason for Visit Admit Date Fracture of fifth metatarsal bone of rig ht foot June 18, 2025 10:59am Fracture of fifth metatarsal bone of rig ht foot June 22, 2025 8:29am Fracture of fifth metatarsal bone of rig ht foot July 13, 2025 9:00am Medicare annual wellness visit, subseque nt August 19, 2025 12:53pm Allergies, Adverse Reactions, Alerts Allergen Type Severity Reaction Last Updated Verified Status Comments adhesive tape Allergy Unknown Redness of Skin/Rash August 19, 2025 1:17pm Yes Active Pt states happens when having on for long periods of time hydrocodone Allergy Unknown N/V August 19, 2025 1:17pm Yes Active Etzpjhj-RSO-WoY Reductase Inhibitor Adverse Reaction Unknown Muscle Pain August 19, 2025 1:17pm Yes Active Surgical soap Allergy Unknown Rash April 17, 2023 6:21am No Active Social History Smoking Status Status Start Date End Date Date of Observa tion Never smoked tobacco (finding) June 18, 2025 11:03am Observation Status Observation Response Date of Response Legal Sex Female (finding) Sex Assigned At Female [birth year] Family History Relationship Condition Age at Onset Recorded Date/T iabn mother Recurrent cerebrovas cular accidents (CVAs) Unknown Malignant neoplasm of lung Unknown father Hypertension Unknown father Unknown mother History of stroke Unknown Unknown Problems Active Problems Medical Problem Onset Date Status Class 2 severe obesity due t o excess calories with serious comorbidity and body mass index (BMI) of 37.0 to 37.9 in adult Unknown Active Medicare annual wellness visit, subsequent Unkno wn Active Statin myopathy Unknown Active Primary osteoarthritis of right knee Unknown Active Mild intermittent asthma without complication Un known Active Hyperhidrosis Unknown Active Dyslipidemia Unknown Active Age related osteoporosis Unknown Active Fibromyalgia Unknown Active Kidney stones Unknown Active Chronic diastolic heart failure Unknown Active Encounter for long-term (current) use of medicat ions Unknown Active Type 2 diabetes mellitus wit h hyperglycemia, without long-term current use of insulin Unknown Active Seasonal allergic rhinitis due to pollen Unknown Active Renal angiomyolipoma Unknown Active Vitamin D deficiency Unknown Active Left bundle branch block (LBBB) Unknown Active Inactive/Resolved Problems Medical Problem Onset Date Status Aftercare following joint replacement surgery Un known Resolved Left anterior knee pain Unknown Resolved Contusion of left knee and lower leg Unknown Resolved Fracture of fifth metatarsal bone of right foot Unknown Resolved Aftercare following right knee joint replacement surgery Unknown Resolved Foot pain, right Unknown Resolved Medications Medication Status Dose Units Route Directions Qty Days St art Date Stop Date End Date Instructions Adherence Glipizide 10 mg tablet Discont inued 10 MG PO Twice daily April 03, 2023 12:00a m Jillian case 2024 9:49a m Tramadol 50 mg tablet Discont inued 50 MG PO Four times daily as needed for Pain April 03, 2023 12:00a m June 18, 2025 11:08 am Gabapentin 800 mg tablet Discont inued 800 MG PO Three times daily April 03, 2023 12:00a m June 18, 2025 11:08 am Duloxetine 60 mg capsule,del ayed release(DR/ EC) Discont inued 60 MG PO Daily at bedtime April 03, 2023 12:00a m Jillian marion 2024 9:49a m Tizanidine 4 mg capsule Discont inued 4 MG PO Three times daily as needed for Muscle Spasm April 03, 2023 12:00a m [facility]2024 9:49a m Acetaminoph en (Tylenol Ex Str Arthritis Pain) 500 mg Tablet Discont inued 1000 MG PO Twice daily as needed for Pain April 03, 2023 12:00a m [facility]2024 9:45a m Oxybutynin Chloride 10 mg tablet extended release 24hr Discont inued MG PO June 18, 2025 12:00a m [facility]2024 9:49a m Crutches unit Active 0 .Route 1 June 18, 2025 12:00a m As directed Oxybutynin Chloride 10 mg tablet extended release 24hr Active 10 MG PO Daily 2024 12:00a m Complies with drug therapy Glipizide 10 mg tablet Active 10 MG PO Twice daily 2024 12:00a m Complies with drug therapy Acetaminoph en (Tylenol Extra Strength) 500 mg tablet Active 1000 MG PO Every 8 hours as needed 2024 12:00a m Complies with drug therapy Allopurinol 300 mg tablet Active 300 MG PO Daily 2024 12:00a m Complies with drug therapy Albuterol Sulfate 90 mcg/actuati on HFA aerosol inhaler Active 2 PUFF INHALA TION Every 4 hours as needed 2024 12:00a m Complies with drug therapy Duloxetine 60 mg capsule,del ayed release(DR/ EC) Active 60 MG PO Daily 2024 12:00a m Complies with drug therapy Blood Sugar Diagnostic (Onetouch Ultra Test) strip Active 0 .ROUTE 2024 12:00a m Check BS once daily Potassium Bicarb-Citr ic Acid (Effer-K) 25 mEq tablet, effervescen t Active 25 MEQ PO Twice daily 2024 12:00a m Complies with drug therapy Immunizations Immunization Event Date Not Given Reason Dose Number Life [employer] Actuary Lot Number Vaccine Information Statement (VIS) Detail Administration Location COVID-19 mRNA-1273 (Moderna) January 27, 2021 COVID-19 mRNA-1273 (Moderna) February 24, 2021 COVID-19 mRNA-1273 (Moderna) September 29, 2021 COVID-19 mRNA Bivalent Booster (Moderna) October 14, 2022 Medical Equipment Device Date Implanted Device Details Orthopaedic cement, non-medicated April 17, 2023 ANNA: [id number] Issuing Agency: [facility] Device Id: [id number] Expiration Date: 2025-07-26 Lot Number: [id number] Orthopaedic cement, non-medicated April 17, 2023 ANNA: ()[id number] Issuing Agency: [facility] Device Id: [id number] Expiration Date: 2025-07-26 Lot Number: [id number] Uncoated knee femur prosthesis April 17, 2023 U DI: ()[id number] Issuing Agency: [facility] Device Id: [id number] Expiration Date: 2030-02-23 Lot Number: [id number] Tibial insert April 17, 2023 ANNA: ()[id number] Issuing Agency: [facility] Device Id: [id number] Expiration Date: 2026-01-18 Lot Number: [id number] Polyethylene patella prosthesis April 17, 2023 ANNA: [id number] Issuing Agency: [facility] Device Id: [id number] Expiration Date: 2027-04-20 Lot Number: [id number] Knee stem April 17, 2023 ANNA: ()[id number] Issuing Agency: [facility] Device Id: [id number] Expiration Date: 2033-02-27 Lot Number: [id number] Uncoated knee tibia prosthes is, metallic April 17, 2023 ANNA: ()[id number] Issuing Agency: [facility] Device Id: [id number] Expiration Date: 2032-10-08 Lot Number: [id number] Procedures Procedure Date Performed Status XR foot RT min 3V* June 18, 2025 12:00am compl eted XR foot RT min 3V* July 13, 2025 9:02am comp leted Relevant Diagnostic Tests and/or Laboratory Data Diagnostic Imaging Reports Author Leonard Villa [facility] Authored June 18, 2025 11:4 8am Report Dictated Date/Time Dictated By Status Radiology Report June 18, 2025 11:48am Leonard Villa MD completed [facility] [place] [facility] [place] [address] [place] [address] XRay Report Signed Patient: Rhona Taveras MR#: [id number] : 1960 Acct:[id number] Age/Sex: 65 / F ADM Date: 5 Loc: [facility]CLY Room: Type: [facility] Attending Dr: Kassy Gtz APRN Copies to: Kassy Gtz APRN~ Ordering Provider: Kassy Gtz APRN Date of Service: 06/18/25 XR/XR foot RT min 3V*: RIGHT FOOT PAIN RIGHT FOOT - 3 views CLINICAL HISTORY: Right foot pain, bruising lateral aspect fourth fifth metatarsal COMPARISON: None FINDINGS: Moderate degenerative changes first MTP joint. Mild hallux valgus deformity. There is soft tissue swelling overlying the fifth metatarsal. There is a fracture lucency involving the fifth metatarsal worrisome for acute fracture no dislocation. XR/XR foot RT min 3V* IMPRESSION: Lucency distal fifth metatarsal worrisome for fracture. Impression dictated by: Leonard Villa M.D. 06/18/2025 11:52 AM Dictation Location: [place] [address] Transcribed By: [facility] 06/18/25 1152 Dictated By: Leonard Villa MD 06/18/25 1148 Signed By: <Electronically signed by Leonard Villa MD in OV> 06/18/25 1152 Author Graham Christian [facility] Authored July 13, 2025 3: 34pm Report Dictated Date/Time Dictated By Status Radiology Report July 13, 2025 3:34pm Graham Christian II MD completed [facility] [address] [place] [address] XRay Report Signed Patient: Rhona Taveras MR#: [id number] : 1960 Acct:[id number] Age/Sex: 65 / F ADM Date: 5 [place]: [facility] [place]: Type: [facility] Attending Dr: Jean Rodriguez MD Copies to: Jean Rodriguez MD~ Ordering Provider: Jean Rodriguez MD Date of Service: 07/13/25 XR/XR foot RT min 3V*: S92.351A - Displaced fracture of fifth metatarsal bone, r... XR foot RT min 3V* 07/13/2025 9:25 AM SIGNS AND SYMPTOMS: Follow-up right fifth metatarsal fracture PROTOCOL: Frontal, lateral, and oblique radiographs of the right foot COMPARISON: 06/18/2025 FINDINGS: There is an obliquely oriented fracture of the distal shaft of the fifth metatarsal with slight interval worsening of displacement of the distal fragment nondisplaced medially by 4 mm. There is periosteal new bone formation suggesting attempted healing. There is hallux valgus deformity of the great toe with mild narrowing of the first metatarsophalangeal joint. Degenerative changes are noted in the tarsometatarsal junctions. There is plantar surface calcaneal spurring. XR/XR foot RT min 3V* IMPRESSION: There is an obliquely oriented fracture of the distal shaft of the fifth metatarsal with slight interval worsening of displacement of the distal fragment nondisplaced medially by 4 mm. There is periosteal new bone formation suggesting attempted healing. Impression dictated by: Graham Christian M.D. 07/13/2025 3:36 PM Dictation Location: [place] [address] Transcribed By: [facility] 07/13/25 1536 Dictated By: Graham Christian II, MD 07/13/25 1534 Signed By: <Electronically signed by Graham Christian II, MD in [place]> 07/13/25 1536 Vital Signs Vital Reading Result Reference Range Collection Date/Time Height 62 [in_i] June 18, 2025 11:05am Weight 92.98 kg June 18, 2025 11:05am Body Temperature 98.4 [degF] 97.6-99.0 June 18, 2025 11:05am Heart Rate 63 /min 60-100 June 18, 2025 11:05am Respiratory rate 18 /min 12-June 18, 2025 11:05am Oxygen saturation by Pulse oximetry 96 % 95-100 June 18, 2025 11:0 5am BP Systolic 148 mm[Hg] 100-140 June 18, 2025 11:05am BP Diastolic 83 mm[Hg] 60-100 June 18, 2025 11:05am BMI (Body Mass Index) 37.5 kg/m2 May 272024 11:05am Height 62 [in_i] August 19, 2025 1:15pm Weight 94.34 kg August 19, 2025 1:15pm Body Temperature 96.0 [degF] 97.6-99.0 July 282024 1:15pm Heart Rate 102 /min 60-100 August 19, 2025 1:15pm Respiratory rate 20 /min -July 282024 1:15pm BP Systolic 150 mm[Hg] 100-140 August 19, 2025 1:15pm BP Diastolic 84 mm[Hg] 60-100 August 19, 2025 1:15pm BMI (Body Mass Index) 38.0 kg/m2 2024 1:15pm Advance Directives Advance Directive Response Recorded Date/ Time Advance Directives No April 18 1:19pm Insurance Providers Guarantor Rhona Taveras Address [address] [place] [phone] Contact Info. Home Phone: Payer Policy Id Subscriber's Name Subscriber Id Effectiv e Date Expiration Date Era MACIAS/LISA [id number] Rhona Taveras [id number] Medicare [id number] Rhona Taveras [id number] Encounters Encounter Location(s) Arrival/Admit Date Discharge/Depart Date Provider(s) Departed Physician/Prov ider Office Visit -[facility] [place] June 18, 2025 10:59am June 18, 2025 12:43pm Todd Fernandez APRN Departed Clinical -[facility] [place] June 18, 2025 11:06am June 18, 2025 11:07am Todd Fernandez APRN Departed Physician/Prov ider Office Visit -[facility] June 22, 2025 8:29am June 22, 2025 8:50am Jean Rodriguez MD Departed Physician/Prov ider Office Visit -[facility] July 13, 2025 9:00am July 13, 2025 9:26am Jean Rodriguez MD Departed Clinical -[facility] [place] [facility] July 13, 2025 9:02am July 13, 2025 9:03am Jean Rodriguez MD Departed Physician/Prov ider Office Visit -[facility] August 19, 2025 12:53pm August 19, 2025 1:42pm Jorge Luis Taylor MD Recent Diagnosis Onset Date Admit Date Fracture of fifth metatarsal bone of right foot Unknown June 18, 2025 10:59am Fracture of fifth metatarsal bone of right foot Unknown June 22, 2025 8:29am Fracture of fifth metatarsal bone of right foot Unknown July 13, 2025 9:00am Medicare annual wellness visit, subsequent Unkno wn August 19, 2025 12:53pm Assessments Diagnosis Onset Date Resolution Status Admit Date Fracture of fifth metatarsal bone of right foot inactive June 18 10:59am Fracture of fifth metatarsal bone of right foot inactive June 22 8:29am Fracture of fifth metatarsal bone of right foot inactive July 13, 2025 9:00am Medicare annual wellness visit, subsequent acute July 12:53pm Plan of Treatment Author Kassy Gtz [facility] Authored June 18, 2025 3:59 pm Discussed with patient x-ray is consistent with nondisplaced fracture to fifth metatarsal. Patient is placed into a below-knee OCL splint to immobilize, crutches, to be nonweightbearing. Info for area Ortho given to patient for follow-up. Patient will call today or tomorrow to schedule follow-up. Ice and elevation encouraged. May continue Tylenol or ibuprofen as needed. Patient verbalized understanding of treatment plan. Author Lizabeth Aguirre [facility] Authored June 22, 2025 8:44 am X-rays were reviewed with homer ha in detail. Patient has sustained a 5th metatarsal fracture. We discussed that this can take at least 6 weeks to heal. We will allow gentle ankle and foot motion and gentle progressive weight bearing as tolerated as pain allows. Note scribed by CATA Conrad, reviewed and amended by Jean Rodriguez M.D. Author Anel Mcconnell [facility] Authored July 13, 2025 9: 26am Patient may progress weight bearing as pain allows. Patient instructed on gentle controlled weight bearing exercises. May progress to regular shoe wear when she feels ready. Future Tests Future scheduled test information is unavailable Pending Tests Test Name Ordered Date Scheduled Date XR foot RT min 3V* June 18, 2025 11:17am Comprehensive Metabolic Panel August 19 1:30pm Future Visits Future appointment information is unavailable Referrals to Other Providers Referral information is unavailable Future Procedures Procedure Name Ordered Date Scheduled Date A1C with Estimated Average Glu August 19 025 1:30pm Complete Blood Count Auto Diff August 19 025 1:30pm Lipid Panel August 19, 2025 1:30pm MicroAlb Creat Ratio,U August 19, 2025 1:32 pm Thyroid Stimulating Hormone August 19, 2025 1:30pm Future Medications Future medication information is unavailable Patient Instructions Patient instructions are unavailable
--- OUTSIDE RECORDS SUMMARY | 2025-09-01 10:53 | XMS_ITS | Encounter Summary ---
Author Organization [facility] Address [address] [place] [address] Care Team Providers Care Organic Search Lead Name Role Phone Jorge Luis Taylor MD Unavailable Jorge Luis Taylor MD Primary Care Provider [phone] Encounter Details Date Type Department Care Team (Late st Contact Info) Description 04/16/2024 Orders Only [facility] [address] [place] [id number] Marietta Gallo MD [address] [place] [address] Social History Tobacco Use Types Packs/Day Years Used Date Smoking Tobacco: Never Smokeless Tobacco: Never Comments Unknown Sex and Gender Information Value Date Recorded Sex Assigned at Not on file Legal Sex Female 11:46 PM EDT Gender Identity Not on file Sexual Orientation Not on file documented as of this encounter Plan of Treatment Not on file documented as of this encounter Procedures Procedure Name Priority Date/Time Associated Diagnosis Comments CT CHEST WO IV CONTRAST Routine 04/16/2024 12:51 PM EDT documented in this encounter Results * CT chest wo IV contrast (04/16/2024 12:51 PM EDT) Anatomical Region Laterality Modality Body, Chest Computed Tomogra phy us Marietta Gallo MD IMG CT PROCEDURES Final Result documented in this encounter Visit Diagnoses Not on filedocumented in this encounter Care Teams Organic Search Lead Relationship Specialty Start Date End Date Jorge Luis Taylor MD [address] [place] [id number] PCP - [place] [employer] 08/26/24 5 Jorge Luis Taylor MD [address] [place] [phone] PCP - General Family Medicine 08/14/25 documented as of this encounter
--- OUTSIDE RECORDS SUMMARY | 2025-09-01 10:53 | XMS_ITS | Clinical Summary ---
Author Organization [facility] Address [address] [place] [address] Care Team Providers Care Orange Picking Supervisor Name Role Phone Jorge Luis Taylor MD Primary Care Provider [phone] Allergies Active Allergy Reactions Criticality Noted Date Comments Icy Hot Rash Low 02/14/2024 Wound Dressing Adhesive Hives 08/14/2025 Other Reaction(s): Unknown Medications GNP PAIN RELIEF EX-STRENGTH 500 MG tablet Take 1,000 mg by mouth every 8 (eight) hours if needed 3 Active allopurinol (Zyloprim) 300 MG tablet Take 300 mg by mouth Daily Active albuterol HFA 90 mcg/act inhalerIndication s:Mild intermittent asthma without complication (HCC) Inhale 2 puffs every 4 (four) hours if needed for wheezing or shortness of breath 8 g 2 4 Active DULoxetine (Cymbalta) [address] capsuleIndication s:Fibromyalgia Take 1 capsule (60 mg) by mouth Daily 90 capsule 3 4 Active glipiZIDE (Glucotrol) 10 MG tabletIndications :Type 2 diabetes mellitus with hyperglycemia, without long-term current use of insulin ([facility]) Take 1 tablet by mouth twice daily 60 tablet 5 Active OneTouch Ultra test stripIndications: Type 2 diabetes mellitus with hyperglycemia, with long-term current use of insulin ([facility]) USE 1 STRIP TO CHECK GLUCOSE ONCE DAILY NEEDED 100 each 5 Active oxybutynin XL (Ditropan-XL) 10 MG 24 hr tabletIndications :Hyperhidrosis Take 1 tablet (10 mg) by mouth Daily Do not crush, chew, or split. 30 tablet 5 5 Active Active Problems Problem Noted Date Diagnosed Date Renal angiomyolipoma 02/17/2025 Annual physical exam 08/20/2024 Assessment & Plan (08/20/2024 7:49 AM EDT): Due for labs and mammogram. Discussed proper diet and regular aerobic exercise. Need aerobic exercise 5-6 days a week for 30 minutes at a time. Smaller portions and limit total calories. Tetanus every 10 years. Advised not to smoke. Discussed daily Aspirin therapy. Class 2 severe obesity due t o excess calories with serious comorbidity and body mass index (BMI) of 37.0 to 37.9 in adult 08/20/2024 Assessment & Plan (02/17/2025 1:49 PM EDT): Weight loss indicated Assessment & Plan (12/11/2024 11:57 AM EST): Weight loss indicated Chronic diastolic heart failure 02/14/2024 Assessment & Plan (02/17/2025 1:49 PM EDT): No edema and monitor. Elevate legs PRN. Assessment & Plan (02/14/2024 8:52 PM EDT): No edema and monitor. Elevate legs PRN. Dyslipidemia 02/14/2024 Fibromyalgia 02/14/2024 Assessment & Plan (02/17/2025 1:49 PM EDT): Pain tolerable with medication and continue. Assessment & Plan (02/14/2024 8:53 PM EDT): Pain tolerable with medication and continue. Hyperhidrosis 02/14/2024 Primary osteoarthritis of right knee 02/14/2024 Assessment & Plan (02/14/2024 8:53 PM EDT): Pain stable and use OTC PRN. Type 2 diabetes mellitus wit h hyperglycemia, without long-term current use of insulin 02/14/2024 Assessment & Plan (02/17/2025 1:49 PM EDT): Reports BS elevated and due for A1C. Stick to ADA diet and limit carbs. Assessment & Plan (08/20/2024 7:49 AM EDT): Reports BS controlled and due for A1C. Stick to ADA diet and limit carbs. Assessment & Plan (02/14/2024 8:53 PM EDT): BS controlled and A1C 6.8. Stick to ADA diet and limit carbs. Vitamin D deficiency 02/14/2024 Mild intermittent asthma without complication Assessment & Plan (02/17/2025 1:49 PM EDT): Occasional symptoms and use albuterol PRN. Assessment & Plan (02/14/2024 8:53 PM EDT): Occasional symptoms and use albuterol PRN. Seasonal allergic rhinitis due to pollen 024 Assessment & Plan (02/17/2025 1:49 PM EDT): Symptoms controlled with medication and continue. Assessment & Plan (02/14/2024 8:53 PM EDT): Symptoms controlled with medication and continue. Statin myopathy 02/14/2024 Assessment & Plan (12/11/2024 11:57 AM EST): Not tolerate statins Resolved Problems Problem Noted Date Diagnosed Date Resolved Date Acute bronchitis due to othe r specified organisms 12/11/2024 02/17/2025 Assessment & Plan (12/11/2024 11:56 AM EST): Take antibiotics for 5 days and will [...] if no better or worse call office. Gouty arthritis 08/20/2024 02/17/2025 Myalgia 02/14/2024 08/20/2024 Encounters Date Type Department Care Team Description 08/14/2025 10:00 AM EDT [facility] [address] [place] [address] Karina Lopez DPM Type II or unspecified type diabetes mellitus with neurological manifestations, not stated as uncontrolled(250.60) (HCC) (Primary Dx); Onychomycosis; Nail dystrophy; Hammer toe of right foot 08/14/2025 Bamboo flowsheet [facility] [address] [place] [address] Karina Lopez DPM 08/14/2025 Travel from Last 3 Months Social History Tobacco Use Types Packs/Day Years Used Date Smoking Tobacco: Never Smokeless Tobacco: Never Tobacco Cessation:Counseling Given: Not Answered Comments Unknown Sex and Gender Information Value Date Recorded Sex Assigned at Not on file Legal Sex Female 11:46 PM EDT Gender Identity Not on file Sexual Orientation Not on file Last Filed Vital Signs Vital Sign Reading Time Taken Comments Blood Pressure 132/76 02/17/2025 1:08 PM EDT Pulse 99 02/17/2025 1:08 PM EDT Temperature 35.3 C (95.5 F) 02/17/2025 1:08 PM EDT Respiratory Rate 20 02/17/2025 1:08 PM EDT Oxygen Saturation 98% 02/17/2025 1:08 PM EDT Inhaled Oxygen Concentration - - Weight 93.9 kg (207 lb) 08/14/2025 9:43 AM EDT Height 157.5 cm (5' 2 ) 08/14/2025 9:43 AM EDT Body Mass Index 37.86 08/14/2025 9:43 AM EDT Plan of Treatment Health Maintenance Due Date Last Done Comments CT Colonography 1960 Colonoscopy 1960 FIT-DNA 1960 FIT 1960 FOBT 1960 Sigmoidoscopy 1960 Pap Smear 1981 Cervical Cancer Screening 1990 HPV/Cotest 1990 Influenza Vaccine (#1) 2025 4, 10/03/2023, 09/13/2022, Additional history exists Colorectal Cancer Screening 12/11/2025 Postponed from 1960 (Patient Refused) Mammogram 02/17/2026 Postponed from 2000 (Patient Refused) Pneumococcal Vaccine: 65+ Years Completed 01/19/2025, 01/18/2025, 09/06/2020 Insurance [facility] [place] [address] MEDICARE Care Teams Orange Picking Supervisor Relationship Specialty Start Date End Date Jorge Luis Taylor MD [address] [place] [address] PCP - General Family Medicine 08/14/25
--- OUTSIDE RECORDS SUMMARY | 2025-09-01 10:53 | XMS_ITS | Clinical Summary ---
Author Organization [facility] tem Address [id number] [address] [place] [address] Care Team Providers Care Obstetrician/Gynecologist Name Role Phone Jorge Luis Taylor MD Primary Care Provider [phone] Allergies No known active allergies Medications sodium bicarbonate 325 mg tablet Take 325 mg by mouth 3 (three) times a day. Active Active Problems No known active problems Family History Relation Name Status Comments Father Alive Mother Alive Social History Tobacco Use Types Packs/Day Years Used Date Smoking Tobacco: Never Alcohol Use Standard Drinks/Week Comments No 0 (1 standard drink = 0.6 oz pur e alcohol) Childcare Answer Date Recorded Childcare Unknown 05/07/2019 Employment Answer Date Recorded Employment Unknown 05/07/2019 Purpose - Life Answer Date Recorded Purpose and direction in life Unknown Comments No Sex and Gender Information Value Date Recorded Sex Assigned at Not on file Legal Sex Female 11:43 AM EDT Gender Identity Not on file Sexual Orientation Not on file Last Filed Vital Signs Vital Sign Reading Time Taken Comments Blood Pressure 132/82 06/26/2017 1:40 PM EDT Pulse 104 06/26/2017 1:28 PM EDT Temperature 36.8 C (98.2 F) 06/26/2017 11:04 AM EDT Respiratory Rate 16 06/26/2017 1:28 PM EDT Oxygen Saturation 98% 06/26/2017 1:40 PM EDT Inhaled Oxygen Concentration - - Weight 72.6 kg (160 lb) 06/26/2017 11:04 AM EDT Height 157.5 cm (5' 2 ) 06/26/2017 11:04 AM EDT Body Mass Index 29.26 06/26/2017 11:04 AM EDT Plan of Treatment Not on file Medical Devices Implanted Type Area Director Talent Acquisition Device Identifier Shelf Expiration Date Model / Serial / Lot Lens 21.5 Diopter - [id number] Implanted:Qty: 1 on 06/26/2017 by Donita Vivar MD at [facility] Lens Right: Eye [employer] 11/25/2021 [id number] / [id number] / Insurance [employer] Care Teams Obstetrician/Gynecologist Relationship Specialty Start Date End Date Jorge Luis Taylor MD PCP - General 06/26/17
--- OUTSIDE RECORDS SUMMARY | 2025-09-01 10:53 | XMS_ITS | Encounter Summary ---
Author Organization [facility] Address [address] [place] [address] Care Team Providers Care Clinical Operations Leader Name Role Phone Jorge Luis Taylor MD Unavailable Jorge Luis Taylor MD Primary Care Provider [phone] Encounter Details Date Type Department Care Team (Late st Contact Info) Description 09/23/2024 [facility] Only [facility] [address] [place] [address] Jose Alvarez MD [address] [place] [address] Social History Tobacco Use Types Packs/Day Years [...] Procedure Name Priority Date/Time Associated Diagnosis Comments DIABETES EYE EXAM Routine 09/23/2024 9:48 AM EDT documented in this encounter Results * Diabetes Eye Exam (09/23/2024 9:48 AM EDT) Jose Alvarez MD HEALTH MAINTENANCE Final Result documented in this encounter Visit Diagnoses Not on filedocumented in this encounter Care Teams Clinical Operations Leader Relationship Specialty Start Date End Date Jorge Luis Taylor MD [address] [place] [phone] PCP - [facility] 08/26/24 5 Jorge Luis Taylor MD [address] [place] [phone] PCP - General Family Medicine 08/14/25 documented as of this encounter
[2025-09-01 11:26] LABS: Hematocrit 40.8 % (36.0-48.0); Hemoglobin 13.9 g/dL (12.0-16.0); Immature Granulocytes Abs Auto 0.01 10^3/uL (0.00-0.03); Immature Granulocytes Pct Auto 0.1 % (0.0-0.5); Lymphocytes Absolute Auto 1.4 10^3/uL (1.2-3.8); Mean Corpuscular HGB Conc 34.1 g/dL (29.9-35.2); Mean Corpuscular Hemoglobin 28.0 pg (26.7-34.0); Mean Corpuscular Volume 82.3 fL (81.0-99.0); Platelet Count 235 10^3/uL (150-450); Red Blood Count 4.96 10^6/uL (4.20-5.40); White Blood Count 7.9 10^3/uL (4.0-11.0)
[2025-09-01 11:42] LABS: Microalbum Creatinine Ratio Ur 17.9 mg/g (0.0-29.9)
[2025-09-01 12:30] LABS: Alanine Aminotransferase 24 U/L (14-59); Albumin Globulin Ratio 0.8; Albumin Level 3.9 g/dL (3.4-5.0); Alkaline Phosphatase 164 U/L (46-116); Anion Gap 17.0; Aspartate Amino Transferase 16 U/L (15-37); Blood Urea Nitrogen 28.0 mg/dL (7.0-18.0); Calcium 9.6 mg/dL (8.5-10.1); Carbon Dioxide 27.4 mmol/L (21.0-32.0); Chloride 99 mmol/L (98-107); Cholesterol 199 mg/dL (<=200); Estimated GFR (African America >60 (>=60 mL/min/1.73m^2); Estimated GFR (Non-African Ame >60 (>=60 mL/min/1.73m^2); Globulin 4.6 g/dL; Glucose 239 mg/dL (74-106); HDL Cholesterol 47 mg/dL (40-60); Potassium 3.4 mmol/L (3.5-5.1); Sodium 140 mmol/L (136-145); Thyroid Stimulating Hormone 1.120 uIU/mL (0.358-3.740); Total Protein 8.5 g/dL (6.4-8.2); Triglycerides 185 mg/dL (<=150); VLDL CHOLESTEROL 37.0 mg/dL
== END 2025-09-01 10:47 | disposition home or self-care (01) ==
LOC: LAB 10:50
PROVIDERS: PCP Family Medicine; Visit Provider Family Medicine
DX: E78.5 Hyperlipidemia, unspecified (principal); E11.65 Type 2 diabetes mellitus with hyperglycemia; E66.812 Obesity, class 2; E66.01 Morbid (severe) obesity due to excess calories; Z68.37 Body mass index [BMI] 37.0-37.9, adult; Z79.899 Other long term (current) drug therapy
CPT/HCPCS: 36415; 80053; 80061; 82043; 82570; 83036; 84443; 85025

== ENCOUNTER 2025-09-07 15:17 | Emergency (ER) | payer MEDICARE, OTHER, SELFPAY ==
[2025-09-07 15:39] VITALS: BP 144/81; PULSE 115; TEMP 36.9; O2SAT 96; BMI 39.5
--- NOTE | 2025-09-07 15:42 | ECG_ITS ---
[facility] Test Date: 2025-09-07 Pat Name: LALY OLVERA Department: Room: - Gender: Female Electrician Sound: : 1960 Requested By: 1030 Order Number: [id number] Reading MD: DREAD CELAYA M.D. Measurements Intervals [place] Rate: 112 P: -52 [place]: 153 QRS: -29 QRSD: 164 T: 111 QT: 376 QTc: 442 Interpretive Statements SINUS TACHYCARDIA 2550 Left bundle branch block 6230 Left atrial enlargement 9150 abnormal ECG Compared to ECG 12/26/2019 07:46:41 Atrial abnormality now present Electronically Signed On 09-07-2025 18:49:33 EDT by DREAD CELAYA M.D.
--- NOTE | 2025-09-07 15:42 | ED.GENADUL1 ---
HPI HPI - General Adult General Chief complaint: Urogenital-Female Stated complaint: POSS DEHYDRATED Time Seen by Provider: 09/07/25 15:37 History of Present Illness HPI narrative: 65-year-old female presents because she is worried about being dehydrated. About 10 days ago she was put on hydrochlorothiazide and about a week ago she had some blood test performed. She was told that her BUN was high and she should come to the emergency department. She feels like her mouth is dry and she has not been urinating as much as she typically does. No fever cough or chest pain. Related Data Home Medications ?Medication ?Instructions ?Recorded ?Confirmed albuterol sulfate 90 mcg/actuation 2 puff inhalation PRN asthma 04/16/24 04/16/24 aerosol inhaler allopurinol 300 mg tablet 300 mg PO DAILY 04/16/24 04/16/24 duloxetine 60 mg capsule,delayed 60 mg PO DAILY 04/16/24 04/16/24 release glipizide 10 mg tablet 10 mg PO DAILY 04/16/24 04/16/24 tizanidine 4 mg capsule 4 mg PO DAILY 04/16/24 04/16/24 Previous Rx's ?Medication ?Instructions ?Recorded oxycodone-acetaminophen 5 mg-325 1 tab PO Q6H #14 tabs 04/16/24 mg tablet (Percocet) Allergies Allergy/AdvReac Type Severity Reaction Status Date / Time adhesive tape Allergy Intermediate rash Verified 09/07/25 15:39 Opioid HPI Opioid Management Most Recent Opioid Data: Last Pain Scale 4 04/16/24, 12:04 Review of Systems ROS Narrative A ten point review of systems is negative except as noted above. PFSH PFSH Social History Little interest or pleasure in doing things: not at all Feeling down, depressed, or hopeless: not at all Exam Narrative Exam Narrative: Nurses note and vital signs reviewed and patient is not hypoxic. General:The patient appears well and in no apparent distress.Patient is resting comfortably on cart. Skin:Warm, dry, no pallor noted.There is no rash noted. Head:Normocephalic, atraumatic Eye: Normal conjunctiva, no drainage Ears, Nose, Mouth, and Throat: oral mucosa is moist. Nares patent. Cardiovascular:Regular Rate and Rhythm Respiratory:Patient is in no distress, no accessory muscle use, lungs are clear to auscultation, no wheezing, rales or rhonchi Back:non-tender GI: Soft and nontender Musculoskeletal: The patient has no evidence of calf tenderness, no pitting edema, symmetrical pulses noted bilaterally Neurological:A&O, normal speech Psychiatric:Cooperative Constitutional Vital Signs, click to edit/add: Last Vital Signs Temp 98.5 F 09/07/25 15:39 Pulse 115 H 09/07/25 15:39 Resp 18 09/07/25 15:39 BP 144/81 H 09/07/25 15:39 Pulse Ox 96 09/07/25 15:39 O2 Del Method Room Air 09/07/25 15:39 Course Vital Signs Vital signs: Vital Signs Temperature 98.5 F 09/07/25 15:39 Pulse Rate 115 H 09/07/25 15:39 Respiratory Rate 18 09/07/25 15:39 Blood Pressure 144/81 H 09/07/25 15:39 Pulse Oximetry 96 09/07/25 15:39 Oxygen Delivery Method Room Air 09/07/25 15:39 Temperature 98.5 F 09/07/25 15:39 Pulse Rate 115 H 09/07/25 15:39 Respiratory Rate 18 09/07/25 15:39 Blood Pressure 144/81 H 09/07/25 15:39 Pulse Oximetry 96 09/07/25 15:39 Oxygen Delivery Method Room Air 09/07/25 15:39 Medical Decision Making MDM Narrative Medical decision making narrative: The patient appears to have a slight increase in her BUN and creatinine from the recently prescribed hydrochlorothiazide. She was instructed to stop that medication and contact her PCP for instructions regarding different blood pressure medication. He does not require IV fluids at this point. Treatment diagnosis and follow-up were discussed with the patient. Differential Diagnosis Differential Diagnosis: Medication side effect, dehydration Lab Data Lab results reviewed: Yes I reviewed the patient's lab results Labs: Lab Results 09/07/25 Range/Units 15:59 WBC 11.2 H (4.0-11.0) 10^3/uL RBC 5.11 (4.20-5.40) 10^6/uL Hgb 14.5 (12.0-16.0) g/dL Hct 42.1 (36.0-48.0) % MCV 82.4 (81.0-99.0) fL MCH 28.4 (26.7-34.0) pg MCHC 34.4 (29.9-35.2) g/dL RDW 13.4 (11.0-15.0) % Plt Count 231 (150-450) 10^3/uL MPV 10.7 (9.5-13.5) fL Neut % (Auto) 76.0 H (43.0-75.0) % Lymph % (Auto) 14.3 L (20.5-60.0) % Platte % (Auto) 6.0 (1.7-12.0) % Eos % (Auto) 2.9 (0.9-7.0) % Baso % (Auto) 0.5 (0.2-2.0) % Neut # (Auto) 8.5 H (1.4-6.5) 10^3/uL Lymph # (Auto) 1.6 (1.2-3.8) 10^3/uL Platte # (Auto) 0.7 (0.3-0.8) 10^3/uL Eos # (Auto) 0.3 (0.0-0.7) 10^3/uL Baso # (Auto) 0.1 (0.0-0.1) 10^3/uL Abs Immat Gran (auto) 0.03 (0.00-0.03) 10^3/uL Imm/Tot Granulo (auto) 0.3 (0.0-0.5) % Sodium 139 (136-145) mmol/L Potassium 3.9 (3.5-5.1) mmol/L Chloride 99 (98-107) mmol/L Carbon Dioxide 27.0 (21.0-32.0) mmol/L Anion Gap 16.9 BUN 24.0 H (7.0-18.0) mg/dL Creatinine 1.10 H (0.55-1.02) mg/dL Est GFR ( Amer) >60 (>=60 mL/min/1.73m^2) Est GFR (Non-Af Amer) 50 L (>=60 mL/min/1.73m^2) BUN/Creatinine Ratio 21.8 Glucose 318 H (74-106) mg/dL Calcium 9.8 (8.5-10.1) mg/dL ECG Data Attestation: I personally reviewed and interpreted this ECG as follows: (EKG on my interpretation shows a rate of 112 and left bundle branch block) Discharge Plan Discharge Chief Complaint: Urogenital-Female Clinical Impression: Mild dehydration Patient Disposition: Home, Self-Care Time of Disposition Decision: 16:38 Condition: Good Mode of Transportation: Private Vehicle Prescriptions / Home Meds: No Action allopurinol 300 mg tablet 300 mg PO DAILY albuterol sulfate 90 mcg/actuation HFA aerosol inhaler 2 puff INHALATION PRN duloxetine 60 mg capsule,delayed release(DR/EC) 60 mg PO DAILY glipizide 10 mg tablet 10 mg PO DAILY tizanidine 4 mg capsule 4 mg PO DAILY oxycodone-acetaminophen [Percocet] 5-325 mg tablet 1 tab PO Q6H Qty: 14 0RF Print Language: Guatemalan Instructions: Dehydration (ED) Additional Instructions: Continue the hydrochlorothiazide for now. Contact Dr. Taylor for instructions regarding your blood pressure medication. Referrals: Jorge Luis Taylor MD [Primary Care Provider, Family Practice] - 1 week
--- OUTSIDE RECORDS SUMMARY | 2025-09-07 15:50 | XMS_ITS | Encounter Summary ---
Author Organization [facility] Address [address] [place] [address] Care Team Providers Care Court Messenger Name Role Phone Jorge Luis Taylor MD Unavailable Jorge Luis Taylor MD Primary Care Provider [phone] Encounter Details Date Type Department Care Team (Late st Contact Info) Description 04/16/2024 Orders Only [facility] [address] [place] [phone] Marietta Gallo MD [address] [place] [address] Social History Tobacco Use Types [...] on filedocumented in this encounter Care Teams Court Messenger Relationship Specialty Start Date End Date Jorge Luis Taylor MD [address] [place] [phone] PCP - [place] [facility] 08/26/24 5 Jorge Luis Taylor MD [address] [place] [phone] PCP - General Family Medicine 08/14/25 documented as of this encounter
--- OUTSIDE RECORDS SUMMARY | 2025-09-07 15:50 | XMS_ITS | Encounter Summary ---
Author Organization [facility] Address [address] [place] [address] Care Team Providers Care General Ledger Bookkeeper Name Role Phone Jorge Luis Taylor MD Unavailable Jorge Luis Taylor MD Primary Care Provider [phone] Encounter Details Date Type Department Care Team (Late st Contact Info) Description 09/23/2024 Orders Only [facility] [address] [place] [phone] Jose Alvarez MD [address] [place] [phone] Social History Tobacco Use Types Packs/Day Years [...] on filedocumented in this encounter Care Teams General Ledger Bookkeeper Relationship Specialty Start Date End Date Jorge Luis Taylor MD [address] [place] [phone] PCP - [facility] 08/26/24 5 Jorge Luis Taylor MD [address] [place] [phone] PCP - General Family Medicine 08/14/25 documented as of this encounter
--- OUTSIDE RECORDS SUMMARY | 2025-09-07 15:50 | XMS_ITS | Clinical Summary ---
Author Organization [facility] Address [address] [place] [address] Care Team Providers Care Performance Improvement Manager Name Role Phone Jorge Luis Taylor MD Primary Care Provider [phone] Allergies Active Allergy Reactions Criticality Noted Date [...] hyperglycemia, without long-term current use of insulin ([facility]) Take 1 tablet by mouth twice daily 60 tablet 5 Active OneTouch Ultra test stripIndications: Type 2 diabetes mellitus with hyperglycemia, with long-term current use of insulin ([facility]) USE 1 STRIP TO CHECK GLUCOSE ONCE [...] Description 08/14/2025 10:00 AM EDT [facility] [address] [place] [address] Karina Lopez DPM Type II or unspecified type diabetes mellitus with neurological manifestations, not stated as uncontrolled(250.60) (HCC) (Primary Dx); Onychomycosis; Nail dystrophy; Hammer toe of right foot 08/14/2025 Bamboo flowsheet [facility] [address] [place] [address] Karina Lopez DPM 08/14/2025 Travel from Last [...] 65+ Years Completed 01/19/2025, 01/18/2025, 09/06/2020 Insurance [facility] [place] [address] MEDICARE Care Teams Performance Improvement Manager Relationship Specialty Start Date End Date Jorge Luis Taylor MD [address] [facility] [place] [address] PCP - General Family Medicine 08/14/25
--- OUTSIDE RECORDS SUMMARY | 2025-09-07 15:50 | XMS_ITS | Clinical Summary ---
Author Organization [facility] tem Address [id number] [address] [place] [address] Care Team Providers Care Artificial Glass Eye Maker Name Role Phone Jorge Luis Taylor MD Primary Care Provider [phone] Allergies No known active allergies Medications sodium [...] on file Medical Devices Implanted Type Area Track Machine Operator Repairer Device Identifier Shelf Expiration Date Model / Serial / Lot Lens 21.5 Diopter - [id number] Implanted:Qty: 1 on 06/26/2017 by Donita Vivar MD at [facility] Lens Right: Eye [employer] 11/25/2021 [id number] / [id number] / Insurance [employer] Care Teams Artificial Glass Eye Maker Relationship Specialty Start Date End Date Jorge Luis Taylor MD PCP - General 06/26/17
--- OUTSIDE RECORDS SUMMARY | 2025-09-07 15:53 | XMS_ITS | CCD ---
Author Organization [facility] CliniSyct Care Team Providers Care Public Relations Director Name Role Phone PHYSICIAN, DEFAULT Unavailable Unavailable PHYSICIAN, DEFAULT Unavailable Unavailable PHYSICIAN, DEFAULT Unavailable Unavailable PHYSICIAN, DEFAULT Unavailable Unavailable JORGE LUIS WICK Primary Care Physician NO FAMILY, PHYSICIAN Primary Care Provider Unava ANIA Maurer Attending Provider Aurelia Ravi Unavailable MD Kelby Bella II Attending Provider Kelby Bella II Unavailable NO FAMILY, PHYSICIAN Primary Care Provider Unava MD Kelby Manzanares II Attending Provider [phone] MD Jorge Luis Wick Primary Care Provider [phone] MATOS ., DR CAN Admitting Unavailable MATOS ., DR CAN Attending Unavailable NADERER, DR JORGE LUIS Arriaga Primary Care Unavailable MATOS ., DR CAN Consulting Unavailable JOSE ANTONIO, DR MAX Nair Consulting Unavailable NADERER, DR JORGE LUIS Arriaga Admitting Unavailable NADERER, DR JORGE LUIS Arriaga Attending Unavailable NADERER, DR JORGE LUIS Arriaga Primary Care Unavailable NADERER, DR JORGE LUIS Arriaga Consulting Unavailable NADERER, DR JORGE LUIS Arriaga Admitting Unavailable NADERER, DR JORGE LUIS Arriaga Attending Unavailable NADERER, DR JORGE LUIS Arriaga Primary Care Unavailable NADERER, DR JORGE LUIS Arriaga Consulting Unavailable NADERER, DR JORGE LUIS Arriaga Primary Care Unavailable YAQUELIN ., ELAINE Admitting Unavailable YAQUELIN ., ELAINE Attending Unavailable YAQUELIN ., ELAINE Consulting Unavailable MATOS ., DR CAN Admitting Unavailable MATOS ., DR CAN Attending Unavailable NADERER, DR JORGE LUIS Arriaga Primary Care Unavailable MATOS ., DR CAN Consulting Unavailable [place], DR GENEVA Rodney Consulting Unavailable GENEVA HELM Consulting Unavailable MATOS ., DR CAN Admitting Unavailable MATOS ., DR CAN Attending Unavailable NADERER, DR JORGE LUIS A Primary Care Unavailable MATOS ., DR CAN Consulting Unavailable EUSEBIA HIGHTOWER Consulting Unavailable MD Kelby Bella II Attending Provider Patricia Aguilar Unavailable MD Jorge Luis Wick Primary Care Provider MD Kelby Bella II Attending Provider Ella Quinteros Unavailable MD Jorge Luis Wick Primary Care Provider MD Kelby Bella II Attending Provider [phone] MD Jorge Luis Wick Primary Care Provider VIKAS Gtz Attending Provider [phone] MD Jorge Luis Wick Primary Care Provider MD Kelby Bella II Attending Provider [phone] Jorge Luis Wick MD Primary Care Provider Jorge Luis Wick MD Unavailable Pamella MATOS Attending Unavailable Pamella MATOS Attending Unavailable Jorge Luis Wick MD Primary Care Provider Kassy Gtz APRN Attending Provider Jean Rodriguez MD Attending Provider Jorge Luis Wick Primary Care Unavailable Kelby Bella II Admitting UnavailKelby Gallegos II Attending Unavailsegun e Jorge Luis Wick Primary Care Unavailable Kassy Gtz Admitting Unavailable Kassy Gtz Attending Unavailable Jean Rodriguez Admitting Unavailable Jean Rodriguez Attending Unavailable Jorge Luis Wick Primary Care Unavailable Jorge Luis Wick MD Primary Care Provider JORGE LUIS WICK Attending Unavailable KARINA ZIMMERMAN Attending Unavailable JORGE LUIS WICK Attending Unavailable JORGE LUIS WICK Attending Unavailable Jorge Luis Wick MD Attending Provider Allergies Allergy Classification Reported Allergen(s) Allergy Type Date of Onset Reaction(s) Facility Adhesive Tape (1 source) Adhesive Tape Substance Allergy 4 Redness of Skin/Rash [facility] Opioid Agonists (1 source) HYDROcodone Drug Allergy 4 N/V [facility] (1 source) Adhesive agent Drug allergy (disorder) 3 [facility] (1 source) Rocuronium Drug Allergy 3 [facility] (1 source) Acetaminophen Drug Allergy 3 N/V [facility] (12 sources) HYDROcodone Drug Allergy 3 N/V [facility] (13 sources) Lfewjng-SZO-ZjH Reductase Inhibitor Propensity to adverse reactions 3 Muscle Pain [facility] (11 sources) Adhesive Tape Allergy to substance 3 Redness of Skin/Rash [facility] Comment on above: Pt states happens wh en having on for long periods of time (12 sources) Surgical soap Allergy to substance 3 [facility] (10 sources) Icy Hot Propensity to adverse reactions 4 [facility] (1 source) Adhesive Tape; Translations: [Tape] Propensity to adverse reactions (disorder) [facility] Rep[facility] (2 sources) Wound Dressing Adhesive Drug Allergy 5 [facility] Medications Current Medications Medication Drug Class(es) Dates Sig (Normalized) Sig (Original) acetaminophen 500 mg oral tablet (20 sources) Start: 08-19-2025 take 2 tablets by mouth every eight hours as needed Acetaminophen (Tylenol Extra Strength) 500 mg tablet Active 1000 MG PO Every 8 hours as needed August 19, 2025 12:00am Complies with drug therapy Start: 04-03-2023 take 2 tablets by mo [facility] every eight hours as needed GNP PAIN RELIEF EX-STRENGTH 500 MG tablet Take 1,000 mg by mouth every 8 (eight) hours if needed 04/11/2023 Active Start: 04-03-2023 End: 08-19-2025 Acetaminophen (Tylenol Ex St r Arthritis Pain) 500 mg Tablet Discontinued 1000 MG PO Twice daily as needed for Pain April 03, 2023 12:00am August 19, 2025 9:45am [id number] 200 actuat albuterol 0.09 mg/actuat metered dose inhaler (11 sources) beta2-Adrenergic Agonist Start: 08-19-2025 take 1 puff(s) by inhalation every four hours as needed Albuterol Sulfate 90 mcg/actuation HFA aerosol inhaler Active 2 PUFF INHALATION Every 4 hours as needed August 19, 2025 12:00am Complies with drug therapy Start: 02-14-2024 take 2 puff(s) by in halation every four hours for wheezing albuterol HFA 90 mcg/act inhaler Indications: Mild intermittent asthma without complication (HCC) Inhale 2 puffs every 4 (four) hours if needed for wheezing or shortness of breath 8 g 2 02/14/2024 Active allopurinol 300 mg oral tablet (14 sources) Xanthine Oxidase Inhibitor Start: 08-19-2025 take 1 tablet by mouth once daily Allopurinol 300 mg tablet Active 300 MG PO Daily August 19, 2025 12:00am Complies with drug therapy Start: 08-22-2021 take 1 tablet by jeff once daily allopurinol 300 mg Tab 300 mg = 1 tab(s), Oral, Daily, # 90 tab(s), Refills(s) 3, Pharmacy: [facility], 158, cm, 09/10/23 15:38:00 [...] Start: 12-11-2024 take 2 tablets by mo ut once daily azithromycin (Zithromax) 250 MG tablet [...] BED UPON DISCHARGE DOS: 04/17/2023 March, Active Crutches unit (6 sources) Start: 06-18-2025 Crutches unit Active 0 .Route June 18, 2025 12:00am As directed dexamethasone 4 mg oral tablet (1 source) Corticosteroid Start: 10-24-2022 take 1 tablet by mouth every twenty-four hours Dexamethasone 4 MG 1 tablet Orally Once a day for 5 day(s) Sep, Active docusate sodium 50 mg / sennosides, long term 8.6 mg oral tablet (5 sources) Start: [...] DULoxetine 60 mg delayed release oral capsule (20 sources) Serotonin and Norepinephrine Reuptake Inhibitor Start: 04-03-2023 End: 08-19-2025 take 1 capsule by mouth once daily Duloxetine 60 mg capsule,delayed release(DR/EC) Active 60 MG PO Daily August 19, 2025 12:00am Complies with drug therapy Start: 08-16-2020 DULoxetine 60 mg Cap-EC Refills(s) [...] hyperglycemia, without long-term current use of insulin (CMS/[facility]) Take 1 tablet (25 mg) by mouth Daily 30 tablet 3 09/03/2024 12/11/2024 Discontinued glipiZIDE 10 mg oral tablet (20 sources) Sulfonylurea Start: 08-19-2025 take 1 tablet by mouth twice daily Glipizide 10 mg tablet Active 10 MG PO Twice daily August 19, 2025 12:00am Complies with drug therapy Start: 01-05-2025 take 1 tablet by jeff th twice daily glipiZIDE (Glucotrol) 10 MG tablet Indications: Type 2 diabetes mellitus with hyperglycemia, without long-term current use of insulin ([facility]) Take 1 tablet by mouth twice daily 60 tablet 01/05/2025 Active Start: 12-08-2024 take 1 tablet by jeff th twice daily glipiZIDE (Glucotrol) 10 MG tablet Indications: Type 2 diabetes mellitus with hyperglycemia, without long-term current use of insulin (CMS/HCC) Take 1 tablet by mouth twice daily [...] hyperglycemia, without long-term current use of insulin ([facility]) Take 1 tablet (10 mg) by mouth in the morning and 1 tablet (10 mg) before bedtime. 180 tablet 3 08/20/2024 Active Start: 08-16-2020 End: 08-19-2025 take 1 tablet by mouth twice daily Glipizide 10 mg tablet Discontinued 10 MG PO Twice daily April 03, 2023 12:00am August 19, 2025 9:49am Start: 08-16-2020 glipiZIDE 10 m g Tab [...] BED UPON DISCHARGE DOS: 04/17/2023 March, Active 24 hr oxybutynin chloride 10 mg extended release oral tablet (10 sources) Cholinergic Muscarinic Antagonist Start: 08-19-2025 take 1 tablet by mouth once daily Oxybutynin Chloride 10 mg tablet extended release 24hr Active 10 MG PO Daily August 19, 2025 12:00am Complies with drug therapy Start: 06-18-2025 End: 08-19-2025 take 1 tablet by mouth every twenty-four hours Oxybutynin Chloride 10 mg tablet extended release 24hr Discontinued MG PO June 18, 2025 12:00am August 19, 2025 9:49am Start: 05-19-2025 take 1 tablet by mouth once da arcelia oxybutynin XL (Ditropan-XL) 10 MG 24 hr tablet Indications: Hyperhidrosis Take 1 tablet (10 mg) by mouth Daily Do not crush, chew, or split. 30 tablet 5 05/19/2025 Active oxyCODONE hydrochloride 5 mg oral tablet [...] 04-03-2023 take 1 tablet by mouth every twenty-four hours Protonix 20 MG 1 tablet Orally [...] Daily 11/08/2023 Active take 1 tablet by jeff th every twenty-four hours Pioglitazone HCl 30 MG 1 tablet Orally Once a day Active polyethylene glycol 3350 13307 mg powder for oral solution (5 sources) Osmotic Laxative Start: 04-03-2023 MiraLax 17 GM 1 packet mixed with 8 ounces of fluid Orally Once a day for 7 days MED TO BED UPON DISCHARGE DOS: 04/17/2023 March, Active potassium bicarbonate 25 meq effervescent oral tablet (2 sources) Start: 08-19-2025 Potassium Bica rb-Citric Acid (Effer-K) 25 mEq tablet, effervescent Active 25 MEQ PO Twice daily August 19, 2025 12:00am Complies with drug therapy Start: 08-28-2022 take 1 tablet by jeff th twice daily Effer-K 25 mEq oral tablet, effervescent 25 mEq = 1 tab(s), Oral, BID, # 60 tab(s), Refills(s) 11, Pharmacy: [facility], 158, cm, 08/28/22 15:39:00 EDT, Height/Length Dosing, 76, kg, 08/28/22 15:39:00 EDT, Weight Dosing Start Date: 08/28/22 Status: Ordered potassium citrate 10 meq extended release oral [...] Discontinued Start: 09-10-2023 take 2 tablets by [facility] three times daily potassium CITRATE 10 mEq ER Tab 20 mEq, 2 tab(s), Oral, TID, 180 tab(s), Refill(s) 11, [facility], 158, cm, 09/10/23 15:38:00 [...] Daily, # 90 tab(s), Refills(s) 11, Pharmacy: [facility], 158, cm, 09/10/23 15:38:00 EDT, Height/Length Dosing, 94.6, kg, 09/10/23 15:38:00 EDT, Weight Dosing Start Date: 09/10/23 Status: Ordered Start: 08-28-2022 take 3 tablets by [facility] once daily sodium bicarbonate 650 mg Tab 1,950 mg = 3 tab(s), Oral, Daily, # 60 tab(s), Refills(s) 0 Start Date: 08/28/22 Status: Ordered Start: 08-22-2021 End: 08-17-2022 take 3 tablets by mouth three times daily sodium bicarbonate 650 mg Tab 1,950 mg = 3 tab(s), Oral, TID, X 90 day(s), # 810 tab(s), Refills(s) 3, Pharmacy: [facility], 158, cm, 08/22/21 15:36:00 EDT, Height/Length Dosing, 76, kg, 08/22/21 15:36:00 EDT, Weight Dosing Start Date: 08/22/21 Stop Date: 08/17/22 Status: Ordered End: 12-11-2024 sodium bicarbonate 325 MG ta blet Take 325 mg by mouth in the morning and 325 mg at noon and 325 mg in the evening. 12/11/2024 Discontinued take 2 tablets by mo uth every eight hours Sodium Bicarbonate 325 MG 2 tablets Orally Three times a day Active traMADol hydrochloride 50 mg oral tablet (18 sources) Opioid Agonist Start: 04-03-2023 take 1 tablet by mouth every six hours as needed for pain traMADol HCl 50 MG 1 tablet as needed for pain Orally every 6 hrs for 10 days MED TO BED UPON DISCHARGE DOS: 04/17/2023 March, Active Start: 04-03-2023 End: 06-18-2025 take 1 tablet by mouth four times daily as needed for pain Tramadol 50 mg tablet Discontinued 50 MG PO Four times daily as needed for Pain April 03, 2023 12:00am June 18, 2025 11:08am Vitamin D (4 sources) Start: 08-22-2021 Vitamin D Inte rnational_Unit, Oral, qWeek, Refills(s) 0 Start Date: 08/22/21 Status: Ordered Vitamin D Active Completed/Discontinued Medications Medication Drug Class(es) Dates Sig (Normalized) Sig (Original) gabapentin 800 mg oral tablet (20 sources) Anti-epileptic Agent Start: 04-03-2023 End: 06-18-2025 take 1 tablet by mouth three times daily Gabapentin 800 mg tablet Discontinued 800 MG PO Three times daily April 03, 2023 12:00am June 18, 2025 11:08am Start: 10-19-2020 take 1 tablet by jeff th every twenty-four hours Gabapentin 800 MG 1 tablet Orally Once a day for 30 day(s) Sep, Active Start: 08-16-2020 take 1 tablet by jeff th every twenty-four hours Gabapentin 600 MG 1 tablet Orally Once a day for 30 day(s) Sep, Active Ketorolac (11 sources) Nonsteroidal Anti-inflammatory Drug, Cyclooxygenase Inhibitor Start: 07-08-2016 Toradol per 15 mg Jun, 60 mg tiZANidine 4 mg oral capsule (20 sources) Central alpha-2 Adrenergic Agonist Start: 08-16-2020 End: 08-19-2025 take 1 capsule by mouth three times daily as needed for muscle spasms Tizanidine 4 mg capsule Discontinued 4 MG PO Three times daily as needed for Muscle Spasm April 03, 2023 12:00am August 19, 2025 9:49am triamcinolone acetonide 32 mg injection (10 sources) Corticosteroid Start: 12-29-2022 Zilretta Dec, 32 mg Problems Active Problems Problem Classification Problem Date Documented Da te Episodic/Chronic Acquired foot deformities (2 sources) Hammer toe; Translations: [Other hammer toe(s) (acquired), right foot] 08-14-2025 Chronic Allergic reactions (2 sources) Allergic contact dermatitis, unspecified cause Episodic Asthma (14 sources) Asthma; Translations: [Mild intermittent asthma] Onset: 02-14-2024 08-13-2020 Chronic Calculus of urinary tract (11 sources) Kidney stone; Translations: [Calculus of kidney] Onset: 06-05-2022 08-13-2020 Episodic Conduction disorders (1 source) Left bundle branch block; Translations: [Left bundle-branch block, unspecified] 08-19-2025 Chronic Congestive heart failure; nonhypertensive (11 sources) Chronic diastolic heart failure; Translations: [Chronic diastolic (congestive) heart failure] Onset: 02-14-2024 02-14-2024 Chronic Diabetes mellitus with complications (20 sources) Type 2 diabetes mellitus with hyperglycemia; Translations: [Hyperglycemia due to type 2 diabetes mellitus] Onset: 05-04-2022 Chronic Diabetes mellitus without complication (3 sources) Diabetes mellitus 08-13-2020 Chronic Diabetes mellitus without complication (1 source) Glycosuria Episodic Disorders of lipid metabolism (11 sources) Dyslipidemia; Translations: [Hyperlipidemia, unspecified] Onset: 02-14-2024 02-14-2024 Chronic Fracture of lower limb (20 sources) Displaced fracture of fifth metatarsal bone, right foot, initial encounter for closed fracture; Translations: [Fracture of fifth metatarsal bone of right foot] Onset: 07-13-2025 06-18-2025 Episodic Genitourinary symptoms and ill-defined conditions (1 source) Dysuria Episodic Mycoses (2 sources) Onychomycosis; Translations: [Tinea unguium] 08-14-2025 Episodic Nutritional deficiencies (12 sources) Vitamin D deficiency, unspecified; Translations: [Vitamin D deficiency] Onset: 02-17-2023 02-14-2024 Chronic Osteoarthritis (20 sources) Osteoarthritis of right knee joint; Translations: [Unilateral primary osteoarthritis, right knee] Onset: 02-17-2023 Chronic Osteoporosis (15 sources) Primary osteoporosis; Translations: [Age-related osteoporosis without current pathological fracture] 06-18-2025 Chronic Other aftercare (14 sources) Patient encounter status; Translations: [Aftercare following joint replacement surgery] 07-16-2024 Chronic Other aftercare (6 sources) Aftercare following joint replacement surgery; Translations: [Aftercare following joint replacement] Onset: 07-17-2024 Chronic Other aftercare (1 source) Long-term current use of drug therapy; Translations: [Other shelter (current) drug therapy] 08-19-2025 Episodic Other and unspecified benign neoplasm (4 sources) Angiomyolipoma of kidney; Translations: [Benign lipomatous neoplasm of kidney] Onset: 02-17-2025 02-17-2025 Episodic Other connective tissue disease (6 sources) Artificial knee joint present; Translations: [Presence of right artificial knee joint] Chronic Other connective tissue disease (6 sources) History of total knee arthroplasty; Translations: [Presence of right artificial knee joint] Chronic Other connective tissue disease (7 sources) Presence of right artificial knee joint; Translations: [Presence of right artificial knee joint] Onset: 07-17-2024 Chronic Other connective tissue disease (13 sources) Fibromyalgia; Translations: [Fibromyalgia] Onset: 02-14-2024 02-14-2024 Episodic Other connective tissue disease (6 sources) Pain in right foot; Translations: [Pain in right foot] 06-18-2025 Episodic Other injuries and conditions due to external causes (1 source) Unspecified injury of right ankle, initial encounter Episodic Other nervous system disorders (4 sources) Drug-induced myopathy; Translations: [Drug-induced myopathy] Onset: 02-14-2024 12-11-2024 Episodic Other nervous system disorders (4 sources) Drug-induced myopathy; Translations: [Toxic myopathy] Onset: 02-14-2024 12-11-2024 Episodic Other non-traumatic joint disorders (1 source) Pain in right knee Episodic Other non-traumatic joint disorders (10 sources) Anterior knee pain; Translations: [Pain in left knee] 04-15-2024 Episodic Other nutritional; endocrine; and metabolic disorders (4 sources) Body mass index 30+ - obesity; Translations: [Obesity, unspecified] Onset: 08-20-2024 08-20-2024 Chronic Other nutritional; endocrine; and metabolic disorders (8 sources) Severe obesity; Translations: [Class 2 severe obesity due to excess calories with serious comorbidity and body mass index (BMI) of 37.0 to 37.9 in adult ([facility])] Onset: 08-20-2024 12-11-2024 Chronic Other skin disorders (11 sources) Hyperhidrosis; Translations: [Generalized hyperhidrosis] Onset: 02-14-2024 02-14-2024 Episodic Other skin disorders (2 sources) Dystrophia unguium; Translations: [Nail dystrophy] 08-14-2025 Episodic Other upper respiratory disease (11 sources) Allergic rhinitis due to pollen; Translations: [Allergic rhinitis due to pollen] Onset: 02-14-2024 02-14-2024 Chronic Superficial injury; contusion (10 sources) Contusion, knee and lower leg; Translations: [Contusion of left knee, initial encounter] 04-15-2024 Episodic Urinary tract infections (6 sources) Urinary tract infectious disease; Translations: [Urinary tract infection, site not specified] Onset: 06-23-2022 Episodic Past or Other Problems Problem Classification Problem Date Documented Date Episodic/Chronic Abdominal pain (5 sources) Unspecified abdominal pain; Translations: [UNSPECIFIED ABDOMINAL PAIN] Onset: 06-07-2022 Episodic Acute bronchitis (7 sources) Acute infective bronchitis; Translations: [Acute bronchitis due to other specified organisms] Onset: 12-11-2024 Resolved: 02-17-2025 12-11-2024 Episodic Conditions associated with dizziness or vertigo (1 source) Dizziness and giddiness; Translations: [DIZZINESS AND GIDDINESS] Onset: 05-04-2022 Episodic Fluid and electrolyte disorders (1 source) Dehydration; Translations: [DEHYDRATION] Onset: 05-04-2022 Episodic Gout and other crystal arthropathies (9 sources) Gouty arthropathy; Translations: [Gout, unspecified] Onset: 08-20-2024 Resolved: 02-17-2025 08-20-2024 Chronic Nausea and vomiting (3 sources) Nausea with vomiting, unspecified; Translations: [NAUSEA WITH VOMITING UNSPECIFIED] Onset: 04-30-2022 Episodic Other aftercare (1 source) 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; Translations: [OTH RETIREMENT CURRENT DRUG THERAPY] Onset: 05-04-2022 Episodic Other connective tissue disease (10 sources) Muscle pain; Translations: [Myalgia, unspecified site] Onset: 02-14-2024 Resolved: 08-20-2024 08-20-2024 Episodic Residual codes; unclassified (1 source) Patient's other noncompliance with medication regimen; Translations: [PT OTH NONCOMPLIANCE W/ MED REGIMEN] Onset: 05-04-2022 Episodic Residual codes; unclassified (5 sources) Other specified health status; Translations: [Other drug allergy] Onset: 02-14-2024 02-14-2024 Episodic Results Test Name Value Interpretation Reference Range Facility X-ray reportOrdered By: Graham Christian on 07-13-2025 Study report [facility] [address] [place] [address] XRay Report Signed Patient: Laly Taveras MR#: [id number] : 1960 Acct:[id number] Age/Sex: 65 / F ADM Date: 5 Loc: [facility] Room: Type: [facility] Attending Dr: Jean Rodriguez MD Copies to: [...] interval worsening of displacement of the distal fragmentnondisplaced medially by 4 mm. There is periosteal new bone formation suggesting attempted healing. There is hallux valgus deformity of the great toewith mild narrowing of the first metatarsophalangeal joint. Degenerative changes are noted in the tarsometatarsal junctions. There is plantar surface calcaneal spurring. XR/XR foot RT min 3V* IMPRESSION: There is an obliquely oriented fracture of the distal shaft of the fifth metatarsal with slight interval worsening of displacement of the distal fragmentnondisplaced medially by 4 mm. There is periosteal new bone formation suggesting attempted healing. Impression dictated by: Graham Christian M.D. 07/13/2025 3:36 PM Dictation Location: [place] [address] Transcribed By: [facility] 07/13/25 153 Dictated By: Graham Christian II, MD 07/13/25 1534 Signed By: 07/13/25 153 [facility] Work Phone: XR foot RT min 3V*on 025 XR foot RT min 3V* [facility] [address] [place] [address] XRay Report Signed Patient: Laly Taveras MR#: [id number] : 1960 Acct:[id number] Age/Sex: 65 / F ADM Date: 07/13/25 Loc: [facility] Room: Type: [facility] Attending Dr: Jean Rodriguez MD Copies to: Jean Rodriguez MD Ordering Provider: Jean Rodriguez MD Date of [...] Christian M.D. 07/13/2025 3:36 PM Dictation Location: [facility] Transcribed By: [facility] 07/13/25 1536 Dictated By: Graham Christian II, MD 07/13/25 1534 Signed By: 07/13/25 1536 Normal The Count Includes [facility] X-ray reportOrdered By: Braden Villa on 06-18-2025 Study report [facility] [place] [address] XRay Report Signed Patient: Laly Taveras MR#: [id number] : 1960 Acct:[id number] Age/Sex: 65 / F ADM Date: 5 Loc: [facility] Room: Type: [facility] Attending Dr: Kassy Gtz APRN Copies to: [...] Villa M.D. 06/18/2025 11:52 AM Dictation Location: [facility]26 Transcribed By: [facility] 06/18/25 1152 Dictated By: Leonard Villa MD 06/18/25 1148 Signed By: 06/18/25 1152 [facility] Work Phone: XR foot RT min 3V*on 025 XR foot RT min 3V* [facility] [place] [address] [place] [id number] XRay Report Signed Patient: Laly Taveras MR#: [id number] [birth year] : 1960 Acct:[id number] Age/Sex: 65 / F ADM Date: 06/18/25 Loc: [facility] Room: Type: [facility] Attending Dr: Kassy Gtz APRN Copies to: [...] Villa M.D. 06/18/2025 11:52 AM Dictation Location: [place] [address] Transcribed By: [facility] 06/18/25 1152 Dictated By: Leonard Villa MD 06/18/25 1148 Signed By: 06/18/25 1152 Normal The Count Includes [facility] Reminderson 02-23-2025 Reminders Reminders From: Steffany Glez To: EM Matos; Sent: 12/12/2024 08:14:55 EST Show up: 12/12/2024 08:14:00 EST Subject: Ambulatory Reminder Reminder/Recall Patient needs scheduled for a DEJA prior to 01/19/25 appointment. Order faxed to [facility] central scheduling today. Will monitor for appointment Pt has been called by [facility] to schedule 3x with no answer. I called to patient today with no answer. Left a voicemail to get patient scheduled. Will monitor. [facility] Ambulatory Visit Summaryon 0 02-16-2025 Ambulatory Visit Summary Ambulatory Visit Summary LALY TAVERAS :1960 Visit Date:02/16/2025 Ambulatory Visit Instructions Your Diagnosis Kidney stone Renal angiomyolipoma Tests Performed US Renal -- Results Pending -- Please visit your patient portal for your results or contact your primary care physician. Your Care Team Attending Physician - ISELA MINAYA, Pamella Nair Primary Care Physician - JORGE LUIS [...] Follow-Up Appointments Sunday2025 9:45 AM EDT With: Pamella MATOS MD Where: [facility] [address] [place], [place] [id number]- You Need to Schedule the Following Appointments Follow Up with Pamella MATOS MD, KADI When: Where: [facility] [address], [place] [phone] Medications What How Much When Why Instructions New potassium bicarbonate (K-Effervescent 25 mEq oral tablet, effervescent) 1 Tablets By Mouth 2 times a day Kidney stone Duration: 90 Days Refills: 3 Pickup at [facility] Unchanged allopurinol (allopurinol 300 mg Tab) 1 [...] physician if questions or concerns Pharmacy Information [facility]: [address] [place], [place] [id number] [phone] What How Much When Comments Stop Taking [...] about 300 mg (more content not included)... [facility] Reminderson 02-16-2025 Reminders Reminders From: Hannah Arroyo To: EU - Recalls Matos; Sent: 02/16/2025 16:35:42 EDT Show up: 11/26/2025 16:35:00 EST Subject: Renal US Due Date/Time: 12/21/2025 16:35:00 EST Reminder/Recall Pt needs sched for renal US prior to January 2026 appt. She wants [facility] Reminders Reminders From: Hannah Arroyo To: EU - Pending Results; Sent: 02/16/2025 16:34:15 EDT Show up: 11/26/2025 16:34:00 EST Subject: Renal US Due Date/Time: 12/21/2025 16:34:00 EST Reminder/Recall Pt needs sched for renal US prior to January 2026 appt. She wants [facility] Urology Office/Clinic Noteon 02-16-2025 Urology Office/Clinic Note Urology Office/Clinic Note Chief Complaint 1 year f/u with [facility] Staff 65 yr old female here for [...] bid and sodium bicarb. Refills sent. Recommended GoodRX2IMPACT card, coupon provided. -Cont Allopurinol and sodium [...] Follow-up With When Contact Information ISELA MINAYA, Pamella R, URL [facility] [address], [place] [phone] Additional Instructions: 1 yr w/ DEJA Patient Education Dietary Guidelines to Help Prevent Kidney Stones I, Rosanna Stephens, personally scribed for Dr. Matos on 02/16/2025 16:31:10. . Documentation recorded by the scribe, Rosanna Stephens, accurately reflects the services(s) I performed and [...] Blood Ur (more content not included)... Normal [facility] Comment on above: Result Comment: Elec tronically Signed By: Pamella MATOS MD\.br\Date and Time Signed: 02/16/25 16:33 EDT\.br\Electronically Co-Signed By: Rosanna Stephens\.br\Date and Time Co-Signed: 02/16/25 16:31 EDT Provider Letteron 12-16-2024 Provider Letter Provider Letter December 16, 2024 LALY TAVERAS [facility] [place] [address] : 1960 Dear Laly , We have been trying to reach you with no success. You have an appointment with Dr. Pamella Matos on 01/19/25 which will need to be rescheduled since he will be out of the office that day. Please contact the office at the number listed below to get this appointment rescheduled at your earliest convenience. Thank you for your prompt attention to this matter. Sincerely, [facility] [address] [place] [address] [place] [address] [facility] ALL CBC WITH AUTO DIFFon BASOPHILS ABSOLUTE AUTO 0.1 [facility] Basophils/100 WBC (Bld) 0.5 % 0.2 - 2.0 % [facility] Eosinophils/100 WBC (Bld) 2.6 % 0.9 - 7.0 % [facility] Erythrocyte distribution width (RBC) [Ratio] 14.5 % 11.0 - 15.0 % [facility] Hematocrit (Bld) [Volume fraction] 40.4 % 36.0 - 48.0 % [facility] Hemoglobin (Bld) [Mass/Vol] 13.1 g/dL 12.0 - 16.0 g/dL [facility] IMMATURE GRANULOCYTES ABS AUTO 0.05 High [facility] Healthcare Immature granulocytes/100 WBC (Bld) 0.5 % 0.0 - 0.5 % [facility] Interpretation and review of laboratory results Abnormal [facility] Healthcare LYMPHOCYTES ABSOLUTE AUTO 1.9 [facility] Healthcare Lymphocytes/100 WBC (Bld) 18.4 % Low 20.5 - 60.0 % [facility] MCH (RBC) [Entitic mass] 28.4 pg 26.7 - 34.0 pg [facility] MCHC (RBC) [Mass/Vol] 32.4 g/dL 29.9 - 35.2 g/dL [facility] MCV (RBC) [Entitic vol] 87.6 fL 81.0 - 99.0 fL [facility] MONOCYTES ABSOLUTE AUTO 0.6 [facility] Monocytes/100 WBC (Bld) 5.7 % 1.7 - 12.0 % [facility] NEUTROPHILS ABSOLUTE AUTO 7.6 High [facility] Neutrophils/100 WBC (Bld) 72.3 % 43.0 - 75.0 % [facility] Platelet mean volume (Bld) [Entitic vol] 10.4 fL 9.5 - 13.5 fL [facility] Healthcare TBH EO # 0.3 [facility] PLT 254 [facility] RBC 4.61 [facility] WBC 10.5 [facility] Healthcare XR knee RT 2Von 07-17-2024 XR knee RT 2V [facility] [address] [place] [address] XRay Report Signed Patient: Laly Taveras MR#: [id number] : 1960 Acct:[id number] Age/Sex: 64 / F ADM Date: 07/17/24 Loc: [facility] Room: Type: [facility] Attending Dr: Kelby Bella II, MD Copies [...] COMPLICATION. Impression dictated by: Austin Pak Jr., D.OShanita07/17/2024 1:57 PM Dictation Location: [place] [address] Transcribed By: [facility] 07/17/24 1357 Dictated By: Austin Pak Jr, DO 07/17/24 1357 Signed By: 07/17/24 1357 Normal The Count Includes [facility] Urinalysis - AUTOMATEDon Appearance (U) clear [employer] Other Bilirubin Ql (U) Negative [employer] Other Color (U) yellow [employer] Other Glucose Ql (U) 250mg [employer] Other Hemoglobin Ql (U) Negative [employer] Other Ketones Ql (U) Negative [employer] Other Leukocyte esterase Test strip Ql (U) Negative [employer] Other Nitrite Ql (U) Negative [employer] Other pH (U) 5.0 [pH] [employer] Other Protein Ql (U) Negative [employer] Other Specific gravity (U) [Rel density] >1.030 [employer] Other Urobilinogen (U) [Mass/Vol] 0.2 mg/dL [employer] Other Urinalysis - AUTOMATED [employer] Other XR knee RT 3Von 05-31-2023 XR knee RT 3V [facility] [employer] Other XR knee RT 3V [facility] [employer] Other XR knee RT 3V [address] [place] [address] [employer] Other XR knee RT 3V [address] [employer] Other XR knee RT 3V XRay Report [employer] Other XR knee RT 3V Signed [employer] Other XR knee RT 3V Patient: Edna Taveras MR#: [id number] [employer] Other XR knee RT 3V 69 [employer] Other XR knee RT 3V : 1960 Acct:[id number] [employer] Other XR knee RT 3V Age/Sex: 63 / F ADM Date: 05/31/23 [employer] Other XR knee RT 3V Loc: [facility] Room: Type : REG CLI [employer] Other XR knee RT 3V Attending Dr: Kelby Bella II, MD [employer] Other XR knee RT 3V Copies to: Kelby Bella MD [employer] Other XR knee RT 3V Ordering Provider: Joanie Bella MD [employer] Other XR knee RT 3V Date of Service: 05/31/23 [employer] Other XR knee RT 3V [id number]) XR/XR knee RT 3V - NOT FOR ER USE: History of total right knee [employer] Other XR knee RT 3V replacement [employer] Other XR knee RT 3V RIGHT KNEE - 3 views N [employer]ag Other XR knee RT 3V COMPARISON: 04/17/2023 [employer] Other XR knee RT 3V CLINICAL DATA: Follo w-up knee prosthesis [employer] Other XR knee RT 3V Weightbearing AP, la teral and sunrise views were obtained. A knee prosthesis is again visualized. [employer] Other XR knee RT 3V The hardware appears intact and unchanged from the prior. There is no patellar subluxation. No [employer] Other XR knee RT 3V acute fracture or dislocation is noted. There is a knee effusion. There is mild soft tissue [employer] Other XR knee RT 3V swelling. [employer] Other XR knee RT 3V X R/XR knee RT 3V - NOT FOR ER USE [employer] Other XR knee RT 3V IMPRESSION: [employer] Other XR knee RT 3V STABLE KNEE REPLACEMENT. [employer] Other XR knee RT 3V Impression dictated by: Bree Dukes M.D.05/31/2023 2:51 PM [employer] Other XR knee RT 3V Dictation Location: [facility] [employer] Other XR knee RT 3V Transcribed By: PWS 05/31/23 [facility] [employer] Other XR knee RT 3V Dictated By: Bree Dukes MD 05/31/23 [facility] [employer] Other XR knee RT 3V Signed By: [employer] Other XR knee RT 3V 05/31/23 [facility] [employer] [facility] [employer] Other Glucose Glucometer (BldC) [M ass/Vol]Ordered By: Kelby Bella on 04-17-2023 Glucose [Mass/Vol] 155 mg/dL [facility] Comment on above: Random Glucose Refer ence Range is dependent on time and content of last meal. Glucose of more than 200 mg/dL in a nonstressed, ambulatory subject supports the diagnosis of Diabetes Mellitus. No Panel InformationOrdered By: Kelby Bella on 04-17-2023 Bedside Glucose Comment Glu2: cleaned meter [facility] Automated erythrocytes count in urine sediment (number/area)Ordered By: Kelby Bella on 04-03-2023 RBC Auto (Urine sed) [#/Area] 1-2 [HPF] 0-4 [facility] Automated leukocytes count i n urine sediment (number/area)Ordered By: Kelby Bella on 04-03-2023 WBC Auto (Urine sed) [#/Area] 5-9 [HPF] 0-4 [facility] Basophils Auto (Bld) [#/Vol] Ordered By: Kelby Bella on 04-03-2023 Basophils (Bld) [#/Vol] 0.1 10*3/uL 0.0-0.2 [facility] Basophils/100 WBC Auto (Bld) Ordered By: Kelby Bella on 04-03-2023 Basophils/100 WBC (Bld) 0.9 % . [facility] Bilirubin Test strip Ql (U)O rdered By: Kelby Bella on 04-03-2023 Bilirubin Ql (U) Negative Negative [facility] Calcium [Mass/volume] in Ser um or PlasmaOrdered By: Kelby Bella on 04-03-2023 Calcium [Mass/Vol] 8.9 mg/dL 8.6-10.3 [facility] Carbon dioxide, total [Moles /volume] in Serum or PlasmaOrdered By: Kelby Bella on 04-03-2023 CO2 [Moles/Vol] 29.6 mmol/L 21.0-31.0 [facility] Chloride [Moles/volume] in S kane or PlasmaOrdered By: Kelby Bella on 04-03-2023 Chloride [Moles/Vol] 105 mmol/L 98-107 [facility] Color Auto (U)Ordered By: Alisa Bella on 04-03-2023 Color (U) Yellow Yellow [facility] Creatinine [Mass/volume] in Serum or PlasmaOrdered By: Kelby Bella on 04-03-2023 Creatinine [Mass/Vol] 0.65 mg/dL 0.60-1.20 [facility] Eosinophils Auto (Bld) [#/Vo l]Ordered By: Kelby Bella on 04-03-2023 Eosinophils (Bld) [#/Vol] 0.4 10*3/uL 0.0-0.45 [facility] Eosinophils/100 WBC Auto (Bl d)Ordered By: Kelby Bella on 04-03-2023 Eosinophils/100 WBC (Bld) 4.7 % . [facility] Erythrocyte distribution wid th Auto (RBC) [Ratio]Ordered By: Kelby Bella on 04-03-2023 Erythrocyte distribution width (RBC) [Ratio] 13.8 % 11.9-15.3 [facility] Fructosamine [Moles/volume] in Serum or PlasmaOrdered By: Kelby Bella on 04-03-2023 Fructosamine [Moles/Vol] 293 umol/L 0-285 [facility] Comment on above: Published reference interval for apparently healthysubjects between age 20 and 60 is 205 - 285 umol/L and in apoorly controlled diabetic population is 228 - 563 umol/Lwith a mean of 396 umol/L.Performed at: [facility] [employer] [id number] Director: Davis Wiggins PhD, Phone: [phone] Glucose [Mass/volume] in Ser um or PlasmaOrdered By: Kelby Bella on 04-03-2023 Glucose [Mass/Vol] 173 mg/dL 70-100 [facility] Comment on above: ADA recommended refe rence rangeRandom Glucose Reference Range is dependent on time and content of last meal. Glucose of more than 200 mg/dL in a nonstressed, ambulatory subject supports the diagnosis of Diabetes Mellitus. Hematocrit Auto (Bld) [Volum e fraction]Ordered By: Kelby Bella on 04-03-2023 Hematocrit (Bld) [Volume fraction] 34.5 % 34.0-46.4 [facility] Hemoglobin [Mass/volume] in BloodOrdered By: Kelby Bella on 04-03-2023 Hemoglobin (Bld) [Mass/Vol] 11.7 g/dL 11.8-15.4 [facility] Ketones Auto test strip (U) [Mass/Vol]Ordered By: Kelby Bella on 04-03-2023 Ketones (U) [Mass/Vol] Negative Negative [facility] Laboratory - UrinalysisOrder ed By: Kelby Bella on 04-03-2023 Hyaline casts LM Ql (Urine sed) 0-8 [LPF] 0-8 [facility] Leukocytes [#/volume] correc med for nucleated erythrocytes in Blood by Automated counOrdered By: Kelby Bella on 04-03-2023 WBC corrected for nucl RBC Auto (Bld) [#/Vol] 7.8 10*3/uL 3.8-11.6 [facility] Lymphocytes Auto (Bld) [#/Vo l]Ordered By: Kelby Bella on 04-03-2023 Lymphocytes (Bld) [#/Vol] 1.8 10*3/uL 1.00-4.8 [facility] Lymphocytes/100 WBC Auto (Bl d)Ordered By: Kelby Bella on 04-03-2023 Lymphocytes/100 WBC (Bld) 23.0 % . [facility] MCH Auto (RBC) [Entitic mass ]Ordered By: Kelby Bella on 04-03-2023 MCH (RBC) [Entitic mass] 29.1 pg 24.7-34.3 [facility] MCHC Auto (RBC) [Mass/Vol]Or dered By: Kelby Bella on 04-03-2023 MCHC (RBC) [Mass/Vol] 34.0 g/dL 32.0-35.0 [facility] MCV Auto (RBC) [Entitic vol] Ordered By: Kelby Bella on 04-03-2023 MCV (RBC) [Entitic vol] 85.6 fL 80-100 [facility] Monocytes Auto (Bld) [#/Vol] Ordered By: Kelby Bella on 04-03-2023 Monocytes (Bld) [#/Vol] 0.4 10*3/uL 0.0-0.8 [facility] Monocytes/100 WBC Auto (Bld) Ordered By: Kelby Bella on 04-03-2023 Monocytes/100 WBC (Bld) 5.6 % . [facility] Neutrophils Auto (Bld) [#/Vo l]Ordered By: Kelby Bella on 04-03-2023 Neutrophils (Bld) [#/Vol] 5.1 10*3/uL 1.8-7.7 [facility] Neutrophils/100 WBC Auto (Bl d)Ordered By: Kelby Bella on 04-03-2023 Neutrophils/100 WBC (Bld) 65.8 % . [facility] Nitrite Test strip Ql (U)Ord ered By: Kelby Bella on 04-03-2023 Nitrite Ql (U) Negative Negative [facility] No Panel InformationOrdered By: Kelby Bella on 04-03-2023 Estimated GFR (CKD-EPI) > 60.0 mL/Min [facility] Creatinine Clearance (Chem N/A [facility] Nucleated erythrocytes [Pres ence] in Blood by Automated countOrdered By: Kelby Bella on 04-03-2023 Nucleated RBC Auto Ql (Bld) 0.0 /100{WBC} 0-0.5 [facility] Platelet mean volume Auto (B ld) [Entitic vol]Ordered By: Kelby Bella on 04-03-2023 Platelet mean volume (Bld) [Entitic vol] 8.4 fL 6.3-10.7 [facility] Platelets Auto (Bld) [#/Vol] Ordered By: Kelby Bella on 04-03-2023 Platelets (Bld) [#/Vol] 204 10*3/uL 150-450 [facility] Potassium [Moles/volume] in Serum or PlasmaOrdered By: Kelby Bella on 04-03-2023 Potassium [Moles/Vol] 4.0 mmol/L 3.5-5.1 [facility] Protein Auto test strip (U) [Mass/Vol]Ordered By: Kelby Bella on 04-03-2023 Protein (U) [Mass/Vol] Negative Negative [facility] RBC Auto (Bld) [#/Vol]Ordere d By: Kelby Bella on 04-03-2023 RBC (Bld) [#/Vol] 4.03 10*6/uL 3.60-5.00 [facility] Serum or plasma anion gap de terminationOrdered By: Kelby Bella on 04-03-2023 Anion gap [Moles/Vol] 11.4 mmol/L 6.0-15.0 [facility] Sodium [Moles/volume] in Ser um or PlasmaOrdered By: Kelby Bella on 04-03-2023 Sodium [Moles/Vol] 142 mmol/L 136-145 [facility] Specific gravity Auto test s trip (U) [Rel density]Ordered By: Kelby Bella on 04-03-2023 Specific gravity (U) [Rel density] 1.023 1.001-1.03 0 [facility] Squamous epithelial cells de tection in urine sediment by light microscopyOrdered By: Kelby Bella on 04-03-2023 Epithelial cells.squamous LM Ql (Urine sed) 0-1 [HPF] 0-2 [facility] Urea nitrogen [Mass/volume] in Serum or PlasmaOrdered By: Kelby Bella on 04-03-2023 Urea nitrogen [Mass/Vol] 21 mg/dL 7-25 [facility] Urine bacteria detection by automated methodOrdered By: Kelby Bella on 04-03-2023 Bacteria Auto Ql (U) None seen None Seen [facility] Urine clarity by refractomet ry automatedOrdered By: Kelby Bella on 04-03-2023 Clarity Refractometry automated (U) Clear Clear [facility] Urine culture routineOrdered By: Kelby Bella on 04-03-2023 Bacteria identified Cx Nom (U) 2 Days [facility] Urine glucose measurement by automated test strip (mass/volume)Ordered By: Kelby Bella on 04-03-2023 Glucose Auto test strip (U) [Mass/Vol] Normal mg/dL Normal [facility] Urine hemoglobin detection b y automated test stripOrdered By: Kelby Bella on 04-03-2023 Hemoglobin Auto test strip Ql (U) Negative Negative [facility] Urine leukocyte esterase det ection by automated test stripOrdered By: Kelby Bella on 04-03-2023 Leukocyte esterase Auto test strip Ql (U) 2+ Negative [facility] Urobilinogen Auto test strip (U) [Mass/Vol]Ordered By: Kelby Bella on 04-03-2023 Urobilinogen (U) [Mass/Vol] mg/dL Normal [facility] WBC Auto (Bld) [#/Vol]Ordere d By: Kelby Bella on 04-03-2023 WBC (Bld) [#/Vol] 7.8 10*3/uL 3.8-11.6 [facility] pH Auto test strip (U)Ordere d By: Kelby Bella on 04-03-2023 pH (U) 6.5 [pH] 5.0-9.0 [facility] Wound methicillin resistant Staphylococcus aureus (MRSA) cultureOrdered By: Kelby Bella on 03-01-2023 MRSA isol Org specific cx Ql (Unsp spec) No MRSA Isolated 2 Days [facility] Albumin [Mass/volume] in Ser um or Plasma by Bromocresol green (BCG) dye binding methoOrdered By: Kelby Bella on 02-16-2023 Albumin BCG dye [Mass/Vol] 4.5 g/dL 3.5-5.7 [facility] Cotinine [Mass/volume] in Se rum or PlasmaOrdered By: Kelby Bella on 02-16-2023 Cotinine [Mass/Vol] <1.0 ng/mL . [facility] Comment on above: This test was develo ped and its performance characteristicsdetermined by [employer]. It has not been cleared orapproved by the Food and Drug Administration.Cotinine levels greater than 20.0 are consistent with theuse of tobacco or tobacco cessation products.Performed at: [facility] [employer] [id number] Director: Juan Higgins MD, Phone: [phone] Nicotine [Mass/volume] in Se rum or PlasmaOrdered By: Kelby Bella on 02-16-2023 Nicotine [Mass/Vol] <1.0 ng/mL . [facility] Comment on above: This test was develo ped and its performance characteristicsdetermined by [employer]. It has not been cleared orapproved by the Food and Drug Administration.Nicotine levels greater than 2.0 are consistent with theuse of tobacco or tobacco cessation products. CBC AUTO DIFFon 02-10-2023 BASO # 0.1 103/ul Normal 0.0-0.1 [facility] Comment on above: Performed By: #### C BC #### [facility] [address] [place] [address] Dr. Kyle Love Basophils/100 WBC (Bld) 0.7 % Normal 0.2-2.0 [facility] Comment on above: Performed By: #### C BC #### [facility] [address] [place] [address] Dr. Kyle Love EO # 0.3 103/ul Normal 0.0-0.7 [facility] Comment on above: Performed By: #### C BC #### [facility] [address] [place] [address] Dr. Kyle Love Eosinophils/100 WBC (Bld) 3.9 % Normal 0.9-7.0 [facility] Comment on above: Performed By: #### C BC #### [facility] [address] [place] [address] Dr. Kyle Love Erythrocyte distribution width (RBC) [Ratio] 14.5 % Normal 11.0-15.0 [facility] Comment on above: Performed By: #### C BC #### [facility] [address] [place] [address] Dr. Kyle Love Hematocrit (Bld) [Volume fraction] 39.1 % Normal 36.0-48.0 [facility] Comment on above: Performed By: #### C BC #### [facility] [address] [place] [address] Dr. Kyle Love Hemoglobin (Bld) [Mass/Vol] 12.9 g/dL Normal 12.0-16.0 [facility] Comment on above: Performed By: #### C BC #### [facility] [address] [place] [address] Dr. Kyle Love IG # 0.02 10e3/ul Normal 0.00-0.03 [facility] Comment on above: Performed By: #### C BC #### [facility] [address] [place] [address] Dr. Kyle Love IG % 0.3 % Normal 0.0-0.5 [facility] Comment on above: Performed By: #### C BC #### [facility] [address] [place] [address] Dr. Kyle Love LYMPH # 1.3 103/ul Normal 1.2-3.8 [facility] Comment on above: Performed By: #### C BC #### [facility] [address] [place] [address] Dr. Kyle Love Lymphocytes/100 WBC (Bld) 18.4 % Critically low 20.5-60.0 [facility] Comment on above: Performed By: #### C BC #### [facility] [address] [place] [address] Dr. Kyle Love MANUAL DIFF REQ NO Normal [facility] Comment on above: Performed By: #### C BC #### [facility] [address] [place] [address] Dr. Kyle Love MCH (RBC) [Entitic mass] 28.9 pg Normal 26.7-34.0 [facility] Comment on above: Performed By: #### C BC #### [facility] [address] [place] [address] Dr. Kyle Love MCHC (RBC) [Mass/Vol] 33.0 g/dL Normal 29.9-35.2 [facility] Comment on above: Performed By: #### C BC #### [facility] [address] [place] [address] Dr. Kyle Love MCV (RBC) [Entitic vol] 87.5 fL Normal 81.0-99.0 [facility] Comment on above: Performed By: #### C BC #### [facility] [address] [place] [address] Dr. Kyle Love MONO # 0.4 103/ul Normal 0.3-0.8 [facility] Comment on above: Performed By: #### C BC #### [facility] [address] [place] [address] Dr. Kyle Love Monocytes/100 WBC (Bld) 5.4 % Normal 1.7-12.0 [facility] Comment on above: Performed By: #### C BC #### [facility] [address] [place] [address] Dr. Kyle Love NEUT # 5.1 103/ul Normal 1.4-6.5 [facility] Comment on above: Performed By: #### C BC #### [facility] [address] [place] [address] Dr. Kyle Love Neutrophils/100 WBC (Bld) 71.3 % Normal 43.0-75.0 [facility] Comment on above: Performed By: #### C BC #### [facility] [address] [place] [address] Dr. Kyle Love Platelet mean volume (Bld) [Entitic vol] 9.9 fL Normal 9.5-13.5 [facility] Comment on above: Performed By: #### C BC #### [facility] [address] [place] [address] Dr. Kyle Love PLT 233 103/ul Normal 150-450 [facility] Comment on above: Performed By: #### C BC #### [facility] [address] [place] [address] Dr. Kyle Love RBC 4.47 106/ul Normal 4.20-5.40 [facility] Comment on above: Performed By: #### C BC #### [facility] [address] [address] [address] Kyle Love WBC 7.2 103/ul Normal 4.0-11.0 [facility] Comment on above: Performed By: #### C BC #### [facility] [address] [place] [address] Dr. Kyle Love GLYCOHEMOGLOBIN A1Con 2022 ADA RECOMMENDATION SEE BELOW Normal [facility] Comment on above: Result Comment: ADA RECOMMENDED LIMIT 4.0 - 6.0 ADA THERAPEUTIC TARGET < 7.0 ACTION SUGGESTED > 7.0 Performed By: #### A 1C #### [facility] [address] [place] [address] Dr. Kyle Love Glucose [Mass/Vol] 143 mg/dL Normal [facility] Comment on above: Performed By: #### A 1C #### [facility] [address] [place] [address] Dr. Kyle Love HbA1c (Bld) [Mass fraction] 6.6 % Critically high 4.5-6.2 [facility] Comment on above: Performed By: #### A 1C #### [facility] [address] [place] [address] Dr. Kyle Love LIPID PROFILEon 02-10-2023 CHOL-HDL RATIO NORM SEE BELOW Normal [facility] Comment on above: Result Comment: 3.3 - 4.4 LOW RISK 4.4 - 7.1 AVERAGE RISK 7.1 - 11.0 MODERATE RISK >11.0 HIGH RISK Performed By: #### P OCGLUC #### [facility] [address] [place] [address] Dr. Kyle Love Cholesterol [Mass/Vol] 205 mg/dL Critically high <=200 [facility] Comment on above: Performed By: #### P OCGLUC #### [facility] [address] [place] [address] Dr. Kyle Love Cholesterol in HDL [Mass/Vol] 56 mg/dL Normal 40-60 [facility] Comment on above: Performed By: #### P OCGLUC #### [facility] [address] [address] [address] Kyle Love Cholesterol in LDL [Mass/Vol] 129.4 mg/dL Normal [facility] Comment on above: Performed By: #### P OCGLUC #### [facility] [address] [address] [address] Kyle Love Cholesterol.total/Cho lesterol in HDL [Mass ratio] 3.7 {ratio} Normal [facility] Comment on above: Performed By: #### P OCGLUC #### [facility] [address] [address] [address] Kyle Love HDL NORMAL > or = 60 mg/dl - LO W CARDIOVASCULAR RISK <40 mg/dl - HIGH CARDIOVASCULAR RISK Normal [facility] Comment on above: Performed By: #### P OCGLUC #### [facility] [address] [address] [address] Kyle Love LDL CALC NORMAL SEE BELOW Normal [facility] Comment on above: Result Comment: <100 mg/dl OPTIMAL 100 - 129 mg/dl NEAR OR ABOVE OPTIMAL 130 - 159 mg/dl BORDERLINE HIGH 160 - 189 mg/dl HIGH >190 mg/dl VERY HIGH Performed By: #### P OCGLUC #### [facility] [address] [address] [address] Kyle Love Triglyceride [Mass/Vol] 98 mg/dL Normal <=150 [facility] Comment on above: Performed By: #### P OCGLUC #### [facility] [address] [address] [address] Kyle Love VLDL CALC 19.6 mg/dL Normal [facility] Comment on above: Performed By: #### P OCGLUC #### [facility] [address] [address] [address] Kyle Love LIVER PROFILEon 02-10-2023 Albumin [Mass/Vol] 4.0 g/dL Normal 3.4-5.0 [facility] Comment on above: Performed By: #### P OCGLUC #### [facility] [address] [address] [address] Kyle Love Albumin/Globulin [Mass ratio] 1.1 {ratio} Normal [facility] Comment on above: Performed By: #### P OCGLUC #### [facility] [address] [address] [address] Kyle Love ALP [Catalytic activity/Vol] 142 U/L Critically high 46-116 [facility] Comment on above: Performed By: #### P OCGLUC #### [facility] [address] [address] [address] Kyle Love ALT [Catalytic activity/Vol] 28 U/L Normal 14-59 [facility] Comment on above: Performed By: #### P OCGLUC #### [facility] [address] [address] [address] Kyle Love AST [Catalytic activity/Vol] 20 U/L Normal 15-37 [facility] Comment on above: Performed By: #### P OCGLUC #### [facility] [address] [address] [address] Kyle Love BILI, CONJUGATED 0.2 mg/dL Normal 0.0-0.2 [facility] Comment on above: Performed By: #### P OCGLUC #### [facility] [address] [address] [address] Kyle Love Bilirubin [Mass/Vol] 0.7 mg/dL Normal 0.2-1.0 [facility] Comment on above: Performed By: #### P OCGLUC #### [facility] [address] [address] [address] Kyle Love Globulin (S) [Mass/Vol] 3.7 g/dL Normal [facility] Comment on above: Performed By: #### P OCGLUC #### [facility] [address] [address] [address] Kyle Love Protein [Mass/Vol] 7.7 g/dL Normal 6.4-8.2 [facility] Comment on above: Performed By: #### P OCGLUC #### [facility] [address] [address] [address] Kyle Love MICROALBUMIN, RAND URon 03-1 mALB <1.3 Normal <=30.0 [facility] Comment on above: Performed By: #### P OCGLUC #### [facility] [address] [address] [address] Kyle Love PROF CHEM 8 (BAS METB)on Anion gap [Moles/Vol] 12.4 mmol/L Normal [facility] Comment on above: Performed By: #### T SH, BMP, LIVER, LIPID #### [facility] [address] [address] [address] Kyle Love Calcium [Mass/Vol] 9.5 mg/dL Normal 8.5-10.1 [facility] Comment on above: Performed By: #### T SH, BMP, LIVER, LIPID #### [facility] [address] [address] [address] Kyle Love Chloride [Moles/Vol] 107 mmol/L Normal 98-107 [facility] Comment on above: Performed By: #### T SH, BMP, LIVER, LIPID #### [facility] [address] [place] [address] Dr. Kyle Love CO2 [Moles/Vol] 26.9 mmol/L Normal 21.0-32.0 [facility] Comment on above: Performed By: #### T SH, BMP, LIVER, LIPID #### [facility] [address] [place] [address] Dr. Kyle Love Creatinine [Mass/Vol] 0.53 mg/dL Critically low 0.55-1.02 [facility] Comment on above: Performed By: #### T SH, BMP, LIVER, LIPID #### [facility] [address] [place] [address] Dr. Kyle Love EGFR-AF CENTRAL AFRICAN >60 Normal >=60 [facility] Comment on above: Performed By: #### T SH, BMP, LIVER, LIPID #### [facility] [address] [place] [address] Dr. Kyle Love EGFR-NON AF CENTRAL AFRICAN >60 Normal >=60 [facility] Comment on above: Performed By: #### T SH, BMP, LIVER, LIPID #### [facility] [address] [address] [address] Kyle Love Glucose [Mass/Vol] 131 mg/dL Critically high 74-106 [facility] Comment on above: Performed By: #### T SH, BMP, LIVER, LIPID #### [facility] [address] [address] [address] Kyle Love Potassium [Moles/Vol] 4.3 mmol/L Normal 3.5-5.1 [facility] Comment on above: Performed By: #### T SH, BMP, LIVER, LIPID #### [facility] [address] [address] [address] Kyle Love Sodium [Moles/Vol] 142 mmol/L Normal 136-145 [facility] Comment on above: Performed By: #### T SH, BMP, LIVER, LIPID #### [facility] [address] [address] [address] Kyle Love Urea nitrogen [Mass/Vol] 16.0 mg/dL Normal 7.0-18.0 [facility] Comment on above: Performed By: #### T SH, BMP, LIVER, LIPID #### [facility] [address] [address] [address] Kyle Love Urea nitrogen/Creatinine [Mass ratio] 30.2 mg/mg Normal [facility] Comment on above: Performed By: #### T SH, BMP, LIVER, LIPID #### [facility] [address] [address] [address] Kyle Love TSHon 02-10-2023 TSH 0.752 uIU/mL Normal 0.358-3.74 0 [facility] Comment on above: Performed By: #### P OCGLUC #### [facility] [address] [address] [address] Kyle Love VITAMIN D 25 OHon 02-10-2023 VIT D 25-OH 26.7 ng/mL Normal [facility] Comment on above: Performed By: #### A 1C #### [facility] [address] [address] [address] Kyle Love VIT D RANGES SEE BELOW Normal [facility] Comment on above: Result Comment: <20 ng/mL Vit D deficient 20 - <30 ng/mL Vit D insufficient 30 - 100 ng/mL Vit D sufficient >100 ng/mL Potential Toxicity Performed By: #### A 1C #### [facility] [address] [address] [address] Kyle Love XR knee RT 4V*on 12-14-2022 XR knee RT 4V* [facility] [employer] Other XR knee RT 4V* [facility] [employer] Other XR knee RT 4V* [address] [place] [address] [employer] Other XR knee RT 4V* [place] [address] No rt [employer] Other XR knee RT 4V* XRay Report [employer] [place] Other XR knee RT 4V* Signed [employer] Other XR knee RT 4V* Patient: Edna Taveras MR#: [id number] [place] [employer] Other XR knee RT 4V* 69 [employer] Other XR knee RT 4V* : 1960 Acct:[id number] [place] [employer] Other XR knee RT 4V* Age/Sex: 62 / F ADM Date: 12/14/22 [employer] Other XR knee RT 4V* Loc: SOXD Room: Type : [facility] [employer] Other XR knee RT 4V* Attending Dr: Kelby Bella II, MD [employer] Other XR knee RT 4V* Copies to: Kelby Bella MD [employer] Other XR knee RT 4V* Ordering Provider: Joanie Bella MD [employer] Other XR knee RT 4V* Date of Service: 12/14/22 [facility] [employer] Other XR knee RT 4V* [id number]) XR/XR knee RT 4V*: Acute pain of right knee [place] [employer] Other XR knee RT 4V* ([id number]) XR/XR pelvis 1-2V: Acute pain of right knee [place] [employer] Other XR knee RT 4V* CLINICAL DATA: Chron ic worsening right knee pain. [employer] Other XR knee RT 4V* AP LOW PELVIS: [employer] Other XR knee RT 4V* COMPARISON: Right fe mur 07/08/2016 [place] [employer] Other XR knee RT 4V* AP view of the low p federico was obtained. Assessment is slightly limited by body habitus and [employer] Other XR knee RT 4V* technique. There is no obvious acute fracture or dislocation. The hip joint spaces are symmetric. [employer] Other XR knee RT 4V* There is no prominen t hypertrophy. No soft tissue abnormalities are noted. [employer] Other XR knee RT 4V* X R/XR pelvis 1-2V [place] [employer] Other XR knee RT 4V* IMPRESSION: [facility] [employer] Other XR knee RT 4V* NO ACUTE BONY FINDIN GS WITHIN LIMITATIONS, DESCRIBED. [employer] Other XR knee RT 4V* RIGHT KNEE - 4 views [place] [employer] Other XR knee RT 4V* COMPARISON: None [place] [employer] Other XR knee RT 4V* Standing AP, lateral , skiers and patellar views were obtained. There is no acute fracture or [employer] Other XR knee RT 4V* dislocation. There i s genu valgum deformity. There is narrowing of the lateral tibiofemoral joint [employer] Other XR knee RT 4V* compartment with subchondral sclerosis and cystic change. There is tricompartment marginal spurring. [employer] Other XR knee RT 4V* A small knee effusio n is seen. There is no focal soft tissue swelling. [employer] Other XR knee RT 4V* DEGENERATIVE CHANGES , GREATEST LATERALLY. [employer] Other XR knee RT 4V* Impression dictated by: Bree Dukes M.D.12/14/2022 3:58 PM [employer] Other XR knee RT 4V* Dictation Location: [address] [employer] Other XR knee RT 4V* Transcribed By: KIANA 12/14/22 [facility] [employer] Other XR knee RT 4V* Dictated By: Bree Dukes MD 12/14/22 [facility] [employer] Other XR knee RT 4V* Signed By: [employer] Other XR knee RT 4V* 12/14/22 [facility] [employer] Other XR ankle RT min 3V*on 2021 XR ankle RT min 3V* [facility] [employer] Other XR ankle RT min 3V* [facility] [employer] Other XR ankle RT min 3V* [address] [place] [address] [employer] Other XR ankle RT min 3V* MARIANGEL [place] [address] [place] [employer] Other XR ankle RT min 3V* XRay Report [place] [employer] Other XR ankle RT min 3V* Signed [employer] Other XR ankle RT min 3V* Patient: Edna Taveras MR#: [id number] [employer] Other XR ankle RT min 3V* 69 [employer] Other XR ankle RT min 3V* : 1960 Acct:[id number] [employer] Other XR ankle RT min 3V* Age/Sex: 62 / F ADM Date: 10/24/22 [employer] Other XR ankle RT min 3V* Loc: XDUCLY Room: pe: REG CLI [employer] Other XR ankle RT min 3V* Attending Dr: [facility]ist [facility] [employer] Other XR ankle RT min 3V* Copies to: AURELIA RAVI [employer] REPRESENTATIV[employer]aulia [employer] Other XR ankle RT min 3V* Ordering Provider[facility] [employer] Other XR ankle RT min 3V* Date of Service: 10/24/22 [employer] Other XR ankle RT min 3V* [id number]) XR/XR ankle RT min 3V*: Injury of right ankle, initial encounter [employer] Other XR ankle RT min 3V* RIGHT ANKLE - 3 views [employer] Other XR ankle RT min 3V* CLINICAL DATA: Twist ing injury of the right ankle 2 days ago. Increasing pain and swelling [employer] Other XR ankle RT min 3V* laterally. [employer] Other XR ankle RT min 3V* COMPARISON: None [employer] Other XR ankle RT min 3V* AP, lateral and obli que views were obtained. There is no evidence of fracture or dislocation. [employer] Other XR ankle RT min 3V* The talar dome is in tact. There is spurring at the dorsum of the tarsometatarsal joints. There are [employer] Other XR ankle RT min 3V* calcaneal spurs, gre ater along the plantar surface. There is mild anterior and lateral soft tissue [employer] Other XR ankle RT min 3V* swelling. [employer] Other XR ankle RT min 3V* X R/XR ankle RT min 3V* [employer] Other XR ankle RT min 3V* IMPRESSION: [place] [employer] Other XR ankle RT min 3V* NO ACUTE BONY INJURY. [employer] Other XR ankle RT min 3V* Impression dictated by: Bree Dukes M.D.10/24/2022 10:44 AM [employer] Other XR ankle RT min 3V* Dictation Location: [facility]-- [employer] Other XR ankle RT min 3V* Transcribed By: [facility] 10/24/22 1044 [employer] Other XR ankle RT min 3V* Dictated By: Bree Dukes MD 10/24/22 1042 [employer] Other XR ankle RT min 3V* Signed By: [employer] Other XR ankle RT min 3V* 10/24/22 1044 No [employer] Other GLYCOHEMOGLOBIN A1Con 2021 ADA RECOMMENDATION SEE BELOW Normal [facility] Comment on above: Result Comment: ADA RECOMMENDED LIMIT 4.0 - 6.0 ADA THERAPEUTIC TARGET < 7.0 ACTION SUGGESTED > 7.0 Performed By: #### A 1C #### [facility] [address] [place] [address] Dr. Kyle Love Glucose [Mass/Vol] 143 mg/dL Normal [facility] Comment on above: Performed By: #### A 1C #### [facility] [address] [place] [address] Dr. Kyle Love HbA1c (Bld) [Mass fraction] 6.6 % Critically high 4.5-6.2 [facility] Comment on above: Performed By: #### A 1C #### [facility] [address] [place] [address] Dr. Kyle Love BUNon 06-26-2022 Urea nitrogen [Mass/Vol] 13.0 mg/dL Normal 7.0-18.0 [facility] Comment on above: Performed By: #### P OCGLUC #### [facility] [address] [place] [address] Dr. Kyle Love CREATININEon 06-26-2022 Creatinine [Mass/Vol] 0.71 mg/dL Normal 0.55-1.02 [facility] Comment on above: Performed By: #### P OCGLUC #### [facility] [address] [place] [address] Dr. Kyle Love EGFR-AF CENTRAL AFRICAN >60 Normal >=60 [facility] Comment on above: Performed By: #### P OCGLUC #### [facility] [address] [place] [address] Dr. Kyle Love EGFR-NON AF CENTRAL AFRICAN >60 Normal >=60 [facility] Comment on above: Performed By: #### P OCGLUC #### [facility] [address] [place] [address] Dr. Kyle Love XR IVPon 06-26-2022 XR IVP EXAMINATION: XR IVP HISTORY: Kidney stone ; left flank pain COMPARISON: CT abdomen pelvis 06/09/2022 TECHNIQUE: After obtaining patient consent a trust manager assistant image was obtained followed by injection of [...] by: MAX BRADY Date: 2022-06-26 11:05 Normal [facility] CT ABD/PELVIS WO CONon 06-09 CT ABD/PELVIS [...] EUSEBIA HIGHTOWER Date: 2022-06-09 20:35 Normal [facility] UA (CLEAN/CATCH) ENVIRONMENTAL CONFLICT MANAGER/MICRO I F IND.on 06-05-2022 Bilirubin Ql (U) Negative Normal NEGATIVE [facility] Comment on above: Performed By: #### U ACSIND #### [facility] [address] [address] [address] Kyle Love Clarity (U) CLEAR Normal CLEAR [facility] Comment on above: Performed By: #### U ACSIND #### [facility] [address] [place] [address] Dr. Kyle Love Color (U) LT. YELLOW Normal YELLOW [facility] Comment on above: Performed By: #### U ACSIND #### [facility] [address] [address] [address] Kyle Love Glucose Ql (U) Negative Normal NEGATIVE [facility] Comment on above: Performed By: #### U ACSIND #### [facility] [address] [address] [address] Kyle Love Hemoglobin Ql (U) Negative Normal NEGATIVE [facility] Comment on above: Performed By: #### U ACSIND #### [facility] [address] [address] [address] Kyle Love Ketones Ql (U) Negative Normal NEGATIVE [facility] Comment on above: Performed By: #### U ACSIND #### [facility] [address] [address] [address] Kyle Love LEUKOCYTES Negative Normal NEGATIVE [facility] Comment on above: Performed By: #### U ACSIND #### [facility] [address] [address] [address] Kyle Love Nitrite Ql (U) Negative Normal NEGATIVE [facility] Comment on above: Performed By: #### U ACSIND #### [facility] [address] [place] [address] Dr. Kyle Love pH (U) 6.0 [pH] Normal 5-9 [facility] Comment on above: Performed By: #### U ACSIND #### [facility] [address] [place] [address] Dr. Kyle Love SPEC GRAVITY 1.010 Normal 1.005-<=1. 025 [facility] Comment on above: Performed By: #### U ACSIND #### [facility] [address] [place] [address] Dr. Kyle Love UA PROTEIN Negative Normal NEGATIVE/ TRACE [facility] Comment on above: Performed By: #### U ACSIND #### [facility] [address] [place] [address] Dr. Kyle oLve UR MICRO IND NOT INDICATED Normal [facility] Comment on above: Performed By: #### U ACSIND #### [facility] [address] [place] [address] Dr. Kyle Love Urobilinogen Qn (U) 0.2 {Dianna'U}/dL Normal 0.2 - 1. 0 [facility] Comment on above: Performed By: #### U ACSIND #### [facility] [address] [place] [address] Dr. Kyle Love US KIDNEYSon 06-05-2022 US [...] GENEVA HELM Date: 2022-06-05 08:20 Normal [facility] XR KUB 1 VIEWon 06-05-2022 XR [...] GENEVA MARK Date: 2022-06-05 07:34 Normal [facility] ACETONE SERUMon 04-30-2022 ACETONE Negative Normal NEGATIVE [facility] Comment on above: Performed By: #### A CETON #### [facility] [address] [place] [address] Dr. Kyle Love CBC AUTO DIFFon 04-30-2022 BASO # 0.0 103/ul Normal 0.0-0.1 [facility] Comment on above: Performed By: #### C BC #### [facility] [address] [address] [address] Kyle Love Basophils/100 WBC (Bld) 0.5 % Normal 0.2-2.0 [facility] Comment on above: Performed By: #### C BC #### [facility] [address] [place] [address] Dr. Kyle Love EO # 0.3 103/ul Normal 0.0-0.7 [facility] Comment on above: Performed By: #### C BC #### [facility] [address] [place] [address] Dr. Kyle Love Eosinophils/100 WBC (Bld) 3.9 % Normal 0.9-7.0 [facility] Comment on above: Performed By: #### C BC #### [facility] [address] [place] [address] Dr. Kyle Love Erythrocyte distribution width (RBC) [Ratio] 13.7 % Normal 11.0-15.0 [facility] Comment on above: Performed By: #### C BC #### [facility] [address] [place] [address] Dr. Kyle Love Hematocrit (Bld) [Volume fraction] 42.2 % Normal 36.0-48.0 [facility] Comment on above: Performed By: #### C BC #### [facility] [address] [place] [address] Dr. Kyle Love Hemoglobin (Bld) [Mass/Vol] 14.4 g/dL Normal 12.0-16.0 [facility] Comment on above: Performed By: #### C BC #### [facility] [address] [place] [address] Dr. Kyle Love IG # 0.04 10e3/ul Critically high 0.00-0.03 [facility] Comment on above: Performed By: #### C BC #### [facility] [address] [place] [address] Dr. Kyle Love IG % 0.5 % Normal 0.0-0.5 [facility] Comment on above: Performed By: #### C BC #### [facility] [address] [place] [address] Dr. Kyle Love LYMPH # 1.9 103/ul Normal 1.2-3.8 [facility] Comment on above: Performed By: #### C BC #### [facility] [address] [place] [address] Dr. Kyle Love Lymphocytes/100 WBC (Bld) 21.3 % Normal 20.5-60.0 [facility] Comment on above: Performed By: #### C BC #### [facility] [address] [place] [address] Dr. Kyle Love MANUAL DIFF REQ NO Normal [facility] Comment on above: Performed By: #### C BC #### [facility] [address] [place] [address] Dr. Kyle Love MCH (RBC) [Entitic mass] 29.3 pg Normal 26.7-34.0 [facility] Comment on above: Performed By: #### C BC #### [facility] [address] [place] [address] Dr. Kyle Love MCHC (RBC) [Mass/Vol] 34.1 g/dL Normal 29.9-35.2 [facility] Comment on above: Performed By: #### C BC #### [facility] [address] [place] [address] Dr. Kyle Love MCV (RBC) [Entitic vol] 85.8 fL Normal 81.0-99.0 [facility] Comment on above: Performed By: #### C BC #### [facility] [address] [place] [address] Dr. Kyle Love MONO # 0.5 103/ul Normal 0.3-0.8 [facility] Comment on above: Performed By: #### C BC #### [facility] [address] [place] [address] Dr. Kyle Love Monocytes/100 WBC (Bld) 6.1 % Normal 1.7-12.0 [facility] Comment on above: Performed By: #### C BC #### [facility] [address] [place] [address] Dr. Kyle Love NEUT # 6.0 103/ul Normal 1.4-6.5 [facility] Comment on above: Performed By: #### C BC #### [facility] [address] [place] [address] Dr. Kyle Love Neutrophils/100 WBC (Bld) 67.7 % Normal 43.0-75.0 [facility] Comment on above: Performed By: #### C BC #### [facility] [address] [place] [address] Dr. Kyle Love Platelet mean volume (Bld) [Entitic vol] 10.4 fL Normal 9.5-13.5 [facility] Comment on above: Performed By: #### C BC #### [facility] [address] [place] [address] Dr. Kyle Love PLT 231 103/ul Normal 150-450 [facility] Comment on above: Performed By: #### C BC #### [facility] [address] [place] [address] Dr. Kyle Love RBC 4.92 106/ul Normal 4.20-5.40 [facility] Comment on above: Performed By: #### C BC #### [facility] [address] [place] [address] Dr. Kyle Love WBC 8.8 103/ul Normal 4.0-11.0 [facility] Comment on above: Performed By: #### C BC #### [facility] [address] [place] [address] Dr. Kyle Love ER URINE PROFILEon 2 Bilirubin Ql (U) Negative Normal [facility] [place] Comment on above: Performed By: #### E RUR #### [facility] [address] [place] [address] Dr. Kyle Love Clarity (U) CLEAR Normal CLEAR [facility] Comment on above: Performed By: #### E RUR #### [facility] [address] [place] [address] Dr. Kyle Love Color (U) YELLOW Normal YELLOW [facility] Comment on above: Performed By: #### E RUR #### [facility] [address] [place] [address] Dr. Kyle Love ERUAHD A micrscopic examina tion will be performed if indicated. Normal [facility] Comment on above: Performed By: #### E RUR #### [facility] [address] [place] [address] Dr. Kyle Love Glucose Ql (U) 500 mg/dl Abnormal NEGATIVE [facility] Comment on above: Performed By: #### E RUR #### [facility] [address] [place] [address] Dr. Kyle Love Hemoglobin Ql (U) Negative Normal NEGATIVE [facility] Comment on above: Performed By: #### E RUR #### [facility] [address] [place] [address] Dr. Kyle Love Ketones Ql (U) Negative Normal NEGATIVE [facility] Comment on above: Performed By: #### E RUR #### [facility] [address] [place] [address] Dr. Kyle Love LEUKOCYTES Negative Normal NEGATIVE [facility] Comment on above: Performed By: #### E RUR #### [facility] [address] [place] [address] Dr. Kyle Love Nitrite Ql (U) Negative Normal NEGATIVE [facility] Comment on above: Performed By: #### E RUR #### [facility] [address] [place] [address] Dr. Kyle Love pH (U) 5.5 [pH] Normal 5-9 [facility] Comment on above: Performed By: #### E RUR #### [facility] [address] [place] [address] Dr. Kyle Love SPEC GRAVITY >=1.030 Abnormal 1.005-<=1. 025 [facility] Comment on above: Performed By: #### E RUR #### [facility] [address] [place] [address] Dr. Kyle Love UA PROTEIN TRACE Normal NEGATIVE/ TRACE [facility] Comment on above: Performed By: #### E RUR #### [facility] [address] [place] [address] Dr. Kyle Love UR MICRO IND NOT INDICATED Normal [facility] Comment on above: Performed By: #### E RUR #### [facility] [address] [place] [address] Dr. Kyle Love Urobilinogen Qn (U) 0.2 {Dianna'U}/dL Normal 0.2 - 1. 0 [facility] Comment on above: Performed By: #### E RUR #### [facility] [address] [address] [address] Kyle Love PH VENOUS BLOODon 04-30-2022 PCO2 VENOUS 36.8 mmHg Critically low 40.0-52.0 [facility] Comment on above: Performed By: #### P OCGLUC #### [facility] [address] [address] [address] Kyle Love pH VENOUS 7.418 Normal 7.330-7.[address] [place] [address] Comment on above: Performed By: #### P OCGLUC #### [facility] [address] [address] [address] Kyle Love POINT OF CARE GLUCOSEon Glucose [Mass/Vol] 208 mg/dL Critically high [facility] Comment on above: Performed By: #### P OCGLUC #### [facility] [address] [address] [address] Kyle Love Glucose [Mass/Vol] 320 mg/dL Critically high [facility] Comment on above: Performed By: #### P OCGLUC #### [facility] [address] [address] [address] Kyle Love PROF CHEM 8 (BAS METB)on Anion gap [Moles/Vol] 15.2 mmol/L Normal [facility] Comment on above: Performed By: #### B MP #### [facility] [address] [address] [address] Kyle Love Calcium [Mass/Vol] 9.7 mg/dL Normal 8.5-10.1 [facility] Comment on above: Performed By: #### B MP #### [facility] [address] [address] [address] Kyle Love Chloride [Moles/Vol] 101 mmol/L Normal 98-107 [facility] Comment on above: Performed By: #### B MP #### [facility] [address] [address] [address] Kyle Love CO2 [Moles/Vol] 23.9 mmol/L Normal 21.0-32.0 [facility] [place] [facility] Comment on above: Performed By: #### B MP #### [facility] [address] [address] [address] Kyle Love Creatinine [Mass/Vol] 0.90 mg/dL Normal 0.55-1.02 [facility] Comment on above: Performed By: #### B MP #### [facility] [address] [address] [address] Kyle Love EGFR-AF CENTRAL AFRICAN >60 Normal >=60 [facility] [place] [facility] Comment on above: Performed By: #### B MP #### [facility] [address] [address] [address] Kyle Love EGFR-NON AF CENTRAL AFRICAN >60 Normal >=60 [facility] Comment on above: Performed By: #### B MP #### [facility] [address] [address] [address] Kyle Love Glucose [Mass/Vol] 324 mg/dL Critically high 74-106 [facility] Comment on above: Performed By: #### B MP #### [facility] [address] [address] [address] Kyle Love Potassium [Moles/Vol] 4.1 mmol/L Normal 3.5-5.1 [facility] Comment on above: Performed By: #### B MP #### [facility] [address] [address] [address] yKle Love Sodium [Moles/Vol] 136 mmol/L Normal 136-145 [facility] Comment on above: Performed By: #### B MP #### [facility] [address] [address] [address] Kyle Love Urea nitrogen [Mass/Vol] 16.0 mg/dL Normal 7.0-18.0 [facility] Comment on above: Performed By: #### B MP #### [facility] [address] [address] [address] Kyle Love Urea nitrogen/Creatinine [Mass ratio] 17.8 mg/mg Normal [facility] Comment on above: Performed By: #### B MP #### [facility] [address] [address] [address] Kyle Love Vital Signs Date Time Vital Sign Value Performing Clinician Facility 08-19-2025 13:15-0400 Body height 157.48 cm Jorge Luis Wick MD Work Phone: [facility] 08-19-2025 13:15-0400 Body mass index (BMI) [Ratio] 38 kg/m2 Jorge Luis Wick MD Work Phone: [facility] [place] [facility] 08-19-2025 13:15-0400 Body temperature 96 [degF] Jorge Luis Wick MD Work Phone: [facility] [place] [facility] 08-19-2025 13:15-0400 Body weight 94.34 kg Jorge Luis Wick MD Work Phone: [facility] [place] [facility] 08-19-2025 13:15-0400 Diastolic blood pressure 84 mm[Hg] Jorge Luis Wick MD Work Phone: [facility] 08-19-2025 13:15-0400 Heart rate 102 /min Jorge Luis Wick MD Work Phone: [facility] [place] [facility] 08-19-2025 13:15-0400 Respiratory rate 20 /min Jorge Luis Wick MD Work Phone: [facility] [place] [facility] 08-19-2025 13:15-0400 Systolic blood pressure 150 mm[Hg] Jorge Luis Wick MD Work Phone: [facility] 08-14-2025 09:43-0400 Body height 157.5 cm Karina Zimmerman DPM Work Phone: [facility] 08-14-2025 09:43-0400 Body mass index (BMI) [Ratio] 37.86 kg/m2 Karina Zimmerman DPTodd Work Phone: [facility] 08-14-2025 09:43-0400 Body weight 93.89 kg Karina Zimmerman DPM Work Phone: [facility] 06-18-2025 11:05-0400 Body height 157.48 cm Jorge Luis Wick MD Work Phone: [facility] 06-18-2025 11:05-0400 Body mass index (BMI) [Ratio] 37.5 kg/m2 Jorge Luis Wick MD Work Phone: [facility] 06-18-2025 11:05-0400 Body temperature 98.4 [degF] Jorge Luis Wick MD Work Phone: [facility] 06-18-2025 11:05-0400 Body weight 92.98 kg Jorge Luis Wick MD Work Phone: [facility] 06-18-2025 11:05-0400 Diastolic blood pressure 83 mm[Hg] Jorge Luis Wick MD Work Phone: [facility] 06-18-2025 11:05-0400 Heart rate 63 /min Jorge Luis Wick MD Work Phone: [facility] 06-18-2025 11:05-0400 Respiratory rate 18 /min Jorge Luis Wick MD Work Phone: [facility] 06-18-2025 11:05-0400 SaO2% (BldA) [Mass fraction] 96 % Jorge Luis Wick MD Work Phone: [facility] 06-18-2025 11:05-0400 Systolic blood pressure 148 mm[Hg] Jorge Luis Wick MD Work Phone: [facility] 12-11-2024 11:31-0500 Body height 157.5 cm Jorge Luis Wick MD Work Phone: [facility] 12-11-2024 11:31-0500 Body mass index (BMI) [Ratio] 37.49 kg/m2 Jorge Luis Wick MD Work Phone: [facility] 12-11-2024 11:31-0500 Body temperature 95.9 [degF] Jorge Luis Wick MD Work Phone: [facility] 01-16-2025 11:31-0500 Body weight 92.99 kg Jorge Luis Wick MD Work Phone: [facility] 12-11-2024 11:31-0500 Diastolic blood pressure 76 mm[Hg] Jorge Luis Wick MD Work Phone: [facility] 12-11-2024 11:31-0500 Heart rate 98 /min Jorge Luis Wick MD Work Phone: [facility] 12-11-2024 11:31-0500 Respiratory rate 22 /min Jorge Luis Wick MD Work Phone: [facility] 12-11-2024 11:31-0500 SaO2% (BldA) [Mass fraction] 98 % Jorge Luis Wick MD Work Phone: [facility] 12-11-2024 11:31-0500 Systolic blood pressure 138 mm[Hg] Jorge Luis Wick MD Work Phone: [facility] 08-20-2024 07:14-0400 Body height 157.5 cm Jorge Luis Wick MD Work Phone: [facility] 08-20-2024 07:14-0400 Body mass index (BMI) [Ratio] 39.32 kg/m2 Jorge Luis Wick MD Work Phone: [facility] 08-20-2024 07:14-0400 Body temperature 94.8 [degF] Jorge Luis Wick MD Work Phone: [facility] 08-20-2024 07:14-0400 Body weight 97.52 kg Jorge Luis Wick MD Work Phone: [facility] 08-20-2024 07:14-0400 Diastolic blood pressure 70 mm[Hg] Jorge Luis Wick MD Work Phone: [facility] 08-20-2024 07:14-0400 Heart rate 84 /min Jorge Luis Wick MD Work Phone: [facility] 08-20-2024 07:14-0400 Respiratory rate 20 /min Jorge Luis Wick MD Work Phone: [facility] 08-20-2024 07:14-0400 SaO2% (BldA) [Mass fraction] 97 % Jorge Luis Wick MD Work Phone: [facility] 08-20-2024 07:14-0400 Systolic blood pressure 154 mm[Hg] Jorge Luis Wick MD Work Phone: [facility] 04-15-2024 11:23-0400 Body height 1584.96 cm MD Jorge Luis Wick Work Phone: [facility] 04-15-2024 11:23-0400 Body mass index (BMI) [Ratio] 0.4 kg/m2 MD Jorge Luis Wick Work Phone: [facility] [place] [facility] 04-15-2024 11:23-0400 Body temperature 95.4 [degF] MD Jorge Luis Wick Work Phone: [facility] [place] [facility] 04-15-2024 11:23-0400 Body weight 98.48 kg MD Jorge Luis Wick Work Phone: [facility] [place] [facility] 04-15-2024 11:23-0400 Diastolic blood pressure 44 mm[Hg] MD Jorge Luis Wick Work Phone: [facility] 04-15-2024 11:23-0400 Heart rate 100 /min MD Jorge Luis Wick Work Phone: [facility] 04-15-2024 11:23-0400 Respiratory rate 16 /min MD Jorge Luis Wick Work Phone: [facility] 04-15-2024 11:23-0400 SaO2% (BldA) [Mass fraction] 99 % MD Jorge Luis Wick Work Phone: [facility] 04-15-2024 11:23-0400 Systolic blood pressure 130 mm[Hg] MD Jorge Luis Wick Work Phone: [facility] 09-10-2023 15:36-0400 Blood Pressure Location Pamella ISELA [facility] 09-10-2023 15:36-0400 Diastolic blood pressure 78 mm[Hg] Pamella MATOS [facility] 09-10-2023 15:36-0400 Heart rate 80 /min Pamella MATOS [facility] 09-10-2023 15:36-0400 Respiratory rate 16 /min Pamella MATOS [facility] 09-10-2023 15:36-0400 Systolic blood pressure 133 mm[Hg] Pamella MATOS [facility] 07-18-2023 08:15-0400 Body height 157.48 cm Patricia Aguilar Other [facility] Other 07-18-2023 08:15-0400 Body mass index (BMI) [Ratio] 38.77 kg/m2 Patricia Aguilar Other [facility] Other 07-18-2023 08:15-0400 Body weight 96.16 kg Patricia Aguilar Other [facility] Other 06-14-2023 09:10-0400 Body height 157.48 cm Ella Quinteros Other [facility] Other 06-14-2023 09:10-0400 Body mass index (BMI) [Ratio] 38.77 kg/m2 Ella Quinteros Other [facility] Other 06-14-2023 09:10-0400 Body temperature 98.4 [degF] Ella Quinteros Other [facility] Other 06-14-2023 09:10-0400 Body weight 96.16 kg Ella Quinteros Other [facility] Other 06-14-2023 09:10-0400 Diastolic blood pressure 79 mm[Hg] Ella Quinteros Other [facility] Other 06-14-2023 09:10-0400 Respiratory rate 18 /min Ella Quinteros Other [facility] Other 06-14-2023 09:10-0400 SaO2% (BldA) [Mass fraction] 100 % Ella Quinteros Other [facility] Other 06-14-2023 09:10-0400 Systolic blood pressure 157 mm[Hg] Ella Quinteros Other [facility] Other 04-17-2023 14:20-0400 Diastolic blood pressure 54 mm[Hg] MD Jorge Luis Wick Work Phone: [facility] 04-17-2023 14:20-0400 Heart rate 77 /min MD Jorge Luis Wick Work Phone: [facility] 04-17-2023 14:20-0400 Respiratory rate 16 /min MD Jorge Luis Wick Work Phone: [facility] 04-17-2023 14:20-0400 SaO2% (BldA) [Mass fraction] 95 % MD Jorge Luis Wick Work Phone: [facility] 04-17-2023 14:20-0400 Systolic blood pressure 110 mm[Hg] MD Jorge Luis Wick Work Phone: [facility] 04-17-2023 12:20-0400 Inhaled oxygen flow rate 2 L/min MD Jorge Luis Wick Work Phone: [facility] 04-17-2023 12:06-0400 Body temperature 98.4 [degF] MD Jorge Luis Wick Work Phone: [facility] 04-17-2023 07:57-0400 Body height 157.48 cm MD Jorge Luis Wick Work Phone: [facility] 04-17-2023 07:57-0400 Body mass index (BMI) [Ratio] 38.7 kg/m2 MD Jorge Luis Wick Work Phone: [facility] 04-17-2023 07:57-0400 Body weight 96 kg MD Jorge Luis Wick Work Phone: [facility] 03-28-2023 16:15-0400 Body height 157.48 cm Kelby Shayne II Other [facility] Other 03-28-2023 16:15-0400 Body mass index (BMI) [Ratio] 38.41 kg/m2 Kelby Trumbull II Other [facility] Other 03-28-2023 16:15-0400 Body weight 95.26 kg Kelby Trumbull II Other [facility] Other 12-14-2022 15:30-0500 Body height 157.48 cm Kelby Shayne II Other [facility] Other 12-14-2022 15:30-0500 Body mass index (BMI) [Ratio] 40.42 kg/m2 Kelby Trumbull II Other [facility] Other 12-14-2022 15:30-0500 Body weight 100.25 kg Eklby Trumbull II Other [facility] Other 10-24-2022 10:50-0500 Body height 157.48 cm Aurelia Ravi Other [facility] Other 10-24-2022 10:50-0500 Body mass index (BMI) [Ratio] 36.58 kg/m2 Aurelia Ravi Other [facility] Other 10-24-2022 10:50-0500 Body temperature 97.6 [degF] Aurelia Ravi Other [facility] Other 10-24-2022 10:50-0500 Body weight 90.72 kg Aurelia Ravi Other [facility] Other 10-24-2022 10:50-0500 Diastolic blood pressure 86 mm[Hg] Aurelia Ravi Other [facility] Other 10-24-2022 10:50-0500 Respiratory rate 18 /min Aurelia Ravi Other [facility] Other 10-24-2022 10:50-0500 SaO2% (BldA) [Mass fraction] 99 % Aurelia Ravi Other [facility] Other 10-24-2022 10:50-0500 Systolic blood pressure 128 mm[Hg] Aurelia Vargheseault Other [facility] Other 08-28-2022 15:38-0400 Blood Pressure Location Pamella MATOS [facility] 08-28-2022 15:38-0400 Diastolic blood pressure 82 mm[Hg] Pamella MATOS [facility] 08-28-2022 15:38-0400 Heart rate 77 /min Pamella MATOS [facility] 08-28-2022 15:38-0400 Respiratory rate 16 /min Pamella ISELA [facility] 08-28-2022 15:38-0400 Systolic blood pressure 119 mm[Hg] Pamella ISELA [facility] Encounters Encounter Date Encounter Type Care Provider Facility Start: 02-08-2026 ambulatory Pamella MATOS Facili ty:[facility] Start: 08-19-2025 End: 08-19-2025 ambulatory Jorge Luis Wick MD Work Phone: [facility] Work Phone: Start: 08-19-2025 End: 08-19-2025 Patient encounter procedure Jorge Luis Wick MD -[facility] [place] Work Phone: Start: 08-14-2025 End: 08-14-2025 Bamboo flowsheet Karina Zimmerman DPM Work Phone: [facility] Start: 08-14-2025 End: 08-14-2025 Bamboo flowsheet Karina Zimmerman DPM Work Phone: [facility] Start: 08-14-2025 End: 08-14-2025 Office outpatient new 30 minutes Karina Zimmerman DPM Work Phone: [facility] Comment on above: 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, not stated as uncontrolled(250.60) (HCC) (Primary Dx); Onychomycosis; Nail dystrophy; Hammer toe of right foot Start: 08-14-2025 End: 08-14-2025 ambulatory KARINA ZIMMERMAN Not Available Start: 07-13-2025 End: 07-13-2025 ambulatory Jorge Luis Wick MD Work Phone: [facility] Work Phone: Start: 07-13-2025 End: 07-13-2025 Patient encounter procedure Jean Rodriguez MD -[facility] Work Phone: Start: 06-22-2025 End: 06-22-2025 ambulatory Jorge Luis Wick MD Work Phone: [facility] Work Phone: Start: 06-22-2025 End: 06-22-2025 Patient encounter procedure Jean Rodriguez MD -[facility] Work Phone: Start: 06-18-2025 End: 06-18-2025 ambulatory Jorge Luis Wick MD Work Phone: [facility] Work Phone: Start: 06-18-2025 End: 06-18-2025 Patient encounter procedure Kassy Brooks [facility] Work Phone: Start: 02-17-2025 End: 02-17-2025 ambulatory JORGE LUIS WICK Not Available Start: 02-16-2025 End: 02-16-2025 ambulatory Pamella MATOS Facility:[facility] Start: 12-11-2024 End: 12-11-2024 Bamboo flowsheet Jorge [...] (BMI) of 37.0 to 37.9 in adult ([facility]) Start: 12-11-2024 End: 12-11-2024 ambulatory JORGE LUIS [...] hyperglycemia, without long-term current use of insulin ([facility]); Fibromyalgia Start: 07-17-2024 End: 07-17-2024 ambulatory MD Jorge Luis Wick Work Phone: [facility] Work Phone: Start: 07-17-2024 End: 07-17-2024 Patient encounter procedure MD Jorge Luis Wick Work Phone: [facility] Includes [facility] Work Phone: Start: 07-17-2024 End: 07-17-2024 Patient encounter procedure MD Jorge Luis Wick Work Phone: [facility] Start: 07-17-2024 End: 07-17-2024 ambulatory MD Jorge Luis Wick Work Phone: [facility] Work Phone: Start: 04-15-2024 End: 04-15-2024 ambulatory MD Jorge Luis Wick Work Phone: [facility] Work Phone: Start: 04-15-2024 End: 04-15-2024 Patient encounter procedure MD Jorge Luis Wick Work Phone: [facility] Work Phone: Start: 09-10-2023 End: 09-10-2023 Patient encounter procedure Pamella MATOS [facility] Start: 07-18-2023 Office outpatient vi sit 15 minutes Patricia Aguilar [facility] Start: 07-18-2023 End: 07-18-2023 ambulatory MD Jorge Luis Wick Work Phone: [facility] Work Phone: Start: 07-18-2023 End: 07-18-2023 Patient encounter procedure MD Jorge Luis Wick Work Phone: [facility] Start: 06-14-2023 End: 06-14-2023 ambulatory Ella Quinteros Other [facility] Other Start: 06-14-2023 Office outpatient vi sit 15 minutes Ella Quinteros [facility] Start: 06-07-2023 End: 06-07-2023 ambulatory Kelby Bella II Other [facility] Other Start: 06-07-2023 Telephone encounter Kelby Bella II [facility] Start: 05-31-2023 (Post-Op) Post-Op Kelby Bella II [facility] Start: 05-31-2023 End: 05-31-2023 ambulatory MD Jorge Luis Wick Work Phone: [facility] Work Phone: Start: 05-31-2023 End: 05-31-2023 Patient encounter procedure MD Jorge Luis Wick Work Phone: [facility] Start: 05-18-2023 End: 05-18-2023 Discharged Recurring MD Jorge Luis Wick Work Phone: [facility] [place] Start: 05-18-2023 Registered Recurring MD Jorge Luis angulo Work Phone: [facility] [place] Start: 04-27-2023 End: 04-27-2023 ambulatory Patricia Aguilar Other [facility] Other Start: 04-27-2023 Postop follow up vis it related to original px Patricia Aguilar [facility] Start: 04-25-2023 End: 04-25-2023 ambulatory Kelby Trumbull II Other [facility] Other Start: 04-25-2023 Telephone encounter Kelby Trumbull II [facility] Start: 04-17-2023 End: 04-17-2023 Admission to same day surgery center MD Jorge Luis Wick Work Phone: [facility] [place] Start: 04-06-2023 (Prolonged) Prolonge d Services Kelby Trumbull II [facility] Start: 04-06-2023 End: 04-06-2023 ambulatory Kelby Trumbull II Other [facility] Other Start: 04-03-2023 Telephone encounter Kelby Trumbull II [facility] Start: 04-03-2023 End: 04-03-2023 ambulatory MD Jorge Luis Wick Work Phone: [facility] Work Phone: Start: 04-03-2023 End: 04-03-2023 Patient encounter procedure MD Jorge Luis Wick Work Phone: [facility] Work Phone: Start: 03-28-2023 End: 03-28-2023 ambulatory Kelby Trumbull II Other [facility] Other Start: 03-28-2023 Office outpatient vi sit 40 minutes Kelby Shayne II [facility] Start: 03-01-2023 End: 03-01-2023 ambulatory PHYSICIAN NO [facility] Work Phone: Start: 03-01-2023 End: 03-01-2023 Patient encounter procedure PHYSICIAN NO [facility] Work Phone: Start: 02-17-2023 Encounter for genera l adult medical examination without abnormal findings DR JORGE LUIS WICK [facility] Start: 02-16-2023 End: 02-16-2023 ambulatory PHYSICIAN NO [facility] Work Phone: Start: 02-16-2023 End: 02-16-2023 Patient encounter procedure PHYSICIAN NO [facility] [place] Work Phone: Start: 02-10-2023 End: 02-11-[address] JORGE LUIS WICK Facility:[facility] Start: 02-10-2023 End: 02-11-2023 Encounter for general adult medical examination without abnormal findings DR JORGE LUIS WICK Facility:[facility] Start: 12-14-2022 End: 12-14-2022 Patient encounter procedure PHYSICIAN NO [facility] Start: 12-14-2022 End: 12-14-2022 ambulatory PHYSICIAN NO [facility] Work Phone: Start: 12-14-2022 Office outpatient ne w 45 minutes Kelby Shayne II [facility] Start: 10-24-2022 Office outpatient vi sit 15 minutes Aurelia Ravi [facility] Start: 10-24-2022 End: 10-24-2022 ambulatory PHYSICIAN NO [facility] Work Phone: Start: 10-24-2022 End: 10-24-2022 Patient encounter procedure PHYSICIAN NO [facility] Start: 08-28-2022 End: 08-28-2022 Patient encounter procedure Pamella MATOS [facility] Start: 07-19-2022 End: 07-20-[address] JORGE LUIS WICK Facility:[facility] Start: 06-26-2022 End: 06-27-[address] PAMELLA MATOS . Facility:[facility] Start: 06-23-2022 End: 06-23-2022 Patient encounter procedure Pamella MATOS [facility] Start: 06-09-2022 End: 06-10-[address] PAMELLA MATOS . Facility:[facility] Start: 06-05-2022 End: 06-06-[address] PAMELLA AMTOS . Facility: Start: 04-30-2022 End: 04-30-[address] JORGE LUIS WICK Facility: Start: 02-12-2018 End: 02-13-2018 Ambulatory DEFAULT PHYSICIAN Facility:[facility] Start: 07-12-2017 End: 07-13-2017 Ambulatory DEFAULT PHYSICIAN Facility:[facility] Procedures Date Procedure Procedure Detail Performing Clinician Start: 07-13-2025 X-ray of right foot Jorge Luis Wick MD Work Phone: Start: 06-18-2025 X-ray of right foot Jorge Luis Wick MD Work Phone: Start: 08-27-2024 ALL CBC WITH AUTO DIFF Jorge Luis Wick MD Work Phone: Start: 07-17-2024 X-ray of right knee MD Jorge Luis Wick Work Phone: Start: 04-15-2024 Radiologic examination of knee MD Jorge Luis Wick Work Phone: Start: 07-18-2023 Plain X-ray of right femur MD Jorge Luis harris Work Phone: Start: 07-18-2023 Plain X-ray of [...] Start: 04-03-2023 Urine culture MD Jorge Luis Wick Work Phone: Start: 03-01-2023 Methicillin resistant Staphylococcus aureus culture MD Jorge Luis Wick Work Phone: Start: 12-14-2022 X-ray of right knee PHYSICIAN NO FAMILY Start: 11-26-2022 Arthroplasty of knee Pamellajames MATOS Start: 10-24-2022 X-ray of right ankle PHYSICIAN NO FAMILY Start: 03-11-2015 Extracorporeal shockwave lithotripsy of the bile duct Pamellajames MATOS Start: 07-15-2013 Cystoscopy Pamellajames MATOS Start: 07-08-2013 Removal of calculus of renal pelvis through percutaneous nephrostomy Pamellajames MATOS Start: 06-05-2013 Cystoscopy Pamellajames MATOS Start: 10-24-2011 Cystoscopy Pamellajames MATOS Start: 08-24-2011 Extracorporeal shockwave lithotripsy of the bile duct Pamellajames MATOS Start: 08-17-2011 Cystoscopy Apmellajames MATOS Start: 06-01-2011 Extracorporeal shockwave lithotripsy of the bile duct Pamella MATOS Start: 05-16-2011 Cystoscopy Pamella MATOS Start: 10-27-2008 Cystoscopy Pamella MATOS Start: 09-24-2008 Cystoscopy Pamella MATOS Start: 07-04-2007 Cystoscopy Pamella MATOS Start: 06-26-2007 Cystoscopy Pamella MATOS Start: 06-05-2007 Cystoscopy Pamella MATOS Start: 04-16-2007 Cystoscopy Pamella MATOS Start: 03-27-2007 Cystoscopy Pamella MATOS Start: 02-13-2007 Cystoscopy Pamella MATOS Start: 12-19-2006 Cystoscopy Pamella MATOS Start: 11-22-2006 Cystoscopy Pamella MATOS Carpal tunnel syndro me (disorder) Pamella MATOS Cataract (morphologi c abnormality) Pamella MATOS Cholecystectomy Pamella MA H/O: artificial joint Aftercare following joint replacement surgery Jorge Luis Wick MD Work Phone: Hysterectomy Pamella MATOS Injury of knee (disorder) Uri hernandezchantale MATOS Plan of Treatment Date Care Activity Detail Author Start: 02-17-2026 Screening for malign ant neoplasm of breast Mammogram [facility] Comment on above: Postponed from 01/07 (Patient Refused) Start: 12-11-2025 Screening for malign ant neoplasm of colon Colorectal Cancer Screening [facility] Comment on above: Postponed from 01/07 (Patient Refused) Start: 08-27-2025 Urine screening for protein Diabetes: Urine Protein Screening [facility] Start: 08-20-2025 Medicare Annual Well ness (AWV) Medicare Annual Wellness (AWV) [facility] Start: 08-14-2025 End: 08-14-2025 Patient encounter procedure 08/14/2025 10:00 AM EDT Office Visit [facility] [address] [place] [id number] Karina Zimmerman, DPM [address] [place] [address] [facility] Comment on above: Arrived Start: 07-27-2025 Influenza vaccination Influenza Vacc ine (#1) [facility] Start: 07-13-2025 X-ray of right foot XR foot RT min 3 V* [facility] Start: 07-13-2025 XR Foot - right GE 3 Views [facility] Start: 02-25-2025 Hemoglobin A1c measurement Diabetes: Hemoglobin A1C [facility] Start: 02-17-2025 End: 02-17-2025 Patient encounter procedure [facility] Start: 12-11-2024 End: 12-11-2024 Patient encounter procedure 12/11/2024 11:15 AM EST Office Visit [facility] [address] [place] [address] Jorge Luis Wick MD [address] [place] [address] Arrived [facility] Comment on above: Arrived Start: 08-20-2024 End: 08-20-2025 Albumin, urine, random Albumin, urine, random Lab Routine Type 2 diabetes mellitus with hyperglycemia, without long-term current use of insulin ([facility]) Expected: 08/20/2024 (Approximate), Expires: 08/20/2025 [facility] Work Phone: Comment on above: Expected: 08/20/2024 (Approximate), Expires: 08/20/2025 Start: 08-20-2024 End: 08-20-2025 Basic metabolic 1998 panel - Serum or Plasma Basic metabolic panel Lab Routine Annual physical exam Expected: 08/20/2024 (Approximate), Expires: 08/20/2025 [facility] Comment on above: Expected: 08/20/2024 (Approximate), Expires: 08/20/2025 Start: 08-20-2024 End: 08-20-2025 CBC W Auto Differential panel - Blood CBC and differential Lab Routine Annual physical exam Expected: 08/20/2024 (Approximate), Expires: 08/20/2025 [facility] Comment on above: Expected: 08/20/2024 (Approximate), Expires: 08/20/2025 Start: 08-20-2024 End: 08-20-2025 Hemoglobin A1c/Hemoglobin.total in Blood Hemoglobin A1c Lab Routine Annual physical exam Expected: 08/20/2024 (Approximate), Expires: 08/20/2025 [facility] Comment on above: Expected: 08/20/2024 (Approximate), Expires: 08/20/2025 Start: 08-20-2024 End: 08-20-2025 Hepatic function 2000 panel - Serum or Plasma Hepatic function panel Lab Routine Annual physical exam Expected: 08/20/2024 (Approximate), Expires: 08/20/2025 [facility] Comment on above: Expected: 08/20/2024 (Approximate), Expires: 08/20/2025 Start: 08-20-2024 End: 08-20-2025 Lipid 1996 panel - Serum or Plasma Lipid panel Lab Routine Annual physical exam Expected: 08/20/2024 (Approximate), Expires: 08/20/2025 [facility] Comment on above: Expected: 08/20/2024 (Approximate), Expires: 08/20/2025 Start: 08-20-2024 End: 08-20-2025 Thyrotropin [Units/volume] in Serum or Plasma TSH Lab Routine Annual physical exam Expected: 08/20/2024 (Approximate), Expires: 08/20/2025 [facility] Comment on above: Expected: 08/20/2024 (Approximate), Expires: 08/20/2025 Start: 08-09-2024 Hemoglobin A1c measurement Diabetes: Hemoglobin A1C [facility] Start: 07-27-2024 Influenza vaccination Influenza Vacc ine (#1) [facility] Start: 07-17-2024 [facility]ray [facility] right [facility] Start: 07-17-2024 XR Knee - right 2 Views [facility] Start: 01-26-2024 Glaucoma screening Diabetes: R etinopathy Screening [facility] Start: 04-17-2023 [facility] Start: 04-17-2023 [facility] Start: 04-03-2023 [facility] Start: 04-03-2023 Bacteria identified in Urine by Culture [facility] Start: 03-01-2023 MRSA Culture MRSA Culture [facility] Start: 2000 Screening for malign ant neoplasm of breast Mammogram [facility] Start: 1990 Screening for malign ant neoplasm of cervix [facility] Start: 1981 Screening for malign ant neoplasm of cervix Pap Smear [facility] Start: 1979 Urine screening for protein Diabetes: Urine Protein Screening [facility] Start: 1970 Glaucoma screening Diabetes: R etinopathy Screening [facility] Start: 1960 Hemoglobin A1c measurement Diabetes: Hemoglobin A1C [facility] Start: 1960 Screening for malign ant neoplasm of colon [facility] Comprehensive metabo lic 2000 panel - Serum or Plasma [facility] Cotinine [Mass/volum e] in Serum or Plasma [facility] Methicillin resistan t Staphylococcus aureus [Presence] in Unspecified specimen by Organism specific culture [facility] Nicotine [Mass/volum e] in Serum or Plasma [facility] XR Foot - right GE 3 Views [facility] XR Knee - left 4 Views [facility] Immunizations Immunization Date Immunization Notes Care Provider Fa cility 09-27-2024 influenza virus vaccine, unspecified formulation Karina Zimmerman DPM Work Phone: [facility] 10-03-2023 influenza virus vaccine, unspecified formulation Jorge Luis Wick MD Work Phone: [facility] 10-14-2022 COVID-19 mRNA Bivale nt Booster (Moderna) MD Jorge Luis Wick Work Phone: [facility] 09-29-2021 COVID-19 mRNA-1273 (Moderna) MD Jorge Luis Wick Work Phone: [facility] 03-07-2021 SARS-CoV-2 (COVID-19 ) mRNA-1273 vaccine Pamella MATOS [facility] 02-24-2021 COVID-19 mRNA-1273 (Moderna) MD Jorge Luis Wick Work Phone: [facility] 02-07-2021 SARS-CoV-2 (COVID-19 ) mRNA-1273 vaccine Pamella MATOS [facility] 01-27-2021 COVID-19 mRNA-1273 (Moderna) MD Jorge Luis Wick Work Phone: [facility] Payers Date Payer Category Payer Private Health Insurance [facility] [place] [address] [id number] 2025 Unknown [id number] 2024 Medicare MEDICARE [id number] 5 2024 Medicare [id number] 2021 [facility] [id number] 5 2021 Unknown 1960 Unknown [id number] [id number] .2.593 1960 Unknown [id number] 2.16.840.1.350683.3.579 .2.593 1960 Unknown [id number] 2.16.840.1.083494.3.579 .2.593 1960 Unknown [id number] 2.16.840.1.820659.3.579 .2.593 1960 Unknown [id number] 2.16.840.1.192212.3.579 .2.593 1960 Unknown [id number] 2.16.840.1.464176.3.579 .2.593 1960 Unknown [id number] 2.16.840.1.888146.3.579 .2.727 1960 Unknown [id number] 2.16.840.1.021006.3.579 .2.727 1960 Unknown [id number] 2.16.840.1.944295.3.579 .2.1259 1960 Unknown [id number] 2.16.840.1.638509.3.579 .2.9 1960 Unknown [id number] 2.16.840.1.093017.3.579 .2.9 1960 Unknown [id number] 2.16.840.1.563855.3.579 .2.9 1959 Unknown [id number] Self-pay Self Pay [id number] Unknown [place] [id number] Social History Date Type Detail Facility Start: 08-16-2020 End: 06-18-2025 Tobacco smoking status Never smoked tobacco (finding) [facility] Start: 08-20-2024 End: 08-14-2025 Sex Assigned At Female [facility] Start: 1960 Sex Assigned At Female F [facility] Tobacco smoking status Never [facility] Start: 02-14-2024 Tobacco use and exposure Smokeless tobacco non-user [facility] Start: 08-20-2024 End: 08-14-2025 History of Social function [facility] Start: 1960 Sex assigned at Not on file [facility] Sex Female (finding) [facility] Medical Equipment Procedure Code Equipment Code Equipment Origin al Text Equipment Identifier Dates Arthroplasty, knee, total, minimally invasive Orthopaedic cement, non-medicated [id number] FDA Start: 04-17-2023 Arthroplasty, knee, total, minimally invasive Uncoated knee femur prosthesis [id number] FDA Start: 04-17-2023 Arthroplasty, knee, total, minimally invasive Tibial insert [id number] FDA Start: 04-17-2023 Arthroplasty, knee, total, minimally invasive Polyethylene patella prosthesis ()[id number] FDA Start: 04-17-2023 Arthroplasty, knee, total, minimally invasive Knee stem [id number] FDA Start: 04-17-2023 Arthroplasty, knee, total, minimally invasive Uncoated knee tibia prosthesis, metallic ()[id number] FDA Start: 04-17-2023 1 each by Other route if needed (as needed) [id number] Start: 11-09-2023 USE 1 STRIP TO C HECK GLUCOSE ONCE DAILY NEEDED [id number] Start: 04-06-2025 Blood Sugar Diagnostic (Onetouch Ultra Test) strip Start: 08-19-2025 Goals Date Patient Goal Desired Activity /State Functional Status Date Assessment Result Facility 09-10-2023 Functional Status N/A [facility] 08-28-2022 Functional Status N/A [facility] Clinical Notes 08-28-2022 to 08-14-2025 Karina Zimmerman DPM - 08/14/2025 10:00 AM EDT Note Date & Type Note Facility 08-14-2025 History of Presen t illness Narrative Images from the original note were not included. Subjective Patient ID: Laly Taveras is a 65 y.o. female who presents for Toenail Problem (65 yo [employer] presents today for concerns of ugly toenails , pt reports dropping frozen turkey on LGT years ago and states she's had issues with this nail ever since, states the nail comes off at times, brittle, and dark discoloration. Patient states she's tried topical fungal medications but states it didn't do too much. PCP: Dr. Brandon CHAMBERS 02/17/25, A1C: 7.0, BS: 141). HPI Patient presents complaining thick nails, concerned with fungal involvement. She states nails are difficult for her to trim. She would like to discuss treatment options. The left great toe she dropped a large turkey on it many years ago, since then the nail has been discolored and fallen off multiple times. She is diabetic, most recent A1c 7 percent. Denies any tingling numbness in her feet. Review of Systems Medications Current Outpatient Medications: albuterol HFA 90 mcg/act inhaler, Inhale 2 puffs every 4 (four) hours if needed for wheezing or shortness of breath, Disp: 8 g, Rfl: 2 allopurinol (Zyloprim) 300 MG tablet, Take 300 mg by mouth Daily, Disp: , Rfl: DULoxetine (Cymbalta) [address] capsule, Take 1 capsule (60 mg) by mouth Daily, Disp: 90 capsule, Rfl: 3 glipiZIDE (Glucotrol) 10 MG tablet, Take 1 tablet by mouth twice daily, Disp: 60 tablet, Rfl: 0 GNP PAIN RELIEF EX-STRENGTH 500 MG tablet, Take 1,000 mg by mouth every 8 (eight) hours if needed, Disp: , Rfl: OneTouch Ultra test strip, USE 1 STRIP TO CHECK GLUCOSE ONCE DAILY NEEDED, Disp: 100 each, Rfl: 0 oxybutynin XL (Ditropan-XL) 10 MG 24 hr tablet, Take 1 tablet (10 mg) by mouth Daily Do not crush, chew, or split., Disp: 30 tablet, Rfl: 5 Allergies Wound dressing adhesive and Icy hot Past Surgical History Past Surgical History: Procedure Laterality Date CATARACT EXTRACTION Bilateral CHOLECYSTECTOMY HYSTERECTOMY LITHOTRIPSY TOTAL KNEE ARTHROPLASTY Right Family History No family history on file. Objective Physical Exam Cardiovascular: Comments: Pedal pulses: DP 2/4 bilateral, PT 2/4 bilateral. Skin temp is warm to warm. Varicosities: absent Hair growth: present Pulmonary: Effort: Pulmonary effort is normal. Musculoskeletal: General: No tenderness. Right lower leg: No edema. Left lower leg: No edema. Comments: ROM: AJ and STJ ROM are normal and pain free. Limited ROM L 1st MTPJ MUSCLE STRENGTH: 5/5 for dorsiflexion, plantarflexion, inversion, eversion. 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 Large medial prominence of 1st met head R, medial and dorsal prominence L 1st met head with lateral deviation of great toe. Great toe impinges on the 2nd toe. Feet: Comments: Last diabetic foot exam: 08/14/2025 Skin: General: Skin is warm. Capillary Refill: Capillary refill takes 2 to 3 seconds. Findings: No bruising or erythema. Comments: SKIN FINDINGS: Webspaces are clean and dry. Skin texture and turgor normal. HYPERKERATOSIS: distal tuft right 4th digit NAIL PATHOLOGY: nail 1 right is lysed from the nailbed distally, proximally 10 percent of the nail with light subungual hematoma noted. Nail is 2 mm thick, with yellow crumbly debris. Nail 4 on the right is dystrophic, 7 mm thick, incurvated. Nail 1 on the left is 5 mm thick, yellow, dystrophic, fungal. Remaining nails are normal color and thickness, all elongated Neurological: Mental Status: She is alert and oriented to person, place, and time. Comments: Light touch sensation intact Vibratory sensation: diminished IPJ, MPJ, medial malleolus, patella bilaterally Stokes Thelma monofilament: intact 10/10 sites Psychiatric: Mood and Affect: Mood normal. Behavior: Behavior normal. 58766 Q9 Assessment/Plan ICD-10-CM 1. Type II or unspecified type diabetes mellitus with neurological manifestations, not stated as uncontrolled(250.60) ([facility]) E11.49 2. Onychomycosis B35.1 3. Nail dystrophy L60.3 4. Hammer toe of right foot M20.41 Reviewed findings of diabetic foot exam with the pt along with diagnosis of peripheral neuropathy and importance of maintaining good control of blood sugars. They are to get into a habit of looking at their feet or have someone look at them. They are to look for any signs of redness, blistering, cracking, swelling, drainage, open lesions etc. They are to refrain from going barefoot. Wear shoes at all times to help protect feet. Shoe gear should be inspected for any foreign objects. Shoes should have a deep wide toe box. With any type of shoe, the feet should be inspected for any signs of pressure, i.e., redness, blistering, or open sores. Reviewed with pt that hallux nails are dystrophic and also infected with fungus, right 4th nail is dystrophic. I reviewed with her the options for treating mycotic toenails. Including doing nothing vs wbdb-nsb-papvmaj topical antifungal applications vs oral Lamisil. I reviewed with her that in treating the fungus, if successful, she would still be dealing with the thickened/discoloration due to dystrophy. I then discussed the role of periodic debriding of toenails and her maintaining the nails at home. If successful in controlling symptoms, she would return as needed. Consequently, today all 10 nails are debrided. Reduced in thickness and in length. This note was created with the assistance of a speech recognition program. While intending to generate a timely document that accurately reflects the content of the visit, no guarantee can be provided that every grammatical or spelling mistake has been or will be identified or corrected. Thank you for your understanding. Karina Zimmerman DPM documented in this encounter [facility] 06-18-2025 Evaluation note Diagnosis Onset Date Resolution Fracture of fifth metatarsal bone of right foot acute June 18, 2025 10:59am [facility] Work Phone: 1(403) 978-769307-24-2025 Evaluation note* Diagnosis Onset Date Resolution Status Admit Date Fracture of fifth metatarsal bone of right foot acute June 18 10:59am Fracture of fifth metatarsal bone of right foot acute June 22 8:29am [facility] Work Phone: 1(564) 508-720207-24-2025 Evaluation note* Diagnosis Onset Date Resolution Status Admit Date Fracture of fifth metatarsal bone of right foot acute June 18 10:59am Fracture of fifth metatarsal bone of right foot acute June 22 8:29am Fracture of fifth metatarsal bone of right foot acute July 13, 2025 9:00am [facility] Work Phone: 1(895) 630-125007-24-2025 Evaluation note* Diagnosis Onset Date Resolution Status Admit Date Fracture of fifth metatarsal bone of right foot inactive June 18 10:59am Fracture of fifth metatarsal bone of right foot inactive June 22 8:29am Fracture of fifth metatarsal bone of right foot inactive July 13, 2025 9:00am Medicare annual wellness visit, subsequent acute July 12:53pm [facility] Work Phone: 1(543) 997-164103-24-2025 NotePatient Education Nephrology Dietary Guidelines to Help Prevent [...] labels. Limit your salt (sodium) intake to lessthan 1,500 mg a day. ??? Choose foods with calcium for each meal and snack. Try to eat about 300 mg of calcium at each meal. Foods that contain 200?500 mg of calcium a serving include: ? 8 oz (237 mL) of milk, bgzusue-rcekxqheeigw-cuvpq milk, and calcium- fortifiedfruit juice. Calcium-fortified means that calcium has been [...] on the table and allow each person toadd their own salt to taste. ??? Use [...] Spinach (cooked), rhubarb, beets, sweet potatoes, and Moz[place]ican chard. ? Peanuts. ? Potato chips, frisian fries, and baked potatoes with skin on. ? Nuts and nut products. ? Chocolate. ??? If you regularly take a diuretic medicine, make sure to eat at least 1 or 2 servings of fruits or vegetables that are high in potassium each day. These include: ? Avocado. ? Banana. ? [place], prune, carrot, or tomato juice. ? Baked potato. ? Cabbage. ? Beans and split peas. Lifestyle ??? Drink enough fluid to keep your urine pale yellow. This is the most important thing you can do.Spread your fluid intake throughout the day. ??? [...] fish oil, or vitamin B6. ??? Take dtzn-bzw-gpaabro and prescription medicines only as told by your health (more content not included)...[facility]01-16-2025 History of Present illness Narrative* Jorge Luis Wick MD - 12/11/2024 11:57 AM ESTAssociated Problem(s): Statin myopathy Not tolerate statins * Jorge Luis Wick MD - 12/11/2024 11:57 AM ESTAssociated Problem(s): Class 2 severe obesity due to excess calories with serious comorbidity and body mass index (BMI) of 37.0 to 37.9 in adult ([facility]) Weight loss indicated * Jorge Luis Wick MD - 12/11/2024 11:56 AM ESTAssociated Problem(s): Acute bronchitis due to other specified organisms Take antibiotics for 5 days and will be in system 10-12 days. Use sudafed or other decongestants asneeded. Use robitussin or robittussin-DM for cough. Use afrin for congestion but no longer than 3 days. Use mucinex to bring up phlegm. Use motrin or tylenol for fever, aches or pains. Increase fluidintake and rest. Should improve over next 5-7 days and if no better or worse call office. * Jorge Luis Wick MD - 12/11/2024 11:15 AM EST Images from the original note were not included. Subjective Patient ID: Laly Taveras is a 64 y.o. female who presents for Follow-up (Chest cold). C/o cough, congestion, and rhinorrhea x 1 week. Afebrile. Severe fatigue and no energy. Frequent cough dry and nonproductive. Chest tight and SOB. NI and sinus pressure in forehead and cheeks along with postnasal drip. Ears plugged and popping. Sore throat and pain to swallow. Mild nausea. Multiplecoworkers recently sick. Using OTC medication and mild [...] serious comorbidity and body mass index (BMI) of37.0 to 37.9 in adult ([facility]) Weight loss indicated Acute bronchitis due to other specified organisms - Primary Take antibiotics for 5 days and will be in system 10-12 days. Use sudafed or other decongestants asneeded. Use robitussin or robittussin-DM for cough. Use afrin for congestion but no longer than 3 days. Use mucinex to bring up phlegm. Use motrin or tylenol for fever, aches or pains. Increase fluidintake and rest. Should improve over next 5-7 days and if no better or worse call office. Relevant Medications azithromycin (Zithromax) 250 MG tablet [facility] [id number] History of Present illness Narrative* Jorge Luis Wick MD - 08/20/2024 7:49 AM EDTAssociated Problem(s): Type 2 diabetes mellitus with hyperglycemia, without long-term current use of insulin ([facility]) Reports BS controlled and due for A1C. Stick to ADA diet and limit carbs. * Jorge Luis Wick MD - 08/20/2024 7:49 AM EDTAssociated Problem(s): Annual physical exam Due for labs and mammogram. Discussed proper diet and regular aerobic exercise. Need aerobic exercise 5-6 days a week for 30 minutes at a time. Smaller portions and limit total calories. Tetanus every 10 years. Advised not to smoke. Discussed daily Aspirin therapy. * Jorge Luis Wick MD - 08/20/2024 7:00 AM EDT Images from the original note were not included. Subjective Patient ID: Laly Taveras is a 64 y.o. female who [...] hyperglycemia, without long-term current use of insulin ([facility]) Reports BS controlled and due for A1C. [...] panel Lipid panel TSH documented in this encounterRe[facility] [id number] Hospital Discharge instructions Patient Education 09/10/2023 16:22:29 Dietary Guidelines [...] about 300 mg of calcium at each meal.Foods that contain 200 500 mg of calcium a serving include: ?8 oz (237 mL) of milk, xjilzkg-qxjxmxhjjfhs-efzsh milk, and calcium- fortifiedfruit juice. Calcium-fortified means that calcium has been [...] the table and allow each person to addhis or her own salt to taste. Use vegetable protein, such as beans, textured vegetable protein (TVP), or tofu, instead of meat inpasta, casseroles, and soups. Meal planning Eat less salt, if told by your dietitian. To do this: ?Avoid eating processed or pre-made food. ?Avoid eating fast food. Eat less animal protein, including cheese, meat, poultry, or fish, if told by your dietitian. To dothis: ?Limit the number of times you have [...] ?Spinach (cooked), rhubarb, beets, sweet potatoes, and Mozambican chard. ?Peanuts. ?Potato chips, frisian fries, and baked potatoes with skin on. ?Nuts and nut products. ?Chocolate. If you regularly take a diuretic medicine, make sure to eat at least 1 or 2 servings of fruits or vegetables that are high in potassium each day. These include: ?Avocado. ?Banana. ?Socorro, prune, carrot, or tomato juice. ?Baked potato. [...] taking daily supplements. You may be told thefollowing depending on your health and the cause of your kidney stones: ?Not to take supplements with vitamin C. ?To take a calcium supplement. ?To take a daily probiotic supplement. ?To take other supplements such as magnesium, fish oil, or vitamin B6. Take cryj-qvn-rarvfqb and prescription medicines only as told by [...] Casseroles. Pizza. Lasagna. Frozen meals. Potato chips. Vietnamese fries. The items listed above may not be a complete list of foods and beverages you should limit. Contact a dietitian for more information. What foods should I avoid? Talk to your dietitian about specific foods you should avoid based on the type of kidney stones youhave and your overall health. Fruits Grapefruit. The item listed above may not be a complete list of foods and beverages you should avoid. Contact adietitian for more information. Summary Kidney stones are [...] provider. Document Revised: 07/24/2022 Document Reviewed: 07/24/2022 [employer] Mobile App Patient Education 2022 [employer]. Follow Up Care 08/28/2022 16:11:04 With:ISELA MINAYA, Pamella Nair, URL Address: [facility] [address], [place] [address]- When:Within 1 Year(s) Comments:w/DEJA [facility] Marisol 08-23-2023 Evaluation note* Encounter Date Diagnosis Assessment Notes Treatment Notes Treatment Clinical Notes Jun, History of total right knee [...] right artificial knee joint (ICD-10 - Z96.651) [facility] Other 07-20-2023 Evaluation note* Encounter Date Diagnosis [...] understanding and is agreeable with treatment plan [facility] Other 07-06-2023 Evaluation note* Encounter Date Diagnosis Assessment Notes Treatment Notes Treatment Clinical Notes May, History of total right knee replacement (ICD-10 - Z96.651) May, Aftercare following joint replacement surgery (ICD-10 - Z47.1) May, Presence of right artificial knee joint (ICD-10 - Z96.651) May, Contact allergic reaction (ICD-10 - L23.9) May, Other [facility] at [facility] on 04/17/2020 Overall she is doing [...] tolerated. Continue PT as recommended. Continue taking vsno-xbv-nazoxbr anti-inflammatorie s as needed for assistance with swelling and pain associated with the operative extremity. Follow-up in 1 to 2 weeks for incision check and if everything looks good then 3 months postop for repeat examination and long standing x-rays. [facility] Other 06-02-2023 Evaluation note* Encounter Date Diagnosis [...] to stretch knee motion at this time. [facility] Other 05-12-2023 Evaluation note* Encounter Date Diagnosis [...] could proceed with surgery safely. The manager summer was vital for surgery timing and scheduling [...] plans. Prolonged services time spent: 33 minutes [facility] Other 05-09-2023 Evaluation note* Encounter Date Diagnosis Assessment Notes Treatment Notes Treatment Clinical Notes March, Primary osteoarthritis of right knee (ICD-10 - M17.11) [facility] Other 05-03-2023 Evaluation note* Encounter Date Diagnosis [...] does not member the name of the piano builder but they were in [place]. 4. Once our office has reviewed the above labs and clearances, we will contact the patient to discuss surgery scheduling. Patient is in agreement with the above plan. 5. The risks involved with surgery and postoperative complications were discussed in relation to the patient's nonmodifiable risk factors including but not limited to the following: Tyc-jthbnxh-umregun nt diabetes Fibromyalgia History of heart block All questions were answered after discussing these increased risks. The patient voiced understanding of these increased risks and still wishes to proceed with surgery. 6. The risks involved with surgery and postoperative complications were discussed in relation to the patient's modifiable risk factors including but not limited to the following: Cxs-xpeogfv-hsuaaiu nt diabetes-most recent A1c is 6.6 BMI [...] or absent clearances could delay their surgery. [facility] Other 01-19-2023 Evaluation note* Encounter Date Diagnosis [...] patient may want surgery sometime after May. [facility] Other 11-29-2022 Evaluation note* Encounter Date Diagnosis [...] PCP if blood sugar goes above 250- [facility] Other 10-03-2022 Hospital Discharge instructions Patient Education 08/28/2022 15:59:31 Kidney Stones, Mkra-cc-Drlg Kidney Stones Kidney stones are rock-like masses [...] Follow these instructions at home: Medicines Take fkby-vkv-jcbgexw and prescription medicines only as told by [...] 04/30/2009 Document Revised: 03/30/2020 Document Reviewed: 03/30/2020 [employer] Mobile App Patient Education 2020 [employer]. Follow Up Care 08/22/2021 16:23:28 With:Pamella MATOS MD, URL Address: [facility] [address], [place] [address]- [phone] When:08/28/2023 [facility] evaluation + Plan note Future Appointments Appointment Date:08/28/2022 03:00:00 PM Scheduled Provider:Pamella MATOS MD Location:[facility] Appointment Type:URO Office Visit [facility] evaluation + Plan note Future Appointments Appointment Date:09/10/2023 03:00:00 PM Scheduled Provider:Pamella MATOS MD Location:[facility] Appointment Type:URO Office Visit [facility] evaluation + Plan note Future Appointments Appointment Date:09/08/2024 10:15:00 AM Scheduled Provider:Pamella MATOS MD Location:[facility] Appointment Type:URO Office Visit Diagnostic Tests Pending * Electrolyte Panel 09/10/23 [facility] evaluation noteNo assessment information available [facility] Work Phone: Evaluation noteNo InformationNort Zimride Other Evaluation note* Diagnosis Onset Date Resolution Status Contusion of left knee and lower leg acute [facility] Work Phone: Evaluation note* Diagnosis Onset Date Resolution Status Aftercare following right knee joint replacement surge ry acute [facility] Work Phone: evaluation note* Diagnosis Annual physical exam- Primary Routine general medical examination at a health care facility Type 2 diabetes mellitus with hyperglycemia, without long-term current use of insulin ([facility]) Fibromyalgia Unspecified myalgia and myositis documented in this encounter [facility] HealthcareEvaluation note* Diagnosis Breast cancer screening by mammogram- Primary Type 2 diabetes mellitus with hyperglycemia, without long-term current use of insulin (CMS/HCC) Fibromyalgia Unspecified myalgia and myositis Primary osteoarthritis of right knee Chronic diastolic heart failure (CMS/HCC) Chronic diastolic heart failure Mild intermittent asthma without complication (CMS/HCC) Seasonal allergic rhinitis due to pollen Annual [...] (BMI) of 37.0 to 37.9 in adult (CMS/HCC) documented in this encounter [facility]* Diagnosis Onset Date Resolution Status Admit Date Fracture of fifth metatarsal bone of right foot acute June 18 10:59am [facility] Work Phone: Evaluation note* Diagnosis Breast cancer screening by mammogram- Primary Type 2 diabetes mellitus with hyperglycemia, without long-term current use of insulin (HCC) Fibromyalgia Unspecified myalgia and myositis Primary osteoarthritis of right knee Chronic diastolic heart failure (HCC) Chronic diastolic heart failure Mild intermittent asthma without complication ([facility]) Seasonal allergic rhinitis due to pollen Annual physical exam- Primary Routine general medical examination at a health care facility Type 2 diabetes mellitus with hyperglycemia, without long-term current use of insulin ([facility]) Fibromyalgia Unspecified myalgia and myositis Acute bronchitis due to other specified organisms- Primary Statin myopathy Toxic myopathy Class 2 severe obesity due to excess calories with serious comorbidity and body mass index (BMI) of 37.0 to 37.9 in adult ([facility]) Type 2 diabetes mellitus with hyperglycemia, without long-term current use of insulin ([facility])- Primary Fibromyalgia Unspecified myalgia and myositis Chronic diastolic heart failure (HCC) Chronic diastolic heart failure Mild intermittent asthma without complication ([facility]) Seasonal allergic rhinitis due to pollen Class 2 severe obesity due to excess calories with serious comorbidity and body mass index (BMI) of 37.0 to 37.9 in adult ([facility]) Type II or unspecified type diabetes mellitus with neurological manifestations, not stated as uncontrolled(250.60) ([facility])- Primary Type II or unspecified type diabetes mellitus with neurological manifestations, not stated as uncontrolled Onychomycosis Dermatophytosis of nail Nail dystrophy Other specified disease of nail Hammer toe of right foot documented in this encounter [facility] general Narrative - Reported* Type Description Date Medical History type 2 diabetic Surgical History lypotripsy 11 times Surgical History gallblatter Surgical History hysteretomy Hospitalization History see above [facility] Other History general Narrative - Reported* Type Description Date Medical History type 2 diabetic Medical History fibromyalgia Surgical History lypotripsy 11 times Surgical History gallblatter Surgical History hysteretomy Surgical History right knee arthroscopy Hospitalization History see above [facility] Other Hospital course Narrative No data available for this section [facility] Hospital Discharge instructions No data available for this section [facility] progress note No data available for this section [facility] reason for referral (narrative)No reason for referral information availableR[facility] Work Phone: Summary Purpose Family History Relationship Condition Age at Onset [...] History of stroke Unknown Unknown Advance Directives Advance Directive Response Recorded Date/ Time Advance Directives No April 18 12:19pm Advance Directive Response Recorded Date/ Time Advance Directives No April 18 1:19pm Chief Complaint and Reason for Visit Chief Complaint Admit Date right foot pain w injury June 18, 2025 10:59am m79.671 June 18, 2025 11:0 6am Reason for Visit Admit Date Fracture of fifth metatarsal bone of rig ht foot June 18, 2025 10:59am Chief Complaint S99.911A Chief Complaint M25.561 m17.11 [...] right knee joint replacement surgery Chief Complaint Admit Date right foot pain w injury June 18, 2025 10:59am Chief Complaint Admit Date right foot pain w injury June 18, 2025 10:59am m79.671 June 18, 2025 11:0 6am [facility] RIGHT FOOT FX WX June 22, 2025 8:29am Reason for Visit Admit Date Fracture of fifth metatarsal bone of rig ht foot June 18, 2025 10:59am Fracture of fifth metatarsal bone of rig ht foot June 22, 2025 8:29am Chief Complaint Admit Date right foot pain w injury June 18, 2025 10:59am m79.671 June 18, 2025 11:0 6am [facility] RIGHT FOOT FX WX June [...] rig ht foot July 13, 2025 9:00am Reason for Visit Admit Date Fracture of fifth metatarsal bone of rig ht foot June 18, 2025 10:59am Fracture of fifth metatarsal bone of rig ht foot June 22, 2025 8:29am Fracture of fifth metatarsal bone of rig ht foot July 13, 2025 9:00am Medicare annual wellness visit, [facility] August 19, 2025 12:53pm Additional Source Comments INFORMATION SOURCE (unrecogn ized section and content) DATE CREATED AUTHOR 05/17/2018 [facility] DATE CREATED AUTHOR AUTHOR'S ORGANIZ ATION 02/18/2023 [facility] DATE CREATED AUTHOR AUTHOR'S ORGANIZ ATION 02/23/2025 [facility] DATE CREATED AUTHOR AUTHOR'S ORGANIZ ATION 07/14/2025 [facility] DATE CREATED AUTHOR AUTHOR'S ORGANIZ ATION 08/15/2025 [facility] Care Team (unrecognized sect ion and content) [...] Attending Provider Active Start: April 15, 2024 Public Relations Director Relationship Specialty Start Date End Date Jorge Luis Wick MD [address] [place] [address] PCP - General Family Medicine 02/14/24 Public Relations Director Relationship Specialty Start Date End Date Jorge Luis Wick MD [address] [place] [phone] PCP - General Family Medicine 02/14/24 Public Relations Director Relationship Specialty Start Date End Date Jorge Luis Wick MD [address] [place] [phone] PCP - General Family Medicine 02/14/24 Public Relations Director Relationship Specialty Start Date End Date Jorge Luis Wick MD [address] [place] [address] PCP - General Family Medicine 02/14/24 Jorge Luis Wick MD [address] [place] [phone] PCP - [employer] 08/26/24 Public Relations Director Relationship Specialty Start Date End Date Jorge Luis Wick MD [address] [place] [phone] PCP - [facility] Medicine 02/14/24 Jorge Luis Wick MD [address] [place] [address] PCP - [employer] 08/26/24 Team Status: Inactive Member Role Status Dates Jorge Luis Wick MD Primary Care Provider Active S tart: June 18, 2025 End: June 18, 2025 Kassy Gtz APRN Attending Provider Active Start: June 18, 2025 End: June 18, 2025 Team Status: Active Member Role Status Dates Jorge Luis Wick MD Primary Care Provider Active S tart: June 18, 2025 Kassy Gtz APRN Attending Provider Active Start: June 18, 2025 Team Status: Inactive Member Role Status Dates Jorge Luis Wick MD Primary Care Provider Active S tart: June 22, 2025 End: June 22, 2025 Jean Rodriguez MD Attending Provider Active Star t: June 22, 2025 End: June 22, 2025 Team Status: Inactive Member Role Status Dates Jorge Luis Wick MD Primary Care Provider Active S tart: July 13, 2025 End: July 13, 2025 Jean Rodriguez MD Attending Provider Active Star t: July 13, 2025 End: July 13, 2025 Team Status: Active Member Role Status Dates Jean Rodriguez MD Attending Provider Active Star t: July 13, 2025 Jorge Luis Wick MD Primary Care Provider Active S tart: July 13, 2025 Team Status: Inactive Member Role Status Dates Jean Rodriguez MD Attending Provider Active Star t: July 13, 2025 End: July 13, 2025 Jorge Luis Wick MD Primary Care Provider Active S tart: July 13, 2025 End: July 13, 2025 Public Relations Director Relationship Specialty Start Date End Date Jorge Luis Wick MD [address] [place] [phone] PCP - General Family Medicine 08/14/25 Public Relations Director Relationship Specialty Start Date End Date Jorge Luis Wick MD [address] [place] [phone] PCP - General Family Medicine 08/14/25 Team Status: Inactive Member Role Status Dates Jorge Luis Wick MD Primary Care Provider Active S tart: August 19, 2025 End: August 19, 2025 Jorge Luis Wick MD Attending Provider Active Star t: August 19, 2025 End: August 19, 2025 Goals (unrecognized section and content) Goals may be documented in a n alternate section REASON FOR VISIT (unrecogniz ed section and content) Reason Comments Follow-up 6mFibromyalgia flare Reason Comments Follow-up Chest cold Reason Comments 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 Patient states she's tried topical fungal medications but states it didn't do too much. PCP: Dr. Wick LV 02/17/25, A1C: 7.0, BS: 141 FOR RECORDS PERTAINING TO PATIENTS WHO ARE [...] BE BASED ON THE PRIMARY CLINICAL RECORDS. [facility]. provides no warranty or guarantee of the accuracy or completeness of information in this document.
[2025-09-07 16:08] LABS: Hematocrit 42.1 % (36.0-48.0); Hemoglobin 14.5 g/dL (12.0-16.0); Immature Granulocytes Abs Auto 0.03 10^3/uL (0.00-0.03); Immature Granulocytes Pct Auto 0.3 % (0.0-0.5); Lymphocytes Absolute Auto 1.6 10^3/uL (1.2-3.8); Mean Corpuscular HGB Conc 34.4 g/dL (29.9-35.2); Mean Corpuscular Hemoglobin 28.4 pg (26.7-34.0); Mean Corpuscular Volume 82.4 fL (81.0-99.0); Platelet Count 231 10^3/uL (150-450); Red Blood Count 5.11 10^6/uL (4.20-5.40); White Blood Count 11.2 10^3/uL (4.0-11.0)
[2025-09-07 16:22] LABS: Anion Gap 16.9; Blood Urea Nitrogen 24.0 mg/dL (7.0-18.0); Calcium 9.8 mg/dL (8.5-10.1); Carbon Dioxide 27.0 mmol/L (21.0-32.0); Chloride 99 mmol/L (98-107); Estimated GFR (African America >60 (>=60 mL/min/1.73m^2); Estimated GFR (Non-African Ame 50 (>=60 mL/min/1.73m^2); Glucose 318 mg/dL (74-106); Potassium 3.9 mmol/L (3.5-5.1); Sodium 139 mmol/L (136-145)
[2025-09-07 16:56] VITALS: PULSE 92; O2SAT 98
== END 2025-09-07 17:00 | disposition home or self-care (01) ==
PROVIDERS: Emergency Provider Emergency Medicine; PCP Family Medicine
DX: E86.0 Dehydration (principal)
CPT/HCPCS: 36415; 80048; 85025; 93005; 99284

== ENCOUNTER 2025-11-25 09:18 | Outpatient (OUT) | payer MEDICARE, OTHER, SELFPAY ==
--- OUTSIDE RECORDS SUMMARY | 2025-11-25 09:21 | XMS_ITS | Clinical Summary ---
Author Organization [employer] [facility] tem Address [facility] [address] 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 Role Phone Jorge Luis Taylor MD Primary Care Provider Allergies No known active allergies Medications MedicationSigDispense QuantityRefillsLast FilledStart DateEnd DateStatus sodium bicarbonate 325 mg tablet Take 325 mg by mouth 3 (three) times a day.Active Active Problems No known active problems Family History RelationNameStatusCommentsFatherAliveMotherAlive Social History Tobacco UseTypesPacks/DayYears UsedDateSmoking Tobacco: NeverAlcohol UseStandard Drinks/WeekCommentsNo0 (1 standard drink = 0.6 oz pure alcohol)ChildcareAnswer Date GsghfumuBoghkaqmbGpejzgr40/12/2019EmploymentAnswerDate RecordedEmployment Pegxvjn9505/07/2019Purpose - LifeAnswerDate RecordedPurpose and direction in life Apsfqpd78/11/2021CommentsNoSex and Gender InformationValueDate Recorded Sex Assigned at BirthNot on fileLegal PynGqkgec15/06/2015 11:43 AM EDTGender IdentityNot on fileSexual OrientationNot on file Last Filed Vital Signs Vital SignReadingTime TakenCommentsBlood Senusbqq353/8208 1:40 PM EDT Rktkj54517 1:28 PM HPZVjzyayfsabl55.8 ??C (98.2 ??F)06/26/2017 11:04 AM EDTRespiratory Pylh1984 1:28 PM EDTOxygen Lrlqxxyuom87%06/26/2017 1:40 PM EDTInhaled Oxygen Concentration--Enhbve59.6 kg (160 lb)06/26/2017 11:04 AM EASHolnwb216.5 cm (5' 2 )06/26/2017 11:04 AM EDTBody Mass Index29.26006/26/2017 11:04 AM EDT Plan of Treatment Not on file Medical Devices ImplantedTypeAreaManufacturerDevice IdentifierShelf Expiration DateModel / Serial / LotLens 21.5 Diopter - [id number] Implanted:Qty: 1 on 06/26/2017 [facility] [employer]11/25/[id number] / [id number] / Insurance * Guarantor: Rhona Taveras TypeRelation to PatientDate of BirthPhone Billing AddressPersonal/MajbnqCqfs1960 [address] [address] [address] [place] [address] * Guarantor: Rhona Taveras TypeRelation to PatientDate of BirthPhone Billing KbroaydDngqwgZzmv1960 [address] [address] [address] [place] [address] Care Teams Team MemberRelationshipSpecialtyStart DateEnd Date Jorge Luis Taylor MD [facility]06/26/17
--- OUTSIDE RECORDS SUMMARY | 2025-11-25 09:21 | XMS_ITS | Clinical Summary ---
Author Organization [facility] Address [address] [place] [address] Care Team Providers [employer] Name Role Phone Jorge Luis Taylor MD Primary Care Provider Allergies Active AllergyReactionsCriticalityNoted DateCommentsIcy RknNauqTtx23/21/2024 Wound Dressing AcuzmczdNkzad19/19/2025 Other Reaction(s): Unknown Medications MedicationSigDispense QuantityRefillsLast FilledStart DateEnd DateStatus GNP PAIN RELIEF EX-STRENGTH 500 MG tablet Take 1,000 mg by mouth every 8 (eight) hours if mvtzkv9604/11/2023ctive allopurinol (Zyloprim) 300 MG tablet Take 300 mg by mouth DailyActive albuterol HFA 90 mcg/act inhaler Indications:Mild intermittent asthma without complication (HCC)Inhale 2 puffs every 4 (four) hours if needed for wheezing or shortness of breath 8 g ctive DULoxetine (Cymbalta) [address] capsule Indications:FibromyalgiaTake 1 capsule (60 mg) by mouth Daily 90 capsule ctive glipiZIDE (Glucotrol) 10 MG tablet Indications:Type 2 diabetes mellitus with hyperglycemia, without long-term current use of insulin (HCC)Take 1 tablet by mouth twice daily 60 tablet 5Active OneTouch Ultra test strip Indications:Type 2 diabetes mellitus with hyperglycemia, with long-term current use of insulin (HCC)USE 1 STRIP TO CHECK GLUCOSE ONCE DAILY NEEDED 100 each 5Active oxybutynin XL (Ditropan-XL) 10 MG 24 hr tablet Indications:HyperhidrosisTake 1 tablet (10 mg) by mouth Daily Do not crush, chew, or split. 30 tablet 5Active Active Problems ProblemNoted DateDiagnosed DateRenal rdfmhixmlhhxtl54/25/2025nnual physical exam08/20/2024 Assessment & Plan (08/20/2024 7:49 AM EDT): Due for labs and mammogram. Discussed proper diet and regular aerobic exercise. Need aerobic exercise 5-6 days a week for 30 minutes at a time. Smaller portions and limit total calories. Tetanus every 10 years. Advised not to smoke. Discussed daily Aspirin therapy. Class 2 severe obesity due to excess calories with serious comorbidity and body mass index (BMI) of37.0 to 37.9 in adult08/20/2024 Assessment & Plan (02/17/2025 1:49 PM EDT): Weight loss indicated Assessment & Plan (12/11/2024 11:57 AM EST): Weight loss indicated Chronic diastolic heart lamqlha9102/14/2024 Assessment & Plan (02/17/2025 1:49 PM EDT): No edema and monitor. Elevate legs PRN. Assessment & Plan (02/14/2024 8:52 PM EDT): No edema and monitor. Elevate legs PRN. Sntntypspuao30/21/1742Sqyrrehpkwiw71/21/2024 Assessment & Plan (02/17/2025 1:49 PM EDT): Pain tolerable with medication and continue. Assessment & Plan (02/14/2024 8:53 PM EDT): Pain tolerable with medication and continue. Ultduovojofum52/21/2024rimary osteoarthritis of right knee02/14/2024 Assessment & Plan (02/14/2024 8:53 PM EDT): Pain stable and use OTC PRN. Type 2 diabetes mellitus with hyperglycemia, without long-term current use of tbjapnt4002/14/2024 Assessment & Plan (02/17/2025 1:49 PM EDT): Reports BS elevated and due for A1C. Stick to ADA diet and limit carbs. Assessment & Plan (08/20/2024 7:49 AM EDT): Reports BS controlled and due for A1C. Stick to ADA diet and limit carbs. Assessment & Plan (02/14/2024 8:53 PM EDT): BS controlled and A1C 6.8. Stick to ADA diet and limit carbs. Vitamin D ipyahhowqc83/21/2024Mild intermittent asthma without complication 02/14/2024 Assessment & Plan (02/17/2025 1:49 PM EDT): Occasional symptoms and use albuterol PRN. Assessment & Plan (02/14/2024 8:53 PM EDT): Occasional symptoms and use albuterol PRN. Seasonal allergic rhinitis due to dgdrul5902/14/2024 Assessment & Plan (02/17/2025 1:49 PM EDT): Symptoms controlled with medication and continue. Assessment & Plan (02/14/2024 8:53 PM EDT): Symptoms controlled with medication and continue. Statin zllmlqfu77/21/2024 Assessment & Plan (12/11/2024 11:57 AM EST): Not tolerate statins Resolved Problems ProblemNoted DateDiagnosed DateResolved DateAcute bronchitis due to other specified dandyoogd82/16/01172102/17/2025 Assessment & Plan (12/11/2024 11:56 AM EST): [...] no better or worse call office. Gouty tghcebxfh52Myalgia Social History Tobacco UseTypesPacks/DayYears UsedDateSmoking Tobacco: NeverSmokeless Tobacco: Never Tobacco Cessation:Counseling Given: Not Answered CommentsUnknownSex and Gender InformationValueDate RecordedSex Assigned at BirthNot on fileLegal JkvNxwqex35/15/2023 11:46 PM EDTGender IdentityNot on fileSexual OrientationNot on file Last Filed Vital Signs Vital SignReadingTime TakenCommentsBlood Tmowpiyn925/7603 1:08 PM EDT Dewbr517002/17/2025 1:08 PM NSTLyxbvkjzlld59.3 ??C (95.5 ??F)02/17/2025 1:08 PM EDTRespiratory Rfkr081102/17/2025 1:08 PM EDTOxygen Adhbcwzets96%02/17/2025 1:08 PM EDTInhaled Oxygen Concentration--Uosuyk02.9 kg (207 lb)08/14/2025 9:43 AM EDT Tuhbsw080.5 cm (5' 2 )08/14/2025 9:43 AM EDTBody Mass Index37.8608/14/2025 9:43 AM EDT Plan of Treatment Health MaintenanceDue DateLast DoneCommentsCT Gomhxtvadqtz1960Colonoscopy 1960FIT-DNA1960FIT1960FOBT1960 9083Aiezubmmezles1960Pap Smear1981Cervical Cancer Ykngewejj93/12/1990HPV/Kqcxcd1501/07/1990Influenza Vaccine (#1)/12/2023, 10/03/2023, 09/13/2022, Additional history existsColorectal Cancer Rxzhiyvew02/16/2026Postponed from 1960 (Patient Refused)Yybpgcckr91/25/2026Postponed from 2000 (Patient Refused)Diabetes: Hemoglobin X4RYnanbzmutqwx52/02/2024, 4Pneumococcal Vaccine: 65+ Years Qxlxeqhua09/24/2025, 01/18/2025, 09/06/2020 [place] [id number] Care Teams Team MemberRelationshipSpecialtyStart DateEnd Date Jorge Luis Taylor MD PCP - GeneralFamily Medicine08/14/25
--- OUTSIDE RECORDS SUMMARY | 2025-11-25 09:24 | XMS_ITS | CCD ---
Author Organization [facility] Care Team Providers Care Mediation Commissioner Name Role Phone PHYSICIAN, DEFAULT Unavailable Unavailable PHYSICIAN, DEFAULT Unavailable Unavailable PHYSICIAN, DEFAULT Unavailable Unavailable PHYSICIAN, DEFAULT Unavailable Unavailable JORGE LUIS WICK Primary Care Physician [phone] NO FAMILY, PHYSICIAN Primary Care Provider Unava ANIA Maurer Attending Provider Aurelia Blanco Unavailable MD Kelby Bella II Attending Provider Kelby Bella II Unavailable NO FAMILY, PHYSICIAN Primary Care Provider Unava MD Kelby Manzanares II Attending Provider MD Jorge Luis Wick Primary Care Provider [phone] WEISS ., DR CAN Admitting Unavailable WEISS ., DR CAN Attending Unavailable NADERER, DR JORGE LUIS Arriaga Primary Care Unavailable WEISS ., DR CAN Consulting Unavailable JOSE ANTONIO, DR MAX Nair Consulting Unavailable NADERER, DR JORGE LUIS Arriaga Admitting Unavailable NADERER, DR JORGE LUIS Arriaga Attending Unavailable NADERER, DR JORGE LUIS Arriaga Primary Care Unavailable NADERER, DR JORGE LUIS Arriaga Consulting Unavailable NADERER, DR JORGE LUIS Arriaga Admitting Unavailable NADERER, DR JORGE LUIS Arriaga Attending Unavailable NADERER, DR JROGE LUIS Arriaga Primary Care Unavailable NADERER, DR JORGE LUIS Arriaga Consulting Unavailable NADERER, DR JORGE LUIS Arriaga Primary Care Unavailable YAQUELIN ., ELAINE Admitting Unavailable YAQUELIN ., ELAINE Attending Unavailable YAQUELIN ., ELAINE Consulting Unavailable WEISS ., DR CAN Admitting Unavailable WEISS ., DR CAN Attending Unavailable NADERER, DR JORGE LUIS Arriaga Primary Care Unavailable WEISS ., DR CAN Consulting Unavailable [place], DR GENEVA Rodney Consulting Unavailable GENEVA HELM Consulting Unavailable WEISS ., DR CAN Admitting Unavailable WEISS ., DR CAN Attending Unavailable NADERER, DR JORGE LUIS A Primary Care Unavailable WEISS ., DR CAN Consulting Unavailable CAMPBELL, HOSSAM Consulting Unavailable MD Kelby Bella II Attending Provider Moni Aguilarnifer Unavailable MD Jorge Luis Wick Primary Care Provider MD Kelby Bella II Attending Provider Ella Quinteros Unavailable MD Jorge Luis Wick Primary Care Provider MD Kelby Bella II Attending Provider MD Jorge Luis Wick Primary Care Provider VIKAS Gtz Attending Provider MD Jogre Luis Wick Primary Care Provider MD Kelby Bella II Attending Provider [phone] Jorge Luis Wick MD Primary Care Provider Jorge Luis Wick MD Unavailable Pamella WEISS Attending Unavailable Pamella WEISS Attending Unavailable Jorge Luis Wick MD Primary Care Provider [phone] Kassy Gtz APRN Attending Provider [phone] Jean Rodriguez MD Attending Provider Jorge Luis Wick MD Primary Care Provider JORGE LUIS WICK Attending Unavailable KARINA ZIMMERMAN Attending Unavailable JORGE LUIS WICK Attending Unavailable JORGE LUIS WICK Attending Unavailable Jorge Luis Wick MD Attending Provider [phone] Elder Yancey DO Attending Provider Jorge Luis Wick MD Primary Care Provider Jean Rodriguez MD Attending Provider Jorge Luis Wick MD Attending Provider [phone] Elder Yancey DO Attending Provider [phone] Jean Rodriguez Admitting Unavailable Jorge Luis Wick Primary Care Unavailable Jean Rodriguez Attending Unavailable Jorge Luis Wick Primary Care Unavailable Kassy Gtz Attending Unavailable Kassy Gtz Admitting Unavailable Jorge Luis Wikc Primary Care Unavailable Jean Rodriguez Attending Unavailable Jean Rodriguez Admitting Unavailable Allergies Allergy ClassificationReported Allergen(s)Allergy TypeDate of OnsetReaction(s) FacilityAdhesive Tape (1 source)Adhesive TapeSubstance Smiblql30-98-0139Vpuywwu of Skin/RashRiverview Health InstituteOpioid Agonists (1 source)HYDROcodoneDrug Unoewbg01-01-3408K/[facility] (1 source)Adhesive agentDrug allergy (disorder)00-68-2290CmlSelect [facility] [place] [facility] (1 source)RocuroniumDrug Vngeoce73-04-2931UqtSelect Medical [facility] [place] [facility] (1 source)AcetaminophenDrug Chpxrff00-12-0448R/[facility] (15 sources)HYDROcodoneDrug Rssqizn24-93-7042H/[facility] (16 sources)Ececdvi-NGX-IhR Reductase InhibitorPropensity to adverse reactions 16-87-3264Zegikn [facility] (14 sources)Adhesive TapeAllergy to ntmqhjvut76-18-4817Viewleo of Skin/Rash Riverview Health InstituteComment on above:Pt states happens when having on for long periods of time (15 sources) Surgical soap Allergy to bcdwjxcoa56-33-4847LfdqMaavzrgbeHighland District Hospital (10 sources)Icy HotPropensity to adverse trixthdka56-02-4118MzvsOCLC Healthcare (1 source)Adhesive Tape; Translations: [Tape]Propensity to adverse reactions (disorder)[facility] Repository (2 sources)Wound Dressing AdhesiveDrug Uorivbf46-30-4106NgxhrYSMQ Healthcare Medications Current Medications MedicationDrug Class(es)DatesSig (Normalized)Sig (Original)acetaminophen 500 mg oral tablet (20 sources)Start: 15-89-9890wogp 2 tablets by mouth every eight hours as needed Start: 87-92-4083qfcg 2 tablets by mouth every eight hours as neededGNP PAIN RELIEF EX-STRENGTH 500 MG tablet Take 1,000 mg by mouth every 8 (eight) hours if needed 04/11/2023 ActiveStart: 04-03-2023 End: 78-41-3158Kdioaadkjudvi (Tylenol Ex Str Arthritis Pain) 500 mg Tablet Discontinued 1000 MG PO Twice daily as needed for Pain April 02, 2023 11:00pm August 19, 2025 8:73uokcs580540 200 actuat albuterol 0.09 mg/actuat metered dose inhaler (14 sources)beta2-Adrenergic AgonistStart: 17-08-2760nwdz 1 puff(s) by inhalation every four hours as neededStart: 09-31-6739akmu 2 puff(s) by inhalation every four hours for wheezingalbuterol HFA 90 mcg/act inhaler Indications: Mild intermittent asthma without complication (HCC) Inhale 2 puffs every 4 (four) hours if needed for wheezing or shortness of breath 8 g 2 02/14/2024 Activeallopurinol 300 mg oral tablet (17 sources)Xanthine Oxidase InhibitorStart: 08-84-4254uzoo 1 tablet by mouth once dailyStart: 62-98-5857xuhr 1 tablet by mouth once dailyallopurinol 300 mg Tab 300 mg = 1 tab(s), Oral, Daily, # 90 tab(s), Refills(s) 3, Pharmacy: [facility], 158, cm, 09/10/23 15:38:00 EDT, Height/Length Dosing, 94.6, kg, 09/10/23 15:38:00 EDT, Weight Dosing Start Date: 09/10/23 Status: Orderedaspirin 81 mg oral tablet (5 sources)Platelet Aggregation Inhibitor, Nonsteroidal Anti-inflammatory Drug Start: 22-83-6226rhjv 1 capsule by mouth twice dailyAspirin 81 MG 1 capsule Orally Twice a day for 35 days MED TO BED UPON DISCHARGE DOS: 04/17/2023 March, Activeazithromycin 250 mg oral tablet (2 sources)Macrolide AntimicrobialStart: 25-68-0628pfuh 2 tablets by mouth once dailyazithromycin (Zithromax) 250 MG tablet Indications: Acute bronchitis due to other specified organisms 2 PO once a day on day #1, then 1 PO daily on days 2- 5 6 tablet 12/11/2024 ActiveStart: 62-84-0018gefq 2 tablets by mouth once daily azithromycin (Zithromax) 250 MG tablet Indications: Acute bronchitis due to other specified organisms 2 PO once a day on day #1, then 1 PO daily on days 2-5 6 tablet 12/11/2024 Activecefadroxil 500 mg oral capsule (5 sources)Cephalosporin AntibacterialStart: 35-30-3684ivpw 1 capsule by mouth every twelve hoursCefadroxil 500 MG 1 tablet Orally every 12 hrs for 7 days MED TO BED UPON DISCHARGE DOS: 04/17/2023 March, Activecelecoxib 200 mg oral capsule (9 sources)Nonsteroidal Anti-inflammatory DrugStart: 66-76-3242pmjj 1 capsule by mouth every twelve hoursCelecoxib 200 MG 1 capsule with food Orally Twice a day for 30 days MED TO BED UPON DISCHARGE DOS: 04/17/2023 March, Active Crutches unit (9 sources)Start: 36-00-5255Pwcjqjhp unit Active 0 .Route 1 0 June 17, 2025 11:00pm As directedStart: 93-57-6038Eeujpuvy unit Active 0 .Route 1 June 18, 2025 12:00am As directeddexamethasone 4 mg oral tablet (1 source)CorticosteroidStart: 39-32-7170gjmy 1 tablet by mouth every twenty- four hoursDexamethasone 4 MG 1 tablet Orally Once a day for 5 day(s) Sep, Activedocusate sodium 50 mg / sennosides, prison 8.6 mg oral tablet (5 sources)Start: 33-58-0095azxq 2 tablets by mouth every twenty-four hours Senokot S 8.6-50 MG 2 tablets Orally Once a day for 30 days MED TO BED UPON DISCHARGE DOS: 04/17/2023 March, Activedoxycycline hyclate 100 mg oral capsule (4 sources)Tetracycline-class DrugStart: 34-81-0926mgbg 1 capsule by mouth every twelve hoursDoxycycline Hyclate 100 MG 1 capsule Orally Twice a day for 14 days May, ActiveDULoxetine 60 mg delayed release oral capsule (20 sources)Serotonin and Norepinephrine Reuptake InhibitorStart: 04-03-2023 End: 72-98-5765tyov 1 capsule by mouth once dailyStart: 81-09-5369TOXqsncofb 60 mg Cap-EC Refills(s) 0 Start Date: 08/16/20 Status: OrderedDULoxetine 60 mg Cap-EC (1 source)Start: 14-78-7047UYWlspuyun 60 mg Cap-EC Refills(s) 0 Start Date: 08/16/20 Status: Orderedempagliflozin 25 mg oral tablet (3 sources)Sodium-Glucose Cotransporter 2 InhibitorStart: 09-03-2024 End: 75-69-7002jste 1 tablet by mouth once dailyempagliflozin (Jardiance) 25 MG Indications: Type 2 diabetes mellitus with hyperglycemia, without long-term current use of insulin (CMS/HCC) Take 1 tablet (25 mg) by mouth Daily 30 tablet 3 09/03/2024 12/11/2024 DiscontinuedglipiZIDE 10 mg oral tablet (20 sources)SulfonylureaStart: 86-24-3348suif 1 tablet by mouth twice daily Start: 53-43-8622ejap 1 tablet by mouth twice dailyglipiZIDE (Glucotrol) 10 MG tablet Indications: Type 2 diabetes mellitus with hyperglycemia, without long- term current use of insulin ([facility]) Take 1 tablet by mouth twice daily 60 tablet 01/05/2025 ActiveStart: 47-80-2885wwrk 1 tablet by mouth twice dailyglipiZIDE (Glucotrol) 10 MG tablet Indications: Type 2 diabetes mellitus with hyperglycemia, without long-term current use of insulin (CMS/HCC) Take 1 tablet by mouth twice daily 60 tablet 12/08/2024tiveStart: 53-68-6816qkme 1 tablet by mouth in the morningglipiZIDE (Glucotrol) 10 MG tablet Indications: Type 2 diabetes mellitus with hyperglycemia, without long-term current use of insulin (CMS/HCC) Take 1 tablet (10 mg) by mouth in the morning and 1 tablet (10 mg) before bedtime. 180 tablet 3 08/20/2024 ActiveStart: 44-72-9983oqae 1 tablet by mouth in the morningglipiZIDE (Glucotrol) 10 MG tablet Indications: Type 2 diabetes mellitus with hyperglycemia, without long-term current use of insulin (CMS/HCC) Take 1 tablet (10 mg) by mouth in the morning and 1 tablet (10 mg) before bedtime. 180 tablet 3 08/20/2024 ActiveStart: 08-16-2020 End: 68-84-6336gkzc 1 tablet by mouth twice dailyGlipizide 10 mg tablet Discontinued 10 MG PO Twice daily April 02, 2023 11:00pm August 19, 2025 8:49amStart: 05-17-8136oadtbJGUK 10 mg Tab Refills(s) 0 Start Date: 08/16/20 Status: OrderedglipiZIDE Activemeloxicam 15 mg oral tablet (20 sources)Nonsteroidal Anti-inflammatory DrugStart: 45-03-1619lppghjwrf 15 mg oral tablet Refills(s) 0 Start Date: 08/16/20 Status: OrderedMeloxicam Active methylPREDNISolone 4 mg oral tablet (2 sources)CorticosteroidStart: 47-41-5967nhmjzxVAUDOEQbxdzb 4 MG as directed Orally for 6 days Apr, Activemorphine sulfate 15 mg extended release oral tablet (5 sources)Opioid AgonistStart: 58-32-1152wyls 1 tablet by mouth every twelve hours for painMorphine Sulfate ER 15 MG 1 tablet for breakthrough pain only Orally every 12 hrs for 5 days MED TOBED UPON DISCHARGE DOS: 04/17/2023 March, Activeondansetron 8 mg oral tablet (5 sources)Serotonin-3 Receptor AntagonistStart: 58-88-1257nlkx 1 tablet by mouth three times daily as needed for nauseaOndansetron HCl 8 MG 1 tablet as needed for nausea Orally Three times a day for 10 days MED TO BED UPON DISCHARGE DOS: 04/17/2023 March, Ubwcnw50 hr oxybutynin chloride 15 mg extended release oral tablet (19 sources)Cholinergic Muscarinic AntagonistStart: 52-61-3181vpar 1 tablet by mouth once dailyStart: 08-19-2025 End: 46-22-8669dhwh 1 tablet by mouth once dailyOxybutynin Chloride 10 mg tablet extended release 24hr Discontinued 10 MG PO Daily August 18, 2025 11:00pm August 19, 2025 12:46pmStart: 06-18-2025 End: 27-69-1096nvkc 1 tablet by mouth every twenty-four hoursOxybutynin Chloride 10 mg tablet extended release 24hr Discontinued MG PO June 17, 2025 11:00pm August 19, 2025 8:49amStart: 81-06-6597gpjh 1 tablet by mouth once daily oxybutynin XL (Ditropan-XL) 10 MG 24 hr tablet Indications: Hyperhidrosis Take 1 tablet (10 mg) by mouth Daily Do not crush, chew, or split. 30 tablet 5 05/19/2025 ActiveoxyCODONE hydrochloride 5 mg oral tablet (5 sources)Opioid AgonistStart: 34-19-3569utnk 1 tablet by mouth every four hours as needed for painoxyCODONE HCl 5 MG 1 tablet as needed for pain Orally every 4 hrs for 10 days MED TO BED UPON DISCHARGE DOS: 04/17/2023 March, Activepantoprazole 20 mg delayed release oral tablet (5 sources)Proton Pump InhibitorStart: 93-87-8633sgpv 1 tablet by mouth every twenty-four hoursProtonix 20 MG 1 tablet Orally Once a day for 30 days MED TO BED UPON DISCHARGE DOS: 04/17/2023 March, Activepioglitazone 30 mg oral tablet (17 sources)Peroxisome Proliferator Receptor alpha Agonist, Peroxisome Proliferator Receptor gamma Agonist, ThiazolidinedioneStart: 58-20-7719zscc 1 tablet by mouth once dailypioglitazone (Actos) 30 MG tablet Take 30 mg by mouth Daily 11/08/2023 Activetake 1 tablet by mouth every twenty-four hours Pioglitazone HCl 30 MG 1 tablet Orally Once a day Activepolyethylene glycol 3350 11454 mg powder for oral solution (5 sources)Osmotic LaxativeStart: 49-92-3537GpxiYhn 17 GM 1 packet mixed with 8 ounces of fluid Orally Once a day for 7 days MED TO BED UPON DISCHARGE DOS: 04/17/2023 March, Activepotassium bicarbonate 25 meq effervescent oral tablet (5 sources)Start: 40-11-7612Wmsbb: 11-01-7101twtu 1 tablet by mouth twice daily Effer-K 25 mEq oral tablet, effervescent 25 mEq = 1 tab(s), Oral, BID, # 60 tab(s), Refills(s) 11, Pharmacy: [facility], 158, cm, 08/28/22 15:39:00 EDT, Height/Length Dosing, 76, kg, 08/28/22 15:39:00 EDT, Weight Dosing Start Date: 08/28/22 Status: Orderedpotassium citrate 10 meq extended release oral tablet (8 sources)Start: 10-25-2023 End: 70-15-0483reak 1 tablet by mouth in the morning, then take 1 tablet by mouth in the evening, then take 1 tablet by mouth at bedtimepotassium citrate CR (Urocit-K-10) 10 mEq ER tablet Take 20 mEq by mouth in the morning and 20 mEq i n the evening and 20 mEq before bedtime. 10/25/2023 12/11/2024 Discontinued Start: 49-23-9989azxd 2 tablets by mouth three times dailypotassium CITRATE 10 mEq ER Tab 20 mEq, 2 tab(s), Oral, TID, 180 tab(s), Refill(s) 11, [facility], 158, cm, 09/10/23 15:38:00 EDT, Height/Length Dosing, 94.6, kg, 09/10/23 15:38:00 EDT, Weight Dosing Start Date: 09/10/23 Status: Ordered predniSONE 50 mg oral tablet (2 sources)Start: 08-20-2024 End: 37-10-4819fogm 1 tablet by mouth once dailypredniSONE (Deltasone) 50 MG tablet Indications: Fibromyalgia Take 1 tablet (50 mg) by mouth Daily for 6 days 6 tablet 08/20/2024 08/26/2024 Activesodium bicarbonate 650 mg oral tablet (20 sources)Start: 74-45-3981ypnp 3 tablets by mouth once dailysodium bicarbonate 650 mg Tab 1,950 mg = 3 tab(s), Oral, Daily, # 90 tab(s), Refills(s) 11, Pharmacy: [facility], 158, cm, 09/10/23 15:38:00 EDT, Height/Length Dosing, 94.6, kg, 09/10/23 15:38:00 EDT, Weight Dosing Start Date: 09/10/23 Status: OrderedStart: 78-92-5936gghf 3 tablets by mouth once daily sodium bicarbonate 650 mg Tab 1,950 mg = 3 tab(s), Oral, Daily, # 60 tab(s), Refills(s) 0 Start Date: 08/28/22 Status: OrderedStart: 08-22-2021 End: 77-07-2980tdhf 3 tablets by mouth three times dailysodium bicarbonate 650 mg Tab 1,950 mg = 3 tab(s), Oral, TID, X 90 day(s), # 810 tab(s), Refills(s)3, Pharmacy: [facility], 158, cm, 08/22/21 15:36:00 EDT, Height/Length Dosing, 76, kg, 08/22/21 15:36:00 EDT, Weight Dosing Start Date: 08/22/21 Stop Date: 08/17/22 Status: Ordered End: 53-30-0902xcxwcg bicarbonate 325 MG tablet Take 325 mg by mouth in the morning and 325 mg at noon and 325 mg in the evening. 12/11/2024 Discontinued take 2 tablets by mouth every eight hoursSodium Bicarbonate 325 MG 2 tablets Orally Three times a day ActivetraMADol hydrochloride 50 mg oral tablet (20 sources)Opioid AgonistStart: 27-55-8982ubsc 1 tablet by mouth every six hours as needed for paintraMADol HCl 50 MG 1 tablet as needed for pain Orally every 6 hrs for 10 days MED TO BED UPON DISCHARGE DOS: 04/17/2023 March, ActiveStart: 04-03-2023 End: 93-68-7011tftg 1 tablet by mouth four times daily as needed for pain Tramadol 50 mg tablet Discontinued 50 MG PO Four times daily as needed for Pain April 02, 2023 11:00pm June 18, 2025 10:08amVitamin D (4 sources)Start: 84-60-1517Pwbwcry D International_Unit, Oral, qWeek, Refills(s) 0 Start Date: 08/22/21 Status: OrderedVitamin D Active Completed/Discontinued Medications MedicationDrug Class(es)DatesSig (Normalized)Sig (Original)gabapentin 800 mg oral tablet (20 sources)Anti-epileptic AgentStart: 04-03-2023 End: 31-33-9205rozz 1 tablet by mouth three times dailyGabapentin 800 mg tablet Discontinued 800 MG PO Three times daily April 02, 2023 11:00pm June 18, 2025 10:08am fibromyalgiaStart: 27-50-2967fysb 1 tablet by mouth every twenty-four hoursGabapentin 800 MG 1 tablet Orally Once a day for 30 day(s) Sep, ActiveStart: 67-22-2570gbwo 1 tablet by mouth every twenty-four hoursGabapentin 600 MG 1 tablet Orally Once a day for 30 day(s) Sep, Active hydroCHLOROthiazide 25 mg oral tablet (3 sources)Thiazide DiureticStart: 08-24-2025 End: 88-15-7513twsj 1 tablet by mouth once dailyHydrochlorothiazide 25 mg tablet Discontinued 25 MG PO Daily 22 02August 23, 2025 11:00pm September 09, 2025 12:29pmKetorolac (11 sources)Nonsteroidal Anti-inflammatory Drug, Cyclooxygenase InhibitorStart: 68-17-5452Dtmkmnh per 15 mg Jun, 60 mgtiZANidine 4 mg oral capsule (20 sources)Central alpha-2 Adrenergic AgonistStart: 08-16-2020 End: 79-37-5750mdbv 1 capsule by mouth three times daily as needed for muscle spasmsTizanidine 4 mg capsule Discontinued 4 MG PO Three times daily as needed for Muscle Spasm April 02, 2023 11:00pm August 19, 2025 8:49amtriamcinolone acetonide 32 mg injection (10 sources)CorticosteroidStart: 54-71-7312Arcphylh Dec, 32 mg Problems Active Problems Problem ClassificationProblemDateDocumented DateEpisodic/ChronicAcquired foot deformities (2 sources)Hammer toe; Translations: [Other hammer toe(s) (acquired), right foot]61-57-8236GlybkipBzxjsmfx reactions (2 sources)Allergic contact dermatitis, unspecified causeEpisodicAsthma (17 sources)Asthma; Translations: [Mild intermittent asthma]Onset: 02-14-2024 70-41-5725AmmchkjAekjflfa of urinary tract (14 sources)Kidney stone; Translations: [Calculus of kidney]Onset: 06-05-2022 52-37-5824IrsprtegLblazwglfb disorders (4 sources)Left bundle branch block; Translations: [Left bundle-branch block, unspecified]33-01-6702CsagvbhErzazubkxl heart failure; nonhypertensive (14 sources)Chronic diastolic heart failure; Translations: [Chronic diastolic (congestive) heart failure]Onset: 710306-36-3162DifykycPbtgwzhg mellitus with complications (20 sources)Type 2 diabetes mellitus with hyperglycemia; Translations: [Hyperglycemia due to type 2 diabetes mellitus]Onset: 89-38-1470KgogzvuNwchsmdl mellitus without complication (3 sources)Diabetes bwtiapml69-87-5994AiebbofSqtzannw mellitus without complication (1 source)GlycosuriaEpisodicDisorders of lipid metabolism (14 sources)Dyslipidemia; Translations: [Hyperlipidemia, unspecified]Onset: 572444-09-0930WrelnauZrggrmbms hypertension (5 sources)Benign essential hypertension; Translations: [Essential (primary) hypertension]15-48-2816LqdmpuhFiaaa and electrolyte disorders (5 sources)Dehydration; Translations: [Mild dehydration]Onset: 05-04-2022 56-27-8763AuufklwfAvtbuomw of lower limb (20 sources)Displaced fracture of fifth metatarsal bone, right foot, initial encounter for closed fracture; Translations: [Fracture of fifth metatarsal bone of right foot]Onset: 638868-52-2823JngremwiSyvwfmcosoqqh symptoms and ill- defined conditions (1 source)DysuriaEpisodicMycoses (2 sources)Onychomycosis; Translations: [Tinea unguium]38-05-0387Gqjdvqij Nutritional deficiencies (15 sources)Vitamin D deficiency, unspecified; Translations: [Vitamin D deficiency]Onset: 021408-29-4003QnrxstfBpcxezndruzesv (20 sources)Osteoarthritis of right knee joint; Translations: [Unilateral primary osteoarthritis, right knee]Onset: 48-37-3071RzsunfvMogixfnhrayx (18 sources)Primary osteoporosis; Translations: [Age-related osteoporosis without current pathological fracture]32-47-6542GbfvpvyFxkys aftercare (17 sources)Patient encounter status; Translations: [Aftercare following joint replacement surgery]60-23-7966QrxvtgnBygvj aftercare (5 sources)Aftercare following joint replacement surgery; Translations: [Aftercare following joint replacement]ChronicOther aftercare (4 sources)Long-term current use of drug therapy; Translations: [Other usp (current) drug therapy]55-10-4623QgwkjwyhKnuyd and unspecified benign neoplasm (7 sources)Angiomyolipoma of kidney; Translations: [Benign lipomatous neoplasm of kidney]Onset: 901731-09-5251LamqdovvIiiss connective tissue disease (6 sources)Artificial knee joint present; Translations: [Presence of right artificial knee joint]ChronicOther connective tissue disease (6 sources)History of total knee arthroplasty; Translations: [Presence of right artificial knee joint]ChronicOther connective tissue disease (6 sources)Presence of right artificial knee jointChronicOther connective tissue disease (16 sources)Fibromyalgia; Translations: [Fibromyalgia]Onset: 02-14-2024 09-24-1597JbmirzlkWbpym connective tissue disease (9 sources)Pain in right foot; Translations: [Pain in right foot]06-18-2025 EpisodicOther hematologic conditions (5 sources)Protein level - finding; Translations: [Other specified abnormalities of plasma proteins]25-74-7579KiedzvmkSecgg injuries and conditions due to external causes (1 source)Unspecified injury of right ankle, initial encounterEpisodicOther liver diseases (5 sources)Alkaline phosphatase raised; Translations: [Abnormal levels of other serum enzymes]07-31-5640NyctxupwUiozm nervous system disorders (4 sources)Drug-induced myopathy; Translations: [Drug-induced myopathy]Onset: 518517-06-2256HpqqhwpnIcuud nervous system disorders (7 sources)Drug-induced myopathy; Translations: [Toxic myopathy]Onset: 943637-25-2806WtdekuknCvmyq non-traumatic joint disorders (1 source)Pain in right kneeEpisodicOther non-traumatic joint disorders (13 sources)Anterior knee pain; Translations: [Pain in left knee]04-15-2024 EpisodicOther nutritional; endocrine; and metabolic disorders (4 sources)Body mass index 30+ - obesity; Translations: [Obesity, unspecified] Onset: 035695-14-4153HlohbbvSzhqj nutritional; endocrine; and metabolic disorders (11 sources)Severe obesity; Translations: [Class 2 severe obesity due to excess calories with serious comorbidity and body mass index (BMI) of 37.0 to 37.9 in adult ([facility])]Onset: 564134-72-2912FbdrpwsXauei skin disorders (14 sources)Hyperhidrosis; Translations: [Generalized hyperhidrosis]Onset: 554927-94-1395IaglmdgnTjwef skin disorders (2 sources)Dystrophia unguium; Translations: [Nail dystrophy]21-91-7008Zryjbxwf Other upper respiratory disease (14 sources)Allergic rhinitis due to pollen; Translations: [Allergic rhinitis due to pollen]Onset: 038107-36-0707ImobdhbObbbhcsz codes; unclassified (6 sources)Colonoscopy refused; Translations: [Procedure and treatment not carried out because of patient's decision for unspecified reasons]08-19-2025 EpisodicResidual codes; unclassified (6 sources)Mammogram declined; Translations: [Procedure and treatment not carried out because of patient's decision for unspecified reasons]08-19-2025 EpisodicSuperficial injury; contusion (13 sources)Contusion, knee and lower leg; Translations: [Contusion of left knee, initial encounter]59-26-0617FdllohpdTxjsbtl tract infections (6 sources)Urinary tract infectious disease; Translations: [Urinary tract infection, site not specified]Onset: 33-91-9926Tfvjdypr Past or Other Problems Problem ClassificationProblemDateDocumented DateEpisodic/ChronicAbdominal pain (5 sources)Unspecified abdominal pain; Translations: [UNSPECIFIED ABDOMINAL PAIN]Onset: 68-38-9191ZcywatkyGxgxp bronchitis (7 sources)Acute infective bronchitis; Translations: [Acute bronchitis due to other specified organisms]Onset: 12-11-2024 Resolved: 527260-11-5457ZqpazctyNalyvwyren associated with dizziness or vertigo (1 source)Dizziness and giddiness; Translations: [DIZZINESS AND GIDDINESS]Onset: 96-30-6861SaduaafwPrgb and other crystal arthropathies (9 sources)Gouty arthropathy; Translations: [Gout, unspecified]Onset: 08-20-2024 Resolved: 528653-51-2442RgpsvahTfxkss and vomiting (3 sources)Nausea with vomiting, unspecified; Translations: [NAUSEA WITH VOMITING UNSPECIFIED]Onset: 12-66-1242TghxhecpDcekk aftercare (1 source)Other usp (current) drug therapy; Translations: [OTH [facility]CI CURRENT DRUG THERAPY]Onset: 21-10-3686BknonaasWdxql connective tissue disease (10 sources)Muscle pain; Translations: [Myalgia, unspecified site]Onset: 02-14-2024 Resolved: 306977-01-6769JjgdikhmXxpxrdiw codes; unclassified (1 source)Patient's other noncompliance with medication regimen; Translations: [PT OTH NONCOMPLIANCE W/ MED REGIMEN]Onset: 39-40-0736VirvaelvObjonbhp codes; unclassified (5 sources)Other specified health status; Translations: [Other drug allergy] Onset: 259347-03-5524Mofrdvpd Results Test NameValueInterpretationReference RangeFacilityX-ray reportOrdered By: Graham Christian on 07-53-6661Kcicw reportFIRLUTHERAN [facility] [address] [place] [address] XRay Report Signed Patient: Laly Taveras MR#: [id number] : 1960 Acct:[id number] Age/Sex: 65 / F ADM Date: 5 [place] [facility] [place] Type[facility] Attending Dr: Jean Rodriguez MD Copies to: Jean Rodriguez MD~ Ordering Provider: Jean Rodriguez MD Date of Service: 09/28/25 XR/XR foot RT min 3V*: S92.351A - Displaced fracture of fifth metatarsalbone, r... XR foot RT min 3V* 09/28/2025 9:28 AM SIGNS AND SYMPTOMS: ^S92.351A - Displaced fracture of fifth metatarsal bone, r... PROTOCOL: 3 views of the right foot COMPARISON: 07/13/2025 FINDINGS: There is an obliquely are noted fracture of the distal shaft of the fifth metatarsal with increasing periosteal new bone formation consistent with healing. Healing remains incomplete. There is a hallux valgus deformity of the great toe with degenerative changes noted in the first metatarsophalangeal joint. Degenerative changes are noted at the tarsometatarsal junctions. There is plantar surface calcaneal spurring. XR/XR foot RT min 3V* IMPRESSION: There is an obliquely are noted fracture of the distal shaft of the fifth metatarsal with increasing periosteal new bone formation consistent with healing. Healing remains incomplete. Impression dictated by: Graham Christian M.D. 09/28/2025 12:16 PM Dictation Location: RADIO-PC-24 Transcribed By: KIANA 09/28/251215 Dictated By: Graham Christian II, MD 09/28/251214 Signed By: 09/28/251215 [facility] Work Phone: XR foot RT min 3V*on 38-48-1263VC foot RT min 3V* [facility] [address] [place] [address] XRay Report Signed Patient: Laly Taveras MR#: [id number] 69 : 1960 Acct:[id number] Age/Sex: 65 / F ADM Date: 09/28/25 [place]: [facility] [place]: Type: [facility] Attending Dr: Jean Rodriguez MD Copies to: Jean Rodriguez MD Ordering Provider: Jean oRdriguez MD Date of Service: 09/28/25 XR/XR foot RT min 3V*: S92.351A - Displaced fracture of fifth metatarsal bone, r... XR foot RT min 3V* 09/28/2025 9:28 AM SIGNS AND SYMPTOMS: S92.351A - Displaced fracture of fifth metatarsal bone, r... PROTOCOL: 3 views of the right foot COMPARISON: 07/13/2025 FINDINGS: There is an obliquely are noted fracture of the distal shaft of the fifth metatarsal with increasing periosteal new bone formation consistent with healing. Healing remains incomplete. There is a hallux valgus deformity of the great toe with degenerative changes noted in the first metatarsophalangeal joint. Degenerative changes are noted at the tarsometatarsal junctions. There is plantar surface calcaneal spurring. XR/XR foot RT min 3V* IMPRESSION: There is an obliquely are noted fracture of the distal shaft of the fifth metatarsal with increasing periosteal new bone formation consistent with healing. Healing remains incomplete. Impression dictated by: Graham Christian M.D. 09/28/2025 12:16 PM Dictation Location: RADIO-PC-24 Transcribed By: KIANA 09/28/251215 Dictated By: Graham Christian II, MD 09/28/25 1215 Signed By: 09/28/25 1216[facility] Physician GroupBasophils Auto (Bld) [#/Vol] Ordered By: Elder Yancey on 50-75-8298Ztrmcethz (Bld) [#/Vol]0.1 10 3/uL0.0-0.1 [facility] InstituteBasophils/100 WBC Auto (Bld)Ordered By: Elder Yancey on 66-57-0859Gavsnxvxx/100 WBC (Bld)0.5 %0.2-2.0[facility] InstituteEosinophils/100 WBC Auto (Bld)Ordered By: Elder Yancey on 92-23-0466Sclridmgodi/100 WBC (Bld)2.9 %0.9-7.0[facility] Erythrocyte distribution width Auto (RBC) [Ratio]Ordered By: Elder Yancey on 82-45-7262Irqjcexhxsg distribution width (RBC) [Ratio]13.4 %11.0-15.0[facility] InstituteGlomerular filtration rate (GFR) estimation in non- AmericanOrdered By: Elder Yancey on 74-74-3196BIQ/1.73 sq M.predicted among non-blacks MDRD (S/P/Bld) [Vol rate/Area]50 mL/min/{1.73_m2}Low>=60 mL/min/1.73m 2FFort Hamilton HospitalHematocrit Auto (Bld) [Volume fraction]Ordered By: Elder Yancey on 99-98-9491Bscakapzjv (Bld) [Volume fraction]42.1 %36.0-48.0[facility] InstituteHemoglobin [Mass/volume] in BloodOrdered By: Elder Yancey on 61-83-7258Nxqhegqjlp (Bld) [Mass/Vol]14.5 g/dL12.0-16.0[facility] InstituteLaboratory - Chemistry and Chemistry - challengeOrdered By: Elder Yancey on 09-07-2025 Calcium [Mass/Vol]9.8 mg/dL8.5-10.1FFort Hamilton HospitalChloride [Moles/Vol]99 mmol/X34-160XakifrrzxRiverview Health InstituteCO2 [Moles/Vol]27.0 mmol/L21.0-32.0[facility] InstituteCreatinine [Mass/Vol]1.10 mg/dL High0.55-1.02[facility] InstituteGFR/1.73 sq M.predicted MDRD (S/P/Bld) [Vol rate/Area]mL/min/{1.73_m2}>=60 mL/min/1.73m 2FFort Hamilton HospitalGlucose [Mass/Vol]318 mg/mQSaur00-066NkqtehtxyRiverview Health InstitutePotassium [Moles/Vol]3.9 mmol/L3.5-5.1FFort Hamilton Hospital Sodium [Moles/Vol]139 mmol/C218-888AqzwkfquhRiverview Health InstituteUrea nitrogen [Mass/Vol]24.0 mg/dLHigh7.0-18.0[facility] InstituteUrea nitrogen/Creatinine [Mass ratio]21.8 mg/mgRiverview Health Institute Laboratory - Hematology and Cell countsOrdered By: Elder Yancey on 09-07-2025 Immature granulocytes/100 WBC (Bld)0.3 %0.0-0.5FFort Hamilton Hospital Leukocytes [#/volume] corrected for nucleated erythrocytes in Blood by Automated counOrdered By: Elder Yancey on 43-97-3995HVY corrected for nucl RBC Auto (Bld) [#/Vol]11.2 10 3/uLHigh4.0-11.0[facility] Lymphocytes Auto (Bld) [#/Vol]Ordered By: Elder Yancey on 92-06-1834Fxqhkjbhlib (Bld) [#/Vol]1.6 10 3/uL1.2-3.8[facility] InstituteLymphocytes/100 WBC Auto (Bld)Ordered By: Elder Yancey on 96-12-4705Wqadhqmqbqy/100 WBC (Bld) 14.3 %Low20.5-60.0[facility] InstituteMCH Auto (RBC) [Entitic mass] Ordered By: Elder Yancey on 16-23-3103YQH (RBC) [Entitic mass]28.4 pg26.7-34.0 [facility] InstituteMCHC Auto (RBC) [Mass/Vol]Ordered By: Elder Yancey on 70-15-6136BHAG (RBC) [Mass/Vol]34.4 g/dL29.9-35.2FFort Hamilton HospitalMCV Auto (RBC) [Entitic vol]Ordered By: Elder Yancey on 58-19-3515XFN (RBC) [Entitic vol]82.4 fL81.0-99.0[facility] InstituteMonocytes Auto (Bld) [#/Vol]Ordered By: Elder Yancey on 09-07-2025 Monocytes (Bld) [#/Vol]0.7 10 3/uL0.3-0.8[facility] Monocytes/100 WBC Auto (Bld)Ordered By: Elder Yancey on 20-32-7794Srxsbfhcm/100 WBC (Bld)6.0 %1.7-12.0[facility] InstituteNeutrophils Auto (Bld) [#/Vol]Ordered By: Elder Yancey on 40-82-7233Qfcanntsfja (Bld) [#/Vol]8.5 10 3/uLHigh1.4-6.5FFort Hamilton HospitalNeutrophils/100 WBC Auto (Bld) Ordered By: Elder Yancey on 66-94-5135Rctowisggrg/100 WBC (Bld)76.0 %High 43.0-75.0[facility] InstituteNo Panel InformationOrdered By: Elder Yancey on 58-88-9159Aeilkqhczge # (Auto)0.3 10 3/uL0.0-0.7FFort Hamilton HospitalImmature Granulocyte # (Auto)0.03 10 3/uL0.00-0.03 [facility] InstitutePlatelet mean volume Auto (Bld) [Entitic vol] Ordered By: Elder Yancey on 79-32-1995Bjyxvltk mean volume (Bld) [Entitic vol] 10.7 fL9.5-13.5FFort Hamilton HospitalPlatelets Auto (Bld) [#/Vol] Ordered By: Elder Yancey on 68-75-2887Adzwxquat (Bld) [#/Vol]231 10 3/tC463-837 [facility] InstituteRBC Auto (Bld) [#/Vol]Ordered By: Elder Yancey on 90-07-6253QDG (Bld) [#/Vol]5.11 10 6/uL4.20-5.40Regency Hospital Companyerum or plasma anion gap determinationOrdered By: Elder Yancey on 50-15-0782Qmygi gap [Moles/Vol]16.9 mmol/LFFort Hamilton Hospital Basophils Auto (Bld) [#/Vol]Ordered By: Jorge Luis Wick on 06-52-4336Afkfowobw (Bld) [#/Vol]0.1 10 3/uL0.0-0.1FFort Hamilton HospitalBasophils/100 WBC Auto (Bld)Ordered By: Jorge Luis Wick on 71-54-8339Vhaxnpndu/100 WBC (Bld)0.6 % 0.2-2.0[facility] InstituteCholesterol in LDL Calc [Mass/Vol] Ordered By: Jorge Luis Wick on 03-43-3224Xlcwkolzsnr in LDL [Mass/Vol]115.0 mg/dL [facility] InstituteComment on above:<100 mg/dl RGTQWBT193-317 mg/dl NEAR OR ABOVE VCBJNDP660-860 mg/dl BORDERLINE FXKD478-092 mg/dl HIGH>190 mg/dl VERY HIGHCholesterol in VLDL Calc [Mass/Vol]Ordered By: Jorge Luis Wick on 14-45-3891Xfanpkrlony in VLDL [Mass/Vol]37.0 mg/dLRiverview Health InstituteEosinophils/100 WBC Auto (Bld)Ordered By: Jorge Luis Wick on 09-01-2025 Eosinophils/100 WBC (Bld)4.2 %0.9-7.0[facility] Erythrocyte distribution width Auto (RBC) [Ratio]Ordered By: Jorge Luis Wick on 29-46-7477Yldsgtkfpov distribution width (RBC) [Ratio]13.7 %11.0-15.0[facility] InstituteGlobulin Calc (S) [Mass/Vol]Ordered By: Jorge Luis Wick on 99-88-1270Idvstpuu (S) [Mass/Vol]4.6 g/dLRiverview Health Institute Glomerular filtration rate (GFR) estimation in non- AmericanOrdered By: Jorge Luis Wick on 82-34-2106ORO/1.73 sq M.predicted among non-blacks MDRD (S/P/Bld) [Vol rate/Area]mL/min/{1.73_m2}>=60 mL/min/1.73m 2FFort Hamilton HospitalGlucose mean value [Mass/volume] in Blood Estimated from glycated hemoglobinOrdered By: Jorge Luis Wick on 83-51-3252Uedllxg glucose Estimated from glycated hemoglobin (Bld) [Mass/Vol]186 mg/dLRiverview Health Institute Hematocrit Auto (Bld) [Volume fraction]Ordered By: Jorge Luis Wick on 09-01-2025 Hematocrit (Bld) [Volume fraction]40.8 %36.0-48.0[facility] InstituteHemoglobin A1c percentageOrdered By: Jorge Luis Wick on 24-78-9110PpH4r (Bld) [Mass fraction]8.1 %High4.5-6.2FFort Hamilton HospitalComment on above:ADA RECOMMENDED LIMIT 4.0 - 6.0ADA THERAPEUTIC TARGET < 7.0ACTION SUGGESTED> 7.0Hemoglobin [Mass/volume] in BloodOrdered By: Jorge Luis Wick on 90-98-4456Orkwsgdlaa (Bld) [Mass/Vol]13.9 g/dL12.0-16.0[facility] InstituteLaboratory - Chemistry and Chemistry - challengeOrdered By: Jorge Luis Wick on 56-03-2658Vlsfjej [Mass/Vol]3.9 g/dL3.4-5.0[facility] InstituteALP [Catalytic activity/Vol]164 U/BSiln74-773ZihrvgiukRiverview Health InstituteALT [Catalytic activity/Vol]24 U/M71-91QuxsjofubRiverview Health Institute AST [Catalytic activity/Vol]16 U/D27-04YodpjlllcRiverview Health Institute Bilirubin [Mass/Vol]0.6 mg/dL0.2-1.0[facility] InstituteCalcium [Mass/Vol]9.6 mg/dL8.5-10.1FFort Hamilton HospitalChloride [Moles/Vol] 99 mmol/L16-406UsqskabedRiverview Health InstituteCholesterol [Mass/Vol]199 mg/dL <=200R[facility] InstituteCholesterol in HDL [Mass/Vol]47 mg/dL40-60 [facility] InstituteComment on above:> or =60 mg/dl - LOW CARDIOVASCULAR RISK<40 mg/dl - HIGH CARDIOVASCULAR RISKCO2 [Moles/Vol]27.4 mmol/L21.0-32.0[facility] InstituteCreatinine [Mass/Vol]0.89 mg/dL 0.55-1.02[facility] InstituteGFR/1.73 sq M.predicted MDRD (S/P/Bld) [Vol rate/Area]mL/min/{1.73_m2}>=60 mL/min/1.73m 2FFort Hamilton HospitalGlucose [Mass/Vol]239 mg/sRGaus61-734NisjkdlqgRiverview Health Institute Potassium [Moles/Vol]3.4 mmol/LLow3.5-5.1FFort Hamilton Hospital Protein [Mass/Vol]8.5 g/dLHigh6.4-8.2FWright-Patterson Medical Centerodium [Moles/Vol]140 mmol/U129-015OpolkxkutRiverview Health InstituteTriglyceride [Mass/Vol]185 mg/dLHigh<=150R[facility] Health InstituteTSH Qn1.120 m[IU]/L 0.358-3.740R[facility] InstituteUrea nitrogen [Mass/Vol]28.0 mg/dL High7.0-18.0[facility] InstituteUrea nitrogen/Creatinine [Mass ratio]31.5 mg/mgRiverview Health InstituteLaboratory - Hematology and Cell countsOrdered By: Jorge Luis Wick on 14-61-7232Mzdzbtfp granulocytes/100 WBC (Bld)0.1 %0.0-0.5FFort Hamilton HospitalLeukocytes [#/volume] corrected for nucleated erythrocytes in Blood by Automated counOrdered By: Jorge Luis Wick on 34-23-3620RCD corrected for nucl RBC Auto (Bld) [#/Vol]7.9 10 3/uL 4.0-11.0[facility] InstituteLymphocytes Auto (Bld) [#/Vol]Ordered By: Jorge Luis Wick on 93-79-3023Qpsgufzjace (Bld) [#/Vol]1.4 10 3/uL1.2-3.8 [facility] InstituteLymphocytes/100 WBC Auto (Bld)Ordered By: Jorge Luis Wick on 85-56-5787Qtcujwatmjn/100 WBC (Bld)17.4 %Low20.5-60.0[facility] InstituteMCH Auto (RBC) [Entitic mass]Ordered By: Jorge Luis Wick on 56-30-3552JXR (RBC) [Entitic mass]28.0 pg26.7-34.0[facility], BeachwoodHC Auto (RBC) [Mass/Vol]Ordered By: Jorge Luis Wick on 87-16-8909BXEM (RBC) [Mass/Vol]34.1 g/dL29.9-35.2FFort Hamilton HospitalMCV Auto (RBC) [Entitic vol]Ordered By: Jorge Luis Wick on 92-77-2555TSU (RBC) [Entitic vol]82.3 fL81.0-99.0[facility] InstituteMicroalbumin [Mass/volume] in Urine Ordered By: Jorge Luis Wick on 12-44-2693Wmtgpdm DL <= 20 mg/L (U) [Mass/Vol]1.3 mg/dL<=30.0[facility] InstituteMonocytes Auto (Bld) [#/Vol]Ordered By: Jorge Luis Wick on 66-37-5053Vhvgwdhnk (Bld) [#/Vol]0.4 10 3/uL0.3-0.8[facility] InstituteMonocytes/100 WBC Auto (Bld)Ordered By: Jorge Luis Wick on 63-12-9003Ruzaewnht/100 WBC (Bld)5.3 %1.7-12.0[facility] Neutrophils Auto (Bld) [#/Vol]Ordered By: Jorge Luis Wick on 16-80-7894Syfjrwbdyym (Bld) [#/Vol]5.7 10 3/uL1.4-6.5FFort Hamilton HospitalNeutrophils/100 WBC Auto (Bld)Ordered By: Jorge Luis Wick on 62-28-6904Kdegarprzvp/100 WBC (Bld) 72.4 %43.0-75.0[facility] InstituteNo Panel InformationOrdered By: Jorge Luis Wick on 64-75-4203Ippvtzpnulv # (Auto)0.3 10 3/uL0.0-0.7FFort Hamilton HospitalImmature Granulocyte # (Auto)0.01 10 3/uL0.00-0.03 [facility] InstituteUrine Random Ffdxnzttft66.44 mg/dL20.00-300.00 [facility] InstitutePlatelet mean volume Auto (Bld) [Entitic vol] Ordered By: Jorge Luis Wick on 60-16-8756Arxhhbfc mean volume (Bld) [Entitic vol] 10.5 fL9.5-13.5FFort Hamilton HospitalPlatelets Auto (Bld) [#/Vol] Ordered By: Jorge Luis Wick on 91-80-8220Updrgznqr (Bld) [#/Vol]235 10 3/vW566-615 [facility] InstituteRBC Auto (Bld) [#/Vol]Ordered By: Jorge Luis Wick on 21-02-1865FRE (Bld) [#/Vol]4.96 10 6/uL4.20-5.40Regency Hospital Companyerum or plasma albumin/globulin mass ratioOrdered By: Jorge Luis Wick on 07-87-0556Xiqynfl/Globulin [Mass ratio]0.8 {ratio}[facility] Hospital Companyerum or plasma anion gap determinationOrdered By: Jorge Luis Wick on 00-93-6866Bdmdi gap [Moles/Vol]17.0 mmol/LFWright-Patterson Medical Centererum or plasma total cholesterol/high density lipoprotein (HDL) cholesterol mass rat Ordered By: Jorge Luis Wick on 64-30-1190Omqhhkwejjx.total/Cholesterol in HDL [Mass ratio]4.2 {ratio}[facility] InstituteComment on above:3.3 - 4.4 LOW RISK4.4 - 7.1 AVERAGE RISK7.1 - 11.0 MODERATE RISK>11.0 HIGH RISKUrine microalbumin/creatinine mass ratioOrdered By: Jorge Luis Wick on 09-01-2025 Albumin/Creatinine DL <= 20 mg/L (U) [Mass ratio]17.9 mg/g0.0-29.9[facility] InstituteComment on above:NO MICROALBUMINURIA 0-29 MG/GCLINICAL MICROALBUMINURIA 30-300 MG/GMACROALBUMINURIA >300 MG/GX-ray reportOrdered By: Graham Christian on 54-62-3656Urouw reportHOLZER HOSPITAL [facility] [address] [place] [address] XRay Report Signed Patient: Laly Taveras MR#: [id number] : 1960 Acct:[id number] Age/Sex: 65 / F ADM Date: 5 [place] [facility] [place]: Type: [facility] Attending Dr: Jean Rodriguez MD Copies to: Jean Rodriguez MD~ Ordering Provider: Jean Rodriguez MD Date of Service: 07/13/25 XR/XR foot RT min 3V*: S92.351A - Displaced fracture of fifth metatarsalbone, r... XR foot RT min 3V* 07/13/2025 [...] is hallux valgus deformity of the great t oewith mild narrowing of the first metatarsophalangeal joint. Degenerative changes are noted in thetarsometatarsal junctions. There is plantar surface calcaneal spurring. XR/XR foot RT min 3V* IMPRESSION: There is an obliquely oriented fracture of the distal shaft of the fifth metatarsal with slight interval worsening of displacement of the distal fragmentnondisplaced medially by 4 mm. There is periosteal new bone formation suggesting attempted healing. Impression dictated by: Graham Christian M.D. 07/13/2025 3:36 PM Dictation Location: [place] [address] Transcribed By: KIANA 07/13/251535 Dictated By: Graham Christian II, MD 07/13/25 153 Signed By: 07/13/251535 [facility] Work Phone: XR foot RT min 3V*on 84-50-1003UW foot RT min 3V* [facility] [address] [place] [address] XRay Report Signed Patient: Laly Taveras MR#: [id number] 69 : 1960 Acct:[id number] Age/Sex: 65 / F ADM Date: 07/13/25 [place]: [facility] [place]: Type: [facility] Attending Dr: Jean Rodriguez MD Copies to: [...] Christian M.D. 07/13/2025 3:36 PM Dictation Location: [place] [address] Transcribed By: KIANA 07/13/251535 Dictated By: Graham Christian II, MD 07/13/25 1534 Signed By: 07/13/25 1536[facility] Physician GroupX-ray reportOrdered By: Leonard Villa on 78-94-2550Sfnqk reportHOLZER HOSPITAL Main [address] [address] XRay Report Signed Patient: Laly Taveras MR#: [id number] : 1960 Acct:[id number] Age/Sex: 65 / F ADM Date: 5 Loc: [facility] Room: Type: REG CLI Attending Dr: Kassy Gtz TAG MAKER Copies to: Kassy Gtz APRN~ Ordering Provider: [...] Villa M.D. 06/18/2025 11:52 AM Dictation Location: [place] [address] Transcribed By: [facility] 06/18/25 1152 Dictated By: Leonard Villa MD 06/18/25 1148 Signed By: 06/18/25 1152 [facility] Work Phone: xr foot RT min 3V*on 46-63-5553UV foot RT min 3V* [facility] [address] [address] XRay Report Signed Patient: Laly Taveras MR#: [id number] [birth year] : 1960 Acct:[id number] Age/Sex: 65 / F ADM Date: 06/18/25 Loc: [facility] Room: Type: REG CLI Attending Dr: Kassy Gtz APRN Copies to: Kassy Gtz APRN Ordering Provider: Kassy tGz APRN Date of Service: 06/18/25 XR/XR foot [...] Villa M.D. 06/18/2025 11:52 AM Dictation Location: [place] [address] Transcribed By: [facility] 06/18/25 1152 Dictated By: Leonard Villa MD 06/18/25 1148 Signed By: 06/18/25 [facility] GroupChi [facility] [place] 36-19-8583Blcwzassz Reminders From: Steffany Glez To: - Pierre Weiss; Sent: 12/12/2024 08:14:55 EST Show up: 12/12/2024 08:14:00 EST Subject: Ambulatory Reminder Reminder/Recall Patient needs scheduled for a DEJA prior to 01/19/25 appointment. Order faxed to [facility] central scheduling today. Will monitor for appointment Pt has been called by [facility] to schedule 3x with no answer. I called to patient today with no answer. Left a voicemail to get patient scheduled. Will monitor. [facility]Amb[facility] Visit Summaryon 71-22-4743Tlwlzunkfv Visit SummaryAmbulatory Visit Summary CANPENNYLALY GOSS Blanca :1960 Visit Date:02/16/2025 Ambulatory Visit Instructions Your Diagnosis Kidney stone Renal angiomyolipoma Tests Performed US Renal -- Results Pending -- Please visit your patient portal for your results or contact your primary care physician. Your Care Team Attending Physician - Pamella WEISS MD Primary Care Physician - JORGE LUIS WICK [...] Follow-Up Appointments Sunday2025 9:45 AM EDT With: ISELA MINAYA, Pamella Nair Where: [facility] of [address] [place] [address]- You Need to Schedule the Following Appointments Follow Up with ISELA MINAYA, KADI Ortiz When: Where: [facility] [address], [facility] [place] [address]- [phone] Medications What How Much When Why Instructions New potassium bicarbonate (K-Effervescent 25 mEq oral tablet, effervescent) 1 Tablets By Mouth 2 times a day Kidney stone Duration: 90 Days Refills: 3 Pickup at [facility] Unchanged allopurinol (allopurinol 300 mg Tab) 1 Tablets By Mouth Every day Unchanged sodium bicarbonate (sodium bicarbonate 650 mg Tab) 3 Tablets By Mouth Every day Unchanged duloxetine (DULoxetine 60 mg Cap-EC) Contact prescribing physician if questions or concerns Unchanged ergocalciferol (Vitamin D) By Mouth Every week Contact prescribing physician if questionsor concerns Unchanged glipiZIDE (glipiZIDE 10 mg Tab) Contact prescribing physician if questions or concerns Unchanged meloxicam (meloxicam 15 mg oral tablet) Contact prescribing physician if questions or concerns Unchanged tizanidine (tizanidine 4 mg oral capsule) Contact prescribing physician if questions or concerns Pharmacy Information [facility]: [address] [place], [place] [id number] [phone] What How Much When Comments Stop Taking [...] eat about 300 mg (more content not included)...NormalFisher [facility] CenterReminderson 02-16-2025 RemindersReminders From: Hannah Arroyo To: [facility] - Recalls Weiss; Sent: 02/16/2025 16:35:42 EDT Show up: 11/26/2025 16:35:00 EST Subject: Renal US Due Date/Time: 12/21/2025 16:35:00 EST Reminder/Recall Pt needs sched for renal US prior to January 2026 appt. [facility] Hannah Arroyo To: [facility] - Pending Results; Sent: 02/16/2025 16:34:15 EDT Show up: 11/26/2025 16:34:00 EST Subject: Renal US Due Date/Time: 12/21/2025 16:34:00 EST Reminder/Recall Pt needs sched for renal US prior to January 2026 appt. [facility] Office/Clinic Noteon 78-76-8820[facility] Office/Clinic NoteUrology Office/Clinic Note Chief Complaint 1 year f/u with DEJA HPI Staff 65 yr old female here for 1 yr f/u. DEJA done 02/10/25 Previous Dx: kidney stone, UTI. Taking Effer-K 25mEq bid (Pt has not been taking tis for the past 6 months or so due an increase inthe cost) , Allopurinol 300mg qd, and Sodium Bicarb 4tabs TID Pt has no urinary complaints at this time. Denies visible blood in urine, abdominal or flank pain. History of Present Illness Tests reviewed: reviewed UA, DEJA I have reviewed the previous health record information and history for this patient from Dr. Weiss. I have reviewed and verified the staff [...] Discussed importance of medication in preventing stone growth/formation.Would be willing to take fizzy tablets. -Restart Effer-K 25mEq bid and sodium bicarb. Refills sent. Recommended [employer] card, coupon provided. -Cont Allopurinol and sodium [...] With When Contact Information ISELA MINAYA, Pamella Nair, URL [facility] [address], [place] [phone] Additional Instructions: 1 yr w/ DEJA Patient Education Dietary Guidelines to Help Prevent Kidney Stones I, Rosanna Stephens, personally scribed for Dr. Weiss on 02/16/2025 16:31:10. . Documentation recorded by the scribe, Rosanna Stephens, accurately reflects the services(s) I performed and decisions made by me. Authenticated by Dr. Weiss on 02/16/2025 16:33:44. Problem List/Past Medical History [...] (02/16/25 15:06:00) Blood Ur (more content not included)...[facility]cy Memorial HospitalComment on above:Result Comment: Electronically Signed By: Pamella WEISS MD\.br\Date and Time Signed: 02/16/25 16:33 EDT\.br\Electronically Co-Signed By: Rosanna Stephens\.br\Date and Time Co-Signed: 02/16/25 16:31 EDTProvider Letteron 12-16-2024 Provider LetterProvider Letter December 16, 2024 LALY TAVERAS [address] [place] [address] : 1960 Dear Laly , We have been trying to reach you with no success. You have an appointment with Dr. Pamella Weiss on 01/19/25 which will need to be rescheduled since he will be out of the office that day. Please contact the office at the number listed below to get this appointment rescheduled at your earliest convenience. Thank you for your prompt attention to this matter. Sincerely, [facility] [address] [place] [address] [place] [address] RriyvuVrowqdUniversity Hospitals Elyria Medical CenterALL CBC WITH AUTO DIFFon [id number] ABSOLUTE AUTO0.1NOMS HealthcareBasophils/100 WBC (Bld)0.5 % 0.2 - 2.0 %NOMS HealthcareEosinophils/100 WBC (Bld)2.6 %0.9 - 7.0 %[facility] HospitalErythrocyte distribution width (RBC) [Ratio]14.5 %11.0 - 15.0 %NOMHca Midwest DivisionHematocrit (Bld) [Volume fraction]40.4 %36.0 - 48.0 %[facility] Hemoglobin (Bld) [Mass/Vol]13.1 g/dL12.0 - 16.0 g/dLBarton County Memorial HospitalIMMATURE GRANULOCYTES ABS AUTO0.05HighNOFreeman Health SystemImmature granulocytes/100 WBC (Bld) 0.5 %0.0 - 0.5 %[facility] HospitalInterpretation and review of laboratory results AbnormalNOFreeman Health SystemLYMPHOCYTES ABSOLUTE AUTO1.9[facility] Lymphocytes/100 WBC (Bld)18.4 %Low20.5 - 60.0 %[facility]woodH (RBC) [Entitic mass]28.4 pg26.7 - 34.0 pgSaint Joseph Hospital of KirkwoodHC (RBC) [Mass/Vol]32.4 g/dL29.9 - 35.2 g/dLSaint Joseph Hospital of KirkwoodV (RBC) [Entitic vol]87.6 fL81.0 - 99.0 fLBarton County Memorial HospitalMONOCYTES ABSOLUTE AUTO0.6NOFreeman Health SystemMonocytes/100 WBC (Bld)5.7 % 1.7 - 12.0 %[facility] HospitalNEUTROPHILS ABSOLUTE AUTO7.6HighBarton County Memorial Hospital Neutrophils/100 WBC (Bld)72.3 %43.0 - 75.0 %[facility] HospitalPlatelet mean volume (Bld) [Entitic vol]10.4 fL9.5 - 13.5 fLBarton County Memorial HospitalTB EO #0.3NOMercy Hospital Joplin [id number] John's Saint Francis Hospital RBC4.61NOSaint John's Saint [facility] Hospital WBC10.5[facility] CLINISYNCBarton County Memorial HospitalUrinalysis - AUTOMATEDon 26-88-9281Kbyjsfltrc (U)[employer] Other Bilirubin Ql (U)NegativeAdomik Other Color (U)yellowAdomik Other Glucose Ql (U)250mgNorth [employer] Other Hemoglobin Ql (U)NegativeClarksburg [employer] Other Ketones Ql (U)NegativeClarksburg [employer] Other Leukocyte esterase Test strip Ql (U)NegativeClarksburg [employer] Other Nitrite Ql (U)NegativeClarksburg [employer] Other pH (U)5.0 [pH][employer] Other Protein Ql (U)NegativeSidekick Games [employer] Other Specific gravity (U) [Rel density]>1.030[place] [employer] Other Urobilinogen (U) [Mass/Vol]0.2 mg/dLClarksburg [employer] Other Urinalysis - AUTOMATEDClarksburg [employer] Other XR knee RT 3Von 34-80-0523GU knee RT 3VMartin Memorial Hospital [employer] Other XR knee RT 3VProv[facility] [employer] Other XR knee RT 6P3758 [facility] [employer] Other XR knee RT [address] [employer] Other XR knee RT 3VXRHCA Florida West Hospital [employer] Other XR knee RT 3VSignedClarksburg [employer] Other XR knee RT 3VPatient: Laly Taveras MR#: [id number] [place] [employer] Other XR knee RT 3R20Gytzo [employer] Other XR knee RT 3VDOB: 1960 Acct:[id number] [employer] Other xr knee RT 3VAge/Sex: 63 / F ADM Date: 05/31/23[place] [employer] Other xr knee RT 3VLoc: SOXD Room: Type: [facility] [employer] Other xr knee RT 3VAttending Dr: Kelby Bella II, MD [employer] Other xr knee RT 3VCopies to: Kelby Bella MDClarksburg [employer] Other xr knee RT 3VOrdering Provider: Kelby Bella MD [employer] Other xr knee RT 3VDate of Service: 05/31/23[place] [employer] Other xr knee RT 3VAccession #: ([id number] XR/XR knee RT 3V - NOT FOR ER USE: History of total right kneeClarksburg [employer] Other xr knee RT 3VreplacementNohermann area district hospital [employer] Other xr knee RT 3VRIGHT KNEE - 3 viewsClarksburg [employer] Other xr knee RT 3VCOMPARISON: 04/17/2023[place] [employer] Other xr knee RT 3VCLINICAL DATA: Follow-up knee prosthesis [employer] Other xr knee RT 3VWeightbearing AP, lateral and sunrise views were obtained. A knee prosthesis is again visualized.[employer] Other xr knee RT 3VThe hardware appears intact and unchanged from the prior. There is no patellar subluxation. NoNsac-osage hospital [employer] Other xr knee RT 3Vacute fracture or dislocation is noted. There is a knee effusion. There is mild soft tissueClarksburg [employer] Other xr knee RT 3Vswelling.[employer] Other xr knee RT 3VORDER #: [id number] XR/XR knee RT 3V - NOT FOR ER USEClarksburg [employer] Other xr knee RT 3VIMPRESSION:[employer] Other xr knee RT 3VSTABLE KNEE REPLACEMENT.[employer] Other xr knee RT 3VImpression dictated by: Bree Dukes M.D.05/31/2023 2:51 PMNsac-osage hospital [employer] Other xr knee RT 3VDictation Location: [address] [employer] Other xr knee RT 3VTranscribed By: [facility] 05/31/[address] LouisFreshtake Media Other xr knee RT 3VDictated By: Bree Dukes MD 05/31/23 [facility] CountyClub Scene NetworkHashTip Other xr knee RT 3VSigned By:A[employer] Other xr knee RT 3V05/31/23 Tippah County HospitalAdomik Other Glucose Glucometer (BldC) [Mass/Vol]Ordered By: Kelby Bella on 83-64-2200Jfaluag [Mass/Vol]155 mg/dLRiverview Health InstituteComment on above:Random Glucose Reference Range is dependent on time and content of last meal. Glucose of more than 200 mg/dL in a nonstressed, ambulatory subject supports the diagnosis of Diabetes Mellitus.No Panel InformationOrdered By: Kelby Bella on 64-70-5370Ygtnfwy Glucose CommentGlu2: cleaned meterRiverview Health InstituteAutomated erythrocytes count in urine sediment (number/area)Ordered By: Kelby Bella on 56-07-3970VKT Auto (Urine sed) [#/Area]1-2 [HPF]0-4FFort Hamilton HospitalAutomated leukocytes count in urine sediment (number/area)Ordered By: Kelby Bella on 02-73-4066YDJ Auto (Urine sed) [#/Area]5-9 [HPF]0-4FFort Hamilton HospitalBasophils Auto (Bld) [#/Vol]Ordered By: Kelby Bella on 04-03-2023 Basophils (Bld) [#/Vol]0.1 10*3/uL0.0-0.2FFort Hamilton Hospital Basophils/100 WBC Auto (Bld)Ordered By: Kelby Bella on 04-03-2023 Basophils/100 WBC (Bld)0.9 %.Riverview Health InstituteBilirubin Test strip Ql (U)Ordered By: Kelby Bella on 90-00-2727Adyiwwgmu Ql (U)Negative NegativeRiverview Health InstituteCalcium [Mass/volume] in Serum or PlasmaOrdered By: Kelby Bella on 53-51-3295Tnbegbq [Mass/Vol]8.9 mg/dL 8.6-10.3FFort Hamilton HospitalCarbon dioxide, total [Moles/volume] in Serum or PlasmaOrdered By: Kelby Bella on 14-28-2791NH5 [Moles/Vol]29.6 mmol/L21.0-31.0R[facility]view Health InstituteChloride [Moles/volume] in Serum or PlasmaOrdered By: Kelby Bella on 19-99-9869Smlqjyco [Moles/Vol]105 mmol/F66-873WavgonnqyRiverview Health InstituteColor Auto (U)Ordered By: Kelby Bella on 75-88-7143Ffnsn (U)YellowYellowRiverview Health Institute Creatinine [Mass/volume] in Serum or PlasmaOrdered By: Kelby Bella on 67-01-9344Sajeosmeiz [Mass/Vol]0.65 mg/dL0.60-1.20R[facility]view Health InstituteEosinophils Auto (Bld) [#/Vol]Ordered By: Kelby Bella on 04-03-2023 Eosinophils (Bld) [#/Vol]0.4 10*3/uL0.0-0.45[facility] Eosinophils/100 WBC Auto (Bld)Ordered By: Kelby Bella on 04-03-2023 Eosinophils/100 WBC (Bld)4.7 %.R[facility]view Health InstituteErythrocyte distribution width Auto (RBC) [Ratio]Ordered By: Kelby Bella on 04-03-2023 Erythrocyte distribution width (RBC) [Ratio]13.8 %11.9-15.3FFort Hamilton HospitalFructosamine [Moles/volume] in Serum or PlasmaOrdered By: Kelby Bella on 59-50-1455Crntwmrfscga [Moles/Vol]293 umol/L0-285Riverview Health InstituteComment on above:Published reference interval for apparently healthysubjects between age 20 and 60 is 205 - 285 umol/L and in apoorly controlled diabetic population is 228 - 563 umol/Lwith a mean of 396 umol/L.Performed at: [facility] [place] [id number] Director: Davis Wiggins PhD, Phone: [phone] [Mass/volume] in Serum or PlasmaOrdered By: Kelby Bella on 21-04-9790Lgyrbnh [Mass/Vol]173 mg/dL68-750GbpuoowwvRiverview Health InstituteComment on above:ADA recommended reference rangeRandom Glucose Reference Range is dependent on time and content of last meal. Glucose of more than 200 mg/dL in a nonstressed, ambulatory subject supports the diagnosisof Diabetes Mellitus.Hematocrit Auto (Bld) [Volume fraction]Ordered By: Kelby Bella on 41-83-2559Zskkpnrrnq (Bld) [Volume fraction]34.5 %34.0-46.4FFort Hamilton HospitalHemoglobin [Mass/volume] in BloodOrdered By: Kelby Bella on 41-74-9057Hasszgcqaw (Bld) [Mass/Vol]11.7 g/dL11.8-15.4FFort Hamilton HospitalKetones Auto test strip (U) [Mass/Vol]Ordered By: Kelby Bella on 30-52-9058Bcmyvqk (U) [Mass/Vol]NegativeNegativeRiverview Health InstituteLaboratory - UrinalysisOrdered By: Kelby Bella on 97-58-3919Tgqqsid casts LM Ql (Urine sed)0-8 [LPF]0-8R[facility] Health InstituteLeukocytes [#/volume] corrected for nucleated erythrocytes in Blood by Automated counOrdered By: Kelby Bella on 16-95-3665YGT corrected for nucl RBC Auto (Bld) [#/Vol]7.8 10*3/uL 3.8-11.6FFort Hamilton HospitalLymphocytes Auto (Bld) [#/Vol]Ordered By: Kelby Bella on 22-22-4835Gabbjgtqgry (Bld) [#/Vol]1.8 10*3/uL1.00-4.8 [facility] Health InstituteLymphocytes/100 WBC Auto (Bld)Ordered By: Kelby Bella on 91-95-1136Octwjpevfwt/100 WBC (Bld)23.0 %.[facility] Auto (RBC) [Entitic mass]Ordered By: Kelby Bella on 69-07-9088QRR (RBC) [Entitic mass]29.1 pg24.7-34.3FFort Hamilton HospitalMCHC Auto (RBC) [Mass/Vol]Ordered By: Kelby Bella on 81-97-9907QVZE (RBC) [Mass/Vol]34.0 g/dL32.0-35.0R[facility] Health InstituteMCV Auto (RBC) [Entitic vol]Ordered By: Kelby Bella on 60-57-3225YBK (RBC) [Entitic vol]85.6 nP27-726EwhyuwlerRiverview Health InstituteMonocytes Auto (Bld) [#/Vol] Ordered By: Kelby Bella on 69-27-1000Glrxmpjfh (Bld) [#/Vol]0.4 10*3/uL 0.0-0.8R[facility] Health InstituteMonocytes/100 WBC Auto (Bld)Ordered By: Kelby Bella on 37-19-5223Kqfumncoi/100 WBC (Bld)5.6 %.[facility] Health InstituteNeutrophils Auto (Bld) [#/Vol]Ordered By: Kelby Bella on 30-69-2815Jsrdndfgxnt (Bld) [#/Vol]5.1 10*3/uL1.8-7.7FFort Hamilton HospitalNeutrophils/100 WBC Auto (Bld)Ordered By: Kelby Bella on 04-03-2023 Neutrophils/100 WBC (Bld)65.8 %.R[facility]view Health InstituteNitrite Test strip Ql (U)Ordered By: Kelby Bella on 44-17-4621Ujkdjlv Ql (U)Negative NegativeRiverview Health InstituteNo Panel InformationOrdered By: Kelby Bella on 85-54-2853Ukibnxjza GFR (CKD-EPI)> 60.0 mL/MinRiverview Health InstitutePharmacy Creatinine Clearance (ChemN/AFFort Hamilton HospitalNucleated erythrocytes [Presence] in Blood by Automated countOrdered By: Kelby Bella on 43-79-8080Onfglnjnt RBC Auto Ql (Bld)0.0 /100{WBC}0-0.5 [facility] InstitutePlatelet mean volume Auto (Bld) [Entitic vol] Ordered By: Kelby Bella on 46-87-3815Mdcgkhcl mean volume (Bld) [Entitic vol]8.4 fL6.3-10.7FFort Hamilton HospitalPlatelets Auto (Bld) [#/Vol] Ordered By: Kelby Bella on 16-04-3683Jnbelpkem (Bld) [#/Vol]204 10*3/uL 150-450R[facility]view Health InstitutePotassium [Moles/volume] in Serum or PlasmaOrdered By: Kelby Bella on 59-02-6707Slgvdbvrh [Moles/Vol]4.0 mmol/L 3.5-5.1FFort Hamilton HospitalProtein Auto test strip (U) [Mass/Vol] Ordered By: Kelby Bella on 03-91-3215Zwtybrf (U) [Mass/Vol]NegativeNegative [facility] InstituteRBC Auto (Bld) [#/Vol]Ordered By: Kelby Bella on 71-36-2446QAQ (Bld) [#/Vol]4.03 10*6/uL3.60-5.00[facility]ency Hospital Companyerum or plasma anion gap determinationOrdered By: Kelby Bella on 62-76-5344Neusr gap [Moles/Vol]11.4 mmol/L6.0-15.0[facility] Hospital Companyodium [Moles/volume] in Serum or PlasmaOrdered By: Kelby Bella on 10-20-3582Rjflro [Moles/Vol]142 mmol/B292-965TbsgctcqxRiverview Health Institute Specific gravity Auto test strip (U) [Rel density]Ordered By: Kelby Bella on 36-95-1328Ydvhjash gravity (U) [Rel density]1.0231.001-1.030[facility] Hospital Companyquamous epithelial cells detection in urine sediment by light microscopyOrdered By: Kelby Bella on 13-74-8353Bbfhdjjrlh cells.squamous LM Ql (Urine sed)0-1 [HPF]0-2FFort Hamilton HospitalUrea nitrogen [Mass/volume] in Serum or PlasmaOrdered By: Kelby Bella on 38-42-8261Fjeg nitrogen [Mass/Vol]21 mg/dL7-25R[facility] InstituteUrine bacteria detection by automated methodOrdered By: Kelby Bella on 71-32-6153Ikofwmun Auto Ql (U)None seenNone SeenRiverview Health InstituteUrine clarity by refractometry automatedOrdered By: Kelby Bella on 00-84-9448Sptcueb Refractometry automated (U)ClearCleOhio State Health SystemUrine culture routineOrdered By: Kelby Bella on 83-15-4430Wymqnntk identified Cx Nom (U)2 DaysRiverview Health InstituteUrine glucose measurement by automated test strip (mass/volume)Ordered By: Kelby Bella on 04-03-2023 Glucose Auto test strip (U) [Mass/Vol]Normal mg/dLNormAccess Hospital DaytonUrine hemoglobin detection by automated test stripOrdered By: Kelby Bella on 79-42-2721Rzqzwohdkm Auto test strip Ql (U)NegativeNegative [facility] InstituteUrine leukocyte esterase detection by automated test stripOrdered By: Kelby Bella on 13-90-2203Pyqerlozd esterase Auto test strip Ql (U)2+NegativeRiverview Health InstituteUrobilinogen Auto test strip (U) [Mass/Vol]Ordered By: Kelby Bella on 27-48-1814Kojxeubwxthf (U) [Mass/Vol]mg/dLNormAccess Hospital DaytonWBC Auto (Bld) [#/Vol] Ordered By: Kelby Bella on 55-59-4809FRE (Bld) [#/Vol]7.8 10*3/uL3.8-11.6 Riverview Health InstitutepH Auto test strip (U)Ordered By: Kelby Bella on 02-92-6888iL (U)6.5 [pH]5.0-9.0[facility] Wound methicillin resistant Staphylococcus aureus (MRSA) cultureOrdered By: Kelby Bella on 35-82-9733SGPG isol Org specific cx Ql (Unsp spec)No MRSA Isolated 2 DaysRiverview Health InstituteAlbumin [Mass/volume] in Serum or Plasma by Bromocresol green (BCG) dye binding methoOrdered By: Kelby Bella on 67-07-5958Ptkifhr BCG dye [Mass/Vol]4.5 g/dL3.5-5.7FFort Hamilton HospitalCotinine [Mass/volume] in Serum or PlasmaOrdered By: Kelby Bella on 41-20-0806Zvxsinvh [Mass/Vol]<1.0 ng/mL.R[facility] InstituteComment on above:This test was developed and its performance characteristicsdetermined by hereO. It has not been cleared orapproved by the Food and Drug Administration.Cotinine levels greater than 20.0 are consistent with theuse of tobacco or tobacco cessation products.Performed at: [address] [id number] Director: Juan Higgins MD, Phone: [phone] [Mass/volume] in Serum or PlasmaOrdered By: Kelby Bella on 48-60-8652Yucauzsz [Mass/Vol]<1.0 ng/mL.[facility] InstituteComment on above:This test was developed and its performance characteristicsdetermined by hereO. It has not been cleared orapproved by the Food and Drug Administration.Nicotine levels greater than 2.0 are consistent with theuse of tobacco or tobacco cessation products.CBC AUTO DIFFon 02-10-2023 BASO #0.1 103/ulNormal0.0-0.1The Pomerene HospitalComment on above:Performed By: #### CBC #### [facility] [address] [address] [address] Kyle Mcgrathsophils/100 WBC (Bld)0.7 %Normal0.2-2.0[facility] Comment on above:Performed By: #### CBC #### [facility] [address] [place] [address] Dr. Kyle Ventura #0.3 103/ulNormal0.0-0.7The [facility]omerene HospitalComment on above: Performed By: #### CBC #### [facility] [address] [place] [address] Dr. Kyle Bowensosinophils/100 WBC (Bld)3.9 %Normal0.9-7.0[facility] Comment on above:Performed By: #### CBC #### [facility] [address] [place] [address] Dr. Kyle Bowensrythrocyte distribution width (RBC) [Ratio]14.5 %Bfgjae57.0-15.0 The [facility]omerene HospitalComment on above:Performed By: #### CBC #### [facility] [address] [place] [address] Dr. Kyle LoveHematocrit (Bld) [Volume fraction]39.1 %Rhbpvo62.0-48.0The [facility]omerene HospitalComment on above:Performed By: #### CBC #### [facility] [address] [place] [address] Dr. Kyle LoveHemoglobin (Bld) [Mass/Vol]12.9 g/kPEyynzk16.0-16.0The [facility]rene HospitalComment on above:Performed By: #### CBC #### [facility] [address] [place] [address] Dr. Kyle Anderson #0.02 10e3/ulNormal0.00-0.03The [facility]omerene HospitalComment on above:Performed By: #### CBC #### [facility] [address] [place] [address] Dr. Kyle Anderson %0.3 %Normal0.0-0.5The Pomerene HospitalComment on above: Performed By: #### CBC #### [facility] [address] [place] [address] Dr. Kyle Pennington #1.3 103/ulNormal1.2-3.8The [facility]omerene HospitalComment on above:Performed By: #### CBC #### [facility] [address] [place] [address] Dr. Kyle Coynehocytes/100 WBC (Bld)18.4 %Critically low20.5-60.0The [facility]omerene HospitalComment on above:Performed By: #### CBC #### [facility] [address] [place] [address] Dr. Kyle Gresham DIFF REQNONormalThe Pomerene HospitalComment on above: Performed By: #### CBC #### [facility] [address] [place] [address] Dr. Kyle Turner (RBC) [Entitic mass]28.9 ceDytyoq87.7-34.0The [facility]rene HospitalComment on above:Performed By: #### CBC #### [facility] [address] [place] [address] Dr. Kyle Turner (RBC) [Mass/Vol]33.0 g/jZWkullb47.9-35.2The [facility] HospitalComment on above:Performed By: #### CBC #### [facility] [address] [place] [address] Dr. Kyle Castro (RBC) [Entitic vol]87.5 nJFbpfms06.0-99.0The [facility] HospitalComment on above:Performed By: #### CBC #### [facility] [address] [place] [address] Dr. Kyle Galvez #0.4 103/ulNormal0.3-0.8The [facility]rene HospitalComment on above:Performed By: #### CBC #### [facility] [address] [place] [address] Dr. Kyle Henryocytes/100 WBC (Bld)5.4 %Normal1.7-12.0[facility] Comment on above:Performed By: #### CBC #### [facility] [address] [address] [address] Kyle BarrigaUT #5.1 103/ulNormal1.4-6.5The [facility] on above:Performed By: #### CBC #### [facility] [address] [place] [address] Dr. Kyle Barrigautrophils/100 WBC (Bld)71.3 %Ibgszd31.0-75.0The [facility] HospitalCombaraga county memorial hospital on above:Performed By: #### CBC #### [facility] [address] [place] [address] Dr. Kyle LovePlatelet mean volume (Bld) [Entitic vol]9.9 fLNormal9.5-13.5The [facility] HospitalCombaraga county memorial hospital on above:Performed By: #### CBC #### [facility] [address] [place] [address] Dr. Kyle LovePLT233 103/mpQfkflo938-753Cae [facility] HospitalCombaraga county memorial hospital on above: Performed By: #### CBC #### [facility] [address] [place] [address] Dr. Kyle LoveRBC4.47 106/ulNormal4.20-5.40The [facility] HospitalCombaraga county memorial hospital on above:Performed By: #### CBC #### [facility] [address] [place] [address] Dr. Kyle LoveWBC7.2 103/ulNormal4.0-11.0The [facility] HospitalCombaraga county memorial hospital on above: Performed By: #### CBC #### [facility] [address] [place] [address] Dr. Kyle LoveGLYCOHEMOGLOBIN A1Con 53-87-2474ZQB RECOMMENDATIONSEE BELOWNormal [facility] AvonCombaraga county memorial hospital on above:Result Comment: ADA RECOMMENDED LIMIT 4.0 - 6.0 ADA THERAPEUTIC TARGET < 7.0 ACTION SUGGESTED > 7.0Performed By: #### A1C #### [facility] [address] [place] [address] Dr. Kyle LoveGlucose [Mass/Vol]143 mg/dLNormalThe Pomerene HospitalComment on above:Performed By: #### A1C #### [facility] [address] [address] [address] Kyle LoveHbA1c (Bld) [Mass fraction]6.6 %Critically high4.5-6.2The [facility] HospitalComment on above:Performed By: #### A1C #### [facility] [address] [place] [address] Dr. Kyle LoveLIPID PROFILEon 94-88-4850KZDU-HDL RATIO NORMSEE BELOWNoKettering Health TroyComment on above:Result Comment: 3.3 - 4.4 LOW RISK 4.4 - 7.1 AVERAGE RISK 7.1 - 11.0 MODERATE RISK >11.0 HIGH RISKPerformed By: #### POCGLUC #### [facility] [address] [place] [address] Dr. Kyle LoveCholesterol [Mass/Vol]205 mg/dLCritically high<=200The [facility] HospitalComment on above:Performed By: #### POCGLUC #### [facility] [address] [place] [address] Dr. Kyle Hoganesterol in HDL [Mass/Vol]56 mg/tYJfecyk61-56Usw [facility] HospitalComment on above:Performed By: #### POCGLUC #### [facility] [address] [place] [address] Dr. Kyle LoveCholesterol in LDL [Mass/Vol]129.4 mg/dLKettering Health Greene MemorialComment on above:Performed By: #### POCGLUC #### [facility] [address] [place] [address] Dr. Kyle Hoganesterrobert.total/Cholesterol in HDL [Mass ratio]3.7 {ratio} NormalThe Pomerene HospitalComment on above:Performed By: #### POCGLUC #### [facility] [address] [place] [address] Dr. Kyle LoveHDL NORMAL> or = 60 mg/dl - LOW CARDIOVASCULAR RISK <40 mg/dl - HIGH CARDIOVASCULAR RISKKettering Health Greene MemorialComment on above:Performed By: #### POCGLUC #### [facility] [address] [address] [address] Kyle Lomeli CALC NORMALSEE BELOWKettering Health Greene MemorialComment on above:Result Comment: <100 mg/dl OPTIMAL 100 - 129 mg/dl NEAR OR ABOVE OPTIMAL 130 - 159 mg/dl BORDERLINE HIGH 160 - 189 mg/dl HIGH >190 mg/dl VERY HIGH Performed By: #### POCGLUC #### [facility] [address] [place] [address] Dr. Kyle LoveTriglyceride [Mass/Vol]98 mg/dLNormal<=150The [facility] Comment on above:Performed By: #### POCGLUC #### [facility] [address] [place] [address] Dr. Kyle GuerreroLDL CALC19.6 mg/dLNoKettering Health TroyComment on above: Performed By: #### POCGLUC #### [facility] [address] [place] [address] Dr. Kyle Doan PROFILEon 59-35-1492Bybweri [Mass/Vol]4.0 g/dLNormal3.4-5.0 The [facility]rene HospitalComment on above:Performed By: #### POCGLUC #### [facility] [address] [place] [address] Dr. Kyle LoveAlbumin/Globulin [Mass ratio]1.1 {ratio}NormalThe [facility]omerene HospitalComment on above:Performed By: #### POCGLUC #### [facility] [address] [place] [address] Dr. Kyle Amador [Catalytic activity/Vol]142 U/LCritically nhyn90-941Pwx [facility] HospitalComment on above:Performed By: #### POCGLUC #### [facility] [address] [place] [address] Dr. Kyle Garzon [Catalytic activity/Vol]28 U/JUrblyo98-29Vnz [facility] HospitalComment on above:Performed By: #### POCGLUC #### [facility] [address] [place] [address] Dr. Kyle Padron [Catalytic activity/Vol]20 U/YUwkcil28-49IsySelect Medical [facility] Clinic Rehabilitation Hospital, AvonComment on above:Performed By: #### POCGLUC #### [facility] [address] [address] [address] Kyle ValenciaI, CONJUGATED0.2 mg/dLNormal0.0-0.2[facility] Comment on above:Performed By: #### POCGLUC #### [facility] [address] [place] [address] Dr. Kyle Valenciairubin [Mass/Vol]0.7 mg/dLNormal0.2-1.0[facility] Comment on above:Performed By: #### POCGLUC #### [facility] [address] [place] [address] Dr. Kyle LoveGlobulin (S) [Mass/Vol]3.7 g/dLNormalThe [facility] HospitalComment on above:Performed By: #### POCGLUC #### [facility] [address] [place] [address] Dr. Kyle LoveProtein [Mass/Vol]7.7 g/dLNormal6.4-8.2[facility] [place] Comment on above:Performed By: #### POCGLUC #### [facility] [address] [place] [address] Dr. Kyle MorrisALBUMIN, RAND URon 12-02-2101zNWI<1.3Normal<=30.0[facility], AvonComment on above:Performed By: #### POCGLUC #### [facility] [address] [place] [address] Dr. Kyle LovePROF CHEM 8 (BAS METB)on 27-43-5551Yqodd gap [Moles/Vol]12.4 mmol/LNormalSelect Medical [facility], AvonComment on above:Performed By: #### TSH, BMP, LIVER, LIPID #### [facility] [address] [place] [address] Dr. Kyle LoveCalcium [Mass/Vol]9.5 mg/dLNormal8.5-10.1[facility] Comment on above:Performed By: #### TSH, BMP, LIVER, LIPID #### [facility] [address] [address] [address] Kyle LoveChloride [Moles/Vol]107 mmol/WEwdfda37-234Byk [facility] Comment on above:Performed By: #### TSH, BMP, LIVER, LIPID #### [facility] [address] [address] [address] Kyle LoveCO2 [Moles/Vol]26.9 mmol/GYtvbze68.0-32.0[facility] Comment on above:Performed By: #### TSH, BMP, LIVER, LIPID #### [facility] [address] [address] [address] Kyle LoveCreatinine [Mass/Vol]0.53 mg/dLCritically low0.55-1.02The [facility] HospitalComment on above:Performed By: #### TSH, BMP, LIVER, LIPID #### [facility] [address] [address] [address] Kyle BowensGFR-AF TOGOLESE>60Normal>=60The [facility] HospitalComment on above:Performed By: #### TSH, BMP, LIVER, LIPID #### [facility] [address] [address] [address] Kyle Alcocer-NON AF TOGOLESE>60Normal>=60The [facility] HospitalComment on above:Performed By: #### TSH, BMP, LIVER, LIPID #### [facility] [address] [address] [address] Kyle LoveGlucose [Mass/Vol]131 mg/dLCritically bgjo26-350Tii [facility] HospitalComment on above:Performed By: #### TSH, BMP, LIVER, LIPID #### [facility] [address] [address] [address] Kyle LovePotassium [Moles/Vol]4.3 mmol/LNormal3.5-5.1[facility] Comment on above:Performed By: #### TSH, BMP, LIVER, LIPID #### [facility] [address] [address] [address] Kyle LoveSodium [Moles/Vol]142 mmol/DFawjkh025-439Pvq [facility] Comment on above:Performed By: #### TSH, BMP, LIVER, LIPID #### [facility] [address] [place] [address] Dr. Kyle Mcelroy nitrogen [Mass/Vol]16.0 mg/dLNormal7.0-18.0The [facility] HospitalComment on above:Performed By: #### TSH, BMP, LIVER, LIPID #### [facility] [address] [address] [address] Kyle Mcelroy nitrogen/Creatinine [Mass ratio]30.2 mg/mgNoKettering Health TroyComment on above:Performed By: #### TSH, BMP, LIVER, LIPID #### [facility] [address] [place] [address] Dr. Kyle LangstonHojuan carlos 08-12-2934HZM0.752 uIU/mLNormal0.358-3.740The [facility] HospitalComment on above:Performed By: #### POCGLUC #### [facility] [address] [place] [address] Dr. Kyle LoveVITAMIN D 25 OHon [id number] D 25-OH26.7 ng/mLNormalSelect [facility], AvonComment on above:Performed By: #### A1C #### [facility] [address] [place] [address] Dr. Kyle Sheikh RANGES[place] BELOWKettering Health Greene MemorialComment on above: Result Comment: <20 ng/mL Vit D deficient 20 - <30 ng/mL Vit D insufficient 30 - 100 ng/mL Vit D sufficient >100 ng/mL Potential ToxicityPerformed By: #### A1C #### [facility] [address] [place] [address] Dr. Kyle LoveXR knee RT 4V*on 89-26-7446NR knee RT 4V*[facility] [employer] Other XR knee RT 4V*[facility] [employer] Other XR knee RT 4V*[address] [place], [place] [address]h [employer] Other XR knee RT 4V*MARIANGEL Nowak [address]Val[facility] [employer] Other XR knee RT 4V*XRay ReportCl[place] [employer] Other XR knee RT 4V*SignedCl[place] [employer] Other XR knee RT 4V*Patient: Laly Taveras MR#: [id number] [place] [employer] Other XR knee RT 4V*69[place] [employer] Other XR knee RT 4V*: 1960 Acct:[id number] [employer] Other XR knee RT 4V*Age/Sex: 62 / F ADM Date: 12/14/22[place] [employer] Other XR knee RT 4V*Loc: SOXD Room: Type: [facility] [employer] Other XR knee RT 4V*Attending Dr: Kelby Bella II, MD [employer] Other XR knee RT 4V*Copies to: Kelby Bella MDClarksburg [employer] Other XR knee RT 4V*Ordering Provider: Kelby Bella MD [place] [employer] Other XR knee RT 4V*Date of Service: 12/14/22[place] [employer] Other XR knee RT 4V* XR/XR knee RT 4V*: Acute pain of right kneeCl[place] [employer] Other XR knee RT 4V*([id number]) XR/XR pelvis 1-2V: Acute pain of right kneeSidekick Games [employer] Other XR knee RT 4V*CLINICAL DATA: Chronic worsening right knee pain.[employer] Other XR knee RT 4V*AP LOW PELVIS:[employer] Other XR knee RT 4V*COMPARISON: Right femur 07/08/2016[facility] [employer] Other XR knee RT 4V*AP view of the low pelvis was obtained. Assessment is slightly limited by body habitus andNort [employer] Other XR knee RT 4V*technique. There is no obvious acute fracture or dislocation. The hip joint spaces are symmetric.[employer] Other XR knee RT 4V*There is no prominent hypertrophy. No soft tissue abnormalities are noted.[employer] Other XR knee RT 4V* XR/XR pelvis 1-2V [employer] Other XR knee RT 4V*IMPRESSION:[employer] Other XR knee RT 4V*NO ACUTE BONY FINDINGS WITHIN LIMITATIONS, DESCRIBED.[employer] Other XR knee RT 4V*RIGHT KNEE - 4 viewsNohermann area district hospital [employer] Other XR knee RT 4V*COMPARISON: NoneNort [employer] Other XR knee RT 4V*Standing AP, lateral, skiers and patellar views were obtained. There is no acute fracture orNsac-osage hospital [employer] Other XR knee RT 4V*dislocation. There is genu valgum deformity. There is narrowing of the lateral tibiofemoral jointNoHashTip Other XR knee RT 4V*compartment with subchondral sclerosis and cystic change. There is tricompartment marginal spurring.[employer] Other XR knee RT 4V*A small knee effusion is seen. There is no focal soft tissue swelling.[employer] Other XR knee RT 4V*DEGENERATIVE CHANGES, GREATEST LATERALLY.[employer] Other XR knee RT 4V*Impression dictated by: Bree Dukes M.D.12/14/2022 3:58 [facility] [employer] Other XR knee RT 4V*Dictation Location: [id number] [employer] Other XR knee RT 4V*Transcribed By: KIANA 12/14/[address] [place] [address] [employer] Other XR knee RT 4V*Dictated By: Bree Dukes MD 12/14/[address] [place] [address] [employer] Other XR knee RT 4V*Signed By:[place] [employer] Other XR knee RT 4V*12/14/[address] [place] [address] [employer] Other XR ankle RT min 3V*on [id number] ankle RT min 3V* [facility] [employer] Other XR ankle RT min 3V*[facility] [employer] Other XR ankle RT min 3V*[address] [place] [address] [employer] Other XR ankle RT min 3V*MARIANGEL Nowak [address] [place] [address] [employer] Other XR ankle RT min 3V*XRay [facility] [employer] Other XR ankle RT min 3V*[place] [employer] Other XR ankle RT min 3V*Patient: Laly Taveras MR#: [id number] [employer] Other XR ankle RT min 3V*[address] [place] [address] [employer] Other XR ankle RT min 3V*: 1960 Acct:[id number] [place] [employer] Other XR ankle RT min 3V*Age/Sex: 62 / F ADM Date: 10/24/22 [employer] Other XR ankle RT min 3V*Loc: XDUCLY Room: Type: REG CLI [employer] Other XR ankle RT min 3V*Attending Dr: Aurelia Blanco [facility] [employer] Other XR ankle RT min 3V*Copies to: AURELIA BLANCO-[facility] [employer] Other XR ankle RT min 3V*Ordering Provider: AURELIA BLANCO [facility] HOSPITALKofikafe Other XR ankle RT min 3V*Date of Service: 10/24/22[facility] [employer] Other XR ankle RT min 3V* XR/XR ankle RT min 3V*: Injury of right ankle, initial encounterNohermann area district hospital [employer] Other XR ankle RT min 3V*RIGHT ANKLE - 3 viewsNohermann area district hospital [employer] Other XR ankle RT min 3V*CLINICAL DATA: Twisting injury of the right ankle 2 days ago. Increasing pain and swellingCl[place] [employer] Other XR ankle RT min 3V*laterally.[employer] Other XR ankle RT min 3V*COMPARISON: NoneCl[place] [employer] Other XR ankle RT min 3V*AP, lateral and oblique views were obtained. There is no evidence of fracture or dislocation.[employer] Other XR ankle RT min 3V*The talar dome is intact. There is spurring at the dorsum of the tarsometatarsal joints. There areNsac-[facility] hospital [employer] Other XR ankle RT min 3V*calcaneal spurs, greater along the plantar surface. There is mild anterior and lateral soft tissueNohermann area district hospital [employer] Other XR ankle RT min 3V*swelling.[employer] Other XR ankle RT min 3V* XR/XR ankle RT min 3V*[employer] Other XR ankle RT min 3V*IMPRESSION:[employer] Other XR ankle RT min 3V*NO ACUTE BONY INJURY.[employer] Other XR ankle RT min 3V*Impression dictated by: Bree Dukes M.D.10/24/2022 10:44 AMNsac-[facility] hospital [employer] Other xr ankle RT min 3V*Dictation Location: [facility]--10 [employer] Other xr ankle RT min 3V*Transcribed By: [facility] 10/24/22 [facility] [employer] Other xr ankle RT min 3V*Dictated By: Bree Dukes MD 10/24/[address] [place] [address] [employer] Other xr ankle RT min 3V*Signed By:Adomik Other xr ankle RT min 3V*10/24/22 [facility] [employer] Other GLYCOHEMOGLOBIN A1Con [id number] RECOMMENDATIONSEE BELOWKettering Health Greene MemorialComment on above:Result Comment: ADA RECOMMENDED LIMIT 4.0 - 6.0 ADA THERAPEUTIC TARGET < 7.0 ACTION SUGGESTED > 7.0Performed By: #### A1C #### [facility] [address] [address] [address] Kyle LoveGlucose [Mass/Vol]143 mg/dLKettering Health Greene MemorialComment on above:Performed By: #### A1C #### [facility] [address] [address] [address] Kyle LoveHbA1c (Bld) [Mass fraction]6.6 %Critically high4.5-6.2The [facility] HospitalComment on above:Performed By: #### A1C #### [facility] [address] [place] [address] Dr. Kyle Luke [id number] nitrogen [Mass/Vol]13.0 mg/dLNormal7.0-18.0 [facility] on above:Performed By: #### POCGLUC #### [facility] [address] [place] [address] Dr. Kyle LoveCREATININEon 06-55-6439Pzwfxnuadd [Mass/Vol]0.71 mg/dLNormal 0.55-1.02[facility] on above:Performed By: #### POCGLUC #### [facility] [address] [place] [address] Dr. Wright ChangEGFR-AF TOGOLESE>60Normal>=60[facility] on above:Performed By: #### POCGLUC #### [facility] [address] [place] [address] Dr. Kyle BowensGFR-NON AF TOGOLESE>60Normal>=60[facility] on above:Performed By: #### POCGLUC #### [facility] [address] [place] [address] Dr. Kyle LoveXR IVPon [id number] IVPEXAMINATION: XR IVP HISTORY: Kidney stone ; left flank pain COMPARISON: CT abdomen pelvis 06/09/2022 TECHNIQUE: After obtaining patient consent a supervising producer image was obtained followed by injection of [...] Electronically authenticated by: MAX BRADY Date: 2022-06-26 11:05NoKettering Health TroyCT ABD/PELVIS WO CONon [id number] ABD/PELVIS WO CON Indication: Kidney stone. Technique: [...] Electronically authenticated by: EUSEBIA HIGHTOWER Date: 2022-06-09 20:35NoKettering Health TroyUA (CLEAN/CATCH) GEM STONE CUTTER/MICRO IF IND.on [id number] Ql (U) NegativeNormalNEGATIVESelect Medical [facility], [place]onComment on above:Performed By: #### UACSIND #### [facility] [address] [address] [address] Kyle Cantrellarity (U)CLEARNormalCLEARSelect Medical [facility], [place]onComment on above: Performed By: #### UACSIND #### [facility] [address] [address] [address] Kyle Zavala (U)LT. YELLOWNormalYELLOWSalem Regional Medical Center HospitalComment on above:Performed By: #### UACSIND #### [facility] [address] [address] [address] Kyle LoveGlucose Ql (U)NegativeNormalNEGATIVESalem Regional Medical Center HospitalComment on above:Performed By: #### UACSIND #### [facility] [address] [address] [address] Kyle LoveHemoglobin Ql (U)NegativeNormalNEGATIVEDunlap Memorial Hospital on above:Performed By: #### UACSIND #### [facility] [address] [address] [address] Kyle LoveKetones Ql (U)NegativeNormalNEGATIVESelect Medical [facility], [place]Comment on above:Performed By: #### UACSIND #### [facility] [address] [address] [address] Kyle LoveLEUKOCYTESNegativeNormalNEGATIVESelect Medical [facility], [place]Comment on above:Performed By: #### UACSIND #### [facility] [address] [address] [address] Kyle LoveNitrite Ql (U)NegativeNormalNEGATIVESelect Medical [facility], [place]onComment on above:Performed By: #### UACSIND #### [facility] [address] [address] [address] Kyle LovepH (U)6.0 [pH]Normal5-9[facility], [place]onComment on above: Performed By: #### UACSIND #### [facility] [address] [address] [address] Kyle LoveSPEC GRAVITY1.989Zbmxhy0.005-<=1.025The [facility] HospitalComment on above:Performed By: #### UACSIND #### [facility] [address] [address] [address] Kyle Ferrara PROTEINNegativeNormalNEGATIVE/ TRACEThe [facility] Comment on above:Performed By: #### UACSIND #### [facility] [address] [address] [address] Kyle Neal MICRO INDNOT INDICATEDNormalThe [facility] HospitalComment on above:Performed By: #### UACSIND #### [facility] [address] [place] [address] Dr. Kyle Hillbilinogen Qn (U)0.2 {Dianna'U}/dLNormal0.2 - 1.0The [facility] HospitalComment on above:Performed By: #### UACSIND #### [facility] [address] [place] [address] Dr. Kyle Levine KIDNEYSon [id number] KIDNEYSEXAM: US KIDNEYS HISTORY: . Kidney stone . [...] Electronically authenticated by: GENEVA HELM Date: 2022-06-05 08:20NoKettering Health TroyXR KUB 1 VIEWon [id number] KUB 1 VIEWEXAMINATION: XR KUB 1 VIEW HISTORY: Kidney stone [...] Electronically authenticated by: GENEVA MARK Date: 2022-06-05 07:34NoKettering Health TroyACETONE SERUMon [id number]MOXNHPtl [facility] HospitalComment on above:Performed By: #### ACETON #### [facility] [address] [address] [address] Kyle Morales AUTO DIFFon [id number] #0.0 103/ulNormal0.0-0.1The [facility] HospitalComment on above:Performed By: #### CBC #### [facility] [address] [address] [address] Kyle Mcgrathsophils/100 WBC (Bld)0.5 %Normal0.2-2.0[facility] Comment on above:Performed By: #### CBC #### [facility] [address] [address] [address] Kyle Ventura #0.3 103/ulNormal0.0-0.7The [facility] HospitalComment on above: Performed By: #### CBC #### [facility] [address] [address] [address] Kyle Bowensosinophils/100 WBC (Bld)3.9 %Normal0.9-7.0[facility] Comment on above:Performed By: #### CBC #### [facility] [address] [place] [address] Dr. Kyle Bowensrythrocyte distribution width (RBC) [Ratio]13.7 %Lxbzyf44.0-15.0 The [facility] HospitalComment on above:Performed By: #### CBC #### [facility] [address] [place] [address] Dr. Kyle LoveHematocrit (Bld) [Volume fraction]42.2 %Lrrneg61.0-48.0The [facility] HospitalComment on above:Performed By: #### CBC #### [facility] [address] [place] [address] Dr. Kyle LoveHemoglobin (Bld) [Mass/Vol]14.4 g/zLEuyake87.0-16.0The [facility] HospitalComment on above:Performed By: #### CBC #### [facility] [address] [place] [address] Dr. Kyle Anderson #0.04 10e3/ulCritically high0.00-0.03[facility] Comment on above:Performed By: #### CBC #### [facility] [address] [place] [address] Dr. Kyle Anderson %0.5 %Normal0.0-0.5The [facility] HospitalComment on above: Performed By: #### CBC #### [facility] [address] [place] [address] Dr. Kyle CoyneH #1.9 103/ulNormal1.2-3.8The [facility] HospitalComment on above:Performed By: #### CBC #### [facility] [address] [place] [address] Dr. Kyle Dominguezmphocytes/100 WBC (Bld)21.3 %Jjjvfe05.5-60.0The [facility] HospitalComment on above:Performed By: #### CBC #### [facility] [address] [place] [address] Dr. Kyle Gresham DIFF REQNONormalThe [facility] HospitalComment on above: Performed By: #### CBC #### [facility] [address] [place] [address] Dr. Kyle Turner (RBC) [Entitic mass]29.3 dmGrggbf76.7-34.0The [facility] HospitalComment on above:Performed By: #### CBC #### [facility] [address] [place] [address] Dr. Kyle Turner (RBC) [Mass/Vol]34.1 g/fPSdzndu39.9-35.2The [facility] HospitalComment on above:Performed By: #### CBC #### [facility] [address] [place] [address] Dr. Kyle Turner (RBC) [Entitic vol]85.8 cTDtoekg13.0-99.0The [facility] HospitalComment on above:Performed By: #### CBC #### [facility] [address] [place] [address] Dr. Kyle Galvez #0.5 103/ulNormal0.3-0.8The [facility] HospitalComment on above:Performed By: #### CBC #### [facility] [address] [place] [address] Dr. Kyle Henryocytes/100 WBC (Bld)6.1 %Normal1.7-12.0[facility] Comment on above:Performed By: #### CBC #### [facility] [address] [place] [address] Dr. Kyle Isbell #6.0 103/ulNormal1.4-6.5The [facility] HospitalComment on above:Performed By: #### CBC #### [facility] [address] [place] [address] Dr. Kyle Barrigautrophils/100 WBC (Bld)67.7 %Rkqcaz08.0-75.0The [facility] HospitalComment on above:Performed By: #### CBC #### [facility] [address] [place] [address] Dr. Kyle Ashford mean volume (Bld) [Entitic vol]10.4 fLNormal9.5-13.5The [facility] HospitalComment on above:Performed By: #### CBC #### [facility] [address] [place] [address] Dr. Kyle LovePLT231 103/hrNmcvjm555-513Uop [facility] HospitalCombaraga [facility] memorial hospital on above: Performed By: #### CBC #### [facility] [address] [place] [address] Dr. Kyle LoveRBC4.92 106/ulNormal4.20-5.40The [facility] HospitalCombaraga county memorial hospital on above:Performed By: #### CBC #### [facility] [address] [place] [address] Dr. Kyle LoveWBC8.8 103/ulNormal4.0-11.0The [facility] HospitalCombaraga county memorial hospital on above: Performed By: #### CBC #### [facility] [address] [place] [address] Dr. Kyle Ordonez URINE PROFILEon 80-87-8462Eflwndqev Ql (U)NegativeNormal NEGATIVESelect Medical [facility], AvonCombaraga county memorial hospital on above:Performed By: #### ERUR #### [facility] [address] [place] [address] Dr. Kyle LoveCllee (U)CLEARNormalCLEARSelect Medical [facility], [facility]onCombaraga county memorial hospital on above: Performed By: #### ERUR #### [facility] [address] [place] [address] Dr. Kyle Zavala (U)YELLOWNormalYELLOWSelect Medical [facility], AvonCombaraga county memorial hospital on above: Performed By: #### ERUR #### [facility] [address] [place] [address] Dr. Kyle Moctezuma micrscopic examination will be performed if indicated. NormalThe [facility] HospitalCombaraga county memorial hospital on above:Performed By: #### ERUR #### [facility] [address] [place] [address] Dr. Kyle LoveGlucose Ql (U)500 mg/dlAbnormalNEGATIVESelect [facility] [place] Comment on above:Performed By: #### ERUR #### [facility] [address] [address] [address] Kyle LoveHemoglobin Ql (U)NegativeTwo Rivers Psychiatric HospitalalNEGThe [facility] Comment on above:Performed By: #### ERUR #### [facility] [address] [address] [address] Kyle LoveKetones Ql (U)NegativeNormalNEGATIVESelect Medical [facility], AvonComment on above:Performed By: #### ERUR #### [facility] [address] [place] [address] Dr. Kyle LoveLEUKOCYTESNegativeNormalNEGATIVESelect Medical [facility], AvonComment on above:Performed By: #### ERUR #### [facility] [address] [place] [address] Dr. Kyle LoveNitrite Ql (U)NegativeNormalNEGATIVESelect Medical [facility], AvonComment on above:Performed By: #### ERUR #### [facility] [address] [place] [address] Dr. Kyle LovepH (U)5.5 [pH]Normal5-9[facility], AvonComment on above: Performed By: #### ERUR #### [facility] [address] [place] [address] Dr. Kyle LoveSPEC GRAVITY>=1.353Vbbyjtfa8.005-<=1.025[facility] Comment on above:Performed By: #### ERUR #### [facility] [address] [place] [address] Dr. Kyle Ferrara PROTEINTRACENormalNEGATIVE/ TRACEThe [facility] HospitalComment on above:Performed By: #### ERUR #### [facility] [address] [place] [address] Dr. Kyle Neal MICRO INDNOT INDICATEDNoalThCorey HospitalComment on above:Performed By: #### ERUR #### [facility] [address] [place] [address] Dr. Kyle Hillbilinogen Qn (U)0.2 {Dianna'U}/dLNormal0.2 - 1.0The [facility] HospitalComment on above:Performed By: #### ERUR #### [facility] [address] [place] [address] Dr. Kyle Garrison VENOUS BLOODon 60-16-1724BCL5 YEGROM05.8 mmHgCritically low 40.0-52.0The [facility] HospitalComment on above:Performed By: #### POCGLUC #### [facility] [address] [place] [address] Dr. Kyle Garrison VENOUS7.755Oroefx5.330-7.430The [facility] HospitalComment on above:Performed By: #### POCGLUC #### [facility] [address] [place] [address] Dr. Kyle LovePOINT OF CARE GLUCOSEon 85-11-1994Hgvekma [Mass/Vol]208 mg/dL Critically mgoh45-445Gna [facility] HospitalComment on above:Performed By: #### POCGLUC #### [facility] [address] [place] [address] Dr. Kyle LoveGlucose [Mass/Vol]320 mg/dLCritically zcxw45-555Cmy [facility] HospitalComment on above:Performed By: #### POCGLUC #### [facility] [address] [place] [address] Dr. Klye LovePROF CHEM 8 (BAS METB)on 45-12-3023Xfekr gap [Moles/Vol]15.2 mmol/LNormalThe [facility] HospitalComment on above:Performed By: #### BMP #### [facility] Laboratory [address] [place] [address] Dr. Kyle LoveCalcium [Mass/Vol]9.7 mg/dLNormal8.5-10.1[facility] [place] Comment on above:Performed By: #### BMP #### [facility] [address] [place] [address] Dr. Kyle LoveChloride [Moles/Vol]101 mmol/ZStnsvw54-098DbhSelect [facility] [place] Comment on above:Performed By: #### BMP #### [facility] [address] [address] [address] Kyle LoveCO2 [Moles/Vol]23.9 mmol/LWaninb73.0-32.0[facility] Comment on above:Performed By: #### BMP #### [facility] [address] [address] [address] Kyle LoveCreatinine [Mass/Vol]0.90 mg/dLNormal0.55-1.02[facility] HospitalComment on above:Performed By: #### BMP #### [facility] [address] [address] [address] Kyle BowensGFR-AF TOGOLESE>60Normal>=60The [facility] HospitalComment on above:Performed By: #### BMP #### [facility] [address] [place] [address] Dr. Kyle BowensGFR-NON AF TOGOLESE>60Normal>=60The [facility] HospitalComment on above:Performed By: #### BMP #### [facility] [address] [place] [address] Dr. Kyle LoveGlucose [Mass/Vol]324 mg/dLCritically mcrb72-643Wpw [facility] HospitalComment on above:Performed By: #### BMP #### [facility] [address] [place] [address] Dr. Kyle LovePotassium [Moles/Vol]4.1 mmol/LNormal3.5-5.1[facility] Comment on above:Performed By: #### BMP #### [facility] [address] [address] [address] Kyle LoveSodium [Moles/Vol]136 mmol/QHrdfkc704-217Wye [facility] Comment on above:Performed By: #### BMP #### [facility] [address] [address] [address] Kyle LoveUrea nitrogen [Mass/Vol]16.0 mg/dLNormal7.0-18.0The [facility] HospitalComment on above:Performed By: #### BMP #### [facility] [address] [address] [address] Kyle LoveUrea nitrogen/Creatinine [Mass ratio]17.8 mg/mgKettering Health Greene MemorialComment on above:Performed By: #### BMP #### [facility] [address] [place] [address] Dr. Kyle Love Vital Signs Date TimeVital SignValuePerforming UmbcjcljoChycuxhu25-90-4369 09:09-0500Body zskmoz228.48 cmJorge Luis Wick MD Work Phone: 1(410)[address] [place], [place] 4043411-03-2025 09:09-0500 Body mass index (BMI) [Ratio]36.9 kg/m2Jorge Luis Wick MD Work Phone: 1(164)[address] [place], [place] 4043411-03-2025 09:09-0500 Body vaavin78.62 kgJorge Luis Wick MD Work Phone: 1(171)[address] [place], [place] 4043410-15-2025 13:28-0400 Body dufuat518.48 cmJorge Luis Wick MD Work Phone: 1(090)[address] [place], [place] 4043410-15-2025 13:28-0400 Body mass index (BMI) [Ratio]37.8 kg/m2Jorge Luis Wick MD Work Phone: 1(793)[address] [place], [place] 4043410-15-2025 13:28-0400 Body okpcfcbvwan03.4 [degF]Jorge Luis Wick MD Work Phone: 1(551)[address] [place], [place] 4043410-15-2025 13:28-0400 Body jkptqe22.89 kgJorge Luis Wick MD Work Phone: 1(013)[address] [place], [place] 4043410-15-2025 13:28-0400 Diastolic blood kfrjteei83 mm[Hg]Jorge Luis Wick MD Work Phone: 1(384)[address] [place], [place] 4043410-15-2025 13:28-0400 Heart ewpn610 /minJorge Luis Wick MD Work Phone: 1(778)[address] [place], [place] 4043410-15-2025 13:28-0400 Respiratory rate22 /minJorge Luis Wick MD Work Phone: 1(067)[address]10-15-2025 13:28-0400 SaO2% (BldA) [Mass fraction]97 %Jorge Luis Wick MD Work Phone: 1(406)[address]134 [address]10-15-2025 13:28-0400 Systolic blood vazgakvf050 mm[Hg]Jorge Luis Wick MD Work Phone: 1(706)[address] [place], [place] 4043409-24-2025 13:15-0400 Body .48 cmJorge Luis Wick MD Work Phone: 1(198)[address] [place], [place] 2345309-24-2025 13:15-0400 Body mass index (BMI) [Ratio]38 kg/m2Jorge Luis Wick MD Work Phone: 1(127)[address] [place], [place] 4043409-24-2025 13:15-0400 Body pcqprenuqqa63 [degF]Jorge Luis Wick MD Work Phone: 1(006)[address] [place], [place] 4043409-24-2025 13:15-0400 Body guicla43.34 kgJorge Luis Wick MD Work Phone: 1(381)[address]09-24-2025 13:15-0400 Diastolic blood hvpauxae74 mm[Hg]Jorge Luis Wick MD Work Phone: 1(619)[address]09-24-2025 13:15-0400 Heart vjct422 /minJorge Luis Wick MD Work Phone: 1(379)[address]09-24-2025 13:15-0400 Respiratory rate20 /Nadia Wick MD Work Phone: 1(061)[address]09-24-2025 13:15-0400 Systolic blood lbwdkarz972 mm[Hg]Jorge Luis Wick MD Work Phone: 1(066)[address]09-19-2025 09:43-0400 Body .5 cmKarina Zimmerman DPM Work Phone: 1(419)[address]09-19-2025 09:43-0400Body mass index (BMI) [Ratio]37.86 kg/d4Eiqwlvz John DPM Work Phone: [facility] HospitalDoaokldxul91-88-8296 09:43-0400Body .89 kgJuangilma Zimmerman DPM Work Phone: [facility] HospitalVogagadzro56-38-4168 11:05-0400Body .48 cmJorge Luis Wick MD Work Phone: 1(975)[address]07-24-2025 11:05-0400 Body mass index (BMI) [Ratio]37.5 kg/m2Jorge Luis Wick MD Work Phone: 1(701)[address]07-24-2025 11:05-0400 Body iutoyuripvv51.4 [degF]Jorge Luis Wick MD Work Phone: 1(002)[address]07-24-2025 11:05-0400 Body osvuzu10.98 kgJorge Luis Wick MD Work Phone: 1(311)[address]07-24-2025 11:05-0400 Diastolic blood axltmbvs69 mm[Hg]Jorge Luis Wick MD Work Phone: 1(978)[address]07-24-2025 11:05-0400 Heart rate63 /minJorge Luis Wick MD Work Phone: 1(078)347-[address] [place], [place] [address]07-24-2025 11:05-0400 Respiratory rate18 /minJorge Luis Wick MD Work Phone: 1(346)[address]07-24-2025 11:05-0400 SaO2% (BldA) [Mass fraction]96 %Jorge Luis Wick MD Work Phone: 1(239)[address]07-24-2025 11:05-0400 Systolic blood cdwhxual889 mm[Hg]Jorge Luis Wick MD Work Phone: 1(962)[address]01-16-2025 11:31-0500 Body tujpjc473.5 cmJorge Luis Wick MD Work Phone: [facility] HospitalQzkchicceg98-27-9695 11:31-0500Body mass index (BMI) [Ratio]37.49 kg/m2Jorge Luis Wick MD Work Phone: [facility] HospitalGnwzrrykad31-44-2050 11:31-0500Body temperature 95.9 [degF]Jorge Luis Wick MD Work Phone: 1(429)[address] [place], [place] 6091201-16-2025 11:31-0500Body xxwjhe79.99 kgJorge Luis Wick MD Work Phone: 1(387)[facility] [place], [place] [address]Xfqlzhqooe88-34-7658 11:31-0500Diastolic blood raifcvbu45 mm[Hg]Jorge Luis Wick MD Work Phone: 1(769)[address] [place], [place] [address]Pmydfxzhrv54-20-0391 11:31-0500Heart rate98 /min Jorge Luis Wick MD Work Phone: 1(505)[facility] [place], [place] [address]Qsykfcuaji42-43-9032 11:31-0500Respiratory rate22 /minJorge Luis Wick MD Work Phone: 1(431)[address] [place], [place] [address]Npcsiwauqj85-89-3060 11:31-8204TzA5% (BldA) [Mass fraction]98 %Jorge Luis Wick MD Work Phone: [facility] HospitalYcsrcylrxk24-85-5441 11:31-0500Systolic blood bibmpixu656 mm[Hg]Jorge Luis Wick MD Work Phone: [facility] HospitalMlczoyjroh12-45-3617 07:14-0400Body apbpwi617.5 cmJorge Luis Wick MD Work Phone: [facility] HospitalMqunskizxw33-42-5711 07:14-0400Body mass index (BMI) [Ratio]39.32 kg/m2Jorge Luis Wick MD Work Phone: [facility] HospitalBsgvqjucbn28-27-9322 07:14-0400Body temperature 94.8 [degF]Jorge Luis Wick MD Work Phone: [facility] HospitalHkiimaqqtz64-67-0081 07:14-0400Body gjuulx89.52 kgJorge Luis Wick MD Work Phone: [facility] HospitalGoufcsmuac96-99-6496 07:14-0400Diastolic blood yriydiym28 mm[Hg]Jorge Luis Wick MD Work Phone: 1([phone] HospitalIhlhjevhsy41-11-8055 07:14-0400Heart rate84 /min Jorge Luis Wick MD Work Phone: [facility] HospitalDjtvcgxyld01-62-9478 07:14-0400Respiratory rate20 /minJorge Luis Wick MD Work Phone: [facility] HospitalUayigmvqbf89-71-4888 07:14-4396OvI9% (BldA) [Mass fraction]97 %Jorge Luis Wick MD Work Phone: [facility] HospitalHhgbprqspl19-64-3389 07:14-0400Systolic blood pywxvips670 mm[Hg]Jorge Luis Wick MD Work Phone: 1([phone] HospitalMttrofieng98-20-9465 11:23-0400Body gwdgxd3056.96 cmMD Jorge Luis Wick Work Phone: 1(883)[address]05-21-2024 11:23-0400 Body mass index (BMI) [Ratio]0.4 kg/m2MD Jorge Luis Wick Work Phone: 1(421)[address]05-21-2024 11:23-0400 Body mxfzgfjjbcu58.4 [degF]MD Jorge Luis Wick Work Phone: 1(476)979-[address] [place], [place] [address]05-21-2024 11:23-0400 Body dbelpb74.48 kgMD Jorge Luis Wick Work Phone: 1(914)224-[address] [place], [place] 522[address]05-21-2024 11:23-0400 Diastolic blood bdhsucfi41 mm[Hg]MD Jorge Luis Wick Work Phone: 1(127)[address]05-21-2024 11:23-0400 Heart xrpz168 /minMD Jorge Luis Wick Work Phone: 1(239)742-[address] [place], [place] [address]05-21-2024 11:23-0400 Respiratory rate16 /minMD Jorge Luis Wick Work Phone: [facility]05-21-2024 11:23-0400 SaO2% (BldA) [Mass fraction]99 %MD Jorge Luis Wick Work Phone: [facility]05-21-2024 11:23-0400 Systolic blood psuduugc365 mm[Hg]MD Jorge Luis Wick Work Phone: [facility]10-16-2023 15:36-0400 Blood Pressure LocationPaadrienne WEISS [facility]10-16-2023 15:36-0400Diastolic blood bwyvqrnb04 mm[Hg]Pamella WEISS [facility]10-16-2023 15:36-0400Heart rate80 /minPatricchantale WEISS [facility]10-16-2023 15:36-0400Respiratory rate16 /minPatrick WEISS [facility]10-16-2023 15:36-0400Systolic blood flxhfpow845 mm[Hg]Pamella WEISS [facility]08-23-2023 08:15-0400Body .48 cmPatricia Aguilar Other [employer] Other 08-23-2023 08:15-0400Body mass index (BMI) [Ratio] 38.77 kg/j0EzrsxoeaPatricia Aguilar Other [employer] Other 08-23-2023 08:15-0400Body .16 kgPatricia Aguilar Other [employer] Other 07-20-2023 09:10-0400Body oziknl578.48 cmAmbsteven Quinteros Other [employer] Other 07-20-2023 09:10-0400Body mass index (BMI) [Ratio] 38.77 kg/p4RxrtrElla Quinteros Other [employer] Other 07-20-2023 09:10-0400Body udjbqvhuyec19.4 [degF]Ella Quinteros Other [employer] Other 07-20-2023 09:10-0400Body .16 kgElla Quinteros Other [employer] Other 07-20-2023 09:10-0400Diastolic blood eirfgelm41 mm[Hg] Ella Quinteros Other [employer] Other 07-20-2023 09:10-0400Respiratory rate18 /minElla Quinteros Other [employer] Other 07-20-2023 09:10-1197ZuK5% (BldA) [Mass fraction]100 % Ella Quinteros Other [employer] Other 07-20-2023 09:10-0400Systolic blood qglgaklk491 mm[Hg] Ella Quinteros Other [employer] Other 05-23-2023 14:20-0400Diastolic blood lauopbld27 mm[Hg] MD Jorge Luis Wick Work Phone: [facility]05-23-2023 14:20-0400 Heart rate77 /minMD Jorge Luis Wick Work Phone: 1(317)458-[address] [place], [place] [address]05-23-2023 14:20-0400 Respiratory rate16 /minMD Jorge Luis Wick Work Phone: 1(907)[address]05-23-2023 14:20-0400 SaO2% (BldA) [Mass fraction]95 %MD Jorge Luis Wick Work Phone: 1(981)[address]05-23-2023 14:20-0400 Systolic blood dowtjssd511 mm[Hg]MD Jorge Luis Wick Work Phone: 1(192)[address]05-23-2023 12:20-0400 Inhaled oxygen flow rate2 L/minMD Jorge Luis Wick Work Phone: 1(183)[address] [place], [place] 4[address]405-23-2023 12:06-0400 Body nzotmnhlfng15.4 [degF]MD Jorge Luis Wick Work Phone: 1(226)[address]05-23-2023 07:57-0400 Body .48 cmMD Jorge Luis Wick Work Phone: 1(219)[address]05-23-2023 07:57-0400 Body mass index (BMI) [Ratio]38.7 kg/m2MD Jorge Luis Wick Work Phone: 1(668)[address]05-23-2023 07:57-0400 Body jdsjur49 kgMD Jorge Luis Wick Work Phone: 1(955)246-[address] [place], [place] [address]05-03-2023 16:15-0400 Body vyeiav505.48 cmRobert [employer] Other [employer] Other 05-03-2023 16:15-0400Body mass index (BMI) [Ratio] 38.41 kg/u6Uykind Shayne II Other [employer] Other 05-03-2023 16:15-0400Body .26 kgRobert Shayne II Other [employer] Other 01-19-2023 15:30-0500Body rxhsly931.48 cmRobert Shayne II Other [employer] Other 01-19-2023 15:30-0500Body mass index (BMI) [Ratio] 40.42 kg/y5Pqpzcx [place] [employer] Other [employer] Other 01-19-2023 15:30-0500Body xavovi814.25 kgRobert [place] II Other [employer] Other 11-29-2022 10:50-0500Body gebeqt177.48 cmSabhinav Blanco Other [employer] Other 11-29-2022 10:50-0500Body mass index (BMI) [Ratio] 36.58 kg/i9Jishwpssqsunny Blanco Other [employer] Other 11-29-2022 10:50-0500Body dlefpsbbjmj86.6 [degF] Aurelia Blanco Other [employer] Other 11-29-2022 10:50-0500Body ocynod21.72 kgStsunny Blanco Other [employer] Other 11-29-2022 10:50-0500Diastolic blood ychmggqw57 mm[Hg] Aurelia Blanco Other [employer] Other 11-29-2022 10:50-0500Respiratory rate18 /minSabhinav Blanco Other [employer] Other 11-29-2022 10:50-9689OxV9% (BldA) [Mass fraction]99 % Aurelia Blanco Other [employer] Other 11-29-2022 10:50-0500Systolic blood kngtpysy304 mm[Hg] Aurelia Blanco Other [place] [employer] Other 10-03-2022 15:38-0400Blood Pressure LocationPamella WEISS [facility]10-03-2022 15:38-0400Diastolic blood uypwoudu17 mm[Hg]Pamella WEISS [facility]10-03-2022 15:38-0400Heart rate77 /minUritricchantale WEISS [facility]10-03-2022 15:38-0400Respiratory rate16 /minPatrick WEISS [facility]10-03-2022 15:38-0400Systolic blood afnpsvnl004 mm[Hg]Pamella WEISS [facility] Encounters Encounter DateEncounter TypeCare ProviderFacilityStart: 69-82-1791wpqiepyqmd Pamella WEISSFacility:EM BellueStart: 09-28-2025 End: 30-58-5580mzdpuicjviTxht Naderer MD Work Phone: [phone]-Xjgwsyjxj Health OrthopedicsStart: 09-28-2025 End: 88-12-2739Lvzwwsg encounter procedureThomas Bart Rodriguez MD-[facility] Work Phone: Start: 09-09-2025 End: 16-81-6761kxbotvtqlfEnmk Naderer MD Work Phone: [facility] Work Phone: Start: 09-09-2025 End: 40-07-9653Qrynbnv encounter procedureJorge Luis Wick MDPembroke Hospital [facility] Jeff Work Phone: Start: 68-03-5991Nuf-patient / Non-visitElder Sheikh DO-[facility] Work Phone: Start: 43-09-6835Yyh-patient / Non-visitJorge Luis Wick MD-[facility] Work Phone: Start: 08-19-2025 End: 26-26-8230ctgtscbnzxOwwa Naderer MD Work Phone: [facility] Work Phone: Start: 08-19-2025 End: 62-85-1642Pltrzlh encounter procedureJorge Luis Wick MD-[facility] Family Medicine Jeff Work Phone: Start: 08-14-2025 End: 55-55-1703Xhvert flowsRafael Zimmerman DPM Work Phone: [facility] [place] PodiatryStart: 08-14-2025 End: 02-22-5081Hewbha flowsheetKarina Zimmerman DPM Work Phone: [facility] [place] PodiatryStart: 08-14-2025 End: 37-27-8855Krckoi outpatient new 30 minutesKarina Zimmerman DPM Work Phone: [facility] [place] PodiatryComment on above:Type II or unspecified type diabetes mellitus with neurological manifestations, not stated as uncontrolled(250.60) (HCC) (Primary Dx); Onychomycosis; Nail dystrophy; Hammer toe of right footStart: 08-14-2025 End: 17-80-0949ykrzurwuuxCEMKNWZ W CLARKENot AvailableStart: 07-13-2025 End: 21-10-7052wjmkfdmugdTxer Naderer MD Work Phone: [facility] Work Phone: Start: 07-13-2025 End: 05-01-6062Cpkargr encounter procedureJean Rodriguez MDD[facility] Work Phone: Start: 06-22-2025 End: 78-09-6526yofcvuycbyHfrl Naderer MD Work Phone: [facility] Work Phone: Start: 06-22-2025 End: 44-48-7977Oklpimg encounter procedureJean Rodriguez MD-[facility] Work Phone: Start: 06-18-2025 End: 58-40-2498wysqzkqsrtEwjb Naderer MD Work Phone: [facility] Work Phone: Start: 06-18-2025 End: 57-38-3978Nqqqslb encounter procedureKassy Brooks TAG MAKER-[facility] Urgent Care Jeff Work Phone: Start: 02-17-2025 End: 60-94-9699eszxvibjyqGYXI NADERERNot AvailableStart: 02-16-2025 End: 44-12-8814kdfncsmvlvLvshmbx R WATERSFacility:EU BellevueStart: 12-11-2024 End: 86-08-2260Gspweb Nathan Wick MD Work Phone: [facility] FMStart: 12-11-2024 End: 35-77-5138Uesluh Nathan Wick MD Work Phone: [facility] FMStart: 12-11-2024 End: 84-46-5443Nahoru outpatient visit 15 minutesJorge Luis Wick MD Work Phone: [facility] CWM FMComment on above:Acute bronchitis due to other specified organisms (Primary Dx); Statin myopathy; Class 2 severe obesity due to excess calories with serious comorbidity and body mass index (BMI) of37.0 to 37.9 in adult ([facility])Start: 12-11-2024 End: 94-83-9199yxreobzvrsTVGY NADERERNot AvailableStart: 08-27-2024 End: 94-20-7014Rdjryalgc Result EncounterJorge Luis Wick MD Work Phone: [facility] External Department UnsolicitedStart: 08-27-2024 End: 29-02-6226Jiysdecrs Result EncounterJorge Luis Wick MD Work Phone: [facility] External Department UnsolicitedStart: 08-20-2024 End: 34-05-3358Tdusgl flowsPorter Wick MD Work Phone: [facility] CWM FMStart: 08-20-2024 End: 67-16-0497Tjolni flowsPorter Wick MD Work Phone: [facility] CWM FMStart: 08-20-2024 End: 57-90-4002tihntqffzmAXSE NADERERNot AvailableStart: 08-20-2024 End: 33-33-1098Wjrmlwt encounter procedureJorge Luis Wick MD Work Phone: [facility] HealthcareStart: 08-20-2024 End: 24-32-2647Cmopseuw preventive med est patient 40-64yrsMarc Brandon MINAYA Work Phone: [facility] CWM FMComment on above:Annual physical exam (Primary Dx); Type 2 diabetes mellitus with hyperglycemia, without long-term current use of insulin ([facility]); FibromyalgiaStart: 07-17-2024 End: 69-36-2986wnstcosexkTZ Marc Naderer Work Phone: [facility] Work Phone: Start: 07-17-2024 End: 55-21-1614Irqyeat encounter procedureMD Jorge Luis Wick Work Phone: [facility] Work Phone: start: 07-17-2024 End: 32-24-9243sxunpdbbieWL Jorge Luis Wick Work Phone: [facility] Work Phone: Start: 07-17-2024 End: 26-58-6806Ikdsxtt encounter procedureMD Jorge Luis Wick Work Phone: [facility] [place] [facility] Start: 04-15-2024 End: 08-13-1881cqubzzswazFK Jorge Luis Wick Work Phone: [facility] Work Phone: Start: 04-15-2024 End: 34-77-8787Yjawmpw encounter procedureMD Jorge Luis Wick Work Phone: [facility] Urgent Care Jeff Work Phone: Start: 09-10-2023 End: 36-65-5609Ivhuruy encounter procedurePaadrienne WEISS [facility] start: 41-91-1227Rfmgkt outpatient visit 15 minutes Patricia Lechugay OrthopedicsStart: 07-18-2023 End: 20-12-8030rxiykautktHJ Jorge Luis Reyesemanuel Work Phone: [facility] Work Phone: Start: 07-18-2023 End: 04-72-9070Wnhrbtj encounter procedureMD Jorge Luis Wick Work Phone: [facility] [place] [facility] Start: 06-14-2023 End: 88-61-9529dmqqgyohpiLmkyn Keller Other [place] [employer] Other Start: 26-11-2923Isjomh outpatient visit 15 minutes Ella [facility] ClydeStart: 06-07-2023 End: 42-91-5363lqgdzusowcRojedq [place] [employer] Other [employer] Other Start: 84-44-6962Uvthgaito encounterRobert [place] II [facility] OrthopedicsStart: 05-31-2023(Post-Op) Post-OpRobert Shayne IIFPG [facility] OrthopedicsStart: 05-31-2023 End: 43-32-8656nxnufeqwmrXN Jorge Luis Wick Work Phone: [facility] Work Phone: Start: 05-31-2023 End: 72-24-8338Hwnkhud encounter procedureMD Jorge Luis Wick Work Phone: [facility] [place] [facility] Start: 05-18-2023 End: 63-96-5905Eviyqpfrac RecurringMD Jorge Luis Wick Work Phone: [facility]-Physical Therapy [place] CreekStart: 66-93-3778Ztanojegri RecurringMD Jorge Luis Wick Work Phone: [facility]-Physical Therapy [place] CreekStart: 04-27-2023 End: 40-55-9253wxudrwtxpaRmnwcsen [place] Other [employer] Other Start: 45-99-9181Xfumyq follow up visit related to original pxPatricia AguilarFPG [facility] OrthopedicsStart: 04-25-2023 End: 55-38-4344vjaqobnrzwUzlalv [place] [employer] Other [employer] Other Start: 24-94-0128Zgnawzsex encounterRobert Shayne II [facility] OrthopedicsStart: 04-17-2023 End: 69-71-6594Lwxaptlyb to same day surgery centerMD Jorge Luis Wick Work Phone: [facility] CampusStart: 04-06-2023(Prolonged) Prolonged ServicesRobert [place] IIFPG [facility] OrthopedicsStart: 04-06-2023 End: 92-77-5848hnfevsngldQrukbd [place] [employer] Other [employer] Other Start: 28-30-0058Xzdqvsvjp encounterRobert Shayne II [facility] OrthopedicsStart: 04-03-2023 End: 66-93-0644xvrebrdoudAP Jorge Luis Wick Work Phone: [facility] Work Phone: Start: 04-03-2023 End: 40-28-7332Svxvzgj encounter procedureMD Jorge Luis Wick Work Phone: [facility] Qrq-Vry-Wnbxbkbh Testing Work Phone: Start: 03-28-2023 End: 13-28-0669ajkntnvckqLnqxlo Shayne II Other [employer] Other Start: 88-18-5212Yrjoeu outpatient visit 40 minutes Kelby Bella IIFP [facility] OrthopedicsStart: 03-01-2023 End: 08-67-7084eybdvkjvdeOPMABHQUF NO [facility] Work Phone: Start: 03-01-2023 End: 63-57-0637Mjpcssg encounter procedurePHYSICIAN NO [facility] [place] Work Phone: Start: 74-10-1006Gdwnfgwub for general adult medical examination without abnormal findingsDR JORGE LUIS Arriaga [facility] CENTERDequna [facility] Start: 02-16-2023 End: 10-09-8611lvinwmjkfoCXDVTSLQB NO [facility] Work Phone: Start: 02-16-2023 End: 17-64-8238Dsdcpqf encounter procedurePHYSICIAN NO [facility] [place] Work Phone: Start: 02-10-2023 End: 52-10-1041iefyczzdtgQW JORGE LUIS Bart NADERERFacility:J1Lxegh: 02-10-2023 End: 83-48-4262Ueojskylw for general adult medical examination without abnormal findingsDR JORGE LUSI Arriaga NADERERFacility:U3Ttryj: 12-14-2022 End: 14-49-7942Qpgcrvv encounter procedurePHYSICIAN NO [facility] OrthoStart: 12-14-2022 End: 77-05-1230ymmqfqpcuzPVZJBLLZD NO [facility] Work Phone: Start: 33-97-9889Kxawjr outpatient new 45 minutes Kelby Bella IIFPG [facility] OrthopedicsStart: 93-93-6167Igwvtj outpatient visit 15 minutesAurelia Mercado [facility] Care ClydeStart: 10-24-2022 End: 07-79-8023zahfiqxkowRFFFJUJTF NO [facility] Work Phone: Start: 10-24-2022 End: 20-43-1763Ecakmxd encounter procedurePHYSICIAN NO [facility] [place]deStart: 08-28-2022 End: 37-53-2527Qckfigm encounter procedurePaadrienne WEISS [facility] start: 07-19-2022 End: 16-28-5492hpmpnrwvelGQ JORGE LUIS Arriaga NADERERFacility:M5Bslnf: 06-26-2022 End: 83-29-0429wygwkqegasXU PAMELLA WEISS .Facility:V5Wnidq: 06-23-2022 End: 73-05-6695Ldrgifk encounter procedurePaadrienne WEISS [facility] start: 06-09-2022 End: 39-86-2894zjcjklevbmSD PATRICK WATERS .Facility:P6Sxpcy: 06-05-2022 End: 38-16-9316chyhstsxntCL PAMELLA WEISS .Facility:D4Gbhuj: 04-30-2022 End: 40-41-5577crvxbjakrvTU JORGE LUIS REYESRFacility:H1Qtqmg: 02-12-2018 End: 19-62-4082XywxlcsyxrRVLLHEE PHYSICIANFacility:[facility]tart: 07-12-2017 End: 48-62-6487KwbucicovmBHMUAEV PHYSICIANFacility:[facility] Procedures DateProcedureProcedure DetailPerforming ClinicianStart: 07-95-0133F-ray of right footMariposac Brandon MINAYA Work Phone: Start: 92-30-5304A-ray of right footJorge Luis Wick MD Work Phone: Start: 20-00-6894E-ray of right footMariposac Brandon MINAYA Work Phone: Start: 89-45-1819OPM CBC WITH AUTO DIFFMartato Wick MD Work Phone: Start: 17-89-7420E-ray of right kneeMD Jorge Luis Wick Work Phone: Start: 49-40-4839Cugrrijrnd examination of kneeMD Jorge Luis Wick Work Phone: Start: 95-40-0924Vajww X-ray of right femurMD Jorge Luis Wick Work Phone: Start: 54-62-1200Mqpyq X-ray of right tibia and right fibulaMD Jorge Luis Wick Work Phone: Start: 37-58-3338L-ray of right kneeMD Jorge Luis Wick Work Phone: Start: 23-11-7669S-ray of right kneeMD Jorge Luis Wick Work Phone: Start: 62-84-7099Q-ray of right kneeMD Jorge Luis Wick Work Phone: Start: 96-98-4407Tkshs replacement of right knee joint Jorge Luis Wick Work Phone: Start: 19-27-4618Qkksm cultureMD Jorge uLis Wick Work Phone: Start: 83-95-3678Uutopomguwf resistant Staphylococcus aureus cultureMD Jorge Luis Wick Work Phone: Start: 13-97-8425D-ray of right kneePHYSICIAN NO FAMILYStart: 32-99-0263Sfmdfxbbaslc of kneePatrick WEISS Start: 69-95-7404V-ray of right anklePHYSICIAN NO FAMILYStart: 96-42-7117Eydsliivbglwyo shockwave lithotripsy of the bile duct Pamella WEISS Start: 47-08-0405OqdptjllpjIrqdojc WEISS Start: 82-52-1062Pllhhsu of calculus of renal pelvis through percutaneous nephrostomyPatrick WEISS Start: 76-51-3545IddqxarbczVuackbo WEISS Start: 75-00-1177QqmzqenurnNbvuaro WEISS Start: 00-03-3188Keblgeybhpajfl shockwave lithotripsy of the bile ductPatrick WEISS Start: 38-99-6759KikyjskfmyJuwjbzw WEISS Start: 20-85-7806Bfmmyhopmafkom shockwave lithotripsy of the bile ductPatrick WEISS Start: 04-79-4388SzdcyjpmixFebyonp WEISS Start: 67-79-1870JsbcoswlfhCveijho WEISS Start: 68-75-7828QpjacotezjWdwioot WEISS Start: 91-08-0531DdcqjgwcsnTkstome WEISS Start: 72-45-2633VowvmlbyjpPdjwdzh WEISS Start: 29-80-8834EjxqbybdfaLgtbvzx WEISS Start: 44-05-9120FnnvtbdpjhNjecxdw WEISS Start: 87-86-1647WtlhqjrhfiQuvxmhz WATERS Start: 23-67-1654VpmqntesvtPmjmbve WATERS Start: 74-89-2092IzvpqxeimtJevylox WATERS Start: 38-15-2288AufdugvoevUgmlafi WATERS Carpal tunnel syndrome (disorder)Pamella WEISS Cataract (morphologic abnormality)Pamella WEISS CholecystectomyPamella WEISS H/O: artificial jointAftercare following joint replacement surgeryJorge Luis Wick MD Work Phone: HysterectomyPamella WEISS Injury of knee (disorder)Pamella WEISS Plan of Treatment DateCare ActivityDetailAuthorStart: 76-72-5304Zjsrwttrp for malignant neoplasm of breastMammogramNOWA HealthcareComment on above:Postponed from 2000 (Patient Refused)Start: 38-62-5462Lxflklrdz for malignant neoplasm of colon Colorectal Cancer ScreeningNOWA HealthcareComment on above:Postponed from 1960 (Patient Refused)Start: 49-49-0214F-ray of right footXR foot RT min 3V*[facility]: 62-11-0980VB Foot - right GE 3 Views [facility]: 53-52-7077Vkiro screening for protein Diabetes: Urine Protein ScreeningNOWA HealthcareStart: 09-25-2025Medicare Annual Wellness (AWV)Medicare Annual Wellness (AWV)[facility] HealthcareStart: 08-14-2025 End: 08-37-3102Twlohcq encounter klhzxmufu94/19/2025 10:00 AM EDT Office Visit [facility] [address] [place] [id number] Karina Zimmerman, DPM [address] [place], [place] [id number] [facility]rivedAn[facility] PodiatryComment on above:ArrivedStart: 50-88-7378Qwsbbexxk vaccinationInfluenza Vaccine (#1)[facility] HealthcareStart: 91-75-8877S-ray of right footXR foot RT min 3V*[facility] Start: 41-17-1390LG Foot - right GE 3 ViewsRiverview Health Institute Start: 76-34-2759Zohciyvynj A1c measurementDiabetes: Hemoglobin E2GUPTC HealthcareStart: 02-17-2025 End: 18-55-4019Ylelubd encounter procedureNOMANGUM [facility] FMStart: 12-11-2024 End: 17-91-4787Deugzvd encounter jkehgzhzz93/16/2025 11:15 AM EST Office Visit [facility] [address] [place] [address] Jorge Luis Wick MD [address] [place] [address] [facility] FMComment on above:ArrivedStart: 08-20-2024 End: 45-88-8086Vxvixxx, urine, randomAlbumin, urine, random Lab Routine Type 2 diabetes mellitus with hyperglycemia, without long-term current use of insulin ([facility]) Expected: 08/20/2024 (Approximate), Expires: 08/20/2025NO[facility] Work Phone: Comment on above:Expected: 08/20/2024 (Approximate), Expires: 08/20/2025Start: 08-20-2024 End: 03-85-2958Cckzr metabolic 1998 panel - Serum or PlasmaBasic metabolic panel Lab Routine Annual physical exam Expected: 08/20/2024 (Approximate), Expires: 08/20/2025WA HealthcareComment on above:Expected: 08/20/2024 (Approximate), Expires: 08/20/2025Start: 08-20-2024 End: 37-42-7575XSD W Auto Differential panel - BloodCBC and differential Lab Routine Annual physical exam Expected: 08/20/2024 (Approximate), Expires: 0 08/20/2025NOWA HealthcareComment on above:Expected: 08/20/2024 (Approximate), Expires: 08/20/2025Start: 08-20-2024 End: 38-49-1576Hlqfsjlrfg A1c/Hemoglobin.total in BloodHemoglobin A1c Lab Routine Annual physical exam Expected: 08/20/2024 (Approximate), Expires: 08/20/2025WA HealthcareComment on above:Expected: 08/20/2024 (Approximate), Expires: 08/20/2025Start: 08-20-2024 End: 82-79-7244Gzpmkuo function 2000 panel - Serum or PlasmaHepatic function panel Lab Routine Annual physical exam Expected: 08/20/2024 (Approximate), Expires: 08/20/2025[place] HealthcareComment on above:Expected: 08/20/2024 (Approximate), Expires: 08/20/2025Start: 08-20-2024 End: 17-04-8263Ceefu 1996 panel - Serum or PlasmaLipid panel Lab Routine Annual physical exam Expected: 08/20/2024 (Approximate), Expires: 08/20/2025NOWA HealthcareComment on above:Expected: 08/20/2024 (Approximate), Expires: 08/20/2025Start: 08-20-2024 End: 87-63-8658Qglhggnjvdw [Units/volume] in Serum or PlasmaTSH Lab Routine Annual physical exam Expected: 08/20/2024 (Approximate), Expires: 08/20/2025NOWA HealthcareComment on above:Expected: 08/20/2024 (Approximate), Expires: 08/20/2025Start: 01-72-4594Awjkjipeev A1c measurementDiabetes: Hemoglobin A1C [facility] HealthcareStart: 93-80-7740Syezmtamc vaccinationInfluenza Vaccine (#1)[facility] HealthcareStart: 86-37-1852C-ray of right kneeXR knee RT 2VRegency Hospital Companytart: 84-17-4471CA Knee - right 2 [facility]: 57-13-1456Tqdgqtpg screeningDiabetes: Retinopathy ScreeningINTERMOUNTAIN [facility]ALTHCARE HealthcareStart: 32-38-3698WlxdrzlesRegency Hospital Companytart: 04-17-2023 [facility]: 68-58-3248DxjniuaqjRegency Hospital Companytart: 33-23-0560Geiedslc identified in Urine by CultureRegency Hospital Companytart: 08-00-3109VEVW CultureMRSA [facility] Hospitaltart: 72-82-9660Amkpvkiri for malignant neoplasm of breast MammogramINTERMOUNTAIN [facility]ALTH[facility]ARE HealthcareStart: 27-38-7059Msawnyaxy for malignant neoplasm of cervixINTER[facility] HealthcareStart: 37-08-0167Hblixgyel for malignant neoplasm of cervix Pap SmearNOWA HealthcareStart: 82-54-4206Pansw screening for proteinDiabetes: Urine Protein ScreeningINTERMOUNTAIN [facility]ALTH[facility] HealthcareStart: 58-94-9861Zyxmgqkp screening Diabetes: Retinopathy ScreeningINTERMOUNTAIN [facility]ALTHCARE HealthcareStart: 92-13-3904Wbywxqtjut A1c measurementDiabetes: Hemoglobin W3LTTWU HealthcareStart: 84-96-6609Xoccyvprk for malignant neoplasm of colonNOWA HealthcareComprehensive metabolic 2000 panel - Serum or [facility] Medical CenterCotinine [Mass/volume] in Serum or [facility] Medical CenterMethicillin resistant Staphylococcus aureus [Presence] in Unspecified specimen by Organism specificcultCentervilleNicotine [Mass/volume] in Serum or [facility] CenterXR Foot - right GE 3 [facility]XR K[facility] - left 4 [facility] Immunizations Immunization DateImmunizationNotesCare NnkmevzvJznbldbb36-31-3096lpkmawgtp virus vaccine, unspecified formulationKarina Zimmerman DPM Work Phone: [facility] HospitalRfokmqnnsz79-46-5092geiixgzzp virus vaccine, unspecified formulationJorge Luis Wick MD Work Phone: [facility] HospitalRdxnciowsq55-68-1000HDGAP-26 mRNA Bivalent Booster (Moderna)MD Jorge Luis Wick Work Phone: [facility]11-04-2021COVID-19 mRNA-1273 (Moderna)MD Jorge Luis Wick Work Phone: [facility]04-12-2021SARS-CoV-2 (COVID-19) mRNA-1273 vaccinePatrick GlossyBox [facility] 15-09133019-72-4410FMGMX-10 mRNA-1273 (Moderna)MD Jorge Luis Wick Work Phone: [facility]03-15-2021SARS-CoV-2 (COVID-19) mRNA-1273 vaccinePatrick GlossyBox [facility] 68-36860381-12-8558ZNQOQ-17 mRNA-1273 (Moderna)MD Jorge Luis Wick Work Phone: [facility] Payers DatePayer CategoryPayerPolicy [id number] Health InsuranceOR[facility] [place] [id number] 2025MedicareMEDICARE [id number] [id number] Subscriber Plan / Payer (Effective 2021-Present) Name: Laly Taveras Relation to Subscriber: Self Name: Laly Taveras Payer ID: Not on file Type: Not on file Address: [address] [place] [id number] .1.728579.3.579.2.593 [id number] .1.348163.3.57[id number] .1.068153.3.57[id number] 2..1.780062.3.57[id number] .1.463137.3.57[id number] 2.16.840.1.670854.3.57[id number] 2.16.840.1.797481.3.57[id number] 2.16.840.1.099248.3.579.[id number] 2.16.840.1.475849.3.57[id number] 2.16.840.1.934187.3.57[id number] 2..840.1.816369.3.57[id number] 2.16.840.1.817368.3.579.2.46[id number] ou7t578l-87f2-95a4-0n61-t65z1or101b8Lagt-bnuTykg Pay 3468eady-[id number]-i736[id number]-46j4-73o8-i08s40v87v56 Social History DateTypeDetailFacilityStart: 08-16-2020 End: 85-94-2101Nfdfmdi smoking statusNever smoked tobacco (finding)[facility] start: 08-20-2024 End: 35-75-6057Zam Assigned At [facility]Fe[facility]xec[facility] start: 83-33-4174Yuj Assigned At [facility] HospitalTobacco smoking statusNeverExecutive [facility] of [facility] Hospitaltart: 79-06-9698Zucccyr use and exposureSmokeless tobacco non-userNOWA HealthcareStart: 08-20-2024 End: 16-71-6524Vamwagk of Social functionNOMS HealthcareStart: 35-11-5336Bzr assigned at birthNot on [facility] JacksonSexFemale (finding)[facility] Medical Equipment Procedure CodeEquipment CodeEquipment Original TextEquipment IdentifierDates Arthroplasty, knee, total, minimally invasiveOrthopaedic cement, non-medicated ()[id number] FDAStart: 93-04-7540Hnvgzxxjqwzp, knee, total, minimally invasiveUncoated knee femur prosthesis ()[id number] FDAStart: 29-38-3893Fgzvgqjirohz, knee, total, minimally invasiveTibial insert()[id number] FDAStart: 79-13-0778Tehxuixcachr, knee, total, minimally invasivePolyethylene patella prosthesis()[id number] FDAStart: 04-17-2023 Arthroplasty, knee, total, minimally invasiveKnee stem ()[id number] FDAStart: 51-99-7851Tejijgtmptap, knee, total, minimally invasiveUncoated knee tibia prosthesis, metallic ()[id number] FDAStart: each by Other route if needed (as needed)[id number]: 60-37-6092CYH 1 STRIP TO CHECK GLUCOSE ONCE DAILY [id number]: 38-87-9322Ruwmo Sugar Diagnostic (Onetouch Ultra Test) stripStart: 98-84-8261Buvuw Sugar Diagnostic (Onetouch Ultra Test) stripStart: 30-44-9940Sufsq Sugar Diagnostic (Onetouch Ultra Test) stripStart: 46-86-1744Nqwpa Sugar Diagnostic (Onetouch Ultra Test) stripStart: 08-19-2025 Goals DatePatient GoalDesired Activity/State Functional Status TcybTcguijnbvkVanftrUtqnugic94-07-1250Kpbcnovffl StatusN/AExecutive [facility] of [facility]10-03-2022Functional StatusN/AExec[facility] Clinical Notes 08-28-2022 to 08-14-2025 Note Date & MnhbCvviJduuczod54-76-7277 History of Present illness Narrative* Karina Zimmerman, SIVAKUMAR - 08/14/2025 10:00 AM EDT Images from the original note were not included. Subjective Patient ID: Laly Taveras is a 65 y.o. 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 Behavior: Behavior normal. 42258 Q9 Assessment/Plan ICD-10-CM 1. Type II or unspecified type diabetes mellitus with neurological manifestations, not stated as uncontrolled(250.60) ([facility]) E11.49 2. Onychomycosis B35.1 3. Nail dystrophy [...] to refrain from going barefoot. Wear shoes atall times to help protect feet. Shoe gear should be inspected for any foreign objects. Shoes shouldhave a deep wide toe box. With any type of shoe, the feet should be inspected for any signs of pressure, i.e., redness, blistering, or open sores. Reviewed with pt that hallux nails are dystrophic and also infected with fungus, right 4th nail is dystrophic. I reviewed with her the options for treating mycotic toenails. Including doing nothing vs frxv-rwh-xtazrfh topical antifungal applications vs oral Lamisil. I [...] understanding. Karina Zimmerman DPM documented in this [facility]08-18-2025 Evaluation note* Diagnosis Onset Date Resolution Status Admit Date Fracture of fifth metatarsal bone of rig ht foot acuteAugust 2024 9:00amColonoscopy refusedacuteSeptember 2024 12:53pmMammogram declinedacuteSeptember 2024 12:53pmMedicare annual wellness visit, subsequentacuteSeptember 2024 12:53pmBenign essential hypertensionacuteOctober 2024 1:03pmDehydration, mildacuteOctober 2024 1:03pmElevated alkaline phosphatase levelacuteOctober 2024 1:03pm Elevated total proteinacuteOctober 2024 1:03pmFracture of fifth metatarsal bone of right footacuteNov2024 8:58am [facility] Work Phone: 1(123) 555-386407-24-2025 Evaluation note* Diagnosis Onset Date Resolution Status Admit Date Fracture of fifth metatarsal bone of rig ht foot acuteJuly 2024 10:59am [facility] Work Phone: 1(149) 391-260507-24-2025 Evaluation note* Diagnosis Onset Date Resolution Status Admit Date Fracture of fifth metatarsal bone of rig ht foot acuteJuly 2024 10:59amFracture of fifth metatarsal bone of right footacute June 22, 2025 8:29am [facility] Work Phone: 1(421) 108-805107-24-2025 Evaluation note* Diagnosis Onset Date Resolution Status Admit Date Fracture of fifth metatarsal bone of rig ht foot acuteJuly 2024 10:59amFracture of fifth metatarsal bone of right footacute June 22, 2025 8:29amFracture of fifth metatarsal bone of right footacuteAugust 2024 9:00am [facility] Work Phone: 1(260) 531-910807-24-2025 Evaluation note* Diagnosis Onset Date Resolution Status Admit Date Fracture of fifth metatarsal bone of rig ht foot inactiveJuly 2024 10:59amFracture of fifth metatarsal bone of right foot inactiveJuly 2024 8:29amFracture of fifth metatarsal bone of right foot inactiveAugust 2024 9:00amMedicare annual wellness visit, subsequentacute Roxie 2024 12:53pm [facility] Work Phone: 1(475) 780-297007-24-2025 Evaluation note* Diagnosis Onset Date Resolution Status Admit Date Fracture of fifth metatarsal bone of rig ht foot inactiveJuly 2024 10:59amFracture of fifth metatarsal bone of right foot inactiveJuly 2024 8:29amFracture of fifth metatarsal bone of right foot inactiveAugust 2024 9:00amColonoscopy refusedacuteSeptember 2024 12:53pmMammogram declinedacuteSeptember 2024 12:53pmMedicare annual wellness visit, subsequentacuteSept2024 12:53pm [facility] Work Phone: 1(301) 614-760803-24-2025 NotePatient Education Nephrology Dietary Guidelines to Help [...] ? 8 oz (237 mL) of milk, rzzswaz-bgkrkawhihlp-qeruy milk, and calcium- fortifiedfruit juice. Calcium-fortified means [...] Spinach (cooked), rhubarb, beets, sweet potatoes, and Malian chard. ? Peanuts. ? Potato chips, st helenian fries, and baked potatoes with skin on. ? Nuts and nut products. ? Chocolate. ??? If you regularly take a diuretic medicine, make sure to eat at least 1 or 2 servings of fruits or vegetables that are high in potassium each day. These include: ? Avocado. ? Banana. ? Bancroft, prune, carrot, or tomato juice. ? Baked [...] fish oil, or vitamin B6. ??? Take rlhl-eyh-xbtiqti and prescription medicines only as told by your health (more content not included)...[facility]01-16-2025 History of Present illness Narrative* Jorge Luis Wick MD - 12/11/2024 11:57 AM ESTAssociated Problem(s): Statin myopathy Not tolerate statins * Jorge Luis Wick MD - 12/11/2024 11:57 AM ESTAssociated Problem(s): Class 2 severe obesity due to excess calories with serious comorbidity and body mass index (BMI) of 37.0 to 37.9 in adult ([facility]) Weight loss indicated * Jorge Luis Wick [...] index (BMI) of37.0 to 37.9 in adult ([facility]) Weight loss indicated Acute bronchitis due [...] (Zithromax) 250 MG tablet documented in this encounterBarton County Memorial HospitalDmitpzjbzq73-02-2296 History of Present illness Narrative* Jorge Luis Wick MD - 08/20/2024 7:49 AM EDTAssociated Problem(s): Type 2 diabetes mellitus with hyperglycemia, without long-term current use of insulin ([facility]) Reports BS controlled and due for [...] hyperglycemia, without long-term current use of insulin ([facility]) Reports BS controlled and due for [...] panel Lipid panel TSH documented in this encounterBarton County Memorial HospitalTovccqnzqu01-04-8953 Hospital Discharge instructions Patient Education 09/10/2023 16:22:29 [...] include: ?8 oz (237 mL) of milk, ntjwuko-bhavnetxqjce-udodh milk, and calcium- fortifiedfruit juice. Calcium-fortified means [...] ?Spinach (cooked), rhubarb, beets, sweet potatoes, and Malian chard. ?Peanuts. ?Potato chips, st helenian fries, and baked potatoes with skin on. ?Nuts and nut products. ?Chocolate. If you regularly take a diuretic medicine, make sure to eat at least 1 or 2 servings of fruits or vegetables that are high in potassium each day. These include: ?Avocado. ?Banana. ?Bancroft, prune, carrot, or tomato juice. ?Baked potato. [...] magnesium, fish oil, or vitamin B6. Take szld-ayk-mcmsusb and prescription medicines only as told by [...] Casseroles. Pizza. Lasagna. Frozen meals. Potato chips. Burmese fries. The items listed above may not [...] provider. Document Revised: 07/24/2022 Document Reviewed: 07/24/2022 [employer] Patient Education 2022 [employer] Follow Up Care 08/28/2022 16:11:04 With:ISELA MINAYA, Pamella Nair, URL Address: [facility] [address] [place] [address]- When:Within 1 Year(s) Comments:w/DEJA [facility] Marisol 08-23-2023 Evaluation note* Encounter Date Diagnosis Assessment Notes Treatment Notes Treatment Clinical Notes Jun, History of total right knee repl acement (ICD-10 - Z96.651) Patient is progressing well from surgery. We discussed the importance of continuing to work on range of motion and strength exercise. Examination and assessment of this patient was performed by Patricia Aguilar NP and patient will continue with the treatment plan per Dr. Bella, who initiated this treatment plan. Dr. Bella ispresent in the office today and providing supervision. Jun,ftercare following joint replacement surgery (ICD-10 - Z47.1) Jun,resence of right artificial knee joint (ICD-10 - Z96.651) [facility] Other 07-20-2023 Evaluation note* Encounter Date Diagnosis Assessment Notes Treatment Notes Treatment Clinical Notes May, Dysuria (ICD-10 - R30.0) May,lucosuria (ICD-10 - R81) Discussed diagnosis and dipstick [...] understanding and is agreeable with treatment plan [facility] Other 07-06-2023 Evaluation note* Encounter Date Diagnosis Assessment Notes Treatment Notes Treatment Clinical Notes May, History of total right knee repl acement (ICD-10 - Z96.651) May,ftercare following joint replacement surgery (ICD-10 - Z47.1) May,resence of right artificial knee joint (ICD-10 - Z96.651) May,ontact allergic reaction (ICD-10 - L23.9) May,[facility] Overall she is doing fantastic. The stitch abscess was cleaned and then decompressed. A dressing was applied. Patient was started on doxycycline 100 mg twice daily x14 days. Due to her busy schedule at work next week she is unable to come in for repeat evaluation. However next Sunday or he is going to send us a picture [...] tolerated. Continue PT as recommended. Continue taking qofj-kmn-jqqhjlf anti-inflammatories as needed for assistance with swelling and pain associated with the operative extremity. Follow-up in 1 to 2 weeks for incision check and if everything looks good then 3 months postop for repeat examination and long standing x-rays. [facility] Other 06-02-2023 Evaluation note* Encounter Date Diagnosis Assessment Notes Treatment Notes Treatment Clinical Notes Apr, History of total right knee repl acement (ICD-10 - Z96.651) Apr,ftercare following joint replacement surgery (ICD-10 - Z47.1) Apr,resence of right artificial knee joint (ICD-10 - Z96.651) Apr,ontact allergic reaction (ICD-10 - L23.9)Rx given for Medrol Dosepak. Xeroform/Telfa/ABD and kylie wrap applied. Spoke with Graham with home heal and advised him of the findings. Instructed to change dressing Sunday and Sunday. Also instructed him not to stretch knee motion at this time. [facility] Other 05-12-2023 Evaluation note* Encounter Date Diagnosis Assessment Notes Treatment Notes Treatment Clinical Notes March, Other Prolonged Services 1. H and P date: 04/06/2023 2. Diagnosis: Right knee primary osteoarthritis 3. Counseling: Patient received counseling in her history and physical 4. Coordination of care: The patient was discussed at today's total joints meeting with anesthesia,OR staff, and implant reps in an effort to coordinate the patient's care during the perioperative period. The anesthesiologist was involved in discussions regarding the patient's pain management suchas regional blocks, anesthesia plans the day of surgery such as general versus spinal, as well as afinal review of lab work to ensure the patient could proceed with surgery safely. The passenger service manager was vital for surgery timing and scheduling purposes. The implant rep was also available for necessarydiscussions regarding preoperative templates that were created on [...] tests including albumin levels, vitamin D levels, hemoglobin,hemoglobin A1c, cotinine serum level, and MRSA nasal [...] plans. Prolonged services time spent: 33 minutes [facility] Other 05-09-2023 Evaluation note* Encounter Date Diagnosis Assessment Notes Treatment Notes Treatment Clinical Notes March, Primary osteoarthritis of right knee (ICD-10 - M17.11) [facility] Other 05-03-2023 Evaluation note* Encounter Date Diagnosis Assessment Notes Treatment Notes Treatment Clinical Notes March, Primary osteoarthritis of right knee (ICD-10 - M17.11) March,Other1. Right TKA - DVT prophylaxis: Aspirin - [...] does not member the name of the college associate but they were in [place]. 4. Once our office has reviewed the above labs and clearances, we will contact the patient to discuss surgery scheduling. Patient is in agreement with the above plan. 5. The risks involved with surgery and postoperative complications were discussed in relation to the patient's nonmodifiable risk factors including but not limited to the following: Rhy-fnxsgvl-znvmbudbt diabetes Fibromyalgia History of heart block All questions were answered after discussing these increased risks. The patient voiced understanding of these increased risks and still wishes to proceed with surgery. 6. The risks involved with surgery and postoperative complications were discussed in relation to the patient's modifiable risk factors including but not limited to the following: Ggk-jonvtrj-mszqntqnf diabetes-most recent A1c is 6.6 BMI 38.4 All questions were answered after discussing these increased risks. The patient voiced understanding of these increased risks and still wishes to proceed with surgery. The patient has tried and failed all conservative treatment options to include: oral anti-inflammatories, intra-articular steroid injections, physical therapy, and assistive devices. We will move forward with the definitive treatment option and schedule the patient for the above mentioned procedureafter we have reviewed screening labs and clearances. Patient understands abnormal screening labs or absent clearances could delay their surgery. [facility] Other 01-19-2023 Evaluation note* Encounter Date Diagnosis Assessment Notes Treatment Notes Treatment Clinical Notes Nov, Acute pain of right knee (ICD-10 - M25.561) Nov,Other1. We had a long discussion with the patient today concerning their [...] well as her Voltaren gel 4-5 times aday. 4. Physical therapy: Discussed formal physical therapy and home regimen. Patient preferred no PT atthis. 5. Injections: Discussed injections as a treatment [...] patient may want surgery sometime after May. [facility] Other 11-29-2022 Evaluation note* Encounter Date Diagnosis Assessment Notes Treatment Notes Treatment Clinical Notes Sep, Injury of right ankle, initial e ncounter (ICD-10 - S99.911A) Use RICE therapy as discussed: Rest, Ice Compression, Elevate. Apply ice to affected area 3-4 timesdaily (Do not place ice source directly on skin, must cover with towel-like material). Take medication as directed. Rest and elevate sore extremity as much as possible. Do not take OTC medication pain relievers if prescription of medication given in office today. Contact office if no improvement ofsymptoms and we will help you get into a specialist. Blood glucose may increase due to medication - call PCP if blood sugar goes above 250- [facility] Other 10-03-2022 Hospital Discharge instructions Patient Education 08/28/2022 15:59:31 Kidney Stones, Amnt-pv-Swsi Kidney Stones Kidney stones are rock-like masses [...] Follow these instructions at home: Medicines Take wndh-ovy-pgshysy and prescription medicines only as told by [...] 04/30/2009 Document Revised: 03/30/2020 Document Reviewed: 03/30/2020 [employer] Patient Education 2020 [employer]. Follow Up Care 08/22/2021 16:23:28 With:ISELA MINAYA, Pamella Nair, SATYAL Address: [facility] [address] , [place] [address]- [phone] When:08/28/2023 [facility] evaluation + Plan note Future Appointments Appointment Date:08/28/2022 03:00:00 PM Scheduled Provider:Pamella WEISS MD Location:[facility] Appointment Type:URO Office Visit [facility] evaluation + Plan note Future Appointments Appointment Date:09/10/2023 03:00:00 PM Scheduled Provider:Pamella WEISS MD Location:[facility] Appointment Type:URO Office Visit [facility] evaluation + Plan note Future Appointments Appointment Date:09/08/2024 10:15:00 AM Scheduled Provider:Pamella WEISS MD Location:[facility] Appointment Type:URO Office Visit Diagnostic Tests Pending * Electrolyte Panel 09/10/23 [facility] evaluation noteNo assessment information available [facility] Work Phone: evaluation noteNo InformationNort [employer] Other evaluation note* Diagnosis Onset Date Resolution Status Contusion of left knee and lower leg acute [facility] Work Phone: evaluation note* Diagnosis Onset Date Resolution Status Aftercare following right knee joint rep lacement surgery acute [facility] Work Phone: evaluation note* Diagnosis Annual physical exam- Primary Routine general medical examination at a health care facility Type 2 diabetes mellitus with hyperglycemia, without long-term current use of insulin ([facility]/HCC) Fibromyalgia Unspecified myalgia and myositis documented in [...] hyperglycemia, without long-term current use of insulin ([facility]) Fibromyalgia Unspecified myalgia and myositis Acute bronchitis due to other specified organisms- Primary Statin myopathy Toxic myopathy Class 2 severe obesity due to excess calories with serious comorbidity and body mass index (BMI) of37.0 to 37.9 in adult ([facility]) documented in this encounter [facility] HealthcareEvaluation note* Diagnosis Onset Date Resolution Status Admit Date Fracture of fifth metatarsal bone of rig ht foot acuteJuly 2024 10:59am [facility] Work Phone: Evaluation note* Diagnosis Breast cancer screening by mammogram- Primary Type 2 diabetes mellitus with hyperglycemia, without long-term current use of insulin ([facility]) Fibromyalgia Unspecified myalgia and myositis Primary osteoarthritis of right knee Chronic diastolic heart failure ([facility]) Chronic diastolic heart failure Mild intermittent asthma without complication ([facility]) Seasonal allergic rhinitis due to pollen Annual physical exam- Primary Routine general medical examination at a health care facility Type 2 diabetes mellitus with hyperglycemia, without long-term current use of insulin ([facility]) Fibromyalgia Unspecified myalgia and myositis Acute bronchitis due to other specified organisms- Primary Statin myopathy Toxic myopathy Class 2 severe obesity due to excess calories with serious comorbidity and body mass index (BMI) of37.0 to 37.9 in adult ([facility]) Type 2 diabetes mellitus with hyperglycemia, without long-term current use of insulin ([facility])- Primary Fibromyalgia Unspecified myalgia and myositis Chronic diastolic heart failure ([facility]) Chronic diastolic heart failure Mild intermittent asthma without complication ([facility]) Seasonal allergic rhinitis due to pollen Class 2 severe obesity due to excess calories with serious comorbidity and body mass index (BMI) of37.0 to 37.9 in adult ([facility]) Type II or unspecified type diabetes mellitus with neurological manifestations, not stated as uncontrolled(250.60) ([facility])- Primary Type II or unspecified type diabetes mellitus with neurological manifestations, not stated as uncontrolled Onychomycosis Dermatophytosis of nail Nail dystrophy Other specified disease of nail Hammer toe of right foot documented in this encounter [facility] HealthcareHistory general Narrative - Reported* Type Description Date Medical History type 2 diabetic Surgical Historylypotripsy 11 timesSurgical HistorygallblatterSurgical History hysteretomyHospitalization Historysee above [facility] Other History general Narrative - Reported* Type Description Date Medical History type 2 diabetic Medical HistoryfibromyalgiaSurgical Historylypotripsy 11 timesSurgical History gallblatterSurgical HistoryhysteretomySurgical Historyright knee arthroscopy Hospitalization Historysee above [facility] Other Hospital course Narrative No data available for this section [facility] Hospital Discharge instructions No data available for this section [facility] progress note No data available for this section [facility] reason for referral (narrative)No reason for referral information available[facility] Work Phone: Summary Purpose Family History No Family History Records Found Relationship Condition Age at Onset Recorded Date/T iban Not Specified Recurrent cerebrovas cular accidents (CVAs) Unknown Malignant neoplasm of lungUnknownfatherHypertensionUnknown Relationship Condition Age at Onset Recorded Date/T iban Not Specified Recurrent cerebrovas cular accidents (CVAs) Unknown Malignant neoplasm of lungUnknownfatherHypertensionUnknownfatherDeceasedUnknown Not SpecifiedHistory of strokeUnknownDeceasedUnknown Relationship Condition Age at Onset Recorded Date/T iban mother Recurrent cerebrovas cular accidents (CVAs) Unknown Malignant neoplasm of lungUnknownfatherHypertensionUnknownfatherDeceasedUnknown motherHistory of strokeUnknownDeceasedUnknown Advance Directives No Advanced Directives Records Found [...] Aftercare fo llowing joint replacement surg 1 YEARReason for VisitAftercare following right knee joint replacement surgery Chief Complaint Z47.1 Z96.651 1 YEARReason for VisitAftercare following right knee joint replacement surgery Chief Complaint Admit Date right foot pain w injury June 18, 2025 10:59am Chief Complaint Admit Date right foot pain w injury June 18, 2025 10:59am m79.671 June 18, 2025 11:[address] [facility] RIGHT FOOT FX WX June 22, 2025 8:29am Reason for Visit Admit Date Fracture of fifth metatarsal bone of rig ht foot June 18, 2025 10:59am Fracture of fifth metatarsal bone of rig ht foot June 22, 2025 8:29am Chief Complaint Admit Date right foot pain w injury June 18, 2025 10:59am m79.671 June 18, 2025 11:[address] [facility] RIGHT FOOT FX WX June 22, 2025 [...] visit, subseque nt August 19, 2025 12:53pm Chief Complaint Admit Date right foot pain w injury June 18, 2025 10:59am m79.671 June 18, 2025 11:[address] [facility] RIGHT FOOT FX WX June 22, 2025 8:29am 3 wks July 13, 2025 9: 00am S92.351A - Displaced fracture of fifth m etatarsal July 13, 2025 9:02am ER FollowUp September 09, 2025 1 :03pm Reason for Visit Admit Date Fracture of fifth metatarsal bone of rig ht foot June 18, 2025 10:59am Fracture of fifth metatarsal bone of rig ht foot June 22, 2025 8:29am Fracture of fifth metatarsal bone of rig ht foot July 13, 2025 9:00am Colonoscopy refused August 19, 2025 12:53pm Mammogram declined August 19, 2025 12:53pm Medicare annual wellness visit, subseque nt August 19, 2025 12:53pm Chief Complaint Admit Date 3 wks July 13, 2025 9: 00am S92.351A - Displaced fracture of fifth m etatarsal July 13, 2025 9:02am ER FollowUp September 09, 2025 1 :03pm 10-12 WEEKS September 28, 2025 8 :58am S92.351A - Displaced fracture of fifth m etatarsal September 28, 2025 9:00am Reason for Visit Admit Date Fracture of fifth metatarsal bone of rig ht foot July 13, 2025 9:00am Colonoscopy refused August 19, 2025 12:53pm Mammogram declined August 19, 2025 12:53pm Medicare annual wellness visit, subseque nt August 19, 2025 12:53pm Benign essential hypertension September 092024 1:03pm Dehydration, mild September 09, 2025 1 :03pm Elevated alkaline phosphatase level Octo 2024 1:03pm Elevated total protein September 09 1:03pm Fracture of fifth metatarsal bone of rig ht foot September 28, 2025 8:58am Additional Source Comments INFORMATION SOURCE (unrecogn ized section and content) DATE CREATED AUTHOR 05/17/2018 [facility] DATE CREATED AUTHOR AUTHOR'S ORGANIZ ATION 02/18/2023 [facility] DATE CREATED AUTHOR AUTHOR'S ORGANIZ ATION 02/23/2025 [facility] DATE CREATED AUTHOR AUTHOR'S ORGANIZ ATION 08/15/2025 [facility] DATE CREATED AUTHOR AUTHOR'S ORGANIZ ATION 09/29/2025 [facility] Care Team (unrecognized sect ion and content) Team Status: Active Member Role Status Dates Jorge Luis Wick MD Primary Care Provider Active Team Status: Inactive Member Role Status Dates Jorge Luis Wick MD Primary Care Provider Active S tart: July 17, 2024 End: July 17Anne Onofre II ProviderActiveStart: July 17, 2024 End: July 17, 2024 Team Status: Active Member Role Status Dates Jorge Luis Wick MD Primary Care Provider Active S tart: July 17, 2024 Anne Schmitt II ProviderActiveStart: July 17, 2024 Team Status: Inactive Member Role Status Dates PHYSICIAN NO FAMILY Primary Care Provider Active Horacio Langley ProviderActive Team Status: Active Member Role Status Dates PHYSICIAN NO FAMILY Primary Care Provider Active Team Status: Inactive Member Role Status Dates PHYSICIAN NO FAMILY Primary Care Provider Active Anne Schmitt II ProviderActive Team Status: Inactive Member Role Status Dates Jorge Luis Wick MD Primary Care Provider Active Anne Schmitt II ProviderActive Team Status: Active Member Role Status Dates Jorge Luis Wick MD Primary Care Provider Active Anne Schmitt II ProviderActive Team Status: Inactive Member Role Status Dates Jorge Luis Wick MD Primary Care Provider Active S tart: April 15, 2024 End: April 15, 2024Kerrie Cervantes ProviderActiveStart: April 15, 2024 End: April 15, 2024 Team Status: Active Member Role Status Dates Jorge Luis Wick MD Primary Care Provider Active S tart: April 15, 2024 Kerrie Cervantes ProviderActiveStart: April 15, 2024 Team MemberRelationshipSpecialtyStart DateEnd Date Jorge Luis Wick MD [address] [place] [address] PCP - GeneralFamily Medicine02/14/24Team MemberRelationshipSpecialtyStart DateEnd Date Jorge Luis Wick MD [address] [place] [address] PCP - GeneralFamily Medicine02/14/24Team MemberRelationshipSpecialtyStart DateEnd Date Jorge Luis Wick MD [address] [place] [address] PCP - GeneralFamily Medicine02/14/24Team MemberRelationshipSpecialtyStart DateEnd Date Jorge Luis Wick MD [address] [place] [address] PCP - GeneralFamily Medicine02/14/24 Jorge Luis Wick MD [address] [place] [address] PCP - [facility] Fafxejgtif69/1/24Team MemberRelationshipSpecialtyStart DateEnd Date Jorge Luis Wick MD [address] [place] [address] PCP - GeneralFamily Medicine02/14/24 Jorge Luis Wick MD [address] [place] [address] PCP - [facility] Tdcizyzouc59/1/24 Team Status: Inactive Member Role Status Dates Jorge Luis Wick MD Primary Care Provider Active S tart: June 18, 2025 End: June 18, 2025Kerrie Cervantes ProviderActiveStart: June 18, 2025 End: June 18, 2025 Team Status: Active Member Role Status Dates Jorge Luis Wick MD Primary Care Provider Active S tart: June 18, 2025 Kerrie Cervantes ProviderActiveStart: June 18, 2025 Team Status: Inactive Member Role Status Dates Jorge Luis Wick MD Primary Care Provider Active S tart: June 22, 2025 End: June 22, 2025Thomas Olexa , MDAttending ProviderActiveStart: June 22, 2025 End: June 22, 2025 Team Status: Inactive Member Role Status Dates Jorge Luis Wick MD Primary Care Provider Active S tart: July 13, 2025 End: July 13omas Olexa , MDAttending ProviderActiveStart: July 13, 2025 End: July 13, 2025 Team Status: Active Member Role Status Dates Jean Rodriguez MD Attending Provider Active Star t: July 13, 2025 Buddy Mena Care ProviderActiveStart: July 13, 2025 Team Status: Inactive Member Role Status Eliel Rodriguez MD Attending Provider Active Star t: July 13, 2025 End: July 13, 2025Buddy Mena Care ProviderActiveStart: July 13, 2025 End: July 13, 2025Team MemberRelationshipSpecialtyStart DateEnd Date Jorge Luis Wick MD [address] [place] [address] PCP - [facility] Medicine08/14/25Team MemberRelationshipSpecialtyStart DateEnd Date Jorge Luis Wick MD [address] [place] [phone] [facility]CP - [facility] Team Status: Inactive Member Role Status Dates Jorge Luis Wick MD Primary Care Provider Active S tart: August 19, 2025 End: August 19, 2025Anne Mena ProviderActiveStart: August 19, 2025 End: August 19, 2025 Team Status: Active Member Role Status Dates Jorge Luis Wick MD Primary Care Provider Active S tart: September 01, 2025 Anne Mena ProviderActiveStart: September 01, 2025 Team Status: Active Member Role Status Dates Jorge Luis Wick MD Primary Care Provider Active S tart: September 07, 2025 Elder Yancey , DOAttending ProviderActiveStart: September 07, 2025 Team Status: Inactive Member Role Status Dates Jorge Luis Wick MD Primary Care Provider Active S tart: September 09, 2025 End: September 09, 2025Anne Mena ProviderActiveStart: September 09, 2025 End: September 09, 2025 Team Status: Active Member Role/Relationship Status Dates Jorge Luis Wick MD Primary Care Provider Active Team Status: Inactive Member Role/Relationship Status Dates Jorge Luis Wick MD Primary Care Provider Active S tart: July 13, 2025 End: July 13, 2025Anne Pisano ProviderActiveStart: July 13, 2025 End: July 13, 2025 Team Status: Inactive Member Role/Relationship Status Dates Jean Rodriguez MD Attending Provider Active Star t: July 13, 2025 End: July 13, 2025[facility] Care ProviderActiveStart: July 13, 2025 End: July 13, 2025 Team Status: Inactive Member Role/Relationship Status Dates Jorge Luis Wick MD Primary Care Provider Active S tart: August 19, 2025 End: August 19, 2025Anne Mena ProviderActiveStart: August 19, 2025 End: August 19, 2025 Team Status: Active Member Role/Relationship Status Dates Jorge Luis Wick MD Primary Care Provider Active S tart: September 01, 2025 Anne Mena ProviderActiveStart: September 01, 2025 Team Status: Active Member Role/Relationship Status Dates Jorge Luis Wick MD Primary Care Provider Active S tart: September 07, 2025 Elder [place] Yancey , DOAttending ProviderActiveStart: September 07, 2025 Team Status: Inactive Member Role/Relationship Status Dates Jorge Luis Wick MD Primary Care Provider Active S tart: September 09, 2025 End: September 09, 2025[facility] Mathieu Wickending ProviderActiveStart: September 09, 2025 End: September 09, 2025 Team Status: Inactive Member Role/Relationship Status Dates Jorge Luis Wick MD Primary Care Provider Active S tart: September 28, 2025 End: September 28, 2025ThAnne Clemons ProviderActiveStart: September 28, 2025 End: September 28, 2025 Team Status: Active Member Role/Relationship Status Dates Jean Rodriguez MD Attending Provider Active Star t: September 28, 2025 Buddy Mena ProviderActiveStart: September 28, 2025 Team Status: Inactive Member Role/Relationship Status Dates Jean Rodriguez MD Attending Provider Active Star t: September 28, 2025 End: September 28, 2025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 Patient states she's tried topical fungal medications but states itdidn't do too much. PCP: Dr. Wick LV [...] BE BASED ON THE PRIMARY CLINICAL RECORDS. [employer] [facility]. provides no warranty or guarantee of the accuracy or completeness of information in this document.
[2025-11-25 10:08] LABS: Alanine Aminotransferase 21 U/L (14-59); Albumin Globulin Ratio 0.9; Albumin Level 3.4 g/dL (3.4-5.0); Alkaline Phosphatase 126 U/L (46-116); Anion Gap 14.1; Aspartate Amino Transferase 15 U/L (15-37); Blood Urea Nitrogen 23.0 mg/dL (7.0-18.0); Calcium 9.2 mg/dL (8.5-10.1); Carbon Dioxide 27.2 mmol/L (21.0-32.0); Chloride 104 mmol/L (98-107); Estimated GFR (African America >60 (>=60 mL/min/1.73m^2); Estimated GFR (Non-African Ame >60 (>=60 mL/min/1.73m^2); Globulin 4.0 g/dL; Glucose 180 mg/dL (74-106); Potassium 4.3 mmol/L (3.5-5.1); Sodium 141 mmol/L (136-145); Total Protein 7.4 g/dL (6.4-8.2)
== END 2025-11-25 09:19 | disposition home or self-care (01) ==
LOC: LAB 09:19
PROVIDERS: PCP Family Medicine; Visit Provider Family Medicine
DX: Z79.899 Other long term (current) drug therapy (principal)
CPT/HCPCS: 36415; 80053